=== PATIENT | male | born 1960 | race Caucasian/White ===

== ENCOUNTER 2022-09-06 23:10 | Inpatient (IN) | payer MEDICARE, MEDICAID, SELFPAY ==
[2022-09-06] MEDS: 0.9% Normal Saline 1,000 ML 1000 ML IV ×2 (23:10→23:44)
[2022-09-06 23:11] VITALS: BP 75/45; PULSE 95; RESP 16; TEMP 36.1; O2SAT 100; BMI 28.0
--- NOTE | 2022-09-06 23:20 | EKG12_ITS ---
Test Reason : DYSRHYTHMIA Blood Pressure : / mmHG Vent. Rate : 095 BPM Atrial Rate : 095 BPM P-R Int : 118 ms QRS Dur : 074 ms QT Int : 418 ms P-R-T Axes : 080 034 043 degrees QTc Int : 525 ms Normal sinus rhythm Nonspecific ST abnormality Prolonged QT Abnormal ECG Confirmed by DENZEL CASTRO, LUIS ([id number]), scientific publications editor YAMILE FLORES ([id number]) on 09/08/2022 2:45:00 PM Referred By: SHELLEY Confirmed By:LUIS MAHONEY MD
--- NOTE | 2022-09-06 23:22 | EDS_ITS ---
HPI History of Present Illness Chief Complaint: Fall Detail of Chief Complaint: Hematemesis Informant: patient Narrative Narrative: Patient presents via EMS secondary to vomiting up blood and fall. He has a history of alcoholism. He states he started vomiting a few hours ago and is vomiting dark bloody material. He does report some upper abdominal pain. He does report a history of cirrhosis. He does not follow with a GI or liver sp ecialist. [facility] Medical History Cirrhosis Hypertension Home Medications No Known/Unobtainable [No Known Home Medications] 07/09/17 [History Last Taken Unknown] Allergy/AdvReac Type Severity Reaction Status Date / Time morphine Allergy Unknown Verified 09/06/22 23:22 Social History Smoking Status: Current every day smoker tobacco type: cigarettes ROS ROS ED Constitutional Constitutional ED: Denies chills or fever(s) Eyes Eyes: Denies change in vision or discharge from eye(s) ENT ENT ED: Denies discharge from eye(s), rhinorrhea or sore throat Cardiovascular Cardiovascular: Denies chest pain or palpitations Respiratory/Chest Respiratory/Chest: Denies cough or dyspnea Gastrointestinal Gastrointestinal: Reports abdominal pain, nausea and vomiting Genitourinary Genitourinary ED: Denies dysuria Musculoskeletal Musculoskeletal: Denies back pain or extremity pain Integumentary Denies Abrasions or rash Neurologic Neurologic: Reports weakness; Denies headache(s) Psychiatric Psychiatric: Denies anxiety or depression Allergic/Immunologic Allergic/Immunologic ED: Denies lip swelling or urticaria EXAM Physical Exam Const Vital Signs: 09/06/22 23:11 Temperature 97 F L Temperature Source Temporal Pulse Rate 95 Respiratory Rate 16 Blood Pressure 75/45 L Blood Pressure Mean 55 Pulse Ox 100 Oxygen Delivery Method Room Air Positive unkempt General Appearance ED: unkempt HEENT Reports normocephalic and head/scalp atraumatic Eyes PERRL and EOMs intact bilaterally Neck supple Chest Wall inspection of chest normal and palpation of chest normal Resp normal respiratory effort and clear to auscultation bilaterally Cardio regular rate and regular rhythm GI GI Narrative: Upper abdominal tenderness palpation. No guarding or rebound. Hypoactive bowel sounds. Palpation: soft Extremity normal to inspection Neuro oriented x3 Neuro Narrative: Generalized weakness but no focal neurodeficits. Sensorium / Orientation: alert Psych mental status grossly normal Appearance: unkempt Skin no rashes or lesions noted MDM MDM MDM Narrative Medical decision making narrative: Patient placed on compliance monitor. EKG, lab work obtained. Patient ordered 3 L IV fluids. Type and screen obtained. Lab Data Attestation: I reviewed the patient's lab results. Labs: Laboratory Results - last 24 hr 09/06/22 09/06/22 09/06/22 23:21 23:21 23:21 WBC 5.3 RBC 1.82 L Hgb 4.2 L* Hct 14.9 L MCV 81.9 MCH 23.1 L MCHC 28.2 L RDW Std Deviation 54.5 H RDW Coeff of Bassam 18.5 H Plt Count 156 MPV 10.5 Immature Gran % (Auto) 1.500 H Neut % (Auto) 65.9 Lymph % (Auto) 19.2 [place] % (Auto) 12.8 H Eos % (Auto) 0.2 Baso % (Auto) 0.4 Absolute Neuts (auto) 3.5 Absolute Lymphs (auto) 1.02 Nucleated RBC % 1.3 Diff Path Review May foll Hypochromasia 3+ Anisocytosis 2+ PT 19.1 H INR 1.6 APTT 32.5 Sodium 144 Potassium 3.9 Chloride 109 H Carbon Dioxide 23.0 Anion Gap 12 BUN 49 H Creatinine 1.22 Estim Creat Clear Calc 65.65 Est GFR (MDRD) Af Amer 78 Est GFR (MDRD) Non-Af 64 BUN/Creatinine Ratio 40.2 H Glucose 163 H Lactic Acid Calcium 7.8 L Total Bilirubin 0.50 Direct Bilirubin 0.15 AST 27 ALT 30 Alkaline Phosphatase 76 Total Protein 4.7 L Albumin 2.1 L Globulin 2.6 Lipase 96 Ethyl Alcohol Blood Type Antibody Screen Crossmatch 09/06/22 09/06/22 09/06/22 23:21 23:21 23:30 WBC RBC Hgb Hct MCV MCH MCHC RDW Std Deviation RDW Coeff of Bassam Plt Count MPV Immature Gran % (Auto) Neut % (Auto) Lymph % (Auto) [place] % (Auto) Eos % (Auto) Baso % (Auto) Absolute Neuts (auto) Absolute Lymphs (auto) Nucleated RBC % Diff Path Review Hypochromasia Anisocytosis PT INR APTT Sodium Potassium Chloride Carbon Dioxide Anion Gap BUN Creatinine Estim Creat Clear Calc Est GFR (MDRD) Af Amer Est GFR (MDRD) Non-Af BUN/Creatinine Ratio Glucose Lactic Acid Calcium Total Bilirubin Direct Bilirubin AST ALT Alkaline Phosphatase Total Protein Albumin Globulin Lipase Ethyl Alcohol < 3.0 Blood Type O POSITIVE Antibody Screen NEGATIVE Crossmatch See Detail 09/06/22 23:30 WBC RBC Hgb Hct MCV MCH MCHC RDW Std Deviation RDW Coeff of Bassam Plt Count MPV Immature Gran % (Auto) Neut % (Auto) Lymph % (Auto) [place] % (Auto) Eos % (Auto) Baso % (Auto) Absolute Neuts (auto) Absolute Lymphs (auto) Nucleated RBC % Diff Path Review Hypochromasia Anisocytosis PT INR APTT Sodium Potassium Chloride Carbon Dioxide Anion Gap BUN Creatinine Estim Creat Clear Calc Est GFR (MDRD) Af Amer Est GFR (MDRD) Non-Af BUN/Creatinine Ratio Glucose Lactic Acid 6.6 H* Calcium Total Bilirubin Direct Bilirubin AST ALT Alkaline Phosphatase Total Protein Albumin Globulin Lipase Ethyl Alcohol Blood Type Antibody Screen Crossmatch EKG Initial EKG: Attestation: I personally reviewed and interpreted this EKG as follows: Interpretation: Sinus Rhythm (Sinus at [address] d epression. QTC is 525.) Treatment and Re-Evaluation Narrative: In light light of the patient's prolonged QTC he was given a dose of Reglan followed by dose of Phenergan for nausea. He was given Protonix drip, octreotide drip, Rocephin. Lab work returns with normal white count at 5.3. Hemoglobin is 4.2. Platelet count is 156. Chemistry studies reveal normal creatinine 1.22 with elevated BUN at 49. INR is 1.6. LFTs are unremarkable. Lactic acid is 6.6. Alcohol level is less than 3. When the patient's hemoglobin returned at 4.2, I ordered 4 units of packed RBCs. Transfusion is beginning at this time. His blood pressure is currently 97/46. I spoke with Dr. Ramon who will see the patient in consult. I will speak with the hospitalist regarding admission. Discharge Plan Triage Chief Complaint: Fall ED Provider: Iwona Early Dx/Rx/DC Orders Clinical Impression: Acute upper gastrointestinal bleeding, Anemia, Hypotension Prescriptions: No Action No Known Home Medications Primary Care Provider: Jose Alex Referrals: Jose Alex MD [Primary Care Provider] - Disposition Disposition: Acute Care [facility]
[2022-09-06] MEDS: Metoclopramide 10 MG/2 ML Vial 5 MG IV (23:29)
[2022-09-06] MEDS: 0.9% Normal Saline 1,000 ML 250 ML IV (23:49)
[2022-09-06] MEDS: proMETHazine 25 MG/ML Syringe IM (23:49)
[2022-09-06 23:50] LABS: Absolute Lymphocyte Count 1.02 X10^3/uL (0.83-4.51); Absolute Neutrophil Count 3.5 X10^3/uL (2.0-7.7); Basophil# 0.02 X10^3/uL; Basophil% 0.4 % (0-1); Eosinophil# 0.01 X10^3/uL; Eosinophils% 0.2 % (0-5); Hematocrit 14.9 % (40-54); Lymphocyte # 1.02 X10^3/ul (0.83-4.51); Lymphocyte % 19.2 % (19-41); Mean Corp Hgb Conc 28.2 g/dL (32-36); Mean Corpuscular Hgb 23.1 pg (27.0-32.0); Mean Corpuscular Volume 81.9 fL (80-94); Mean Platelet Vol. 10.5 fl (6.2-12.0); Monocyte# 0.68 X10^3/uL; Monocyte% 12.8 % (0-10); NRBC Flagged by Analyzer 1.3 % (0-5); Neutrophil # 3.51 X10^3/uL (2.7-7.7); Neutrophil % 65.9 % (47-70); POSITIVE COUNT YES; Platelet Count 156 K/mm3 (150-450); RBC Distribution Width CV 18.5 % (11.6-14.6); RBC Distribution Width SD 54.5 fl (35.1-43.9); Red Blood Count 1.82 M/mm3 (4.6-6.2); White Blood Count 5.3 K/mm3 (4.4-11.0)
[2022-09-06 23:52] LABS: International Normalized Ratio 1.6; Partial Thromboplast Time 32.5 Seconds (24.1-36.2); Prothrombin Time (Protime)PT. 19.1 SECONDS (11.7-14.9)
[2022-09-06 23:53] LABS: Differential Indicated SCAN CRITERIA MET; Hemoglobin 4.2 g/dL (13.0-16.5)
[2022-09-07] VITALS (41 sets, daily range): BP systolic 86–158; BP diastolic 46–115; PULSE 54–110; RESP 11–115; TEMP 36.4–38.6; O2SAT 15–100; BMI 28.9
[2022-09-07 00:06] LABS: AST(SGOT) 27 U/L (15-37); Alanine Aminotransfer ALT/SGPT 30 U/L (16-61); Albumin, Serum 2.1 g/dL (3.2-5.0); Alkaline Phosphatase 76 U/L (45-117); Anion Gap 12 (5-15); BUN 49 mg/dL (7-18); BUN/Creat Ratio 40.2 RATIO (10-20); Bilirubin, Direct 0.15 mg/dL (0.00-0.30); Calcium,Total 7.8 mg/dL (8.5-10.1); Chloride 109 mmol/L (98-107); Creatinine, Serum 1.22 mg/dL (0.70-1.30); EST Glomerular Filtration Rate 64 mL/min (>60); Est Glom Filt Rate - Afr Amer 78 mL/min (>60); Estimated Creatinine Clearance 65.65 ml/min; Globulin 2.6 g/dL (2.2-4.2); Glucose 163 mg/dL (74-106); Lipase 96 U/L (73-393); Potassium 3.9 mmol/L (3.5-5.1); Protein, Total 4.7 g/dL (6.4-8.2); Sodium Level 144 mmol/L (136-145)
[2022-09-07 00:08] LABS: Lactic Acid 6.6 mmol/L (0.4-1.9)
[2022-09-07 00:14] LABS: Alcohol, Blood (Medical)-Serum < 3.0 mg/dL
[2022-09-07 00:20] LABS: Anisocytosis 2+; Hypochromasia 3+
--- NOTE | 2022-09-07 00:38 | PCM.HP.STD ---
HPI - General General Date of Admission: 09/07/22 Date of Service: 09/07/22 Chief Complaint: Hematemesis HPI Narrative CHERRIE WOODARD, is a 62 M with a significant history of alcoholism who presented to the emergency department with hematemesis. History was obtained from review of system as patient is encephalopathic and does not provide history. Reportedly patient vomited multiple bloody emesis at the emergency department. [facility] Medical History Cirrhosis Hypertension Home Medications No Known/Unobtainable [No Known Home Medications] 07/09/17 [History Last Taken Unknown] Allergy/AdvReac Type Severity Reaction Status Date / Time morphine Allergy Unknown Verified 09/06/22 23:22 Family History unable to obtain unable to obtain (Encephalopathy) Surgical History unable to obtain unable to obtain (Encepalopathy) Social History Smoking Status: Current every day smoker tobacco type: cigarettes ROS Review of Systems ROS Unobtainable: due to mental condition Vital Signs Vital Signs Vital Signs: 09/06/22 23:11 09/07/22 00:36 Temperature 97 F L 98.1 F Temperature Source Temporal Temporal Pulse Rate 95 99 Respiratory Rate 16 18 Blood Pressure 75/45 L 97/46 L Blood Pressure Mean 55 63 Blood Pressure Source Monitor Pulse Ox 100 94 Oxygen Delivery Method Room Air Room Air Weight Weight: 88.7 kg Body Mass Index (BMI) 28.0 Physical Exam Narrative Physical exam: General: Well-nourished, well-developed. Head: Normocephalic, atraumatic, no tenderness Eyes: Vision is grossly intact. EOMI ENT: Edentulous, bloody stained tongue. Neck: Nontender, No thyromegaly. CVS: Regular rate and rhythm. S1-S2 present. No murmur, gallop or rub. Respiratory : clear to auscultation bilaterally, chest wall nontender, no wheezing Abdomen: Soft, nontender, nondistended, normal bowel sounds, no masses : Deferred Back: Nontender, no CVA tenderness. Extremities: Nontender full range of motion, no trauma Skin: Normal color, no trauma, abrasions Neuro: Agitated. Confused. Psychiatry: Normal mood. Normal affect. Not depressed. Not anxious. Results Lab / Micro Data Result Diagrams: 09/06/22 23:21 09/06/22 23:21 Labs: Laboratory Results - last 24 hr 09/06/22 23:21: WBC 5.3, RBC 1.82 L, Hgb 4.2 L*, Hct 14.9 L, MCV 81.9, MCH 23.1 L, MCHC 28.2 L, RDW Std Deviation 54.5 H, RDW Coeff of Bassam 18.5 H, Plt Count 156, MPV 10.5, Immature Gran % (Auto) 1.500 H, Neut % (Auto) 65.9, Lymph % (Auto) 19.2, [place] % (Auto) 12.8 H, Eos % (Auto) 0.2, Baso % (Auto) 0.4, Absolute Neuts (auto) 3.5, Absolute Lymphs (auto) 1.02, Nucleated RBC % 1.3, Diff Path Review May foll, Hypochromasia 3+, Anisocytosis 2+ 09/06/22 23:21: PT 19.1 H, INR 1.6, APTT 32.5 09/06/22 23:21: Sodium 144, Potassium 3.9, Chloride 109 H, Carbon Dioxide 23.0, Anion Gap 12, BUN 49 H, Creatinine 1.22, Estim Creat Clear Calc 65.65, Est GFR (MDRD) Af Amer 78, Est GFR (MDRD) Non-Af 64, BUN/Creatinine Ratio 40.2 H, Glucose 163 H, Calcium 7.8 L, Total Bilirubin 0.50, Direct Bilirubin 0.15, AST 27, ALT 30, Alkaline Phosphatase 76, Total Protein 4.7 L, Albumin 2.1 L, Globulin 2.6, Lipase 96 09/06/22 23:21: Blood Type O POSITIVE, Antibody Screen NEGATIVE 09/06/22 23:21: Crossmatch See Detail 09/06/22 23:30: Ethyl Alcohol < 3.0 09/06/22 23:30: Lactic Acid 6.6 H* Assessment & Plan Assessment/Plan (1) Hemorrhagic shock: (2) Acute upper gastrointestinal bleeding: (3) Anemia: PLAN: Plan Hemorrhagic shock due to acute blood loss anemia from upper GI Initial blood pressure 75/45. Bloody emesis. 4 units of packed red blood cells ordered at the emergency department. Trend H&H. Received multiple boluses of fluid in the ED. Maintenance infusion continued. Protonix drip started at the emergency department and continued. Octreotide drip started at the emergency department continued. Ceftriaxone ordered at the emergency department continued. Keep n.p.o. GI consult. Will admit intensive care unit. Land Surveying Manager consult. Prolonged QTC Avoid QTC prolongation drugs. Alcoholism CIWA protocol ordered. As needed Ativan ordered. IV thiamine and IV folic acid ordered. DVT prophylaxis: SCDs ordered. Charges/Coding Visit Charges Inpatient E&M: 61621 Init Hosp L3
[2022-09-07] MEDS: 0.9% Normal Saline 1,000 ML 999 ML IV (00:39)
[2022-09-07] MEDS: fentaNYL 100 MCG/2 ML Ampul 12.5 MCG IV (01:32)
--- NOTE | 2022-09-07 01:46 | NURSING ---
Protonix bolus given start Protonix drip in one hour per hospitalist verbal order.
[2022-09-07 03:51] LABS: Reflex Lactate? Y
[2022-09-07] MEDS: 0.9% Normal Saline 1,000 ML 150 ML IV ×3 (04:17→18:58)
[2022-09-07] MEDS: 0.9% Saline Lock 10 ML Syringe IV (04:17)
[2022-09-07 04:38] LABS: Anion Gap 9 (5-15); BUN 51 mg/dL (7-18); BUN/Creat Ratio 50.5 RATIO (10-20); Calcium,Total 7.6 mg/dL (8.5-10.1); Chloride 111 mmol/L (98-107); Creatinine, Serum 1.01 mg/dL (0.70-1.30); EST Glomerular Filtration Rate 80 mL/min (>60); Est Glom Filt Rate - Afr Amer 96 mL/min (>60); Estimated Creatinine Clearance 76.81 ml/min; Glucose 124 mg/dL (74-106); Potassium 4.2 mmol/L (3.5-5.1); Sodium Level 144 mmol/L (136-145)
[2022-09-07 04:47] LABS: Lactic Acid 3.4 mmol/L (0.4-1.9)
--- NOTE | 2022-09-07 06:00 | RAD_ITS ---
EXAM: XR CHEST, 1 VIEW CLINICAL INDICATION: aspiration -- portable TECHNIQUE: Frontal view of the chest. This report was created using Equivalent DATA report generation technology. COMPARISON: 07/09/2017. FINDINGS: LUNGS AND PLEURAL SPACES: Unremarkable. No consolidation or edema. No pneumothorax. No effusion. HEART: Unremarkable. Cardiac silhouette not enlarged. MEDIASTINUM: Central airways and mediastinal contour are unremarkable. BONES/JOINTS: Unremarkable. SOFT TISSUES: Unremarkable. RAD/Chest 1 View (Portable) IMPRESSION: No radiographic evidence of acute cardiopulmonary disease. Electronically Signed: Nilo Ferguson MD at 7:21 EST ,
--- NOTE | 2022-09-07 07:32 | EX.PCM.CONCC ---
Assessment & Plan Assessment/Plan (1) Hemorrhagic shock: (2) Acute upper gastrointestinal bleeding: (3) Cirrhosis: PLAN: Plan RECOMMENDATIONS: 1. Transition to Unasyn for aspiration coverage 2. Recheck H&H after blood transfusions 3. Potentially add phenobarb if CIWA increasing 4. Await GI plans 5. Continue drips for now 6. No further lactate levels are necessary IMPRESSIONS: 1. Hemorrhagic shock secondary to acute blood loss anemia secondary to probable upper GI bleed Patient presented significantly hypotensive with a hemoglobin of 4. Clinical suspicion is patient has had chronic ongoing blood loss with poor follow-up. GI has been consulted. Patient is receiving 4 units of packed red blood cells and appears to be tolerating this well. We will repeat H&H after this is done. Continue with octreotide and Protonix drips pending EGD. 2. Prolonged QTC Unclear etiology. Avoid Haldol and Seroquel. Likely used benzodiazepines for agitation given patient's drinking history despite increased risk for delirium. 3. Alcoholism/poor historian/poor primary care Complicates care, management, recovery and prognosis. Continue to monitor CIWA protocol. Initiate phenobarb if scores start to elevate. HPI Consult Data Date of Consult: 09/07/22 HPI Narrative Reason for Consultation: GI bleed HPI Narrative: CHERRIE WOODARD is a 62 M, with past medical history listed below, who presents to [facility] on 09/06/2022 after being found by EMS surrounded by vomit with some blood and a fall. Patient does have a history of alcoholism and reportedly started to cough up some dark bloody material. Patient had reported some upper abdominal pain and cirrhosis to EMS. In the ER, patient was saturating well on room air, but was hypotensive at 75/45 with a heart rate of 95. Laboratory work-up showed a white blood cell count of 5.3, hemoglobin of 4.2 and platelets of 156. INR was elevated at 1.6 and creatinine was 1.22. Glucose was elevated at 163 with a negative alcohol level and a lactate of 6.6. Patient was given Rocephin, octreotide and Protonix drips. Patient was also ordered 4 units of packed red blood cells and GI was consulted. Patient was admitted to the intensive care unit for further evaluation. In the intensive care unit, patient is somewhat confused. Patient states at times that he only drinks 1 beer per day, but it others that he buys 60 beers per week, but my neighbor is the one that drinks it all. Patient does state that he used to have an alcohol problem in the past. Patient is unable to quantify how long he has been having GI losses. Patient does state that occasionally he will have hemorrhoidal type bleeding, but is denying any melena. Unable to obtain a full review of systems and review of PFSH secondary to poor historian. [facility]SH Medical History Cirrhosis Hypertension Home Medications No Known/Unobtainable [No Known Home Medications] 07/09/17 [History Last Taken Unknown] Allergy/AdvReac Type Severity Reaction Status Date / Time morphine Allergy Unknown Verified 09/06/22 23:22 Family History unable to obtain Surgical History unable to obtain Social History Smoking Status: Current every day smoker tobacco type: cigarettes ROS Review of Systems ROS Unobtainable: due to mental status Physical Exam Const alert, oriented x3 and no apparent distress Constitutional Narrative: Appears older than stated age General Appearance: Negative for in distress HEENT normocephalic and head/scalp atraumatic; Negative for moist oral mucous membranes HEENT Narrative: Edentulous Eyes PERRL, EOMs intact bilaterally and conjunctivae normal Eyes Narrative: Scleral injection noted Neck full ROM Lymph Lymphatic: no lymphadenopathy noted Resp normal respiratory effort and no use of accessory muscles Resp Narrative: Slightly muffled speech Effort and Inspection: able to speak in complete sentences Auscultation: clear to auscultation bilaterally; Negative for rales, rhonchi or wheezes Cardio regular rhythm, S1 normal heart sound, S2 normal heart sound, no murmurs, no rub, no gallops and no JVD Rate: tachycardic GI normal to inspection, nondistended, normoactive bowel sounds Narrative: Mild CVA tenderness noted Extremity no clubbing, cyanosis or edema Skin Skin Narrative: Scattered telangiectasias noted Neuro CN's II-XII intact bilaterally, moves all extremities and no focal motor deficits Psych Activity / Motor Behavior: restless Mood & Affect: flat affect Lab / Micro Data Attestation: I reviewed the patient's lab results. Result Diagrams: 09/07/22 09:45 09/07/22 04:15 Labs: Laboratory Results - last 24 hr 09/06/22 23:21: WBC 5.3, RBC 1.82 L, Hgb 4.2 L*, Hct 14.9 L, MCV 81.9, MCH 23.1 L, MCHC 28.2 L, RDW Std Deviation 54.5 H, RDW Coeff of Bassam 18.5 H, Plt Count 156, MPV 10.5, Immature Gran % (Auto) 1.500 H, Neut % (Auto) 65.9, Lymph % (Auto) 19.2, [place] % (Auto) 12.8 H, Eos % (Auto) 0.2, Baso % (Auto) 0.4, Absolute Neuts (auto) 3.5, Absolute Lymphs (auto) 1.02, Nucleated RBC % 1.3, Diff Path Review May foll, Hypochromasia 3+, Anisocytosis 2+ 09/06/22 23:21: PT 19.1 H, INR 1.6, APTT 32.5 09/06/22 23:21: Sodium 144, Potassium 3.9, Chloride 109 H, Carbon Dioxide 23.0, Anion Gap 12, BUN 49 H, Creatinine 1.22, Estim Creat Clear Calc 65.65, Est GFR (MDRD) Af Amer 78, Est GFR (MDRD) Non-Af 64, BUN/Creatinine Ratio 40.2 H, Glucose 163 H, Calcium 7.8 L, Total Bilirubin 0.50, Direct Bilirubin 0.15, AST 27, ALT 30, Alkaline Phosphatase 76, Total Protein 4.7 L, Albumin 2.1 L, Globulin 2.6, Lipase 96 09/06/22 23:21: Blood Type O POSITIVE, Antibody Screen NEGATIVE 09/06/22 23:21: Crossmatch See Detail 09/06/22 23:30: Ethyl Alcohol < 3.0 09/06/22 23:30: Lactic Acid 6.6 H* 09/07/22 04:15: Sodium 144, Potassium 4.2, Chloride 111 H, Carbon Dioxide 24.0, Anion Gap 9, BUN 51 H, Creatinine 1.01, Estim Creat Clear Calc 76.81, Est GFR (MDRD) Af Amer 96, Est GFR (MDRD) Non-Af 80, BUN/Creatinine Ratio 50.5 H, Glucose 124 H, Calcium 7.6 L 09/07/22 04:15: Lactic Acid 3.4 H* Radiology Impression Chest X-Ray 09/07/22 06:00 IMPRESSION: No radiographic evidence of acute cardiopulmonary disease. Electronically Signed: Cherrie Ferguson MD at 7:21 EST , Charges/Coding Visit Charges Inpatient E&M: 48238 Init Hosp L3
--- NOTE | 2022-09-07 07:33 | CON.PCM.GI_ITS ---
HPI Consult Data Date of Consult: 09/07/22 HPI Narrative Reason for Consultation: Hematemesis HPI Narrative: NILO WOODARD, is a 62 M who presented via EMS secondary to vomiting up blood and fall.? He has a history of alcoholism.? He states he started vomiting a few hours ago and is vomiting dark bloody material.? He does report some upper abdominal pain.? He does report a history of cirrhosis secondary to alcohol. It is not known if he has a history of hepatitis C. In the ED he was discovered to have a hemoglobin of 4.2. His previous hemoglobin was 13 with elevated MCV at 108 and a platelet count of 89 on his last visit to the emergency room. Currently his platelet count is 125, hemoglobin is 4.2, white blood cell count is 5.8 with INR 1.6. He cannot give a very good history at this time so most of the history is obtained from the chart. Chest x-ray did not show any acute cardiopulmonary process. He does not have any imaging of his liver. Currently he is mildly tachycardic and febrile to 101.4..? [facility] Medical History Cirrhosis Hypertension Home Medications No Known/Unobtainable [No Known Home Medications] 07/09/17 [History Last Taken Unknown] Allergy/AdvReac Type Severity Reaction Status Date / Time morphine Allergy Unknown Verified 09/06/22 23:22 Family History unable to obtain Surgical History unable to obtain Social History Smoking Status: Current every day smoker tobacco type: cigarettes ROS Review of Systems ROS Unobtainable: due to mental condition Physical Exam Narrative Physical exam: General: Well-nourished, well-developed. Head: Normocephalic, atraumatic, no tenderness Eyes: Vision is grossly intact. EOMI ENT: Edentulous, bloody stained tongue. Neck: Nontender, No thyromegaly. CVS: Regular rate and rhythm. S1-S2 present. No murmur, gallop or rub. Respiratory : clear to auscultation bilaterally, chest wall nontender, no wheezing Abdomen: Soft, nontender, nondistended, normal bowel sounds, no masses : Deferred Back: Nontender, no CVA tenderness. Extremities: Nontender full range of motion, no trauma Skin: Normal color, no trauma, abrasions Neuro: Agitated. Confused. Psychiatry: Normal mood. Normal affect. Not depressed. Not anxious. Lab / Micro Data Result Diagrams: 09/06/22 23:21 09/07/22 04:15 Labs: Laboratory Results - last 24 hr 09/06/22 23:21: WBC 5.3, RBC 1.82 L, Hgb 4.2 L*, Hct 14.9 L, MCV 81.9, MCH 23.1 L, MCHC 28.2 L, RDW Std Deviation 54.5 H, RDW Coeff of Bassam 18.5 H, Plt Count 156, MPV 10.5, Immature Gran % (Auto) 1.500 H, Neut % (Auto) 65.9, Lymph % (Auto) 19.2, [place] % (Auto) 12.8 H, Eos % (Auto) 0.2, Baso % (Auto) 0.4, Absolute Neuts (auto) 3.5, Absolute Lymphs (auto) 1.02, Nucleated RBC % 1.3, Diff Path Review May foll, Hypochromasia 3+, Anisocytosis 2+ 09/06/22 23:21: PT 19.1 H, INR 1.6, APTT 32.5 09/06/22 23:21: Sodium 144, Potassium 3.9, Chloride 109 H, Carbon Dioxide 23.0, Anion Gap 12, BUN 49 H, Creatinine 1.22, Estim Creat Clear Calc 65.65, Est GFR (MDRD) Af Amer 78, Est GFR (MDRD) Non-Af 64, BUN/Creatinine Ratio 40.2 H, Glucose 163 H, Calcium 7.8 L, Total Bilirubin 0.50, Direct Bilirubin 0.15, AST 27, ALT 30, Alkaline Phosphatase 76, Total Protein 4.7 L, Albumin 2.1 L, Globulin 2.6, Lipase 96 09/06/22 23:21: Blood Type O POSITIVE, Antibody Screen NEGATIVE 09/06/22 23:21: Crossmatch See Detail 09/06/22 23:30: Ethyl Alcohol < 3.0 09/06/22 23:30: Lactic Acid 6.6 H* 09/07/22 04:15: Sodium 144, Potassium 4.2, Chloride 111 H, Carbon Dioxide 24.0, Anion Gap 9, BUN 51 H, Creatinine 1.01, Estim Creat Clear Calc 76.81, Est GFR (MDRD) Af Amer 96, Est GFR (MDRD) Non-Af 80, BUN/Creatinine Ratio 50.5 H, Glucose 124 H, Calcium 7.6 L 09/07/22 04:15: Lactic Acid 3.4 H* Radiology Impression Chest X-Ray 09/07/22 06:00 IMPRESSION: No radiographic evidence of acute cardiopulmonary disease. Electronically Signed: Nilo Ferguson MD at 7:21 EST , Assessment & Plan Assessment/Plan (1) Acute upper gastrointestinal bleeding: PLAN: Differential diagnosis for upper GI bleed would be acute esophageal, gastric, duodenum variceal bleeding, Tejal-Telles tear, alcoholic gastritis, peptic ulcer disease., Angiodysplasia. Patient undergoing upper endoscopy to evaluate his upper GI tract. At that time we may be able to place an NG tube to give him lactulose. (2) Cirrhosis: PLAN: He will need imaging of his liver with a CT scan abdomen pelvis. He will also need an ultrasound of the liver. If he truly does have cirrhosis by his blood work does not show it. His platelet count is normal, his LFTs are normal, his INR is mildly elevated but that could be secondary to poor nutrition. I will wait to see what the imaging shows regarding likely cirrhosis. (3) Encephalopathy: PLAN: Acute encephalopathy likely secondary to GI bleed. Awaiting his repeat CBC. He may need NG tube with lactulose administration which can be done when he has endoscopy. Recommend to check ammonia level, LDH, await blood cultures, urine cultures and imaging to look for source of infection. Charges/Coding Visit Charges Inpatient E&M: 10441 Init Hosp L3
--- NOTE | 2022-09-07 07:41 | US_ITS ---
HISTORY: cirrhosis and encephalopathy. TECHNIQUE: Ulloa scale and color doppler imaging was performed of the right upper quadrant. 77 images. COMPARISON: None. FINDINGS: LIVER: 18.4 cm in length. Markedly heterogeneous echotexture with a nodular contour and a 4.3 x 4.4 x 4.5 cm heterogeneous mass in the right lobe. No intrahepatic ductal dilatation. Trace perihepatic ascites. MAIN PORTAL VEIN: Patent. COMMON BILE DUCT: 6 mm in diameter. GALLBLADDER: Multiple gallstones. 10 mm wall thickness. Mild pericholecystic fluid. Sonographic Florian sign negative. PANCREAS: Visualized proximal portion unremarkable. RIGHT KIDNEY: 11.5 cm in length with a cortical thickness of 1.9 cm. No hydronephrosis or gross renal mass demonstrated. US/Abdomen Limited IMPRESSION: Cirrhotic liver with a 4.5 cm mass, suspicious for neoplasm. Trace ascites. Cholelithiasis with gallbladder wall thickening and mild pericholecystic fluid from generalized edema or acute cholecystitis. Consider correlation with scintigraphy. N.B. : Pippa Martinez RN, confirmed on 09/07/2022 12:02:31 (ET) that the healthcare facility has received the radiology report. Electronically Signed: Janene Holden MD at 11:49 EST ,
[2022-09-07 09:56] LABS: Absolute Lymphocyte Count 1.65 X10^3/uL (0.83-4.51); Absolute Neutrophil Count 6.2 X10^3/uL (2.0-7.7); Basophil# 0.03 X10^3/uL; Basophil% 0.3 % (0-1); Eosinophil# 0.07 X10^3/uL; Eosinophils% 0.8 % (0-5); Hematocrit 25.4 % (40-54); Hemoglobin 8.1 g/dL (13.0-16.5); Lymphocyte # 1.65 X10^3/ul (0.83-4.51); Lymphocyte % 18.4 % (19-41); Mean Corp Hgb Conc 31.9 g/dL (32-36); Mean Corpuscular Volume 81.7 fL (80-94); Mean Platelet Vol. 9.5 fl (6.2-12.0); Monocyte# 1.01 X10^3/uL; Monocyte% 11.2 % (0-10); NRBC Flagged by Analyzer 0 % (0-5); Neutrophil # 6.19 X10^3/uL (2.7-7.7); Neutrophil % 68.9 % (47-70); Platelet Count 128 K/mm3 (150-450); RBC Distribution Width CV 17.2 % (11.6-14.6); RBC Distribution Width SD 51.1 fl (35.1-43.9); Red Blood Count 3.11 M/mm3 (4.6-6.2)
[2022-09-07 10:06] LABS: International Normalized Ratio 1.5; Partial Thromboplast Time 31.1 Seconds (24.1-36.2); Prothrombin Time (Protime)PT. 17.3 SECONDS (11.7-14.9)
--- NOTE | 2022-09-07 11:42 | CASEMGMT ---
Social Work SW called pt's PCP, Dr. Alex, to see if there is any other family listed as contacts for him. They also have pt's mother Nirav Avendaño at [phone]. Pt has not been to Dr. Alex since 2018. ALICE Doss
--- NOTE | 2022-09-07 12:00 | CT_ITS ---
STUDY: CT ABDOMEN AND PELVIS WITH CONTRAST REASON FOR EXAM: Male, 62 years old. Jaundice, liver mass, cirrhosis RADIATION DOSAGE (If Supplied By Facility): CTDIvol = ( 19.12 ) mGy, DLP = ( 1798.63 ) mGycm TECHNIQUE: Transaxial images were obtained from the dome of the diaphragm to the symphysis pubis without oral contrast. IV 100mL Isovue-300 was administered. Sagittal and coronal images were reconstructed. Individualized dose optimization techniques were used for this CT. COMPARISON: Comparison is made with prior ultrasound of the right upper quadrant done earlier in the day. FINDINGS: Mild increased markings at lung bases suggestive of a atelectasis and/or scarring. Coronary artery calcification. There is a diffuse contour abnormality of the liver consistent with cirrhotic changes. There is enlargement of the caudate lobe of the liver. Heterogeneous appearance of the liver. Findings suggestive of multiple small cysts throughout both the right and left lobes. There is evidence of a 4 cm x 4.1 cm heterogeneous solid mass in the mid lateral portion of the right lobe of the liver. This corresponds to the sonographic findings. Mildly distended gallbladder. Thickened gallbladder wall. Pericholecystic fluid. Small gallstones are seen in the dependent portion of the gallbladder lumen. Normal spleen. Normal pancreas. Normal bilateral adrenal glands. Small cysts are seen in the right kidney. There is a 4.1 cm x 3.1 cm complex cystic mass in the peripheral inferior aspect of the left kidney with a calcific rim. Small left renal cysts. Circumferential thickening of the gastroesophageal junction. Esophageal carcinoma should be ruled out. Normal small intestine. Large amount of fecal material is seen throughout the colon more prominent in the right hemicolon. The appendix is visualized and appears normal. There is scattered atherosclerotic calcification of the abdominal aorta, without a demonstrated aneurysm. Normal inferior vena cava. Normal retroperitoneum. A ERICKSON catheter is seen within the urinary bladder. The urinary bladder is empty. Diffuse bladder wall thickening. Small amount of free fluid is seen in the pelvis. Small amount of fluid is seen in the root of the mesentery. Calcifications seen within the prostate. Normal abdominal wall. There are degenerative changes of the visualized lumbar spine. CT/Abdomen/Pelvis W IV Cont ONLY IMPRESSION: Findings suggestive of cirrhosis of the liver. 4 cm x 4.1 cm heterogeneous solid mass in the mid lateral aspect of the right lobe of the liver. This corresponds to the sonographic findings. Mildly distended gallbladder lumen with thickened gallbladder wall and pericholecystic fluid. Small gallstones are seen within the dependent portion of the gallbladder lumen. Electronically Signed: Primo Luz MD at 14:04 EST ,
--- NOTE | 2022-09-07 15:15 | CASEMGMT ---
RN CM NOTE: TC to pt's mom, Kimberli, for initial RN CM assessment. Pt's father, Chilango, answered the phone. He states Kimberli just left to come to [facility] to see pt, and it would take approx an hour for her to get to [facility]. RN asked Chilango if he was able to answer some questions re: Nilo. Chilango states he is sick and that Kimberli would be able to answer questions better. Chilango did state pt has 2 sons, stating one lives here and states does not know where the other son is. Fito PABLON RN CM
--- NOTE | 2022-09-07 15:30 | NURSING ---
pt transferred off floor to endoscopy via endoscopy staff. Two rings unable to be taken off, pt to endo with two rings on left hand. Endo staff to call motherKimberli to review risks.
[2022-09-07 16:20] LABS: Troponin-I HS 41 pg/mL (3.0-78.0)
[2022-09-07 16:20] LABS: Troponin-I HS 35 pg/mL (3.0-78.0)
--- NOTE | 2022-09-07 16:48 | OP.EGD_ITS ---
Patient Name: Nilo Hood Procedure Date: 09/07/2022 4:13 PM Date of : 1960 Age: 62 Procedure: Upper GI endoscopy Indications: Acute post hemorrhagic anemia, Hematemesis Providers: Sheldon Ramon DO Medicines: Monitored Anesthesia Care Patient Profile: This is a 62 year old male. Refer to note in patient chart for documentation of history and physical. Patient has symptoms of acute vomiting. Complications: No immediate complications. Procedure: Pre-Anesthesia Assessment: - Prior to the procedure, a History and Physical was performed, and patient medications and allergies were reviewed. The patient is competent. The risks and benefits of the procedure and the sedation options and risks were discussed with the patient. All questions were answered and informed consent was obtained. Patient identification and proposed procedure were verified by the physician in the pre-procedure area. Mental Status Examination: alert and oriented. Airway Examination: normal oropharyngeal airway and neck mobility. Respiratory Examination: clear to auscultation. CV Examination: normal. Prophylactic Antibiotics: The patient does not require prophylactic antibiotics. Prior Anticoagulants: The patient has taken no previous anticoagulant or antiplatelet agents. ASA Grade Assessment: II - A patient with mild systemic disease. After reviewing the risks and benefits, the patient was deemed in satisfactory condition to undergo the procedure. The anesthesia plan was to use monitored anesthesia care (MAC). Immediately prior to administration of medications, the patient was re-assessed for adequacy to receive sedatives. The heart rate, respiratory rate, oxygen saturations, blood pressure, adequacy of pulmonary ventilation, and response to care were monitored throughout the procedure. The physical status of the patient was re-assessed after the procedure. After obtaining informed consent, the endoscope was passed under direct vision. Throughout the procedure, the patient's blood pressure, pulse, and oxygen saturations were monitored continuously. The gastroscope was introduced through the mouth, and advanced to the second part of duodenum. The upper GI endoscopy was accomplished without difficulty. The patient tolerated the procedure well. Scope In: 4:28:13 PM Scope Out: 4:42:28 PM Total Procedure Duration Time 0 hours 14 minutes 15 seconds Findings: Grade III varices were found in the upper third of the esophagus, in the middle third of the esophagus and in the lower third of the esophagus. They were 5 mm in largest diameter. Three bands were successfully placed with incomplete eradication of varices. There was no bleeding during, and at the end, of the procedure. Hematin (altered blood/obrtin-ixydjr-sxfu material) was found in the stomach. Three oozing cratered gastric ulcers with a visible vessel were found in the prepyloric region of the stomach. The largest lesion was 6 mm in largest dimension. Area was successfully injected with 5 mL of a 1:10,000 solution of epinephrine for drug delivery. Coagulation for hemostasis using heater probe was successful. Estimated blood loss was minimal. No gross lesions were noted in the duodenal bulb. Impression: - Grade III esophageal varices. Incompletely eradicated. Banded. - Hematin (altered blood/ktfsyv-scceit-kbcz material) in the stomach. - Oozing gastric ulcers with a visible vessel. Injected. Treated with a heater probe. - No gross lesions in the duodenal bulb. - No specimens collected. Recommendation: - Return patient to [facility]. - NPO. - Continue present medications. Procedure Code(s): --- Professional --- 70331, Esophagogastroduodenoscopy, flexible, transoral; with band ligation of esophageal/gastric varices 16304, 59, Esophagogastroduodenoscopy, flexible, transoral; with control of bleeding, any method 30714, 59, Esophagogastroduodenoscopy, flexible, transoral; with directed submucosal injection(s), any substance CPT copyright 2017 [employer]. All rights reserved. The codes documented in this report are preliminary and upon supervisor carbon paper coating review may be revised to meet current compliance requirements. Sheldon Ramon DO 09/07/2022 4:48:29 PM This report has been signed electronically. Number of Addenda: 0 Note Initiated On: 09/07/2022 4:13 PM
--- NOTE | 2022-09-07 16:49 | OP.CCLET_ITS ---
09/07/2022 Jose Alex [address] [place] [address] Re : Upper GI endoscopy procedure for Nilo Hood Dear Dr. Alex This procedure was performed on Wednesday, September 07, 2022. My impressions and recommendations are as follows: Impressions : - Grade III esophageal varices. Incompletely eradicated. Banded. - Hematin (altered blood/lbpvrf-fhztid-tsil material) in the stomach. - Oozing gastric ulcers with a visible vessel. Injected. Treated with a heater probe. - No gross lesions in the duodenal bulb. - No specimens collected. Recommendations : - Return patient to [facility] for [facility]. - NPO. - Continue present medications. My findings are described in the full procedure note, which is enclosed. If I can be of further assistance, please feel free to contact me at . Sincerely, Sheldon Friend, 09/07/2022 4:48:29 PM This report has been signed electronically.
[2022-09-07] MEDS: LORazepam 2 MG/ML Syringe IV (23:35)
--- NOTE | 2022-09-07 23:40 | NURSING ---
pt restless getting out of bed. refusing to listen to nursing staff. Pt then said he had to poop. pt placed on bsc. Pt demanding something to drink. Informed npo . mouth swab given. Pt remains restless. ativn given see sarahi
--- NOTE | 2022-09-07 23:54 | NURSING ---
Pt did noting on bsc. Pt verbal abuse to staff. It took 3 people to get pt back to bed. then yelled at staff about his back. Pt telling staff my grandpa is a made man?.
[2022-09-08] VITALS (21 sets, daily range): BP systolic 109–170; BP diastolic 57–89; PULSE 71–84; RESP 16–20; TEMP 36.7–37.7; O2SAT 94–97
[2022-09-08] MEDS: 0.9% Normal Saline 1,000 ML 150 ML IV ×4 (00:09→17:45)
[2022-09-08] MEDS: LORazepam 2 MG/ML Syringe IV ×2 (02:20→07:51)
[2022-09-08 05:47] LABS: Absolute Lymphocyte Count 1.01 X10^3/uL (0.83-4.51); Absolute Neutrophil Count 6.8 X10^3/uL (2.0-7.7); Basophil# 0.03 X10^3/uL; Basophil% 0.3 % (0-1); Eosinophil# 0.21 X10^3/uL; Eosinophils% 2.4 % (0-5); Hematocrit 25.9 % (40-54); Hemoglobin 8.1 g/dL (13.0-16.5); Lymphocyte # 1.01 X10^3/ul (0.83-4.51); Lymphocyte % 11.6 % (19-41); Mean Corp Hgb Conc 31.3 g/dL (32-36); Mean Corpuscular Hgb 26.6 pg (27.0-32.0); Mean Corpuscular Volume 85.2 fL (80-94); Mean Platelet Vol. 9.9 fl (6.2-12.0); Monocyte# 0.63 X10^3/uL; Monocyte% 7.2 % (0-10); NRBC Flagged by Analyzer 0 % (0-5); Neutrophil # 6.79 X10^3/uL (2.7-7.7); Neutrophil % 78.2 % (47-70); Platelet Count 119 K/mm3 (150-450); RBC Distribution Width CV 17.6 % (11.6-14.6); RBC Distribution Width SD 54.6 fl (35.1-43.9); Red Blood Count 3.04 M/mm3 (4.6-6.2); White Blood Count 8.7 K/mm3 (4.4-11.0)
[2022-09-08] MEDS: Phenobarbital 32.4 MG Tablet 97.2 MG PO (06:30)
--- NOTE | 2022-09-08 06:55 | PN.CC_ITS ---
Assessment & Plan Assessment/Plan (1) Hemorrhagic shock: (2) Acute upper gastrointestinal bleeding: (3) Cirrhosis: PLAN: Plan RECOMMENDATIONS: 1. Continue Unasyn for aspiration coverage 2. Hold on further blood transfusions 3. Initiate phenobarb taper 4. Await GI plans 5. Continue drips for now 6. Defer to GI on initiation of p.o. diet IMPRESSIONS: 1. Hemorrhagic shock secondary to acute blood loss anemia secondary to probab le upper GI bleed Patient presented significantly hypotensive with a hemoglobin of 4. Clinical suspicion is patient has had chronic ongoing blood loss with poor follow-up. Patient with significant findings on EGD including varices and an ulcer with a visible vessel. Interventions were completed and H&H appears to be relatively stable. Will defer to GI on timing of p.o. intake. 2. Prolonged QTC Unclear etiology. Avoid Haldol and Seroquel. Likely used benzodiazepines for agitation given patient's drinking history despite increased risk for delir ium. Patient will be placed on phenobarbital taper 3. Alcoholism/poor historian/poor primary care Complicates care, management, recovery and prognosis. Continue to monitor CIWA protocol. Initiate phenobarb taper 4. Possible hepatocellular carcinoma Imaging studies are suggestive of possible hepatocellular carcinoma. Alpha-fetoprotein is currently pending. GI is following. Poor long-term prognosis given concomitant factors. Patient does remain a full code, but this may need to be evaluated given GI situation in the setting of active alcohol abuse. Subjective Subjective Patient did okay overnight. Patient continues to have intermittent periods of i mpulsivity. Patient with some fever overnight. Patient is still resistant to provide information. Objective Data Objective Data Results of EGD were personally reviewed. Patient also has findings consistent with possible hepatocellular carcinoma on imaging studies. Vital Signs: Vital Signs Temp Pulse Resp BP Pulse Ox O2 Del Method O2 Flow Rate 37.4 C H 77 17 170/82 H 96 Room Air 2 09/08/22 06:33 09/08/22 06:33 09/08/22 06:33 09/08/22 06:33 09/08/22 05:00 09/08/22 06:33 09/07/22 17:00 Oxygen Flow Rate (L/min) 2 Oxygen Delivery Method Room Air Weight: 88.9 kg Body Mass Index (BMI) 28.9 Intake & Output: Intake and Output for Last 24 Hours 09/06/22 09/07/2209/08/23 23:59 23:59 23:59 Intake Total 566.67 / 566.67 6446.19 / 6446.19 1842.0 / 1842.0 Output Total 2675 / 2675 700 / 700 Balance 566.67 / 566.67 3771.19 / 3771.19 1142.0 / 1142.0 Lab / Micro Data Attestation: I reviewed the patient's lab results. Result Diagrams: 09/08/22 02:55 09/07/22 04:15 Labs: Laboratory Results - last 24 hr 09/06/22 13:21: Troponin I High Sens 35 09/07/22 04:15: Troponin I High Sens 41 09/07/22 09:45: Hgb Cancelled, Hct Cancelled 09/07/22 09:45: PT 17.3 H, INR 1.5, APTT 31.1 09/07/22 09:45: WBC 9.0, RBC 3.11 L, Hgb 8.1 L, Hct 25.4 L, MCV 81.7, MCH 26.0 L , MCHC 31.9 L D, RDW Std Deviation 51.1 H, RDW Coeff of Bassam 17.2 H, Plt Count 128 L, MPV 9.5, Immature Gran % (Auto) 0.400, Neut % (Auto) 68.9, Lymph % (Auto) 18.4 L, [place] % (Auto) 11.2 H, Eos % (Auto) 0.8, Baso % (Auto) 0.3, Absolute Neuts (auto) 6.2, Absolute Lymphs (auto) 1.65, Nucleated RBC % 0 09/08/22 02:55: WBC 8.7, RBC 3.04 L, Hgb 8.1 L, Hct 25.9 L, MCV 85.2, MCH 26.6 L , MCHC 31.3 L, RDW Std Deviation 54.6 H, RDW Coeff of Bassam 17.6 H, Plt Count 119 L, MPV 9.9, Immature Gran % (Auto) 0.300, Neut % (Auto) 78.2 H, Lymph % (Auto) 11.6 L, [place] % (Auto) 7.2, Eos % (Auto) 2.4, Baso % (Auto) 0.3, Absolute Neuts (auto) 6.8, Absolute Lymphs (auto) 1.01, Nucleated RBC % 0 Radiography Diagnostic Testing: Radiology Impression Chest X-Ray 09/07/22 06:00 IMPRESSION: No radiographic evidence of acute cardiopulmonary disease. Electronically Signed: Nilo Ferguson MD at 7:21 EST , Abdomen Ultrasound 09/07/22 07:41 IMPRESSION: Cirrhotic liver with a 4.5 cm mass, suspicious for neoplasm. Trace ascites. Cholelithiasis with gallbladder wall thickening and mild pericholecystic fluid from generalized edema or acute cholecystitis. Consider correlation with scintigraphy. N.B. : Pippa Martinez RN, confirmed on 09/07/2022 12:02:31 (ET) that the healthcare facility has received the radiology report. Electronically Signed: Janene Holden MD at 11:49 EST , Abdomen/Pelvis CT 09/07/22 12:00 IMPRESSION: Findings suggestive of cirrhosis of the liver. 4 cm x 4.1 cm heterogeneous solid mass in the mid lateral aspect of the right lobe of the liver. This corresponds to the sonographic findings. Mildly distended gallbladder lumen with thickened gallbladder wall and pericholecystic fluid. Small gallstones are seen within the dependent portion of the gallbladder lumen. Electronically Signed: Primo Luz MD at 14:04 EST , Physical Exam Const alert, oriented x3 and no apparent distress Constitutional Narrative: Appears older than stated age HEENT normocephalic and head/scalp atraumatic; Negative for moist oral mucous membranes HEENT Narrative: Edentulous Eyes PERRL, EOMs intact bilaterally and conjunctivae normal Eyes Narrative: Scleral injection noted Neck full ROM Lymph Lymphatic: no lymphadenopathy noted Resp normal respiratory effort and no use of accessory muscles Resp Narrative: Slightly muffled speech Effort and Inspection: able to speak in complete sentences Auscultation: clear to auscultation bilaterally; Negative for rales, rhonchi or wheezes Cardio regular rate, regular rhythm, S1 normal heart sound, S2 normal heart sound, no rub, no gallops and no JVD Heart Sounds: murmur systolic III/ blowing early left sternal border GI normal to inspection, nondistended, normoactive bowel sounds Narrative: Mild CVA tenderness noted Extremity no clubbing, cyanosis or edema Skin Skin Narrative: Scattered telangiectasias noted Neuro CN's II-XII intact bilaterally, moves all extremities and no focal motor deficits Psych Activity / Motor Behavior: restless Mood & Affect: flat affect Charges/Coding Visit Charges Inpatient E&M: 50941 Subs Hosp L3
[2022-09-08 07:24] LABS: BUN 30 mg/dL (7-18); BUN/Creat Ratio 41.1 RATIO (10-20); Calcium,Total 7.3 mg/dL (8.5-10.1); Creatinine, Serum 0.73 mg/dL (0.70-1.30); EST Glomerular Filtration Rate 116 mL/min (>60); Est Glom Filt Rate - Afr Amer 141 mL/min (>60); Estimated Creatinine Clearance 106.27 ml/min; Glucose 103 mg/dL (74-106)
[2022-09-08 07:25] LABS: Anion Gap 7 (5-15); Chloride 120 mmol/L (98-107); Potassium 3.9 mmol/L (3.5-5.1); Sodium Level 150 mmol/L (136-145)
--- NOTE | 2022-09-08 08:57 | PN.HOSP_ITS ---
Subjective Subjective No issues overnight, EGD with significant findings Objective Data Objective Data Vital Signs: Vital Signs Temp Pulse Resp BP Pulse Ox O2 Del Method O2 Flow Rate 99.4 F H 77 17 170/82 H 96 Room Air 2 09/08/22 06:33 09/08/22 06:33 09/08/22 06:33 09/08/22 06:33 09/08/22 05:00 09/08/22 06:33 09/07/22 17:00 Oxygen Flow Rate (L/min) 2 Oxygen Delivery Method Room Air Weight: 195 lb 15.855 oz Body Mass Index (BMI) 28.9 Intake & Output: Intake and Output for Last 24 Hours 09/07/22 09/08/22 09/09/22 03:59 03:59 03:59 Intake Total 3937.50 / 3937.50 3852.86 / 3852.86 1159.33 / 1159.33 Output Total 2675 / 2675 1050 / 1050 Balance 3937.50 / 3937.50 1177.86 / 1177.86 109.33 / 109.33 Lab / Micro Data Result Diagrams: 09/08/22 02:55 09/08/22 02:55 Labs: Laboratory Results - last 24 hr 09/06/22 13:21: Troponin I High Sens 35 09/07/22 04:15: Troponin I High Sens 41 09/07/22 09:45: Hgb Cancelled, Hct Cancelled 09/07/22 09:45: PT 17.3 H, INR 1.5, APTT 31.1 09/07/22 09:45: WBC 9.0, RBC 3.11 L, Hgb 8.1 L, Hct 25.4 L, MCV 81.7, MCH 26.0 L , MCHC 31.9 L D, RDW Std Deviation 51.1 H, RDW Coeff of Bassam 17.2 H, Plt Count 128 L, MPV 9.5, Immature Gran % (Auto) 0.400, Neut % (Auto) 68.9, Lymph % (Auto) 18.4 L, [place] % (Auto) 11.2 H, Eos % (Auto) 0.8, Baso % (Auto) 0.3, Absolute Neuts (auto) 6.2, Absolute Lymphs (auto) 1.65, Nucleated RBC % 0 09/08/22 02:55: WBC 8.7, RBC 3.04 L, Hgb 8.1 L, Hct 25.9 L, MCV 85.2, MCH 26.6 L , MCHC 31.3 L, RDW Std Deviation 54.6 H, RDW Coeff of Bassam 17.6 H, Plt Count 119 L, MPV 9.9, Immature Gran % (Auto) 0.300, Neut % (Auto) 78.2 H, Lymph % (Auto) 11.6 L, [place] % (Auto) 7.2, Eos % (Auto) 2.4, Baso % (Auto) 0.3, Absolute Neuts (auto) 6.8, Absolute Lymphs (auto) 1.01, Nucleated RBC % 0 09/08/22 02:55: Sodium 150 H, Potassium 3.9, Chloride 120 H, Carbon Dioxide 23.0, Anion Gap 7, BUN 30 H, Creatinine 0.73, Estim Creat Clear Calc 106.27, Est GFR (MDRD) Af Amer 141, Est GFR (MDRD) Non-Af 116, BUN/Creatinine Ratio 41.1 H, Glucose 103, Calcium 7.3 L Radiography Diagnostic Testing: Radiology Impression Abdomen Ultrasound 09/07/22 07:41 IMPRESSION: Cirrhotic liver with a 4.5 cm mass, suspicious for neoplasm. Trace ascites. Cholelithiasis with gallbladder wall thickening and mild pericholecystic fluid from generalized edema or acute cholecystitis. Consider correlation with scintigraphy. N.B. : Pippa Martinez RN, confirmed on 09/07/2022 12:02:31 (ET) that the healthcare facility has received the radiology report. Electronically Signed: Janene Holden MD at 11:49 EST , Abdomen/Pelvis CT 09/07/22 12:00 IMPRESSION: Findings suggestive of cirrhosis of the liver. 4 cm x 4.1 cm heterogeneous solid mass in the mid lateral aspect of the right lobe of the liver. This corresponds to the sonographic findings. Mildly distended gallbladder lumen with thickened gallbladder wall and pericholecystic fluid. Small gallstones are seen within the dependent portion of the gallbladder lumen. Electronically Signed: Primo Luz MD at 14:04 EST , Physical Exam Narrative General: Alert, Oriented x3, no apparent distress, impulsivity issues overnight HEENT: Atraumatic, PERRLA, EOMI, Normocephalic Oral: Moist Mucosa Neck: Supple, No JVD Lungs: Diminished, Normal air movement, No rhonchi, No wheeze, No rales Cardiovascular: Regular rate, Regular Rhythm, Normal S1, Normal S2, murmur Abdomen: Soft, Non Tender, Non-Distended, No Hepato-splenomegaly Extremities: No edema, Capillary Refill Less than 3 Seconds Skin: No rashes, No breakdown Musculoskeletal: No Tenderness to Palpation of Joints or Extremities Neurological: Cranial nerves II-XII grossly intact, Motor Exam 5/5 strength thr oughout, Sensory exam intact to light touch and pain Psych/Mental Status: Flat affect, Appropriate Assessment & Plan Assessment/Plan (1) Hemorrhagic shock: (2) Acute upper gastrointestinal bleeding: (3) Anemia: PLAN: Plan 1. Hemorrhagic shock secondary to acute blood loss anemia from an upper GI bleed/alcohol abuse/prolonged QTC ? EGD with grade 3 esophageal varices that were banded, he also had an oozing gastric ulcers with visible vessel that was injected and treated ? She is status post transfusion, will continue to monitor hemoglobin and adjust as necessary ? Ultrasound of the liver as well as CT scan of the liver agree with the cirrhosis as well as a solid mass in the mid lateral aspect of the right lobe of the liver which may be consistent with cancer ? Appreciate GIs assistance, will have to discuss with family how to proceed with care given the severity of his illness as well as his continued alcoholism ? Continue with folic acid, Unasyn as well as octreotide and a PPI ? We will continue with a phenobarb taper secondary to his alcoholism as well as IV's ? Given his QTC prolongation avoid Haldol and Seroquel for agitation ? AFP is pending DVT: SCDs Charges/Coding Visit Charges Inpatient E&M: 61576 Subs Hosp L2
[2022-09-08 09:38] LABS: Pathologist Review Reviewed
--- NOTE | 2022-09-08 09:57 | CASEMGMT ---
Social Work Participated in ICU rounds. Dr. Lynn inquired about main inside sales person for patient as not clear who is decision maker for patient. Patient continues to be confused and not oriented. Telephone call to patient mother, Kimberli. Kimberli reports to be patient HCPOA and to have documents with her. This renal social worker inquired when Kimberli would be able to come to the hospital to bring documents. Kimberli reports to live in [place] and to have limited transportation and unable to bring documents before Tuesday. This renal social worker inquired about having Kimberli e-mail documents to this renal social worker, Kimberli states that e-mail is not an option. This renal social worker inquired about situation with patient and patient sons. Kimberli confirms that patient has two sons. Kimberli states that patient oldest son, Nilo Staples was not raised by Nilo and is not involved in patient's life. Kimberli reports that younger son, Dean Hood is not to be in to see patient as patient has had a restraining order against Dean in the past and their relationship is not good. Kimberli reports to be unaware of current location of Dean might be in [place], might be in [place]. Kimberli reports that patient brother, Rogers Avendaño is involved and able to be contacted too. This renal social worker clarifying with Kimberli that, as HCPOA is the main person to be contacted and medical team will turn too for medical decisions, Kimberli voiced understanding. This renal social worker thanked Kimberli for the information. This renal social worker confirmed that number on chart for Kimberli is the best number to call. Medical team updated. Loren BARRETO, ALICE
[2022-09-08] MEDS: Phenobarbital 32.4 MG Tablet PO ×3 (12:29→20:47)
--- NOTE | 2022-09-08 12:41 | PCM.PROGNOTE ---
Subjective Subjective Patient underwent an EGD yesterday for an acute GI bleed and was discovered to have multiple gastric varices that were banded endoscopically. He also had slowly bleeding gastric ulcers that was seen there were also treated endoscopically. His hemoglobin seems to be stable at 8.1 this morning. He is still encephalopathic and cannot give very good history or review of systems at this time. Objective Data Objective Data Vital Signs: Vital Signs Temp Pulse Resp BP Pulse Ox O2 Del Method O2 Flow Rate 98.5 F 75 18 131/77 H 94 Room Air 2 09/08/22 11:00 09/08/22 11:00 09/08/22 11:00 09/08/22 11:00 09/08/22 12:03 09/08/22 11:00 09/07/22 17:00 Oxygen Flow Rate (L/min) 2 Oxygen Delivery Method Room Air Weight: 195 lb 15.855 oz Body Mass Index (BMI) 28.9 Intake & Output: Intake and Output for Last 24 Hours 09/06/22 09/07/22 09/08/22 23:59 23:59 23:59 Intake Total 566.67 / 566.67 6446.19 / 6446.19 2938.03 / 2938.03 Output Total 2675 / 2675 1450 / 1450 Balance 566.67 / 566.67 3771.19 / 3771.19 1488.03 / 1488.03 Lab / Micro Data Result Diagrams: 09/08/22 02:55 09/08/22 02:55 Labs: Laboratory Results - last 24 hr 09/06/22 13:21: Troponin I High Sens 35 09/06/22 23:21: Diff Path Review Reviewed 09/07/22 04:15: Troponin I High Sens 41 09/08/22 02:55: WBC 8.7, RBC 3.04 L, Hgb 8.1 L, Hct 25.9 L, MCV 85.2, MCH 26.6 L, MCHC 31.3 L, RDW Std Deviation 54.6 H, RDW Coeff of Bassam 17.6 H, Plt Count 119 L, MPV 9.9, Immature Gran % (Auto) 0.300, Neut % (Auto) 78.2 H, Lymph % (Auto) 11.6 L, [place] % (Auto) 7.2, Eos % (Auto) 2.4, Baso % (Auto) 0.3, Absolute Neuts (auto) 6.8, Absolute Lymphs (auto) 1.01, Nucleated RBC % 0 09/08/22 02:55: Sodium 150 H, Potassium 3.9, Chloride 120 H, Carbon Dioxide 23.0, Anion Gap 7, BUN 30 H, Creatinine 0.73, Estim Creat Clear Calc 106.27, Est GFR (MDRD) Af Amer 141, Est GFR (MDRD) Non-Af 116, BUN/Creatinine Ratio 41.1 H, Glucose 103, Calcium 7.3 L Micro: Microbiology 09/07/22 06:18 Urine Catheter - Hsu Urine Culture - Preliminary Culture exhibits no growth. Radiography Diagnostic Testing: Radiology Impression Abdomen/Pelvis CT 09/07/22 12:00 IMPRESSION: Findings suggestive of cirrhosis of the liver. 4 cm x 4.1 cm heterogeneous solid mass in the mid lateral aspect of the right lobe of the liver. This corresponds to the sonographic findings. Mildly distended gallbladder lumen with thickened gallbladder wall and pericholecystic fluid. Small gallstones are seen within the dependent portion of the gallbladder lumen. Electronically Signed: Primo Luz MD at 14:04 EST , Physical Exam Narrative General: Alert, Oriented x3, no apparent distress, impulsivity issues overnight HEENT: Atraumatic, PERRLA, EOMI, Normocephalic Oral: Moist Mucosa Neck: Supple, No JVD Lungs: Diminished, Normal air movement, No rhonchi, No wheeze, No rales Cardiovascular: Regular rate, Regular Rhythm, Normal S1, Normal S2, murmur Abdomen: Soft, Non Tender, Non-Distended, No Hepato-splenomegaly Extremities: No edema, Capillary Refill Less than 3 Seconds Skin: No rashes, No breakdown Musculoskeletal: No Tenderness to Palpation of Joints or Extremities Neurological: Cranial nerves II-XII grossly intact, Motor Exam 5/5 strength throughout, Sensory exam intact to light touch and pain Psych/Mental Status: Flat affect, Appropriate Assessment & Plan Assessment/Plan (1) Acute upper gastrointestinal bleeding: PLAN: Status posttreatment of variceal bleeding and gastric ulcer bleeding with a stable hemoglobin. (2) Cirrhosis: PLAN: Imaging with ultrasound and CT scan abdomen pelvis does show a hepatic mass likely secondary to hepatocellular carcinoma. Had a long talk with his mother who is a power of attorney law clerk and his brother. He would need to be more coherent to undergo a liver biopsy. We will await the alpha-fetoprotein testing.\. (3) Encephalopathy: PLAN: Acute encephalopathy likely secondary to GI bleed. Xifaxan 550 mg p.o. twice daily and lactulose 20 cc p.o. every 6 hours. Charges/Coding Visit Charges Inpatient E&M: 33525 Subs Hosp L3
--- NOTE | 2022-09-08 15:59 | CASEMGMT ---
GAYLA TREVIZO NOTE: TC to pt's mother, Kimberli, for initial RN SANTHOSH assessment. Kimberli states since pt moved back to [place] about a year ago she has not seen him, but they have spoken on the phone. She states does not know much about pt's baseline, what physicians he sees, or other detailed information. She also does not think pt's brother, Roger, would know this information either. RN SANTHOSH or SW to complete assessment w/pt once he is oriented/able to provide information. Fito PABLON GAYLA CM
[2022-09-09] VITALS (20 sets, daily range): BP systolic 112–168; BP diastolic 68–95; PULSE 72–79; RESP 13–20; TEMP 36.7–37.2; O2SAT 92–97
[2022-09-09] MEDS: Phenobarbital 32.4 MG Tablet PO ×6 (00:20→20:37)
[2022-09-09] MEDS: 0.9% Normal Saline 1,000 ML 150 ML IV ×4 (00:20→20:13)
[2022-09-09 03:29] LABS: Absolute Lymphocyte Count 0.89 X10^3/uL (0.83-4.51); Absolute Neutrophil Count 4.3 X10^3/uL (2.0-7.7); Basophil# 0.02 X10^3/uL; Basophil% 0.3 % (0-1); Eosinophil# 0.28 X10^3/uL; Eosinophils% 4.6 % (0-5); Hematocrit 25.2 % (40-54); Hemoglobin 7.7 g/dL (13.0-16.5); Lymphocyte # 0.89 X10^3/ul (0.83-4.51); Lymphocyte % 14.7 % (19-41); Mean Corp Hgb Conc 30.6 g/dL (32-36); Mean Corpuscular Hgb 26.2 pg (27.0-32.0); Mean Corpuscular Volume 85.7 fL (80-94); Monocyte# 0.57 X10^3/uL; Monocyte% 9.4 % (0-10); NRBC Flagged by Analyzer 0 % (0-5); Neutrophil # 4.25 X10^3/uL (2.7-7.7); Neutrophil % 70.5 % (47-70); POSITIVE COUNT YES; Platelet Count 96 K/mm3 (150-450); RBC Distribution Width CV 17.2 % (11.6-14.6); RBC Distribution Width SD 53.3 fl (35.1-43.9); Red Blood Count 2.94 M/mm3 (4.6-6.2)
[2022-09-09 03:40] LABS: Differential Indicated SCAN CRITERIA MET
[2022-09-09 03:52] LABS: Anion Gap 7 (5-15); BUN 15 mg/dL (7-18); BUN/Creat Ratio 23.4 RATIO (10-20); Calcium,Total 7.2 mg/dL (8.5-10.1); Chloride 116 mmol/L (98-107); Creatinine, Serum 0.64 mg/dL (0.70-1.30); EST Glomerular Filtration Rate 135 mL/min (>60); Est Glom Filt Rate - Afr Amer 163 mL/min (>60); Estimated Creatinine Clearance 121.21 ml/min; Glucose 90 mg/dL (74-106); Potassium 3.6 mmol/L (3.5-5.1); Sodium Level 143 mmol/L (136-145)
[2022-09-09 03:59] LABS: Anisocytosis 1+; Differential Comment SCANNED; Platelet Estimate SLT DEC (ADEQ); Polychromasia RARE
[2022-09-09 04:00] LABS: Hypochromasia 2+; Macrocytosis RARE; Microcytosis RARE
[2022-09-09] MEDS: 0.9% Saline Lock 10 ML Syringe IV ×3 (04:07→23:03)
[2022-09-09] MEDS: LORazepam 2 MG/ML Syringe IV ×2 (04:43→20:39)
--- NOTE | 2022-09-09 07:04 | PN.CC_ITS ---
Assessment & Plan Assessment/Plan (1) Hemorrhagic shock: (2) Acute upper gastrointestinal bleeding: (3) Cirrhosis: PLAN: Plan RECOMMENDATIONS: 1. Continue Unasyn for aspiration coverage 2. Hold on further blood transfusions 3. Continue phenobarb taper 4. Await GI plans on octreotide and Protonix drips. 5. Defer to GI on initiation of p.o. diet 6. Okay to leave the intensive care unit from my perspective if okay with GI 7. We will need to clarify goals of therapy given GI/malignancy status 8. Will sign off from a critical care perspective. Please call with further concerns. IMPRESSIONS: 1. Hemorrhagic shock secondary to acute blood loss anemia secondary to probable upper GI bleed Patient presented significantly hypotensive with a hemoglobin of 4. Clinical suspicion is patient has had chronic ongoing blood loss with poor follow-up. Patient with significant findings on EGD including varices and an ulcer with a visible vessel. Interventions were completed and H&H appears to be relatively stable. Patient appears to be stable from a hemodynamic standpoint. If GI believes patient has been monitored long enough, likely okay to leave the intensive care unit. Would defer to GI on timing of discontinuation of octreotide and Protonix drips. 2. Prolonged QTC Unclear etiology. Avoid Haldol and Seroquel. Likely used benzodiazepines for agitation given patient's drinking history despite increased risk for delirium. Patient will be placed on phenobarbital taper 3. Alcoholism/poor historian/poor primary care Complicates care, management, recovery and prognosis. Continue to monitor CIWA protocol. Initiate phenobarb taper 4. Possible hepatocellular carcinoma Imaging studies are suggestive of possible hepatocellular carcinoma. Alpha-fetoprotein is significantly elevated. GI is following. Poor long-term prognosis given concomitant factors. Patient does remain a full code, but this may need to be evaluated given GI situation in the setting of active alcohol abuse. Subjective Subjective The patient did well overnight. Patient has had intermittent periods of agitation requiring redirection, but is responded well to phenobarbital. Patient did require some as needed Ativan overnight. No bleeding has been repor hieu. Patient does remain on octreotide and Protonix drips. Objective Data Objective Data Vital Signs: Vital Signs Temp Pulse Resp BP Pulse Ox O2 Del Method O2 Flow Rate 36.9 C 73 18 122/75 H 95 Room Air 2 09/09/22 07:00 09/09/22 07:00 09/09/22 07:00 09/09/22 07:00 09/09/22 07:00 09/09/22 07:00 09/07/22 17:00 Oxygen Flow Rate (L/min) 2 Oxygen Delivery Method Room Air Weight: 89.2 kg Body Mass Index (BMI) 28.9 Intake & Output: Intake and Output for Last 24 Hours 09/07/22 09/08/22 09/09/22 23:59 23:59 23:59 Intake Total 6446.19 / 6446.19 4295.36 / 4295.36 2187.0 / 2187.0 Output Total 2675 / 2675 3250 / 3250 1200 / 1200 Balance 3771.19 / 3771.19 1045.36 / 1045.36 987.0 / 987.0 Lab / Micro Data Attestation: I reviewed the patient's lab results. Result Diagrams: 09/09/22 03:20 09/09/22 03:20 Labs: Laboratory Results - last 24 hr 09/06/22 23:21: Diff Path Review Reviewed 09/07/22 12:25: Tumor Marker AFP 143.0 H 09/08/22 02:55: Sodium 150 H, Potassium 3.9, Chloride 120 H, Carbon Dioxide 23.0, Anion Gap 7, BUN 30 H, Creatinine 0.73, Estim Creat Clear Calc 106.27, Est GFR (MDRD) Af Amer 141, Est GFR (MDRD) Non-Af 116, BUN/Creatinine Ratio 41.1 H, Glucose 103, Calcium 7.3 L 09/09/22 03:20: WBC 6.0, RBC 2.94 L, Hgb 7.7 L, Hct 25.2 L, MCV 85.7, MCH 26.2 L , MCHC 30.6 L, RDW Std Deviation 53.3 H, RDW Coeff of Bassam 17.2 H, Plt Count 96 L , MPV 9.0, Immature Gran % (Auto) 0.500, Neut % (Auto) 70.5 H, Lymph % (Auto) 14.7 L, [place] % (Auto) 9.4, Eos % (Auto) 4.6, Baso % (Auto) 0.3, Absolute Neuts (auto) 4.3, Absolute Lymphs (auto) 0.89, Nucleated RBC % 0, Differential Comment SCANNED, Platelet Estimate SLT DEC, Polychromasia RARE, Hypochromasia 2+, Anisocytosis 1+, Microcytosis RARE, Macrocytosis RARE 09/09/22 03:20: Sodium 143, Potassium 3.6, Chloride 116 H, Carbon Dioxide 20.0 L , Anion Gap 7, BUN 15, Creatinine 0.64 L, Estim Creat Clear Calc 121.21, Est GFR (MDRD) Af Amer 163, Est GFR (MDRD) Non-Af 135, BUN/Creatinine Ratio 23.4 H, Glucose 90, Calcium 7.2 L Micro: Microbiology 09/07/22 06:18 Urine Catheter - Hsu Urine Culture - Preliminary Culture exhibits no growth. Physical Exam Const alert, oriented x3 and no apparent distress Constitutional Narrative: Appears older than stated age HEENT normocephalic and head/scalp atraumatic; Negative for moist oral mucous membranes HEENT Narrative: Edentulous Eyes PERRL, EOMs intact bilaterally and conjunctivae normal Eyes Narrative: Scleral injection noted Neck full ROM Lymph Lymphatic: no lymphadenopathy noted Resp normal respiratory effort and no use of accessory muscles Resp Narrative: Slightly muffled speech Auscultation: clear to auscultation bilaterally; Negative for rales, rhonchi or wheezes Cardio regular rate, regular rhythm, S1 normal heart sound, S2 normal heart sound, no rub, no gallops and no JVD Heart Sounds: murmur systolic III/ blowing early left sternal border GI normal to inspection, nondistended, normoactive bowel sounds Narrative: Mild CVA tenderness noted Extremity no clubbing, cyanosis or edema Skin Skin Narrative: Scattered telangiectasias noted Neuro CN's II-XII intact bilaterally, moves all extremities and no focal motor deficits Psych Activity / Motor Behavior: restless Mood & Affect: flat affect Charges/Coding Visit Charges Inpatient E&M: 82413 Subs Hosp L2
[2022-09-09] MEDS: CHLORHEXIDINE GLUC 2% CLOTH 1 EACH TOWELETTE TOPICAL (08:49)
--- NOTE | 2022-09-09 10:24 | PN.HOSP_ITS ---
Subjective Subjective Doing well overnight now that he is on phenobarb he is also impulsive Objective Data Objective Data Vital Signs: Vital Signs Temp Pulse Resp BP Pulse Ox O2 Del Method O2 Flow Rate 98.6 F 78 13 119/73 94 Room Air 2 09/09/22 08:00 09/09/22 09:00 09/09/22 09:00 09/09/22 09:00 09/09/22 09:00 09/09/22 09:00 09/07/22 17:00 Oxygen Flow Rate (L/min) 2 Oxygen Delivery Method Room Air Weight: 196 lb 10.437 oz Body Mass Index (BMI) 28.9 Intake & Output: Intake and Output for Last 24 Hours 09/08/22 09/09/22 09/10/22 03:59 03:59 03:59 Intake Total 3852.86 / 3852.86 4605.36 / 4605.36 1200.7 / 1200.7 Output Total 2675 / 2675 3250 / 3250 1475 / 1475 Balance 1177.86 / 1177.86 1355.36 / 1355.36 -274.3 / -274.3 Lab / Micro Data Result Diagrams: 09/09/22 03:20 09/09/22 03:20 Labs: Laboratory Results - last 24 hr 09/07/22 12:25: Tumor Marker AFP 143.0 H 09/09/22 03:20: WBC 6.0, RBC 2.94 L, Hgb 7.7 L, Hct 25.2 L, MCV 85.7, MCH 26.2 L , MCHC 30.6 L, RDW Std Deviation 53.3 H, RDW Coeff of Bassam 17.2 H, Plt Count 96 L , MPV 9.0, Immature Gran % (Auto) 0.500, Neut % (Auto) 70.5 H, Lymph % (Auto) 14.7 L, [place] % (Auto) 9.4, Eos % (Auto) 4.6, Baso % (Auto) 0.3, Absolute Neuts (auto) 4.3, Absolute Lymphs (auto) 0.89, Nucleated RBC % 0, Differential Comment SCANNED, Platelet Estimate SLT DEC, Polychromasia RARE, Hypochromasia 2+, Anisocytosis 1+, Microcytosis RARE, Macrocytosis RARE 09/09/22 03:20: Sodium 143, Potassium 3.6, Chloride 116 H, Carbon Dioxide 20.0 L , Anion Gap 7, BUN 15, Creatinine 0.64 L, Estim Creat Clear Calc 121.21, Est GFR (MDRD) Af Amer 163, Est GFR (MDRD) Non-Af 135, BUN/Creatinine Ratio 23.4 H, Glucose 90, Calcium 7.2 L Micro: Microbiology 09/07/22 06:35 Blood Culture (Wb) - Right Forearm Blood Culture - Preliminary No growth in 48 hours. 09/07/22 06:25 Blood Culture (Wb) - Right Hand Blood Culture - Preliminary No growth in 48 hours. 09/07/22 06:18 Urine Catheter - Hsu Urine Culture - Final Culture exhibits no growth. Physical Exam Narrative General: Alert, no apparent distress, impulsivity issues overnight HEENT: Atraumatic, PERRLA, EOMI, Normocephalic Oral: Moist Mucosa Neck: Supple, No JVD Lungs: Diminished, Normal air movement, No rhonchi, No wheeze, No rales Cardiovascular: Regular rate, Regular Rhythm, Normal S1, Normal S2, murmur Abdomen: Soft, Non Tender, Non-Distended, No Hepato-splenomegaly Extremities: No edema, Capillary Refill Less than 3 Seconds Skin: No rashes, No breakdown Musculoskeletal: No Tenderness to Palpation of Joints or Extremities Neurological: Cranial nerves II-XII grossly intact, Motor Exam 5/5 strength throughout, Sensory exam intact to light touch and pain Psych/Mental Status: Flat affect, Appropriate Assessment & Plan Assessment/Plan (1) Hemorrhagic shock: (2) Acute upper gastrointestinal bleeding: (3) Anemia: PLAN: Plan 1. Hemorrhagic shock secondary to acute blood loss anemia from an upper GI bleed/alcohol abuse/prolonged QTC ? EGD with grade 3 esophageal varices that were banded, he also had an oozing gastric ulcers with visible vessel that was injected and treated ? She is status post transfusion, will continue to monitor hemoglobin and adjust as necessary ? Ultrasound of the liver as well as CT scan of the liver agree with the cirrhosis as well as a solid mass in the mid lateral aspect of the right lobe of the liver which may be consistent with cancer ? Appreciate GIs assistance, will have to discuss with family how to proceed with care given the severity of his illness as well as his continued alcoholism ? Continue with folic acid, Unasyn as well as octreotide and a PPI ? We will continue with a phenobarb taper secondary to his alcoholism as well as IV's ? Given his QTC prolongation avoid Haldol and Seroquel for agitation ? AFP is elevated to 143, normal is 8.4 DVT: SCDs Charges/Coding Visit Charges Inpatient E&M: 30966 Subs Hosp L2
--- NOTE | 2022-09-09 11:06 | CASEMGMT ---
Social Work SW conferred with pt nurse, Marianna, this a.m. to determine if pt would be receptive to discussion. Pt nurse shared pt is still groggy and likely would not respond well to discussion this day. SW to follow up tomorrow. Vesna Espinal, [place]
--- NOTE | 2022-09-09 15:51 | PN_ITS ---
Subjective Subjective Patient is more alert today. He is still lethargic. Objective Data Objective Data Vital Signs: Vital Signs Temp Pulse Resp BP Pulse Ox O2 Del Method O2 Flow Rate 98.4 F 74 18 130/77 H 92 Room Air 2 09/09/22 12:00 09/09/22 12:00 09/09/22 12:00 09/09/22 12:00 09/09/22 12:00 09/09/22 12:00 09/07/22 17:00 Oxygen Flow Rate (L/min) 2 Oxygen Delivery Method Room Air Weight: 196 lb 10.437 oz Body Mass Index (BMI) 28.9 Intake & Output: Intake and Output for Last 24 Hours 09/07/22 09/08/22 09/09/22 23:59 23:59 23:59 Intake Total 6446.19 / 6446.19 4295.36 / 4295.36 3739.95 / 3739.95 Output Total 2675 / 2675 3250 / 3250 1950 / 1950 Balance 3771.19 / 3771.19 1045.36 / 1045.36 1789.95 / 1789.95 Lab / Micro Data Result Diagrams: 09/09/22 03:20 09/09/22 03:20 Labs: Laboratory Results - last 24 hr 09/07/22 12:25: Tumor Marker AFP 143.0 H 09/09/22 03:20: WBC 6.0, RBC 2.94 L, Hgb 7.7 L, Hct 25.2 L, MCV 85.7, MCH 26.2 L , MCHC 30.6 L, RDW Std Deviation 53.3 H, RDW Coeff of Bassam 17.2 H, Plt Count 96 L , MPV 9.0, Immature Gran % (Auto) 0.500, Neut % (Auto) 70.5 H, Lymph % (Auto) 14.7 L, [place] % (Auto) 9.4, Eos % (Auto) 4.6, Baso % (Auto) 0.3, Absolute Neuts (auto) 4.3, Absolute Lymphs (auto) 0.89, Nucleated RBC % 0, Differential Comment SCANNED, Platelet Estimate SLT DEC, Polychromasia RARE, Hypochromasia 2+, Anis ocytosis 1+, Microcytosis RARE, Macrocytosis RARE 09/09/22 03:20: Sodium 143, Potassium 3.6, Chloride 116 H, Carbon Dioxide 20.0 L , Anion Gap 7, BUN 15, Creatinine 0.64 L, Estim Creat Clear Calc 121.21, Est GFR (MDRD) Af Amer 163, Est GFR (MDRD) Non-Af 135, BUN/Creatinine Ratio 23.4 H, Glucose 90, Calcium 7.2 L Micro: Microbiology 09/07/22 06:35 Blood Culture (Wb) - Right Forearm Blood Culture - Preliminary No growth in 48 hours. 09/07/22 06:25 Blood Culture (Wb) - Right Hand Blood Culture - Preliminary No growth in 48 hours. 09/07/22 06:18 Urine Catheter - Hsu Urine Culture - Final Culture exhibits no growth. Physical Exam Narrative General: Alert, no apparent distress, impulsivity issues overnight HEENT: Atraumatic, PERRLA, EOMI, Normocephalic Oral: Moist Mucosa Neck: Supple, No JVD Lungs: Diminished, Normal air movement, No rhonchi, No wheeze, No rales Cardiovascular: Regular rate, Regular Rhythm, Normal S1, Normal S2, murmur Abdomen: Soft, Non Tender, Non-Distended, No Hepato-splenomegaly Extremities: No edema, Capillary Refill Less than 3 Seconds Skin: No rashes, No breakdown Musculoskeletal: No Tenderness to Palpation of Joints or Extremities Neurological: Cranial nerves II-XII grossly intact, Motor Exam 5/5 strength throughout, Sensory exam intact to light touch and pain Psych/Mental Status: Flat affect, Appropriate Assessment & Plan Assessment/Plan (1) Acute upper gastrointestinal bleeding: PLAN: Status posttreatment of variceal bleeding and gastric ulcer bleeding with hemoglobin slightly down today. If his hemoglobin continues to trend down then he will need repeat upper endoscopy.. (2) Cirrhosis: PLAN: Imaging with ultrasound and CT scan abdomen pelvis does show a hepatic mass likely secondary to hepatocellular carcinoma. Had a long talk with his mother who is a power of personal injury attorney and his brother. He would need to be more coherent to undergo a liver biopsy. Alpha-fetoprotein is 143 which is elevated. (3) Encephalopathy: PLAN: Acute encephalopathy likely secondary to GI bleed. Xifaxan 550 mg p.o. twice daily and lactulose 20 cc p.o. every 6 hours. Charges/Coding Visit Charges Inpatient E&M: 80757 Subs Hosp L3
[2022-09-09] MEDS: Haloperidol Lactate 5 MG/ML Vial 4 MG IV (22:26)
[2022-09-10] VITALS (32 sets, daily range): BP systolic 82–137; BP diastolic 46–88; PULSE 45–67; RESP 11–19; TEMP 35.7–37.3; O2SAT 87–100
[2022-09-10] MEDS: Phenobarbital 32.4 MG Tablet PO ×5 (00:50→23:16)
--- NOTE | 2022-09-10 00:54 | NURSING ---
Pt placed on 2 L NC d/t oxygen sats in the high 80s while resting in bed.
[2022-09-10] MEDS: 0.9% Normal Saline 1,000 ML 150 ML IV ×4 (02:56→23:00)
[2022-09-10 03:46] LABS: Absolute Lymphocyte Count 0.72 X10^3/uL (0.83-4.51); Absolute Neutrophil Count 2.9 X10^3/uL (2.0-7.7); Basophil# 0.01 X10^3/uL; Basophil% 0.2 % (0-1); Eosinophil# 0.28 X10^3/uL; Eosinophils% 6.5 % (0-5); Lymphocyte # 0.72 X10^3/ul (0.83-4.51); Lymphocyte % 16.8 % (19-41); Mean Corp Hgb Conc 30.4 g/dL (32-36); Mean Corpuscular Volume 85.5 fL (80-94); Mean Platelet Vol. 9.6 fl (6.2-12.0); Monocyte# 0.39 X10^3/uL; Monocyte% 9.1 % (0-10); NRBC Flagged by Analyzer 0 % (0-5); Neutrophil # 2.88 X10^3/uL (2.7-7.7); Neutrophil % 67.2 % (47-70); POSITIVE COUNT YES; Platelet Count 85 K/mm3 (150-450); RBC Distribution Width CV 16.9 % (11.6-14.6); RBC Distribution Width SD 51.9 fl (35.1-43.9); Red Blood Count 2.69 M/mm3 (4.6-6.2); White Blood Count 4.3 K/mm3 (4.4-11.0)
[2022-09-10 03:57] LABS: Anion Gap 4 (5-15); BUN 11 mg/dL (7-18); BUN/Creat Ratio 20.3 RATIO (10-20); Chloride 115 mmol/L (98-107); Creatinine, Serum 0.54 mg/dL (0.70-1.30); EST Glomerular Filtration Rate 163 mL/min (>60); Est Glom Filt Rate - Afr Amer 197 mL/min (>60); Estimated Creatinine Clearance 143.65 ml/min; Glucose 86 mg/dL (74-106); Potassium 3.6 mmol/L (3.5-5.1); Sodium Level 141 mmol/L (136-145)
[2022-09-10] MEDS: CHLORHEXIDINE GLUC 2% CLOTH 1 EACH TOWELETTE TOPICAL (05:42)
--- NOTE | 2022-09-10 09:12 | PCM.PN.HOSP ---
Subjective Subjective No issues overnight hemoglobin is dropped back down to 7 today Objective Data Objective Data Vital Signs: Vital Signs Temp Pulse Resp BP Pulse Ox O2 Del Method O2 Flow Rate 98.7 F 52 L 16 89/50 L 97 Nasal Cannula 2 09/10/22 07:00 09/10/22 07:00 09/10/22 07:00 09/10/22 07:00 09/10/22 07:00 09/10/22 07:00 09/10/22 07:00 Oxygen Flow Rate (L/min) 2 Oxygen Delivery Method Nasal Cannula Weight: 198 lb 13.711 oz Body Mass Index (BMI) 28.9 Intake & Output: Intake and Output for Last 24 Hours 09/09/22 09/10/22 09/11/22 03:59 03:59 03:59 Intake Total 4605.36 / 4605.36 4906.27 / 4919.67 504.90 / 504.90 Output Total 3250 / 3250 3900 / 3900 700 / 700 Balance 1355.36 / 1355.36 1006.27 / 1019.67 -195.10 / -195.10 Lab / Micro Data Result Diagrams: 09/10/22 03:40 09/10/22 03:40 Labs: Laboratory Results - last 24 hr 09/10/22 03:40: WBC 4.3 L, RBC 2.69 L, Hgb 7.0 L, Hct 23.0 L, MCV 85.5, MCH 26.0 L, MCHC 30.4 L, RDW Std Deviation 51.9 H, RDW Coeff of Bassam 16.9 H, Plt Count 85 L, MPV 9.6, Immature Gran % (Auto) 0.200, Neut % (Auto) 67.2, Lymph % (Auto) 16.8 L, [place] % (Auto) 9.1, Eos % (Auto) 6.5 H, Baso % (Auto) 0.2, Absolute Neuts (auto) 2.9, Absolute Lymphs (auto) 0.72 L, Nucleated RBC % 0 09/10/22 03:40: Sodium 141, Potassium 3.6, Chloride 115 H, Carbon Dioxide 22.0, Anion Gap 4 L, BUN 11, Creatinine 0.54 L, Estim Creat Clear Calc 143.65, Est GFR (MDRD) Af Amer 197, Est GFR (MDRD) Non-Af 163, BUN/Creatinine Ratio 20.3 H, Glucose 86, Calcium 7.0 L 09/10/22 07:32: Blood Type O POSITIVE, Antibody Screen NEGATIVE, Crossmatch See Detail Micro: Microbiology 09/07/22 06:35 Blood Culture (Wb) - Right Forearm Blood Culture - Preliminary No growth in 48 hours. 09/07/22 06:25 Blood Culture (Wb) - Right Hand Blood Culture - Preliminary No growth in 48 hours. 09/07/22 06:18 Urine Catheter - Hsu Urine Culture - Final Culture exhibits no growth. Physical Exam Narrative General: Alert, no apparent distress, impulsivity issues HEENT: Atraumatic, PERRLA, EOMI, Normocephalic Oral: Moist Mucosa Neck: Supple, No JVD Lungs: Diminished, Normal air movement, No rhonchi, No wheeze, No rales Cardiovascular: Regular rate, Regular Rhythm, Normal S1, Normal S2, murmur Abdomen: Soft, Non Tender, Non-Distended, No Hepato-splenomegaly Extremities: No edema, Capillary Refill Less than 3 Seconds Skin: No rashes, No breakdown Musculoskeletal: No Tenderness to Palpation of Joints or Extremities Neurological: Cranial nerves II-XII grossly intact, Motor Exam 5/5 strength throughout, Sensory exam intact to light touch and pain Psych/Mental Status: Flat affect, Appropriate Assessment & Plan Assessment/Plan (1) Hemorrhagic shock: (2) Acute upper gastrointestinal bleeding: (3) Anemia: PLAN: Plan 1. Hemorrhagic shock secondary to acute blood loss anemia from an upper GI bleed/alcohol abuse/prolonged QTC ? EGD with grade 3 esophageal varices that were banded, he also had an oozing gastric ulcers with visible vessel that was injected and treated ?Hemoglobin dropped down to 7, will transfuse 2 units packed plan for repeat EGD today or tomorrow ? Ultrasound of the liver as well as CT scan of the liver agree with the cirrhosis as well as a solid mass in the mid lateral aspect of the right lobe of the liver which may be consistent with cancer ? Appreciate GIs assistance, will have to discuss with family how to proceed with care given the severity of his illness as well as his continued alcoholism ? Continue with folic acid, Unasyn as well as octreotide and a PPI ? We will continue with a phenobarb taper secondary to his alcoholism as well as IV's, will attempt to wean his Precedex as able based on his mental status ? Given his QTC prolongation avoid Haldol and Seroquel for agitation ? AFP is elevated to 143, normal is 8.4 ? Continue with Xifaxan and lactulose DVT: SCDs Charges/Coding Visit Charges Inpatient E&M: 35110 Subs Hosp L2
--- NOTE | 2022-09-10 09:33 | CASEMGMT ---
Social Work As per RN, pt not able to have a conversation today. Pt's mother reported to SW earlier in the week that she is POA and had said she would bring in the papers tomorrow. SW called, message left reminding pt's mother to bring in the POA papers tomorrow. ALICE Doss
--- NOTE | 2022-09-10 12:42 | OP.EGD_ITS ---
Patient Name: Nilo Hood Procedure Date: 09/10/2022 12:14 PM Date of : 1960 Age: 62 Procedure: Upper GI endoscopy Indications: Follow-up of esophageal varices with bleeding Providers: Sheldon Ramon DO Medicines: Monitored Anesthesia Care Patient Profile: This is a 62 year old male. Refer to note in patient chart for documentation of history and physical. Patient has symptoms. He is status post EGD for treatment of bleeding recently. Complications: No immediate complications. Procedure: Pre-Anesthesia Assessment: - Prior to the procedure, a History and Physical was performed, and patient medications and allergies were reviewed. The risks and benefits of the procedure and the sedation options and risks were discussed with the patient. All questions were answered and informed consent was obtained. Patient identification and proposed procedure were verified by the physician. Mental Status Examination: alert and oriented. CV Examination: normal. Prophylactic Antibiotics: The patient does not require prophylactic antibiotics. Prior Anticoagulants: The patient has taken no previous anticoagulant or antiplatelet agents. After reviewing the risks and benefits, the patient was deemed in satisfactory condition to undergo the procedure. The anesthesia plan was to use monitored anesthesia care (MAC). Immediately prior to administration of medications, the patient was re-assessed for adequacy to receive sedatives. The heart rate, respiratory rate, oxygen saturations, blood pressure, adequacy of pulmonary ventilation, and response to care were monitored throughout the procedure. The physical status of the patient was re-assessed after the procedure. After obtaining informed consent, the endoscope was passed under direct vision. Throughout the procedure, the patient's blood pressure, pulse, and oxygen saturations were monitored continuously. The gastroscope was introduced through the mouth, and advanced to the second part of duodenum. The upper GI endoscopy was accomplished without difficulty. The patient tolerated the procedure well. Scope In: 12:30:22 PM Scope Out: 12:33:31 PM Total Procedure Duration Time 0 hours 3 minutes 9 seconds Findings: Three columns of oozing grade II varices were found in the middle third of the esophagus, 35 cm from the incisors. They were 5 mm in largest diameter. Stigmata of recent bleeding were evident and red destini signs were present. Stigmata of prior treatment were evident. Evidence of partial eradication was visible. Three bands were successfully placed with complete eradication, resulting in deflation of varices. Bleeding had stopped at the end of the procedure. No gross lesions were noted in the entire examined stomach. The second portion of the duodenum was normal. Impression: - Bleeding grade II esophageal varices. Completely eradicated. Banded. - No gross lesions in the stomach. - Normal second portion of the duodenum. - No specimens collected. Recommendation: - Return patient to [facility] for ongoing care. - Clear liquid diet. - Continue present medications. Procedure Code(s): --- Professional --- 20234, Esophagogastroduodenoscopy, flexible, transoral; with band ligation of esophageal/gastric varices CPT copyright 2017 [employer]. All rights reserved. The codes documented in this report are preliminary and upon manager water review may be revised to meet current compliance requirements. Sheldon Ramon DO 09/10/2022 12:42:25 PM This report has been signed electronically. Number of Addenda: 0 Note Initiated On: 09/10/2022 12:14 PM
--- NOTE | 2022-09-10 12:43 | OP.CCLET_ITS ---
09/10/2022 Jose Alex [address] [place] [address] Re : Upper GI endoscopy procedure for Nilo Hood Dear Dr. Alex This procedure was performed on Saturday, September 10, 2022. My impressions and recommendations are as follows: Impressions : - Bleeding grade II esophageal varices. Completely eradicated. Banded. - No gross lesions in the stomach. - Normal second portion of the duodenum. - No specimens collected. Recommendations : - Return patient to [facility] for ongoing care. - Clear liquid diet. - Continue present medications. My findings are described in the full procedure note, which is enclosed. If I can be of further assistance, please feel free to contact me at . Sincerely, Sheldon Ramon, 09/10/2022 12:42:25 PM This report has been signed electronically.
[2022-09-10] MEDS: LORazepam 2 MG/ML Syringe IV (21:06)
[2022-09-10] MEDS: rifAXIMin 550 MG Tablet PO (21:06)
[2022-09-10] MEDS: Lactulose 20 GM/30 ML UDC PO (23:16)
[2022-09-11] VITALS (27 sets, daily range): BP systolic 106–165; BP diastolic 49–109; PULSE 44–78; RESP 11–26; TEMP 35.8–36.6; O2SAT 91–100
[2022-09-11] MEDS: LORazepam 2 MG/ML Syringe IV ×4 (00:08→05:18)
--- NOTE | 2022-09-11 00:43 | NURSING ---
Pt pulled his ricketts catheter out.
--- NOTE | 2022-09-11 00:55 | NURSING ---
Attempted to wean precedex gtt d/t increasing QTC and bradycardia. PRN Ativan also given for agitation and CIWA scoring. Pt becoming very agitated, pulling everything off and attempting to climb out of bed. Bilateral soft wrist restraints applied for pt safety.
[2022-09-11 03:18] LABS: Absolute Lymphocyte Count 0.72 X10^3/uL (0.83-4.51); Absolute Neutrophil Count 2.9 X10^3/uL (2.0-7.7); Basophil# 0.02 X10^3/uL; Basophil% 0.5 % (0-1); Eosinophil# 0.32 X10^3/uL; Eosinophils% 7.2 % (0-5); Hematocrit 30.6 % (40-54); Hemoglobin 9.6 g/dL (13.0-16.5); Lymphocyte # 0.72 X10^3/ul (0.83-4.51); Lymphocyte % 16.3 % (19-41); Mean Corp Hgb Conc 31.4 g/dL (32-36); Mean Corpuscular Hgb 26.7 pg (27.0-32.0); Mean Platelet Vol. 10.5 fl (6.2-12.0); Monocyte# 0.43 X10^3/uL; Monocyte% 9.7 % (0-10); NRBC Flagged by Analyzer 0 % (0-5); Neutrophil # 2.91 X10^3/uL (2.7-7.7); Neutrophil % 65.8 % (47-70); POSITIVE COUNT YES; Platelet Count 99 K/mm3 (150-450); RBC Distribution Width CV 16.1 % (11.6-14.6); RBC Distribution Width SD 49.1 fl (35.1-43.9); White Blood Count 4.4 K/mm3 (4.4-11.0)
[2022-09-11 03:28] LABS: Anion Gap 6 (5-15); BUN 14 mg/dL (7-18); Calcium,Total 7.4 mg/dL (8.5-10.1); Chloride 115 mmol/L (98-107); Creatinine, Serum 0.67 mg/dL (0.70-1.30); EST Glomerular Filtration Rate 128 mL/min (>60); Est Glom Filt Rate - Afr Amer 155 mL/min (>60); Estimated Creatinine Clearance 115.78 ml/min; Glucose 89 mg/dL (74-106); Potassium 3.9 mmol/L (3.5-5.1); Sodium Level 141 mmol/L (136-145)
[2022-09-11] MEDS: Phenobarbital 32.4 MG Tablet PO ×4 (05:17→22:14)
[2022-09-11] MEDS: Lactulose 20 GM/30 ML UDC PO ×2 (05:18→18:18)
[2022-09-11] MEDS: CHLORHEXIDINE GLUC 2% CLOTH 1 EACH TOWELETTE TOPICAL ×2 (05:18→08:47)
[2022-09-11] MEDS: 0.9% Normal Saline 1,000 ML 150 ML IV ×3 (05:32→18:18)
--- NOTE | 2022-09-11 09:55 | PN.HOSP_ITS ---
Subjective Subjective Hemoglobin stable at 9.6, will recheck in the morning he had endoscopy yesterday. No issues overnight Objective Data Objective Data Vital Signs: Vital Signs Temp Pulse Resp BP Pulse Ox O2 Del Method O2 Flow Rate 97.3 F L 68 21 H 130/85 H 97 Nasal Cannula 2 09/11/22 04:00 09/11/22 07:00 09/11/22 07:00 09/11/22 07:00 09/11/22 07:00 09/11/22 07:00 09/11/22 07:00 Oxygen Flow Rate (L/min) 2 Oxygen Delivery Method Nasal Cannula Weight: 204 lb 9.423 oz Body Mass Index (BMI) 28.9 Intake & Output: Intake and Output for Last 24 Hours 09/10/22 09/11/22 09/12/22 03:59 03:59 03:59 Intake Total 4906.27 / 4919.67 4605.29 / 4605.29 1168.49 / 1168.49 Output Total 3900 / 3900 1600 / 1600 Balance 1006.27 / 1019.67 3005.29 / 3005.29 1168.49 / 1168.49 Lab / Micro Data Result Diagrams: 09/11/22 03:01 09/11/22 03:01 Labs: Laboratory Results - last 24 hr 09/06/22 23:21: Crossmatch See Detail 09/10/22 07:32: Blood Type O POSITIVE, Antibody Screen NEGATIVE, Crossmatch See Detail 09/11/22 03:01: WBC 4.4, RBC 3.60 L, Hgb 9.6 L, Hct 30.6 L, MCV 85.0, MCH 26.7 L , MCHC 31.4 L, RDW Std Deviation 49.1 H, RDW Coeff of Bassam 16.1 H, Plt Count 99 L , MPV 10.5, Immature Gran % (Auto) 0.500, Neut % (Auto) 65.8, Lymph % (Auto) 16.3 L, [place] % (Auto) 9.7, Eos % (Auto) 7.2 H, Baso % (Auto) 0.5, Absolute Neuts (auto) 2.9, Absolute Lymphs (auto) 0.72 L, Nucleated RBC % 0 09/11/22 03:01: Sodium 141, Potassium 3.9, Chloride 115 H, Carbon Dioxide 20.0 L , Anion Gap 6, BUN 14, Creatinine 0.67 L, Estim Creat Clear Calc 115.78, Est GFR (MDRD) Af Amer 155, Est GFR (MDRD) Non-Af 128, BUN/Creatinine Ratio 21.0 H, Glucose 89, Calcium 7.4 L Micro: Microbiology 09/07/22 06:35 Blood Culture (Wb) - Right Forearm Blood Culture - Preliminary No growth in 48 hours. 09/07/22 06:25 Blood Culture (Wb) - Right Hand Blood Culture - Preliminary No growth in 48 hours. 09/07/22 06:18 Urine Catheter - Hsu Urine Culture - Final Culture exhibits no growth. Physical Exam Narrative General: Alert, no apparent distress, impulsivity issues HEENT: Atraumatic, PERRLA, EOMI, Normocephalic Oral: Moist Mucosa Neck: Supple, No JVD Lungs: Diminished, Normal air movement, No rhonchi, No wheeze, No rales Cardiovascular: Regular rate, Regular Rhythm, Normal S1, Normal S2, murmur Abdomen: Soft, Non Tender, Non-Distended, No Hepato-splenomegaly Extremities: No edema, Capillary Refill Less than 3 Seconds Skin: No rashes, No breakdown Musculoskeletal: No Tenderness to Palpation of Joints or Extremities Neurological: Moves all extremities Psych/Mental Status: Flat affect, Appropriate Assessment & Plan Assessment/Plan (1) Hemorrhagic shock: (2) Acute upper gastrointestinal bleeding: (3) Anemia: PLAN: Plan 1. Hemorrhagic shock secondary to acute blood loss anemia from an upper GI bleed/alcohol abuse/prolonged QTC ? EGD with grade 3 esophageal varices that were banded, he also had an oozing gastric ulcers with visible vessel that was injected and treated ?Hemoglobin dropped down to 7, will transfuse 2 units, repeat EGD demonstrated continued variceal bleeds that were also banded ? Ultrasound of the liver as well as CT scan of the liver agree with the cirrhosis as well as a solid mass in the mid lateral aspect of the right lobe of the liver which may be consistent with cancer ? Appreciate GIs assistance, will have to discuss with family how to proceed with care given the severity of his illness as well as his continued alcoholism ? Continue with folic acid, Unasyn as well as octreotide and a PPI ? We will continue with a phenobarb taper secondary to his alcoholism as well as IV's, will attempt to wean his Precedex as able based on his mental status ? Given his QTC prolongation avoid Haldol and Seroquel for agitation ? AFP is elevated to 143, normal is 8.4 ? Continue with Xifaxan and lactulose DVT: SCDs Charges/Coding Visit Charges Inpatient E&M: 53898 Subs Hosp L2
--- NOTE | 2022-09-11 11:11 | PN_ITS ---
Subjective Subjective Patient has been sleeping a lot. He underwent repeat EGD yesterday with banding of esophageal varices. Objective Data Objective Data Vital Signs: Vital Signs Temp Pulse Resp BP Pulse Ox O2 Del Method O2 Flow Rate 97.3 F L 68 21 H 130/85 H 97 Nasal Cannula 2 09/11/22 04:00 09/11/22 07:00 09/11/22 07:00 09/11/22 07:00 09/11/22 07:00 09/11/22 07:00 09/11/22 07:00 Oxygen Flow Rate (L/min) 2 Oxygen Delivery Method Nasal Cannula Weight: 204 lb 9.423 oz Body Mass Index (BMI) 28.9 Intake & Output: Intake and Output for Last 24 Hours 09/09/22 09/10/22 09/11/22 23:59 23:59 23:59 Intake Total 4950.22 / 4953.57 5267.01 / 5328.14 1550.32 / 1550.32 Output Total 2900 / 3900 2150 / 2600 450 / 450 Balance 2050.22 / 1053.57 3117.01 / 2728.14 1100.32 / 1100.32 Lab / Micro Data Result Diagrams: 09/11/22 03:01 09/11/22 03:01 Labs: Laboratory Results - last 24 hr 09/06/22 23:21: Crossmatch See Detail 09/10/22 07:32: Blood Type O POSITIVE, Antibody Screen NEGATIVE, Crossmatch See Detail 09/11/22 03:01: WBC 4.4, RBC 3.60 L, Hgb 9.6 L, Hct 30.6 L, MCV 85.0, MCH 26.7 L , MCHC 31.4 L, RDW Std Deviation 49.1 H, RDW Coeff of Bassam 16.1 H, Plt Count 99 L , MPV 10.5, Immature Gran % (Auto) 0.500, Neut % (Auto) 65.8, Lymph % (Auto) 16.3 L, [place] % (Auto) 9.7, Eos % (Auto) 7.2 H, Baso % (Auto) 0.5, Absolute Neuts (auto) 2.9, Absolute Lymphs (auto) 0.72 L, Nucleated RBC % 0 09/11/22 03:01: Sodium 141, Potassium 3.9, Chloride 115 H, Carbon Dioxide 20.0 L , Anion Gap 6, BUN 14, Creatinine 0.67 L, Estim Creat Clear Calc 115.78, Est GFR (MDRD) Af Amer 155, Est GFR (MDRD) Non-Af 128, BUN/Creatinine Ratio 21.0 H, Glucose 89, Calcium 7.4 L Micro: Microbiology 09/07/22 06:35 Blood Culture (Wb) - Right Forearm Blood Culture - Preliminary No growth in 48 hours. 09/07/22 06:25 Blood Culture (Wb) - Right Hand Blood Culture - Preliminary No growth in 48 hours. 09/07/22 06:18 Urine Catheter - Hsu Urine Culture - Final Culture exhibits no growth. Physical Exam Narrative General: Alert, no apparent distress, impulsivity issues HEENT: Atraumatic, PERRLA, EOMI, Normocephalic Oral: Moist Mucosa Neck: Supple, No JVD Lungs: Diminished, Normal air movement, No rhonchi, No wheeze, No rales Cardiovascular: Regular rate, Regular Rhythm, Normal S1, Normal S2, murmur Abdomen: Soft, Non Tender, Non-Distended, No Hepato-splenomegaly Extremities: No edema, Capillary Refill Less than 3 Seconds Skin: No rashes, No breakdown Musculoskeletal: No Tenderness to Palpation of Joints or Extremities Neurological: Moves all extremities Psych/Mental Status: Flat affect, Appropriate Assessment & Plan Assessment/Plan (1) Hemorrhagic shock: PLAN: Patient seems more hemodynamically stable today. (2) Acute upper gastrointestinal bleeding: PLAN: Status posttreatment of variceal bleeding and gastric ulcer bleeding with hemoglobin is up to 9.6. (3) Anemia: PLAN: Continue to monitor hemoglobin and he can have a full liquid diet. (4) Cirrhosis: PLAN: Imaging with ultrasound and CT scan abdomen pelvis does show a hepatic mass likely secondary to hepatocellular carcinoma. He would need to be more coherent to undergo a liver biopsy. Alpha-fetoprotein is 143 which is elevated. (5) Encephalopathy: PLAN: Acute encephalopathy likely secondary to GI bleed. Xifaxan 550 mg p.o. twice daily and lactulose 20 cc p.o. every 6 hours. Charges/Coding Visit Charges Inpatient E&M: 86165 Subs Hosp L3
--- NOTE | 2022-09-11 11:30 | CASEMGMT ---
Addendum entered by Winter Hong 09/11/22 12:18: Pt's mother did bring a one page POA document stating she is POA. Document is on the chart. Winter JENKINS Original Note: Social Work As per pt's mother, she is POA. She is to bring the documents in today. ELI DossS
--- NOTE | 2022-09-11 12:18 | CASEMGMT ---
Social Work Physician met w/pt's mother, father, and brother Rogers to review goals of care. SW and RN present. Family to let physician know decision on code status today, and to start thinking about goals of care. SW available for support to family. ALICE Doss
--- NOTE | 2022-09-11 12:23 | NURSING ---
Dr Santiago here talking with family about plan of care, mother given 2 silver colored band rings
--- NOTE | 2022-09-11 14:31 | CASEMGMT ---
Patient is still confused at this time and unable to participate in assessment. CM will attempt assessment when patient is able to participate.
[2022-09-12] VITALS (24 sets, daily range): BP systolic 94–141; BP diastolic 57–92; PULSE 43–53; RESP 8–21; TEMP 35.7–37; O2SAT 94–97
[2022-09-12] MEDS: 0.9% Normal Saline 1,000 ML 150 ML IV ×2 (00:39→07:55)
[2022-09-12] MEDS: Lactulose 20 GM/30 ML UDC PO ×2 (00:39→05:24)
[2022-09-12] MEDS: Phenobarbital 32.4 MG Tablet PO ×2 (03:52→09:32)
[2022-09-12 04:20] LABS: Absolute Lymphocyte Count 0.54 X10^3/uL (0.83-4.51); Absolute Neutrophil Count 2.2 X10^3/uL (2.0-7.7); Basophil# 0.02 X10^3/uL; Basophil% 0.6 % (0-1); Eosinophil# 0.25 X10^3/uL; Eosinophils% 7.5 % (0-5); Hematocrit 28.5 % (40-54); Hemoglobin 8.8 g/dL (13.0-16.5); Lymphocyte # 0.54 X10^3/ul (0.83-4.51); Lymphocyte % 16.3 % (19-41); Mean Corp Hgb Conc 30.9 g/dL (32-36); Mean Corpuscular Hgb 26.7 pg (27.0-32.0); Mean Corpuscular Volume 86.4 fL (80-94); Mean Platelet Vol. 10.5 fl (6.2-12.0); NRBC Flagged by Analyzer 0 % (0-5); Neutrophil # 2.18 X10^3/uL (2.7-7.7); Neutrophil % 65.7 % (47-70); POSITIVE COUNT YES; POSITIVE DIFFERENTIAL YES; Platelet Count 75 K/mm3 (150-450); RBC Distribution Width SD 49.5 fl (35.1-43.9); White Blood Count 3.3 K/mm3 (4.4-11.0)
[2022-09-12 04:23] LABS: Differential Indicated SCAN CRITERIA MET
[2022-09-12 04:31] LABS: Anion Gap 6 (5-15); BUN 12 mg/dL (7-18); BUN/Creat Ratio 20.5 RATIO (10-20); Chloride 116 mmol/L (98-107); Creatinine, Serum 0.58 mg/dL (0.70-1.30); Differential Comment SCANNED; EST Glomerular Filtration Rate 150 mL/min (>60); Est Glom Filt Rate - Afr Amer 181 mL/min (>60); Estimated Creatinine Clearance 133.75 ml/min; Glucose 91 mg/dL (74-106); Potassium 3.7 mmol/L (3.5-5.1); Sodium Level 142 mmol/L (136-145)
[2022-09-12] MEDS: 0.9% Normal Saline 1,000 ML 75 ML IV ×2 (08:37→20:36)
--- NOTE | 2022-09-12 09:38 | PCM.PN.HOSP ---
Subjective Subjective No issues overnight, still fairly somnolent Objective Data Objective Data Vital Signs: Vital Signs Temp Pulse Resp BP Pulse Ox O2 Del Method O2 Flow Rate 98 F 47 L 14 123/72 H 95 Room Air 2 09/12/22 07:57 09/12/22 07:57 09/12/22 07:57 09/12/22 07:57 09/12/22 07:57 09/12/22 07:57 09/12/22 01:40 Oxygen Flow Rate (L/min) 2 Oxygen Delivery Method Room Air Weight: 207 lb 10.807 oz Body Mass Index (BMI) 28.9 Intake & Output: Intake and Output for Last 24 Hours 09/11/22 09/12/22 09/13/22 03:59 03:59 03:59 Intake Total 4605.29 / 4605.29 5070.92 / 5072.74 1533.86 / 1533.86 Output Total 1600 / 1600 1150 / 1150 400 / 400 Balance 3005.29 / 3005.29 3920.92 / 3922.74 1133.86 / 1133.86 Lab / Micro Data Result Diagrams: 09/12/22 03:50 09/12/22 03:50 Labs: Laboratory Results - last 24 hr 09/12/22 03:50: WBC 3.3 L, RBC 3.30 L, Hgb 8.8 L, Hct 28.5 L, MCV 86.4, MCH 26.7 L, MCHC 30.9 L, RDW Std Deviation 49.5 H, RDW Coeff of Bassam 16.0 H, Plt Count 75 L, MPV 10.5, Immature Gran % (Auto) 0.900, Neut % (Auto) 65.7, Lymph % (Auto) 16.3 L, [place] % (Auto) 9.0, Eos % (Auto) 7.5 H, Baso % (Auto) 0.6, Absolute Neuts (auto) 2.2, Absolute Lymphs (auto) 0.54 L, Nucleated RBC % 0, Differential Comment SCANNED, Diff Path Review December09/12/22 03:50: Sodium 142, Potassium 3.7, Chloride 116 H, Carbon Dioxide 20.0 L, Anion Gap 6, BUN 12, Creatinine 0.58 L, Estim Creat Clear Calc 133.75, Est GFR (MDRD) Af Amer 181, Est GFR (MDRD) Non-Af 150, BUN/Creatinine Ratio 20.5 H, Glucose 91, Calcium 7.0 L Micro: Microbiology 09/07/22 06:35 Blood Culture (Wb) - Right Forearm Blood Culture - Final No growth in 5 days. 09/07/22 06:25 Blood Culture (Wb) - Right Hand Blood Culture - Final No growth in 5 days. 09/07/22 06:18 Urine Catheter - Hsu Urine Culture - Final Culture exhibits no growth. Physical Exam Narrative General: Alert, no apparent distress, impulsivity issues HEENT: Atraumatic, PERRLA, EOMI, Normocephalic Oral: Moist Mucosa Neck: Supple, No JVD Lungs: Diminished, Normal air movement, No rhonchi, No wheeze, No rales Cardiovascular: Regular rate, Regular Rhythm, Normal S1, Normal S2, murmur Abdomen: Soft, Non Tender, Non-Distended, No Hepato-splenomegaly Extremities: No edema, Capillary Refill Less than 3 Seconds Skin: No rashes, No breakdown Musculoskeletal: No Tenderness to Palpation of Joints or Extremities Neurological: Moves all extremities Psych/Mental Status: Flat affect, Appropriate Assessment & Plan Assessment/Plan (1) Hemorrhagic shock: (2) Acute upper gastrointestinal bleeding: (3) Anemia: PLAN: Plan 1. Hemorrhagic shock secondary to acute blood loss anemia from an upper GI bleed/alcohol abuse/prolonged QTC ? EGD with grade 3 esophageal varices that were banded, he also had an oozing gastric ulcers with visible vessel that was injected and treated ?Hemoglobin dropped down to 7, will transfuse 2 units, repeat EGD demonstrated continued variceal bleeds that were also banded ? Ultrasound of the liver as well as CT scan of the liver agree with the cirrhosis as well as a solid mass in the mid lateral aspect of the right lobe of the liver which may be consistent with cancer ? Appreciate GIs assistance, will have to discuss with family how to proceed with care given the severity of his illness as well as his continued alcoholism ? Continue with folic acid, Unasyn as well as octreotide and a PPI ? We will continue with a phenobarb taper secondary to his alcoholism as well as IV's, will attempt to wean his Precedex as able based on his mental status ? Given his QTC prolongation avoid Haldol and Seroquel for agitation ? AFP is elevated to 143, normal is 8.4 ? Continue with Xifaxan and lactulose I had a 30-minute discussion on advance care planning with his family and they did elect to make him a DNR CCA at this time DVT: SCDs Charges/Coding Visit Charges Inpatient E&M: 55965 Subs Hosp L2 Procedures Hospitalists Procedures: 05282 Advncd Care Plan 30 Min
[2022-09-12] MEDS: LORazepam 2 MG/ML Syringe IV (09:39)
[2022-09-13] VITALS (24 sets, daily range): BP systolic 93–154; BP diastolic 47–102; PULSE 43–79; RESP 10–17; TEMP 35.2–36.7; O2SAT 95–100
[2022-09-13 04:13] LABS: Absolute Lymphocyte Count 0.72 X10^3/uL (0.83-4.51); Basophil# 0.03 X10^3/uL; Basophil% 0.7 % (0-1); Eosinophil# 0.25 X10^3/uL; Eosinophils% 5.7 % (0-5); Hematocrit 29.8 % (40-54); Hemoglobin 9.4 g/dL (13.0-16.5); Lymphocyte # 0.72 X10^3/ul (0.83-4.51); Lymphocyte % 16.5 % (19-41); Mean Corp Hgb Conc 31.5 g/dL (32-36); Mean Corpuscular Hgb 26.1 pg (27.0-32.0); Mean Corpuscular Volume 82.8 fL (80-94); Mean Platelet Vol. 11.4 fl (6.2-12.0); Monocyte# 0.35 X10^3/uL; NRBC Flagged by Analyzer 0 % (0-5); Neutrophil # 2.98 X10^3/uL (2.7-7.7); Neutrophil % 68.4 % (47-70); POSITIVE COUNT YES; Platelet Count 80 K/mm3 (150-450); RBC Distribution Width CV 16.3 % (11.6-14.6); White Blood Count 4.4 K/mm3 (4.4-11.0)
[2022-09-13 04:27] LABS: Anion Gap 8 (5-15); BUN 10 mg/dL (7-18); BUN/Creat Ratio 20.1 RATIO (10-20); Calcium,Total 7.1 mg/dL (8.5-10.1); Chloride 115 mmol/L (98-107); EST Glomerular Filtration Rate 180 mL/min (>60); Est Glom Filt Rate - Afr Amer 218 mL/min (>60); Estimated Creatinine Clearance 155.15 ml/min; Glucose 102 mg/dL (74-106); Potassium 3.6 mmol/L (3.5-5.1); Sodium Level 141 mmol/L (136-145)
--- NOTE | 2022-09-13 08:06 | PN.HOSP_ITS ---
Subjective Subjective Follow-up for hemorrhagic shock secondary to acute blood loss anemia from variceal bleed. Patient had EGD with grade 3 esophageal varices status post banding. Also has oozing gastric ulcer with visible vessel that was injected and treated. Objective Data Objective Data Vital Signs: Vital Signs Temp Pulse Resp BP Pulse Ox O2 Del Method O2 Flow Rate 95.4 F L 45 L 17 103/67 96 Room Air 2 09/13/22 06:00 09/13/22 06:00 09/13/22 06:00 09/13/22 06:00 09/13/22 06:00 09/13/22 06:00 09/12/22 01:40 Oxygen Flow Rate (L/min) 2 Oxygen Delivery Method Room Air Weight: 211 lb 6.773 oz Body Mass Index (BMI) 28.9 Intake & Output: Intake and Output for Last 24 Hours 09/11/22 09/12/22 09/13/22 23:59 23:59 23:59 Intake Total 4424.07 / 4439.67 4749.03 / 4773.53 776.42 / 776.42 Output Total 1200 / 1600 1530 / 1750 570 / 570 Balance 3224.07 / 2839.67 3219.03 / 3023.53 206.42 / 206.42 Lab / Micro Data Result Diagrams: 09/13/22 04:02 09/13/22 04:02 Labs: Laboratory Results - last 24 hr 09/13/22 04:02: WBC 4.4, RBC 3.60 L, Hgb 9.4 L, Hct 29.8 L, MCV 82.8, MCH 26.1 L , MCHC 31.5 L, RDW Std Deviation 49.0 H, RDW Coeff of Bassam 16.3 H, Plt Count 80 L , MPV 11.4, Immature Gran % (Auto) 0.700, Neut % (Auto) 68.4, Lymph % (Auto) 16.5 L, [place] % (Auto) 8.0, Eos % (Auto) 5.7 H, Baso % (Auto) 0.7, Absolute Neuts (auto) 3.0, Absolute Lymphs (auto) 0.72 L, Nucleated RBC % 0 09/13/22 04:02: Sodium 141, Potassium 3.6, Chloride 115 H, Carbon Dioxide 18.0 L , Anion Gap 8, BUN 10, Creatinine 0.50 L, Estim Creat Clear Calc 155.15, Est GFR (MDRD) Af Amer 218, Est GFR (MDRD) Non-Af 180, BUN/Creatinine Ratio 20.1 H, Glucose 102, Calcium 7.1 L Micro: Microbiology 09/07/22 06:35 Blood Culture (Wb) - Right Forearm Blood Culture - Final No growth in 5 days. 09/07/22 06:25 Blood Culture (Wb) - Right Hand Blood Culture - Final No growth in 5 days. 09/07/22 06:18 Urine Catheter - Hsu Urine Culture - Final Culture exhibits no growth. Physical Exam Narrative Physical exam General: Confused, disoriented, agitated and restless. HEENT: Atraumatic, PERRLA, EOMI, Normocephalic Oral: No Gingival or Mucosal Lesions/ Ulcerations Neck: Supple, No JVD, Negative Carotid Bruits Lungs: Air entry diminished in bilateral lung bases. No crepitation/rhonchi Cardiovascular: Regular rate, Regular Rhythm, Normal S1, Normal S2, No murmurs Abdomen: Bowel sounds sluggish. Nontender. Soft with mild distention. Shifting dullness could not be performed. : No renal angle tenderness. No suprapubic tenderness. Extremities: Left upper extremity is swollen, has peripheral IV lines. Capillary Refill Less than 3 Seconds Skin: No rashes, No breakdown Musculoskeletal: Wrists in soft restraints Neurological: Patient agitated, does not follow commands. Detailed neuro exam unobtainable. DTR's 2+/4. Psych/Mental Status: Flat affect, inappropriate words Assessment & Plan Assessment/Plan (1) Hemorrhagic shock: (2) Acute upper gastrointestinal bleeding: (3) Anemia: PLAN: Plan 1. Hemorrhagic shock secondary to acute blood loss anemia from an upper GI blee d/alcohol abuse/prolonged QTC ? EGD with grade 3 esophageal varices that were banded on 09/10/2022, he also had an oozing gastric ulcers with visible vessel that was injected and treated ?Hemoglobin dropped down to 7, and was transfused 2 units of PRBC. Patient had total of 5 units transfused so far ? GI consulted. ? Continue with folic acid, Unasyn as well as octreotide and a PPI ? continue with a phenobarb taper secondary to his alcoholism as well as IV's attempt to wean his Precedex as able based on his mental status ? Given his QTC prolongation avoid Haldol and Seroquel for agitation 2. Alcoholic cirrhosis decompensated with coagulopathy, esophageal varices, hepatic encephalopathy and hepatocellular carcinoma CT scan showed hepatic mass most likely hepatocellular carcinoma. Alpha-fetoprotein high 143. Further work-up when patient is more coherent. 3. Acute encephalopathy most probably hepatic encephalopathy exacerbated by GI bleed: Patient on lactulose and Xifaxan. DVT: SCDs. Pharmacological prophylaxis contraindicated. Advance care planning: My hospitalist colleague had discussion with family regarding advanced directive. Patient is DNR CC arrest with no intubation. Charges/Coding Visit Charges Inpatient E&M: 84171 Subs Hosp L3
[2022-09-13] MEDS: 0.9% Normal Saline 1,000 ML 75 ML IV ×2 (09:16→21:02)
[2022-09-13] MEDS: CHLORHEXIDINE GLUC 2% CLOTH 1 EACH TOWELETTE TOPICAL (10:48)
[2022-09-13] MEDS: Ensure Clear 120 ML Liquid PO ×3 (14:55→21:26)
[2022-09-13] MEDS: Lactulose 20 GM/30 ML UDC PO (17:51)
[2022-09-13] MEDS: rifAXIMin 550 MG Tablet PO (22:01)
[2022-09-14] VITALS (24 sets, daily range): BP systolic 77–165; BP diastolic 49–103; PULSE 47–101; RESP 11–27; TEMP 36.3–37.3; O2SAT 90–100
[2022-09-14] MEDS: Lactulose 20 GM/30 ML UDC PO ×4 (00:59→17:33)
--- NOTE | 2022-09-14 07:35 | PCM.PN.HOSP ---
Subjective Subjective Follow-up for severe anemia due to variceal bleed and decompensated alcoholic cirrhosis with ascites Patient is more awake. At times he is very tearful after loss of his . He said that last year he lost his then he did start drinking alcohol. He knows that he does not have to drink alcohol otherwise it is hard for him to survive Objective Data Objective Data Vital Signs: Vital Signs Temp Pulse Resp BP Pulse Ox O2 Del Method O2 Flow Rate 97.8 F 51 L 16 96/56 L 92 Room Air 2 09/14/22 04:00 09/14/22 06:00 09/14/22 06:00 09/14/22 06:00 09/14/22 06:00 09/14/22 06:00 09/12/22 01:40 Oxygen Flow Rate (L/min) 2 Oxygen Delivery Method Room Air Weight: 216 lb 4.375 oz Body Mass Index (BMI) 28.9 Intake & Output: Intake and Output for Last 24 Hours 09/12/22 09/13/22 09/14/22 23:59 23:59 23:59 Intake Total 4749.03 / 4773.53 3524.11 / 3524.11 692.85 / 692.85 Output Total 1530 / 1750 1745 / 2105 610 / 610 Balance 3219.03 / 3023.53 1779.11 / 1419.11 82.85 / 82.85 Lab / Micro Data Result Diagrams: 09/13/22 04:02 09/13/22 04:02 Labs: Laboratory Results - last 24 hr 09/10/22 07:32: Crossmatch See Detail Micro: Microbiology 09/07/22 06:35 Blood Culture (Wb) - Right Forearm Blood Culture - Final No growth in 5 days. 09/07/22 06:25 Blood Culture (Wb) - Right Hand Blood Culture - Final No growth in 5 days. 09/07/22 06:18 Urine Catheter - Hsu Urine Culture - Final Culture exhibits no growth. Physical Exam Narrative Physical exam General: Awake, alert, oriented x3 HEENT: Atraumatic, PERRLA, EOMI, Normocephalic Oral: No Gingival or Mucosal Lesions/ Ulcerations Neck: Supple, No JVD, Negative Carotid Bruits Lungs: Air entry diminished in bilateral lung bases. No crepitation/rhonchi Cardiovascular: Regular rate, Regular Rhythm, Normal S1, Normal S2, No murmurs Abdomen: Bowel sounds sluggish. Nontender. Soft with moderate distention. Shifting dullness, large ascites. : No renal angle tenderness. No suprapubic tenderness. Extremities: Left upper extremity is swollen, has peripheral IV lines. Moderate bilateral ankle edema capillary Refill Less than 3 Seconds Skin: No rashes, No breakdown Musculoskeletal: Wrists in soft restraints. ROM restricted Neurological: More sober, cranial nerves II to XII intact. DTR's 2+/4. Psych/Mental Status: Flat affect, inappropriate words Assessment & Plan Assessment/Plan (1) Hemorrhagic shock: (2) Acute upper gastrointestinal bleeding: (3) Anemia: PLAN: Plan 1. Hemorrhagic shock secondary to acute blood loss anemia from an upper GI bleed/alcohol abuse/prolonged QTC ? EGD with grade 3 esophageal varices that were banded on 09/10/2022, he also had an oozing gastric ulcers with visible vessel that was injected and treated ?Hemoglobin dropped down to 7, and was transfused 2 units of PRBC. Patient had total of 5 units transfused so far ? GI consulted. ? Continue with folic acid, Unasyn as well as octreotide and a PPI ? continue with a phenobarb taper secondary to his alcoholism ? Given his QTC prolongation avoid Haldol and Seroquel for agitation 09/14: Hemoglobin is 9.3. Repeat labs ordered. Poor IV access. PICC line ordered. Protonix IV drip changed to 40 mg oral as he had 72 hours of IV drip. Started on alcohol order set for withdrawal stabilization program. 2. Alcoholic cirrhosis decompensated with coagulopathy, esophageal varices, hepatic encephalopathy and hepatocellular carcinoma CT scan showed hepatic mass most likely hepatocellular carcinoma. Alpha-fetoprotein high 143. Further work-up when patient is more coherent. 3. Acute encephalopathy most probably hepatic encephalopathy exacerbated by GI bleed: Patient on lactulose and Xifaxan. DVT: SCDs. Pharmacological prophylaxis contraindicated. Advance care planning: My hospitalist colleague had discussion with family regarding advanced directive. Patient is DNR CC arrest with no intubation. Charges/Coding Visit Charges Inpatient E&M: 37861 Subs Hosp L3
[2022-09-14] MEDS: CHLORHEXIDINE GLUC 2% CLOTH 1 EACH TOWELETTE TOPICAL (09:00)
[2022-09-14 10:01] LABS: Pathologist Review Reviewed
--- NOTE | 2022-09-14 10:40 | CASEMGMT ---
Addendum entered by Winter Hong 09/14/22 10:50: Social Work Pt also mentioned he has trouble seeing at present as he has a cataract, states he is to have surgery on it. Pt may need assist in reviewing residential list, should pt be agreeable to SNF referral. ALICE Doss Original Note: Social Work SW met w/pt, spoke w/him about prior level of function and anticipated discharge plan. Pt more alert and oriented today, able to answer questions and have conversation w/SW. PCP: Pt states cannot remember, it's a doctor on [address], states his whole family goes there. Pharmacy: [facility] in [place], though pt does not have any meds he has been taking at present. Pt states he needs blood pressure medication and a water pill, says that the doctor is going to give him a prescription. He also stated the doctor was going to give him something for depression. Insurance: [employer] Medicare, Medicaid POA: Pt confirms his mother is his POA, states he wants to change it to his brother at some point as she is getting up there, but states she is still good. Prior living arrangements/level of function: Pt describes that he lives in a dormer where they each have their own room. Pt states that the other men who live there, naming Gerry and Khoi, help him out. Pt independent with ADLs. Transportation: Pt states takes the bus or uses cab passes. DME: Pt states uses a walker at baseline. Pt states to SW(before SW could ask) that he is never going to drink again. He states the doctor told him that even if he has one drink it could kill him. Pt states his 3 1/2 years ago, they were together 18 years. He had stopped drinking, started again when she . SW offered support to pt. SW spoke w/pt about plan when he is ready to leave the hospital. Pt states he wants to go home. SW explained that he may need to go somewhere for a few weeks to get stronger before going home. Pt states is feeling much better, he thinks he will be able to go home. SW will continue to follow, will speak w/pt again after he has had some PT/OT, to see if home is an appropriate plan or if going to a residential for rehab may be warranted. ALICE Doss
[2022-09-14] MEDS: Ensure Clear 120 ML Liquid PO ×3 (10:45→21:09)
[2022-09-14] MEDS: rifAXIMin 550 MG Tablet PO ×2 (10:45→21:09)
[2022-09-14] MEDS: Thiamine Hydrochloride 100 MG Tablet PO (12:46)
[2022-09-14] MEDS: Folic Acid 1 MG Tablet PO (12:46)
[2022-09-14] MEDS: Pantoprazole Sodium 40 MG Tablet PO ×2 (12:46→21:09)
--- NOTE | 2022-09-14 17:27 | PCM.PROGNOTE ---
Subjective Subjective Patient is a lot more alert and awake at this time. He is tolerating a diet. He knows that he is in the hospital for acute decompensated cirrhosis. Objective Data Objective Data Vital Signs: Vital Signs Temp Pulse Resp BP Pulse Ox O2 Del Method O2 Flow Rate 98.2 F 95 27 H 140/72 H 96 Room Air 2 09/14/22 16:00 09/14/22 16:00 09/14/22 16:00 09/14/22 16:00 09/14/22 16:00 09/14/22 16:00 09/12/22 01:40 Oxygen Flow Rate (L/min) 2 Oxygen Delivery Method Room Air Weight: 216 lb 4.375 oz Body Mass Index (BMI) 28.9 Intake & Output: Intake and Output for Last 24 Hours 09/12/22 09/13/22 09/14/22 23:59 23:59 23:59 Intake Total 4749.03 / 4773.53 3524.11 / 3524.11 1925.64 / 1925.64 Output Total 1530 / 1750 1745 / 2105 1610 / 1610 Balance 3219.03 / 3023.53 1779.11 / 1419.11 315.64 / 315.64 Lab / Micro Data Result Diagrams: 09/13/22 04:02 09/13/22 04:02 Labs: Laboratory Results - last 24 hr 09/10/22 07:32: Crossmatch See Detail 09/12/22 03:50: Diff Path Review Reviewed Micro: Microbiology 09/07/22 06:35 Blood Culture (Wb) - Right Forearm Blood Culture - Final No growth in 5 days. 09/07/22 06:25 Blood Culture (Wb) - Right Hand Blood Culture - Final No growth in 5 days. 09/07/22 06:18 Urine Catheter - Hsu Urine Culture - Final Culture exhibits no growth. Physical Exam Narrative Physical exam General: Awake, alert, oriented x3 HEENT: Atraumatic, PERRLA, EOMI, Normocephalic Oral: No Gingival or Mucosal Lesions/ Ulcerations Neck: Supple, No JVD, Negative Carotid Bruits Lungs: Air entry diminished in bilateral lung bases. No crepitation/rhonchi Cardiovascular: Regular rate, Regular Rhythm, Normal S1, Normal S2, No murmurs Abdomen: Bowel sounds sluggish. Nontender. Soft with moderate distention. Shifting dullness, large ascites. : No renal angle tenderness. No suprapubic tenderness. Extremities: Left upper extremity is swollen, has peripheral IV lines. Moderate bilateral ankle edema capillary Refill Less than 3 Seconds Skin: No rashes, No breakdown Musculoskeletal: Wrists in soft restraints. ROM restricted Neurological: More sober, cranial nerves II to XII intact. DTR's 2+/4. Psych/Mental Status: Flat affect, inappropriate words Assessment & Plan Assessment/Plan (1) Hemorrhagic shock: PLAN: Patient seems more hemodynamically stable today. (2) Acute upper gastrointestinal bleeding: PLAN: Status posttreatment of variceal bleeding and gastric ulcer bleeding with hemoglobin seems to be stable. (3) Anemia: PLAN: Continue to monitor hemoglobin and he can have a full liquid diet. (4) Cirrhosis: PLAN: Imaging with ultrasound and CT scan abdomen pelvis does show a hepatic mass likely secondary to hepatocellular carcinoma. He would need to be more coherent to undergo a liver biopsy. Alpha-fetoprotein is 143 which is elevated. He will need to follow-up with oncology. (5) Encephalopathy: PLAN: Acute encephalopathy likely secondary to GI bleed. Xifaxan 550 mg p.o. twice daily and lactulose 20 cc p.o. every 6 hours. Charges/Coding Visit Charges Inpatient E&M: 31453 [facility] Hosp L3
--- NOTE | 2022-09-14 18:14 | NURSING ---
Pt. has been refusing blood draws until PICC line is placed.
[2022-09-14 20:32] LABS: Absolute Lymphocyte Count 0.88 X10^3/uL (0.83-4.51); Absolute Neutrophil Count 6.1 X10^3/uL (2.0-7.7); Basophil# 0.02 X10^3/uL; Basophil% 0.2 % (0-1); Eosinophils% 3.7 % (0-5); Hematocrit 28.3 % (40-54); Hemoglobin 9.4 g/dL (13.0-16.5); Lymphocyte # 0.88 X10^3/ul (0.83-4.51); Mean Corp Hgb Conc 33.2 g/dL (32-36); Mean Corpuscular Hgb 26.8 pg (27.0-32.0); Mean Corpuscular Volume 80.6 fL (80-94); Monocyte# 0.71 X10^3/uL; Monocyte% 8.9 % (0-10); NRBC Flagged by Analyzer 0 % (0-5); Neutrophil # 6.06 X10^3/uL (2.7-7.7); Neutrophil % 75.7 % (47-70); Platelet Count 149 K/mm3 (150-450); RBC Distribution Width CV 17.2 % (11.6-14.6); RBC Distribution Width SD 49.7 fl (35.1-43.9); Red Blood Count 3.51 M/mm3 (4.6-6.2)
[2022-09-14 21:24] LABS: ALB/GLOB Ratio 0.7 RATIO (0.9-2.4); AST(SGOT) 49 U/L (15-37); Alanine Aminotransfer ALT/SGPT 39 U/L (16-61); Albumin, Serum 2.4 g/dL (3.2-5.0); Alkaline Phosphatase 157 U/L (45-117); Anion Gap 8 (5-15); BUN 9 mg/dL (7-18); BUN/Creat Ratio 11.8 RATIO (10-20); Calcium,Total 7.6 mg/dL (8.5-10.1); Chloride 110 mmol/L (98-107); Creatinine, Serum 0.76 mg/dL (0.70-1.30); EST Glomerular Filtration Rate 110 mL/min (>60); Est Glom Filt Rate - Afr Amer 133 mL/min (>60); Estimated Creatinine Clearance 102.07 ml/min; Globulin 3.4 g/dL (2.2-4.2); Glucose 134 mg/dL (74-106); Potassium 3.5 mmol/L (3.5-5.1); Protein, Total 5.8 g/dL (6.4-8.2); Sodium Level 139 mmol/L (136-145)
[2022-09-15] VITALS (16 sets, daily range): BP systolic 97–158; BP diastolic 62–88; PULSE 72–95; RESP 15–23; TEMP 37.1–37.5; O2SAT 94–97
[2022-09-15 03:22] LABS: Absolute Lymphocyte Count 1.07 X10^3/uL (0.83-4.51); Absolute Neutrophil Count 4.9 X10^3/uL (2.0-7.7); Basophil# 0.02 X10^3/uL; Basophil% 0.3 % (0-1); Eosinophil# 0.32 X10^3/uL; Eosinophils% 4.4 % (0-5); Hematocrit 27.4 % (40-54); Hemoglobin 8.9 g/dL (13.0-16.5); Lymphocyte # 1.07 X10^3/ul (0.83-4.51); Lymphocyte % 14.8 % (19-41); Mean Corp Hgb Conc 32.5 g/dL (32-36); Mean Corpuscular Hgb 26.3 pg (27.0-32.0); Mean Corpuscular Volume 81.1 fL (80-94); Mean Platelet Vol. 9.3 fl (6.2-12.0); Monocyte# 0.94 X10^3/uL; NRBC Flagged by Analyzer 0 % (0-5); Neutrophil # 4.85 X10^3/uL (2.7-7.7); Neutrophil % 67.2 % (47-70); Platelet Count 139 K/mm3 (150-450); RBC Distribution Width CV 17.2 % (11.6-14.6); RBC Distribution Width SD 50.1 fl (35.1-43.9); Red Blood Count 3.38 M/mm3 (4.6-6.2); White Blood Count 7.2 K/mm3 (4.4-11.0)
[2022-09-15 03:35] LABS: Anion Gap 8 (5-15); BUN 8 mg/dL (7-18); BUN/Creat Ratio 13.6 RATIO (10-20); Calcium,Total 7.6 mg/dL (8.5-10.1); Chloride 109 mmol/L (98-107); Creatinine, Serum 0.59 mg/dL (0.70-1.30); EST Glomerular Filtration Rate 148 mL/min (>60); Est Glom Filt Rate - Afr Amer 179 mL/min (>60); Estimated Creatinine Clearance 131.48 ml/min; Glucose 88 mg/dL (74-106); Potassium 3.4 mmol/L (3.5-5.1); Sodium Level 139 mmol/L (136-145)
[2022-09-15] MEDS: Thiamine Hydrochloride 100 MG Tablet PO (09:30)
[2022-09-15] MEDS: Ondansetron 8 MG Tablet PO (09:30)
[2022-09-15] MEDS: Pantoprazole Sodium 40 MG Tablet PO ×2 (09:30→21:08)
[2022-09-15] MEDS: rifAXIMin 550 MG Tablet PO ×2 (09:30→21:08)
[2022-09-15] MEDS: Folic Acid 1 MG Tablet PO (09:30)
[2022-09-15] MEDS: CHLORHEXIDINE GLUC 2% CLOTH 1 EACH TOWELETTE TOPICAL (09:35)
[2022-09-15] MEDS: Acetaminophen 325 MG Tablet 650 MG PO (10:30)
--- NOTE | 2022-09-15 11:53 | CASEMGMT ---
Addendum entered by Paula Gan 09/15/22 13:57: Social Work Return message form [facility] and they are able to accept pt with a bed available on Tuesday. Pt updated. SIL will continue to follow for discharge planning. Plan: [facility]. MADISON Willams Original Note: Social Work SW met with pt and introduced self and role of SW. SW reviewed pt's therapy notes and need for Mod A x1-2 for transports and gait not able to be tested at time of therapy. SW discussed discharge plan and possible need for short term SNF. Pt states he does believe he will need a SNF at discharge and he would like to go to a facility near [place] where his aunt had been previously. Pt unable to remember the name of the facility but did give description to SW. Pt gave permission to call pt mother to find name of facility. Phone call to pt mother Kimberli who was not able provide name of facility but was aware and agreeable with facility pt was talking about. SIL investigated SNF's with description provided [facility]. SIL spoke to both pt and mother with this information and both are in agreement that this is the facility of choice and would like referral sent. SIL provided information of facility off of [facility] including star rating. Referral sent to Carito at [facility]. Carito states they are able to accept pt pending bed availability. Pt is not currently ready for discharge and a bed would be available at [place] on Tuesday. SIL will continue to follow for discharge planning. Plan: [facility], pending bed availability at time of discharge. MADISON Willams
--- NOTE | 2022-09-15 12:08 | PN.HOSP_ITS ---
Subjective Subjective Follow-up for decompensated alcoholic cirrhosis with large ascites and severe anemia due to variceal bleed. Objective Data Objective Data Vital Signs: Vital Signs Temp Pulse Resp BP Pulse Ox O2 Del Method O2 Flow Rate 99.5 F H 90 17 157/81 H 95 Room Air 2 09/15/22 08:00 09/15/22 10:00 09/15/22 10:00 09/15/22 10:00 09/15/22 10:00 09/15/22 10:00 09/12/22 01:40 Oxygen Flow Rate (L/min) 2 Oxygen Delivery Method Room Air Weight: 216 lb 0.848 oz Body Mass Index (BMI) 28.9 Intake & Output: Intake and Output for Last 24 Hours 09/13/22 09/14/22 09/15/22 23:59 23:59 23:59 Intake Total 3524.11 / 3524.11 1925.64 / 1925.64 250 / 250 Output Total 1745 / 2105 2785 / 2785 900 / 900 Balance 1779.11 / 1419.11 -859.36 / -859.36 -650 / -650 Lab / Micro Data Result Diagrams: 09/15/22 03:15 09/15/22 03:15 Labs: Laboratory Results - last 24 hr 09/14/22 20:25: WBC 8.0, RBC 3.51 L, Hgb 9.4 L, Hct 28.3 L, MCV 80.6, MCH 26.8 L , MCHC 33.2 D, RDW Std Deviation 49.7 H, RDW Coeff of Bassam 17.2 H, Plt Count 149 L, MPV 10.0, Immature Gran % (Auto) 0.500, Neut % (Auto) 75.7 H, Lymph % (Auto) 11.0 L, [place] % (Auto) 8.9, Eos % (Auto) 3.7, Baso % (Auto) 0.2, Absolute Neuts (auto) 6.1, Absolute Lymphs (auto) 0.88, Nucleated RBC % 0 09/14/22 20:25: Sodium 139, Potassium 3.5, Chloride 110 H, Carbon Dioxide 21.0, Anion Gap 8, BUN 9, Creatinine 0.76, Estim Creat Clear Calc 102.07, Est GFR (MDRD) Af Amer 133, Est GFR (MDRD) Non-Af 110, BUN/Creatinine Ratio 11.8, Glucose 134 H, Calcium 7.6 L, Total Bilirubin 0.60, AST 49 H, ALT 39, Alkaline Phosphatase 157 H, Total Protein 5.8 L, Albumin 2.4 L, Globulin 3.4, Albumin/Globulin Ratio 0.7 L 09/15/22 03:15: WBC 7.2, RBC 3.38 L, Hgb 8.9 L, Hct 27.4 L, MCV 81.1, MCH 26.3 L , MCHC 32.5, RDW Std Deviation 50.1 H, RDW Coeff of [place] 17.2 H, Plt Count 139 L, MPV 9.3, Immature Gran % (Auto) 0.300, Neut % (Auto) 67.2, Lymph % (Auto) 14.8 L , [place] % (Auto) 13.0 H, Eos % (Auto) 4.4, Baso % (Auto) 0.3, Absolute Neuts (auto) 4.9, Absolute Lymphs (auto) 1.07, Nucleated RBC % 0 09/15/22 03:15: Sodium 139, Potassium 3.4 L, Chloride 109 H, Carbon Dioxide 22.0, Anion Gap 8, BUN 8, Creatinine 0.59 L, Estim Creat Clear Calc 131.48, Est GFR (MDRD) Af Amer 179, Est GFR (MDRD) Non-Af 148, BUN/Creatinine Ratio 13.6, Glucose 88, Calcium 7.6 L Micro: Microbiology 09/07/22 06:35 Blood Culture (Wb) - Right Forearm Blood Culture - Final No growth in 5 days. 09/07/22 06:25 Blood Culture (Wb) - Right Hand Blood Culture - Final No growth in 5 days. 09/07/22 06:18 Urine Catheter - Hsu Urine Culture - Final Culture exhibits no growth. Physical Exam Narrative Patient complain of headache in the morning and sore throat. Physical exam General: Awake, alert, oriented x3 HEENT: Atraumatic, PERRLA, EOMI, Normocephalic Oral: Oral mucosa dry. No Gingival or Mucosal Lesions/ Ulcerations Neck: Supple, No JVD, Negative Carotid Bruits Lungs: Air entry diminished in bilateral lung bases. No crepitation/rhonchi Cardiovascular: Regular rate, Regular Rhythm, Normal S1, Normal S2, No murmurs Abdomen: Bowel sounds sluggish. Nontender. Soft with moderate distention. Shifting dullness, large ascites. : No renal angle tenderness. No suprapubic tenderness. Extremities: Left upper extremity is swollen, has peripheral IV lines. Moderate bilateral ankle edema capillary Refill Less than 3 Seconds Skin: No rashes, No breakdown Musculoskeletal: Wrists in soft restraints. ROM restricted Neurological: More sober, cranial nerves II to XII intact. DTR's 2+/4. Psych/Mental Status: Flat affect, inappropriate words Assessment & Plan Assessment/Plan (1) Hemorrhagic shock: (2) Acute upper gastrointestinal bleeding: (3) Anemia: PLAN: Plan 1. Hemorrhagic shock secondary to acute blood loss anemia from an upper GI bleed/alcohol abuse/prolonged QTC ? EGD with grade 3 esophageal varices that were banded on 09/10/2022, he also had an oozing gastric ulcers with visible vessel that was injected and treated ?Hemoglobin dropped down to 7, and was transfused 2 units of PRBC. Patient had total of 5 units transfused so far ? GI consulted. ? Continue with folic acid, Unasyn as well as octreotide and a PPI ? continue with a phenobarb taper secondary to his alcoholism ? Given his QTC prolongation avoid Haldol and Seroquel for agitation 09/14: Hemoglobin is 9.3. Repeat labs ordered. Poor IV access. PICC line ordered. Protonix IV drip changed to 40 mg oral as he had 72 hours of IV drip. Started on alcohol order set for withdrawal stabilization program. 09/15: Hemoglobin 8.93, gradually decreasing. Patient had large ascites therefore started on furosemide and spironolactone, close needs to titrate up as per hemodynamically tolerated and kidney functions and electrolytes permit. Ultrasound-guided paracentesis ordered diagnostic and therapeutic to rule out SBP. Transferred to PCU ordered. 2. Alcoholic cirrhosis decompensated with coagulopathy, large ascites, esophageal varices, hepatic encephalopathy and hepatocellular carcinoma CT scan showed hepatic mass most likely hepatocellular carcinoma. Alpha-fetoprotein high 143. Further work-up when patient is more coherent. 09/15: GI follow-up appreciated. I think liver biopsy may be more appropriate as an outpatient with follow-up with oncologist. The better option will be for follow-up with tumor board with multimodality approach for liver cancer in tertiary hospital setting 3. Acute encephalopathy most probably hepatic encephalopathy exacerbated by GI bleed: Patient on lactulose and Xifaxan. DVT: SCDs. Pharmacological prophylaxis contraindicated. Advance care planning: My hospitalist colleague had discussion with family regarding advanced directive. Patient is DNR CC arrest with no intubation. Charges/Coding Visit Charges Inpatient E&M: 27986 Subs Hosp L3
[2022-09-15] MEDS: Lactulose 20 GM/30 ML UDC PO ×3 (12:35→23:34)
[2022-09-15] MEDS: Ensure Clear 120 ML Liquid PO ×3 (12:42→21:07)
[2022-09-15] MEDS: Loperamide 2 MG Capsule PO (12:43)
[2022-09-15] MEDS: Spironolactone 50 MG Tablet PO (12:43)
[2022-09-15] MEDS: Furosemide 40 MG Tablet PO (12:43)
[2022-09-15] MEDS: 0.9% Saline Lock 10 ML Syringe IV (12:44)
[2022-09-15] MEDS: BENZOCAINE/MENTHOL 1 LOZENGE MUCOUS MEM (12:44)
[2022-09-15 13:13] LABS: AST(SGOT) 46 U/L (15-37); Alanine Aminotransfer ALT/SGPT 37 U/L (16-61); Albumin, Serum 2.3 g/dL (3.2-5.0); Alkaline Phosphatase 149 U/L (45-117); Bilirubin, Direct 0.25 mg/dL (0.00-0.30); Globulin 3.2 g/dL (2.2-4.2); Protein, Total 5.5 g/dL (6.4-8.2)
--- NOTE | 2022-09-15 15:21 | PN_ITS ---
Subjective Subjective Patient is a little bit more somnolent today but he is tolerating a diet. He denies any nausea, melena or hematochezia. Objective Data Objective Data Vital Signs: Vital Signs Temp Pulse Resp BP Pulse Ox O2 Del Method O2 Flow Rate 99.1 F 92 17 143/77 H 95 Room Air 2 09/15/22 12:00 09/15/22 12:00 09/15/22 12:00 09/15/22 12:00 09/15/22 12:00 09/15/22 12:00 09/12/22 01:40 Oxygen Flow Rate (L/min) 2 Oxygen Delivery Method Room Air Weight: 216 lb 0.848 oz Body Mass Index (BMI) 28.9 Intake & Output: Intake and Output for Last 24 Hours 09/13/22 09/14/22 09/15/22 23:59 23:59 23:59 Intake Total 3524.11 / 3524.11 1925.64 / 1925.64 490 / 490 Output Total 1745 / 2105 2785 / 2785 1350 / 1350 Balance 1779.11 / 1419.11 -859.36 / -859.36 -860 / -860 Lab / Micro Data Result Diagrams: 09/15/22 03:15 09/15/22 03:15 Labs: Laboratory Results - last 24 hr 09/14/22 20:25: WBC 8.0, RBC 3.51 L, Hgb 9.4 L, Hct 28.3 L, MCV 80.6, MCH 26.8 L , MCHC 33.2 D, RDW Std Deviation 49.7 H, RDW Coeff of Bassam 17.2 H, Plt Count 149 L, MPV 10.0, Immature Gran % (Auto) 0.500, Neut % (Auto) 75.7 H, Lymph % (Auto) 11.0 L, [place] % (Auto) 8.9, Eos % (Auto) 3.7, Baso % (Auto) 0.2, Absolute Neuts (auto) 6.1, Absolute Lymphs (auto) 0.88, Nucleated RBC % 0 09/14/22 20:25: Sodium 139, Potassium 3.5, Chloride 110 H, Carbon Dioxide 21.0, Anion Gap 8, BUN 9, Creatinine 0.76, Estim Creat Clear Calc 102.07, Est GFR (MDRD) Af Amer 133, Est GFR (MDRD) Non-Af 110, BUN/Creatinine Ratio 11.8, Glucose 134 H, Calcium 7.6 L, Total Bilirubin 0.60, AST 49 H, ALT 39, Alkaline Phosphatase 157 H, Total Protein 5.8 L, Albumin 2.4 L, Globulin 3.4, Albumin/Globulin Ratio 0.7 L 09/15/22 03:15: WBC 7.2, RBC 3.38 L, Hgb 8.9 L, Hct 27.4 L, MCV 81.1, MCH 26.3 L , MCHC 32.5, RDW Std Deviation 50.1 H, RDW Coeff of Bassam 17.2 H, Plt Count 139 L, MPV 9.3, Immature Gran % (Auto) 0.300, Neut % (Auto) 67.2, Lymph % (Auto) 14.8 L , [place] % (Auto) 13.0 H, Eos % (Auto) 4.4, Baso % (Auto) 0.3, Absolute Neuts (auto) 4.9, Absolute Lymphs (auto) 1.07, Nucleated RBC % 0 09/15/22 03:15: Sodium 139, Potassium 3.4 L, Chloride 109 H, Carbon Dioxide 22.0, Anion Gap 8, BUN 8, Creatinine 0.59 L, Estim Creat Clear Calc 131.48, Est GFR (MDRD) Af Amer 179, Est GFR (MDRD) Non-Af 148, BUN/Creatinine Ratio 13.6, Glucose 88, Calcium 7.6 L 09/15/22 12:48: Total Bilirubin 0.60, Direct Bilirubin 0.25, AST 46 H, ALT 37, Alkaline Phosphatase 149 H, Total Protein 5.5 L, Albumin 2.3 L, Globulin 3.2 Micro: Microbiology 09/07/22 06:35 Blood Culture (Wb) - Right Forearm Blood Culture - Final No growth in 5 days. 09/07/22 06:25 Blood Culture (Wb) - Right Hand Blood Culture - Final No growth in 5 days. 09/07/22 06:18 Urine Catheter - Hsu Urine Culture - Final Culture exhibits no growth. Physical Exam Narrative Patient complain of headache in the morning and sore throat. Physical exam General: Awake, alert, oriented x3 HEENT: Atraumatic, PERRLA, EOMI, Normocephalic Oral: Oral mucosa dry. No Gingival or Mucosal Lesions/ Ulcerations Neck: Supple, No JVD, Negative Carotid Bruits Lungs: Air entry diminished in bilateral lung bases. No crepitation/rhonchi Cardiovascular: Regular rate, Regular Rhythm, Normal S1, Normal S2, No murmurs Abdomen: Bowel sounds sluggish. Nontender. Soft with moderate distention. Shif ting dullness, large ascites. : No renal angle tenderness. No suprapubic tenderness. Extremities: Left upper extremity is swollen, has peripheral IV lines. Moderate bilateral ankle edema capillary Refill Less than 3 Seconds Skin: No rashes, No breakdown Musculoskeletal: Wrists in soft restraints. ROM restricted Neurological: More sober, cranial nerves II to XII intact. DTR's 2+/4. Psych/Mental Status: Flat affect, inappropriate words Assessment & Plan Assessment/Plan (1) Hemorrhagic shock: PLAN: Hemorrhagic shock secondary to esophageal varices status post banding. His hemoglobin is slightly down today. I will start him on nadolol 20 for variceal prophylaxis. He will need repeat egd to treat the rest of his varices. (2) Acute upper gastrointestinal bleeding: PLAN: Status posttreatment of variceal bleeding and gastric ulcer bleeding. Repeat upper endoscopy to ensure that gastric ulcer is completely healed. (3) Anemia: PLAN: Continue to monitor hemoglobin and he can have his diet advanced as tolerated. (4) Cirrhosis: PLAN: Imaging with ultrasound and CT scan abdomen pelvis does show a hepatic mass likely secondary to hepatocellular carcinoma. He would need to be more coherent to undergo a liver biopsy. Alpha-fetoprotein is 143 which is elevated. He will need to follow-up with oncology. (5) Encephalopathy: PLAN: Acute encephalopathy likely secondary to GI bleed. Xifaxan 550 mg p.o. twice daily and lactulose 20 cc p.o. every 6 hours. Charges/Coding Visit Charges Inpatient E&M: 09977 Subs Hosp L3
[2022-09-15] MEDS: Nadolol 20 MG Tablet PO (16:06)
[2022-09-16] VITALS (10 sets, daily range): BP systolic 108–154; BP diastolic 59–83; PULSE 68–88; RESP 14–18; TEMP 36.6–37.7; O2SAT 94–98
[2022-09-16 03:07] LABS: Absolute Lymphocyte Count 1.08 X10^3/uL (0.83-4.51); Basophil# 0.05 X10^3/uL; Basophil% 0.7 % (0-1); Eosinophil# 0.42 X10^3/uL; Eosinophils% 5.6 % (0-5); Hematocrit 27.4 % (40-54); Hemoglobin 8.9 g/dL (13.0-16.5); Lymphocyte # 1.08 X10^3/ul (0.83-4.51); Lymphocyte % 14.4 % (19-41); Mean Corp Hgb Conc 32.5 g/dL (32-36); Mean Corpuscular Hgb 26.6 pg (27.0-32.0); Mean Corpuscular Volume 81.8 fL (80-94); Mean Platelet Vol. 9.1 fl (6.2-12.0); Monocyte# 0.98 X10^3/uL; Monocyte% 13.1 % (0-10); NRBC Flagged by Analyzer 0 % (0-5); Neutrophil # 4.95 X10^3/uL (2.7-7.7); Neutrophil % 65.9 % (47-70); Platelet Count 126 K/mm3 (150-450); RBC Distribution Width CV 17.4 % (11.6-14.6); Red Blood Count 3.35 M/mm3 (4.6-6.2); White Blood Count 7.5 K/mm3 (4.4-11.0)
[2022-09-16 03:37] LABS: Anion Gap 6 (5-15); BUN 7 mg/dL (7-18); BUN/Creat Ratio 10.7 RATIO (10-20); Calcium,Total 7.6 mg/dL (8.5-10.1); Chloride 108 mmol/L (98-107); Creatinine, Serum 0.65 mg/dL (0.70-1.30); EST Glomerular Filtration Rate 132 mL/min (>60); Est Glom Filt Rate - Afr Amer 160 mL/min (>60); Estimated Creatinine Clearance 119.34 ml/min; Glucose 130 mg/dL (74-106); Potassium 3.6 mmol/L (3.5-5.1); Sodium Level 139 mmol/L (136-145)
[2022-09-16] MEDS: Acetaminophen 325 MG Tablet 650 MG PO (09:08)
[2022-09-16] MEDS: Furosemide 40 MG Tablet PO (09:10)
[2022-09-16] MEDS: Pantoprazole Sodium 40 MG Tablet PO ×2 (09:10→23:17)
[2022-09-16] MEDS: rifAXIMin 550 MG Tablet PO ×2 (09:10→23:17)
[2022-09-16] MEDS: Ensure Clear 120 ML Liquid PO (09:10)
[2022-09-16] MEDS: Folic Acid 1 MG Tablet PO (09:10)
[2022-09-16] MEDS: Thiamine Hydrochloride 100 MG Tablet PO (09:11)
[2022-09-16] MEDS: Nadolol 20 MG Tablet PO (09:11)
[2022-09-16] MEDS: Spironolactone 50 MG Tablet PO (09:11)
--- NOTE | 2022-09-16 12:00 | US_ITS ---
STUDY: ABDOMINAL ULTRASOUND - ascites survey. REASON FOR VISIT: Male, 62 years old alcoholic cirrhosis -- N TECHNIQUE: Ultrasound evaluation of the 4 quadrant was performed with real-time and static hidalgo-scale imaging. TECHNICAL QUALITY: Adequate. COMPARISON: None. FINDINGS: Small amount of perihepatic fluid. Not enough fluid for safe paracentesis. US/Abdomen Limited IMPRESSION: Not enough fluid for safe paracentesis. Electronically Signed: Primo Luz MD at 15:47 EST ,
--- NOTE | 2022-09-16 12:47 | PN.HOSP_ITS ---
Subjective Subjective Follow-up for decompensated alcoholic cirrhosis and ascites, upper GI bleed. Objective Data Objective Data Vital Signs: Vital Signs Temp Pulse Resp BP Pulse Ox O2 Del Method O2 Flow Rate 98.5 F 68 18 115/63 95 Room Air 2 09/16/22 12:21 09/16/22 12:21 09/16/22 12:21 09/16/22 12:21 09/16/22 12:21 09/16/22 12:21 09/12/22 01:40 Oxygen Flow Rate (L/min) 2 Oxygen Delivery Method Room Air Weight: 213 lb 10.047 oz Body Mass Index (BMI) 28.9 Intake & Output: Intake and Output for Last 24 Hours 09/14/22 09/15/22 09/16/22 23:59 23:59 23:59 Intake Total 1925.64 / 1925.64 730 / 730 50 / 50 Output Total 2785 / 2785 3500 / 3500 1900 / 1900 Balance -859.36 / -859.36 -2770 / -2770 -1850 / -1850 Lab / Micro Data Result Diagrams: 09/16/22 03:00 09/16/22 03:00 Labs: Laboratory Results - last 24 hr 09/15/22 12:48: Total Bilirubin 0.60, Direct Bilirubin 0.25, AST 46 H, ALT 37, Alkaline Phosphatase 149 H, Total Protein 5.5 L, Albumin 2.3 L, Globulin 3.2 09/16/22 03:00: WBC 7.5, RBC 3.35 L, Hgb 8.9 L, Hct 27.4 L, MCV 81.8, MCH 26.6 L , MCHC 32.5, RDW Std Deviation 52.0 H, RDW Coeff of Bassam 17.4 H, Plt Count 126 L, MPV 9.1, Immature Gran % (Auto) 0.300, Neut % (Auto) 65.9, Lymph % (Auto) 14.4 L , Towns % (Auto) 13.1 H, Eos % (Auto) 5.6 H, Baso % (Auto) 0.7, Absolute Neuts (auto) 5.0, Absolute Lymphs (auto) 1.08, Nucleated RBC % 0 09/16/22 03:00: Sodium 139, Potassium 3.6, Chloride 108 H, Carbon Dioxide 25.0, Anion Gap 6, BUN 7, Creatinine 0.65 L, Estim Creat Clear Calc 119.34, Est GFR (MDRD) Af Amer 160, Est GFR (MDRD) Non-Af 132, BUN/Creatinine Ratio 10.7, Gluc ose 130 H, Calcium 7.6 L Micro: Microbiology 09/07/22 06:35 Blood Culture (Wb) - Right Forearm Blood Culture - Final No growth in 5 days. 09/07/22 06:25 Blood Culture (Wb) - Right Hand Blood Culture - Final No growth in 5 days. 09/07/22 06:18 Urine Catheter - Hsu Urine Culture - Final Culture exhibits no growth. Physical Exam Narrative Patient has a mild sore and abdominal distention. No fever Physical exam General: Awake, alert, oriented x3 HEENT: Atraumatic, PERRLA, EOMI, Normocephalic Oral: Oral mucosa dry. No Gingival or Mucosal Lesions/ Ulcerations Neck: Supple, No JVD, Negative Carotid Bruits Lungs: Air entry diminished in bilateral lung bases. No crepitation/rhonchi Cardiovascular: Regular rate, Regular Rhythm, Normal S1, Normal S2, No murmurs Abdomen: Bowel sounds sluggish. Nontender. Soft with moderate distention. On percussion, tympanic note in the center and dull on flank. : No renal angle tenderness. No suprapubic tenderness. Extremities: Left upper extremity is swollen, has peripheral IV lines. Moderate bilateral ankle edema capillary Refill Less than 3 Seconds Skin: No rashes, No breakdown Musculoskeletal: Wrists in soft restraints. ROM restricted Neurological: More sober, cranial nerves II to XII intact. DTR's 2+/4. Psych/Mental Status: Flat affect, inappropriate words Assessment & Plan Assessment/Plan (1) Hemorrhagic shock: (2) Acute upper gastrointestinal bleeding: (3) Anemia: PLAN: Plan 1. Hemorrhagic shock secondary to acute blood loss anemia from an upper GI b leed/alcohol abuse/prolonged QTC ? EGD with grade 3 esophageal varices that were banded on 09/10/2022, he also had an oozing gastric ulcers with visible vessel that was injected and treated ?Hemoglobin dropped down to 7, and was transfused 2 units of PRBC. Patient had total of 5 units transfused so far ? GI consulted. ? Continue with folic acid, Unasyn as well as octreotide and a PPI ? continue with a phenobarb taper secondary to his alcoholism ? Given his QTC prolongation avoid Haldol and Seroquel for agitation 09/14: Hemoglobin is 9.3. Repeat labs ordered. Poor IV access. PICC line ordered. Protonix IV drip changed to 40 mg oral as he had 72 hours of IV drip. Started on alcohol order set for withdrawal stabilization program. 09/15: Hemoglobin 8.93, gradually decreasing. Patient had large ascites therefore started on furosemide and spironolactone, close needs to titrate up as per hemodynamically tolerated and kidney functions and electrolytes permit. Ultrasound-guided paracentesis ordered diagnostic and therapeutic to rule out SBP. Transferred to PCU ordered. 09/16: Abdominal ultrasound did not show enough fluid for paracentesis. I think his abdomen is mildly distended due to fat and air. Discharge plan discussed with the renal case manager. 2. Alcoholic cirrhosis decompensated with coagulopathy, large ascites, esophageal varices, hepatic encephalopathy and hepatocellular carcinoma CT scan showed hepatic mass most likely hepatocellular carcinoma. Alpha-fetoprotein high 143. Further work-up when patient is more coherent. 09/15: GI follow-up appreciated. I think liver biopsy may be more appropriate as an outpatient with follow-up with oncologist. The better option will be for follow-up with tumor board with multimodality approach for liver cancer in tertiary hospital setting 3. Acute encephalopathy most probably hepatic encephalopathy exacerbated by GI bleed: Patient on lactulose and Xifaxan. 09/16: Encephalopathy is better on lactulose and Xifaxan. Continued DVT: SCDs. Pharmacological prophylaxis contraindicated. Advance care planning: My hospitalist colleague had discussion with family regarding advanced directive. Patient is DNR CC arrest with no intubation. Charges/Coding Visit Charges Inpatient E&M: 64208 Subs Hosp L2
[2022-09-16] MEDS: Lactulose 20 GM/30 ML UDC PO ×3 (15:27→23:17)
[2022-09-16] MEDS: CHLORHEXIDINE GLUC 2% CLOTH 1 EACH TOWELETTE TOPICAL (15:27)
[2022-09-16] MEDS: traZODone 100 MG Tablet PO (23:18)
--- NOTE | 2022-09-17 01:05 | EKG12_ITS ---
Test Reason : CHEST PAIN Blood Pressure : / mmHG Vent. Rate : 070 BPM Atrial Rate : 070 BPM P-R Int : 134 ms QRS Dur : 072 ms QT Int : 394 ms P-R-T Axes : 061 007 -05 degrees QTc Int : 425 ms Normal sinus rhythm Nonspecific ST and T wave abnormality Abnormal ECG When compared with ECG of 06-SEP-2022 23:29, Nonspecific T wave abnormality now evident in Lateral leads QT has shortened Confirmed by DENZEL CASTRO, LUIS ([id number]), subeditor YAMILE FLORES ([id number]) on 09/20/2022 9:30:55 AM Referred By: REUBEN NGUYEN Confirmed By:LUIS MAHONEY MD
[2022-09-17 02:30] VITALS: BP 112/78; PULSE 66; RESP 18; TEMP 36.6; O2SAT 95
[2022-09-17] MEDS: Lactulose 20 GM/30 ML UDC PO ×3 (05:06→22:41)
--- NOTE | 2022-09-17 10:11 | CASEMGMT ---
Addendum entered by Winter Hong 09/17/22 11:42: Social Work SW confirmed with [facility] via [facility] that pt can come tomorrow. SW attempted to tell pt but he is sleeping. SW left a message for pt's mother letting her know pt is going to [facility] tomorrow. Pt will go under a skilled level of care, insurance precert is waived at this time. Green sheet and transport forms on chart in anticipation of pt's discharge to SNF tomorrow. ALICE Doss Original Note: Social Work It is anticipated pt will discharge to the [facility] on the weekend. Updates sent via [employer]. SW will place green sheet on chart. ALICE Doss
[2022-09-17 10:33] VITALS: BP 122/78; PULSE 77; RESP 16; TEMP 37.2; O2SAT 97
[2022-09-17] MEDS: Furosemide 40 MG Tablet PO (10:36)
[2022-09-17] MEDS: Folic Acid 1 MG Tablet PO (10:36)
[2022-09-17] MEDS: Nadolol 20 MG Tablet PO (10:36)
[2022-09-17] MEDS: Thiamine Hydrochloride 100 MG Tablet PO (10:36)
[2022-09-17] MEDS: Spironolactone 50 MG Tablet PO ×2 (10:36→15:43)
[2022-09-17] MEDS: rifAXIMin 550 MG Tablet PO ×2 (10:37→21:08)
[2022-09-17] MEDS: Pantoprazole Sodium 40 MG Tablet PO ×2 (10:37→21:08)
--- NOTE | 2022-09-17 11:17 | PN.HOSP_ITS ---
Objective Data Objective Data Vital Signs: Vital Signs Temp Pulse Resp BP Pulse Ox O2 Del Method O2 Flow Rate 99.0 F 77 16 122/78 H 97 Room Air 2 09/17/22 10:33 09/17/22 10:33 09/17/22 10:33 09/17/22 10:33 09/17/22 10:33 09/17/22 10:33 09/12/22 01:40 Oxygen Flow Rate (L/min) 2 Oxygen Delivery Method Room Air Weight: 194 lb 10.691 oz Body Mass Index (BMI) 28.9 Intake & Output: Intake and Output for Last 24 Hours 09/15/22 09/16/22 09/17/22 23:59 23:59 23:59 Intake Total 730 / 730 170 / 170 Output Total 3500 / 3500 3950 / 3950 1200 / 1200 Balance -2770 / -2770 -3780 / -3780 -1200 / -1200 Lab / Micro Data Result Diagrams: 09/16/22 03:00 09/16/22 03:00 Micro: Microbiology 09/07/22 06:35 Blood Culture (Wb) - Right Forearm Blood Culture - Final No growth in 5 days. 09/07/22 06:25 Blood Culture (Wb) - Right Hand Blood Culture - Final No growth in 5 days. 09/07/22 06:18 Urine Catheter - Hsu Urine Culture - Final Culture exhibits no growth. Radiography Diagnostic Testing: Radiology Impression Abdomen Ultrasound 09/16/22 12:00 IMPRESSION: Not enough fluid for safe paracentesis. Electronically Signed: Primo Luz MD at 15:47 EST , Physical Exam Narrative Patient has a mild sore and abdominal distention. No fever Physical exam General: Awake, alert, oriented x3 HEENT: Atraumatic, PERRLA, EOMI, Normocephalic Oral: Oral mucosa dry. No Gingival or Mucosal Lesions/ Ulcerations Neck: Supple, No JVD, Negative Carotid Bruits Lungs: Air entry diminished in bilateral lung bases. No crepitation/rhonchi Cardiovascular: Regular rate, Regular Rhythm, Normal S1, Normal S2, No murmurs Abdomen: Bowel sounds sluggish. Nontender. Soft with moderate distention. No significant ascites as per ultrasound : No renal angle tenderness. No suprapubic tenderness. Extremities: Right arm PICC line. Moderate bilateral ankle edema capillary Refill Less than 3 Seconds Skin: No rashes, No breakdown Musculoskeletal: Wrists in soft restraints. ROM restricted Neurological: cranial nerves II to XII intact. DTR's 2+/4. No acute focal deficit. Psych/Mental Status: Flat affect, inappropriate words Assessment & Plan Assessment/Plan (1) Hemorrhagic shock: (2) Acute upper gastrointestinal bleeding: (3) Anemia: PLAN: Plan 1. Hemorrhagic shock secondary to acute blood loss anemia from an upper GI bleed/alcohol abuse/prolonged QTC ? EGD with grade 3 esophageal varices that were banded on 09/10/2022, he also had an oozing gastric ulcers with visible vessel that was injected and treated ?Hemoglobin dropped down to 7, and was transfused 2 units of PRBC. Patient had total of 5 units transfused so far ? GI consulted. ? Continue with folic acid, Unasyn as well as octreotide and a PPI ? continue with a phenobarb taper secondary to his alcoholism ? Given his QTC prolongation avoid Haldol and Seroquel for agitation 09/14: Hemoglobin is 9.3. Repeat labs ordered. Poor IV access. PICC line ordered. Protonix IV drip changed to 40 mg oral as he had 72 hours of IV drip. Started on alcohol order set for withdrawal stabilization program. 09/15: Hemoglobin 8.93, gradually decreasing. Patient had large ascites therefore started on furosemide and spironolactone, close needs to titrate up as per hemodynamically tolerated and kidney functions and electrolytes permit. Ultrasound-guided paracentesis ordered diagnostic and therapeutic to rule out SBP. Transferred to PCU ordered. 09/16: Abdominal ultrasound did not show enough fluid for paracentesis. I think his abdomen is mildly distended due to fat and air. Discharge plan discussed with the rehabilitation caseworker. 09/17: Spironolactone increased 200 mg daily. Continue rest of treatment. Plan for senior care discharge tomorrow, [facility] 2. Alcoholic cirrhosis decompensated with coagulopathy, large ascites, esophageal varices, hepatic encephalopathy and hepatocellular carcinoma CT scan showed hepatic mass most likely hepatocellular carcinoma. Alpha-fetoprotein high 143. Further work-up when patient is more coherent. 09/15: GI follow-up appreciated. I think liver biopsy may be more appropriate as an outpatient with follow-up with oncologist. The better option will be for follow-up with tumor board with multimodality approach for liver cancer in tertiary hospital setting 3. Acute encephalopathy most probably hepatic encephalopathy exacerbated by GI bleed: Patient on lactulose and Xifaxan. 09/16: Encephalopathy is better on lactulose and Xifaxan. Continued DVT: SCDs. Pharmacological prophylaxis contraindicated. Advance care planning: My hospitalist colleague had discussion with family r egarding advanced directive. Patient is DNR CC arrest with no intubation. Charges/Coding Visit Charges Inpatient E&M: 42466 Subs Hosp L2
[2022-09-17 15:47] VITALS: BP 120/73; PULSE 69; RESP 14; TEMP 37.1; O2SAT 97
[2022-09-17 21:08] VITALS: BP 123/50; PULSE 75; RESP 14; TEMP 36.8; O2SAT 100
[2022-09-17] MEDS: BENZOCAINE/MENTHOL 1 LOZENGE MUCOUS MEM (21:11)
[2022-09-18 03:30] VITALS: BP 135/77; PULSE 71; RESP 16; TEMP 36.7; O2SAT 97
[2022-09-18 04:30] LABS: Absolute Lymphocyte Count 0.86 X10^3/uL (0.83-4.51); Absolute Neutrophil Count 3.5 X10^3/uL (2.0-7.7); Basophil# 0.03 X10^3/uL; Basophil% 0.5 % (0-1); Eosinophil# 0.39 X10^3/uL; Eosinophils% 7.1 % (0-5); Hematocrit 28.5 % (40-54); Hemoglobin 8.9 g/dL (13.0-16.5); Lymphocyte # 0.86 X10^3/ul (0.83-4.51); Lymphocyte % 15.8 % (19-41); Mean Corp Hgb Conc 31.2 g/dL (32-36); Mean Corpuscular Hgb 26.1 pg (27.0-32.0); Mean Corpuscular Volume 83.6 fL (80-94); Mean Platelet Vol. 10.1 fl (6.2-12.0); Monocyte# 0.63 X10^3/uL; Monocyte% 11.5 % (0-10); NRBC Flagged by Analyzer 0 % (0-5); Neutrophil # 3.54 X10^3/uL (2.7-7.7); Neutrophil % 64.9 % (47-70); Platelet Count 113 K/mm3 (150-450); RBC Distribution Width CV 17.2 % (11.6-14.6); RBC Distribution Width SD 52.3 fl (35.1-43.9); Red Blood Count 3.41 M/mm3 (4.6-6.2); White Blood Count 5.5 K/mm3 (4.4-11.0)
[2022-09-18 04:50] LABS: Anion Gap 7 (5-15); BUN 8 mg/dL (7-18); BUN/Creat Ratio 12.8 RATIO (10-20); Calcium,Total 7.8 mg/dL (8.5-10.1); Chloride 106 mmol/L (98-107); Creatinine, Serum 0.62 mg/dL (0.70-1.30); EST Glomerular Filtration Rate 139 mL/min (>60); Est Glom Filt Rate - Afr Amer 168 mL/min (>60); Estimated Creatinine Clearance 125.12 ml/min; Glucose 127 mg/dL (74-106); Potassium 3.7 mmol/L (3.5-5.1); Sodium Level 139 mmol/L (136-145)
[2022-09-18] MEDS: Lactulose 20 GM/30 ML UDC PO ×2 (05:07→12:56)
[2022-09-18] MEDS: 0.9% Saline Lock 10 ML Syringe IV (05:09)
[2022-09-18 05:19] LABS: Amphetamine Urine VISTA NEGATIVE (<1000 ng/mL); Barbiturate Urine VISTA POSITIVE (< 200 ng/mL); Benzodiazepine Urine VISTA NEGATIVE (< 200 ng/mL); Cocaine Urine VISTA NEGATIVE (< 300 ng/mL); Ecstacy Urine VISTA NEGATIVE (< 500 ng/mL); Methadone Urine VISTA NEGATIVE (< 300 ng/mL); PCP Urine VISTA NEGATIVE (< 25 ng/mL); THC Urine VISTA NEGATIVE (< 50 ng/mL); Vista UDS pH Range 7
[2022-09-18 08:52] VITALS: BP 104/66; PULSE 67; RESP 18; TEMP 36.9; O2SAT 97
[2022-09-18] MEDS: rifAXIMin 550 MG Tablet PO (09:05)
[2022-09-18] MEDS: Folic Acid 1 MG Tablet PO (09:05)
[2022-09-18] MEDS: Thiamine Hydrochloride 100 MG Tablet PO (09:05)
[2022-09-18] MEDS: Pantoprazole Sodium 40 MG Tablet PO (09:05)
[2022-09-18] MEDS: Nadolol 20 MG Tablet PO (09:06)
[2022-09-18] MEDS: Furosemide 40 MG Tablet PO (09:06)
[2022-09-18] MEDS: Spironolactone 50 MG Tablet 100 MG PO (09:07)
[2022-09-18] MEDS: BENZOCAINE/MENTHOL 1 LOZENGE MUCOUS MEM (09:10)
--- NOTE | 2022-09-18 10:03 | PCM.TXEXTCAR ---
Diet Diet Order/Speech Therapy: 09/14/22 09:14 Diet: Cardiac - Heart Healthy Is pt able to select menu?: No Diet Comments: advance as tolerated Routine Orders/Code Status Suppository Type: Dulcolax 10mg Suppository Frequency: Daily PRN Wound(s) Left Lateral Thigh: Wound Type: Blisters Right Anterior Thigh: Wound Type: Open area Therapies Weight Bearing: Weight bearing as tolerated Extremity Affected:: Bilateral Lower Physical Therapy: Eval and Treat Occupational Therapy: Eval and Treat Speech Therapy: Eval and Treat Problem/Diagnosis (1) Hemorrhagic shock: Status: Acute Code(s): R57.8 - Other shock (2) Acute upper gastrointestinal bleeding: Status: Acute Code(s): K92.2 - Gastrointestinal hemorrhage, unspecified (3) Anemia: Status: Acute Code(s): D64.9 - Anemia, unspecified Plan 1. Hemorrhagic shock secondary to acute blood loss anemia from an upper GI bleed/alcohol abuse/prolonged QTC ? EGD with grade 3 esophageal varices that were banded on 09/10/2022, he also had an oozing gastric ulcers with visible vessel that was injected and treated ?Hemoglobin dropped down to 7, and was transfused 2 units of PRBC. Patient had total of 5 units transfused so far ? GI consulted. ? Continue with folic acid, Unasyn as well as octreotide and a PPI ? continue with a phenobarb taper secondary to his alcoholism ? Given his QTC prolongation avoid Haldol and Seroquel for agitation 09/14: Hemoglobin is 9.3. Repeat labs ordered. Poor IV access. PICC line ordered. Protonix IV drip changed to 40 mg oral as he had 72 hours of IV drip. Started on alcohol order set for withdrawal stabilization program. 09/15: Hemoglobin 8.93, gradually decreasing. Patient had large ascites therefore started on furosemide and spironolactone, close needs to titrate up as per hemodynamically tolerated and kidney functions and electrolytes permit. Ultrasound-guided paracentesis ordered diagnostic and therapeutic to rule out SBP. Transferred to PCU ordered. 09/16: Abdominal ultrasound did not show enough fluid for paracentesis. I think his abdomen is mildly distended due to fat and air. Discharge plan discussed with the caseworker protective services. 09/17: Spironolactone increased 200 mg daily. Continue rest of treatment. Plan for shelter discharge tomorrow, [facility] 2. Alcoholic cirrhosis decompensated with coagulopathy, large ascites, esophageal varices, hepatic encephalopathy and hepatocellular carcinoma CT scan showed hepatic mass most likely hepatocellular carcinoma. Alpha-fetoprotein high 143. Further work-up when patient is more coherent. 09/15: GI follow-up appreciated. I think liver biopsy may be more appropriate as an outpatient with follow-up with oncologist. The better option will be for follow-up with tumor board with multimodality approach for liver cancer in tertiary hospital setting 3. Acute encephalopathy most probably hepatic encephalopathy exacerbated by GI bleed: Patient on lactulose and Xifaxan. 09/16: Encephalopathy is better on lactulose and Xifaxan. Continued DVT: SCDs. Pharmacological prophylaxis contraindicated. Advance care planning: My hospitalist colleague had discussion with family regarding advanced directive. Patient is DNR CC arrest with no intubation. Allergies/Procedures Done in Hospital Allergies morphine Allergy (Verified 09/06/22 23:22) Unknown Type of Care/Length of Stay Estimated LOS: Convalescent Care Less Than 30 days Type of Care Needed: Skilled Rehab Potential: Good Prognosis: Good Additional Orders/Day of Discharge Day of Discharge: 09/18/22 Dietary and Speech Recommendations Dietitian Recommendations/Changes: Continue Cardiac diet to manage medical conditions. RD will discontinue 120ml ensure clear 4 times per day w/ medpass due to adequate PO intakes. Discharge Plan Admission Admit Date/Time: 09/07/22 00:27 Primary Reason for Your Visit: Hemorrhagic shock from variceal bleed, decompensated alcoholic cirrhosis. Attending Provider: Emanuel Augustin Primary Care Provider: Jose Alex Consulting Providers: Dmitriy Ramires ; Soy Chapin ; Yenny,Sheldon ; Larry Lynn Instructions Patient Instructions: DOROTHEA RN Paracentesis Dc Discharge Orders/Prescriptions Prescriptions: New furosemide 40 mg Tablet 40 mg PO DAILY Qty: 0 0RF pantoprazole 40 mg Tablet,Delayed Release (Dr/Ec) 40 mg PO BID Qty: 0 0RF Rx Instructions: 40 mg twice daily for 8-week and then once daily Xifaxan 550 mg Tablet 550 mg PO BID Qty: 0 0RF thiamine HCl (vitamin B1) [Vitamin B-1] 100 mg Tablet 100 mg PO BREAKFAST Qty: 0 0RF nadolol 20 mg Tablet 20 mg PO DAILY Qty: 0 0RF folic acid 1 mg Tablet 1 mg PO BREAKFAST Qty: 0 0RF spironolactone 50 mg Tablet 100 mg PO DAILY Qty: 0 0RF Rx Instructions: Hold if potassium more than 5.0 lactulose 20 gram/30 mL Solution 20 g PO TID Qty: 0 0RF Rx Instructions: Goal to have 2-3 soft bowel movements per day Referrals / Follow Up: Jose Alex MD [Primary Care Provider] - In 1 Week Friend,DO Sheldon [Med Staff - Active Staff] - Within 1 Month Disposition Disposition (needs filled in before D/C Order can be placed): [facility]
--- NOTE | 2022-09-18 11:12 | PCM.DC.SUM ---
Providers Date of Admission: 09/07/22 Date of Discharge: 09/18/22 Primary Care Physician: Dr. Jose Alex MD Consultations 09/07/22 02:06 Consult: Gastroenterology Routine Consulting Provider: YennySheldon Reason for Consult: ABLA EMERGENT Consult: No Notified: Yes Date Notified: 09/07/22 Time Notified: 00:35 Method of Notification: ED Physician Initiated Consult: Cnc Cutting Operator / Pulmonary Medicine Routine Consulting Provider: Larry Lynn Reason for Consult: Hemorrhagic shock EMERGENT Consult: No Notified: Yes Date Notified: 09/07/22 Time Notified: 05:48 Method of Notification: Verbal Reason For Visit: ACUTE BLOOD LOSS ANEMIA Diagnosis Discharge Diagnosis (1) Hemorrhagic shock: Status: Acute Code(s): R57.8 - Other shock (2) Acute upper gastrointestinal bleeding: Status: Acute Code(s): K92.2 - Gastrointestinal hemorrhage, unspecified (3) Anemia: Status: Acute Code(s): D64.9 - Anemia, unspecified Plan This is a 62-year-old gentleman who was admitted with hematemesis Nemia in hemorrhagic shock state in ICU. Patient history of chronic alcohol use. Patient was also very encephalopathy confused and disoriented. 1. Hemorrhagic shock secondary to acute blood loss anemia from an upper GI bleed/alcohol abuse/prolonged QTC ? EGD with grade 3 esophageal varices that were banded on 09/10/2022, he also had an oozing gastric ulcers with visible vessel that was injected and treated ?Hemoglobin dropped down to 7, and was transfused 2 units of PRBC. Patient had total of 5 units transfused so far ? GI consulted. ? Continue with folic acid, Unasyn as well as octreotide and a PPI ? continue with a phenobarb taper secondary to his alcoholism ? Given his QTC prolongation avoid Haldol and Seroquel for agitation 09/14: Hemoglobin is 9.3. Repeat labs ordered. Poor IV access. PICC line ordered. Protonix IV drip changed to 40 mg oral as he had 72 hours of IV drip. Started on alcohol order set for withdrawal stabilization program. 09/15: Hemoglobin 8.93, gradually decreasing. Patient had large ascites therefore started on furosemide and spironolactone, close needs to titrate up as per hemodynamically tolerated and kidney functions and electrolytes permit. Ultrasound-guided paracentesis ordered diagnostic and therapeutic to rule out SBP. Transferred to PCU ordered. 09/16: Abdominal ultrasound did not show enough fluid for paracentesis. I think his abdomen is mildly distended due to fat and air. Discharge plan discussed with the case resource manager. 09/17: Spironolactone increased 100 mg daily. Continue rest of treatment. [facility] tomorrow, [facility]: Patient is discharged on furosemide 40 mg daily and spironolactone 100 mg daily. On nadolol 20 mg daily. Follow-up with Dr. Miller in 1 month. 2. Alcoholic cirrhosis decompensated with coagulopathy, large ascites, esophageal varices, hepatic encephalopathy and hepatocellular carcinoma CT scan showed hepatic mass most likely hepatocellular carcinoma. Alpha-fetoprotein high 143. Further work-up when patient is more coherent. 09/15: GI follow-up appreciated. I think liver biopsy may be more appropriate as an outpatient with follow-up with oncologist. The better option will be for follow-up with tumor board with multimodality approach for liver cancer in tertiary hospital setting 09/18: Advised follow-up in GI to arrange for liver biopsy as an outpatient. 3. Acute encephalopathy most probably hepatic encephalopathy exacerbated by GI bleed: Patient on lactulose and Xifaxan. 09/16: Encephalopathy is better on lactulose and Xifaxan. Continued 09/18: Patient discharged on lactulose and Xifaxan. DVT: SCDs. Pharmacological prophylaxis contraindicated. Advance care planning: My hospitalist colleague had discussion with family regarding advanced directive. Patient is DNR CC arrest with no intubation. Discharge medication reconciliation done. Discharge follow-up instructions completed. Discharge process discussed with the patient and all questions were answered to patient's satisfaction. Total time spent, exact 35 minutes on discharge meds reconciliation, examination, coordination of care with nurses and ancillary staff, review of imaging and blood test and discussion with the patient on follow-up instructions. Medications at Discharge Home Medications folic acid 1 mg tablet 1 mg PO BREAKFAST #0 tabs 09/18/22 furosemide 40 mg tablet 40 mg PO DAILY #0 tabs 09/18/22 lactulose 20 gram/30 mL oral solution 20 g (30 mL) PO TID #0 mL 09/18/22 nadolol 20 mg tablet 20 mg PO DAILY #0 tabs 09/18/22 pantoprazole 40 mg tablet,delayed release 40 mg PO BID #0 tabs 09/18/22 rifaximin 550 mg tablet (Xifaxan) 550 mg PO BID #0 tabs 09/18/22 spironolactone 50 mg tablet 100 mg PO DAILY #0 tabs 09/18/22 thiamine HCl (vitamin B1) 100 mg tablet (Vitamin B-1) 100 mg PO BREAKFAST #0 tabs 09/18/22 Physical Exam Narrative Patient has abdominal distention. No fever. Patient had adequate diuresis. Physical exam General: Awake, alert, oriented x3 HEENT: Atraumatic, PERRLA, EOMI, Normocephalic Oral: Oral mucosa dry. No Gingival or Mucosal Lesions/ Ulcerations Neck: Supple, No JVD, Negative Carotid Bruits Lungs: Air entry diminished in bilateral lung bases. No crepitation/rhonchi Cardiovascular: Regular rate, Regular Rhythm, Normal S1, Normal S2, No murmurs Abdomen: Bowel sounds sluggish. Nontender. Soft with moderate distention. No significant ascites as per ultrasound : No renal angle tenderness. No suprapubic tenderness. Extremities: Right arm PICC line. Moderate bilateral ankle edema capillary Refill Less than 3 Seconds Skin: No rashes, No breakdown Musculoskeletal: Wrists in soft restraints. ROM restricted Neurological: cranial nerves II to XII intact. DTR's 2+/4. No acute focal deficit. Psych/Mental Status: Flat affect, inappropriate words Weight / BMI Weight Weight: 188 lb 7.924 oz Body Mass Index (BMI) 28.9 ABG / Lab / Microbiology Data Result Diagrams: 09/18/22 04:22 09/18/22 04:22 Laboratory: Laboratory Results - last 24 hr 09/18/22 04:22: Sodium 139, Potassium 3.7, Chloride 106, Carbon Dioxide 26.0, Anion Gap 7, BUN 8, Creatinine 0.62 L, Estim Creat Clear Calc 125.12, Est GFR (MDRD) Af Amer 168, Est GFR (MDRD) Non-Af 139, BUN/Creatinine Ratio 12.8, Glucose 127 H, Calcium 7.8 L 09/18/22 04:22: WBC 5.5, RBC 3.41 L, Hgb 8.9 L, Hct 28.5 L, MCV 83.6, MCH 26.1 L, MCHC 31.2 L, RDW Std Deviation 52.3 H, RDW Coeff of Bassam 17.2 H, Plt Count 113 L, MPV 10.1, Immature Gran % (Auto) 0.200, Neut % (Auto) 64.9, Lymph % (Auto) 15.8 L, [place] % (Auto) 11.5 H, Eos % (Auto) 7.1 H, Baso % (Auto) 0.5, Absolute Neuts (auto) 3.5, Absolute Lymphs (auto) 0.86, Nucleated RBC % 0 09/18/22 04:22: Ammonia 65.0 H 09/18/22 04:49: Urine Opiates Screen NEGATIVE, Urine Methadone Screen NEGATIVE, Ur Barbiturates Screen POSITIVE H, Ur Phencyclidine Scrn NEGATIVE, Ur Amphetamines Screen NEGATIVE, MDMA (Ecstasy) Screen NEGATIVE, U Benzodiazepines Scrn NEGATIVE, Urine Cocaine Screen NEGATIVE, U Cannabinoids Screen NEGATIVE, Ur Drug Screen Comment Microbiology: Microbiology 09/07/22 06:35 Blood Culture (Wb) - Right Forearm Blood Culture - Final No growth in 5 days. 09/07/22 06:25 Blood Culture (Wb) - Right Hand Blood Culture - Final No growth in 5 days. 09/07/22 06:18 Urine Catheter - Hsu Urine Culture - Final Culture exhibits no growth. Meaningful Use Info Meaningful Use Diagnoses (Choose all that apply): None applicable Discharge Plan Admission Admit Date/Time: 09/07/22 00:27 Primary Reason for Your Visit: Hemorrhagic shock from variceal bleed, decompensated alcoholic cirrhosis. Attending Provider: Emanuel Augustin Primary Care Provider: Jose Alex Consulting Providers: Dmitriy Ramires ; Soy Chapin ; Sheldon Ramon ; Larry Lynn Instructions Patient Instructions: DOROTHEA RN Paracentesis Dc Additional Instructions / Restrictions: Advised BMP in 7 days Discharge Orders/Prescriptions Prescriptions: New furosemide 40 mg Tablet 40 mg PO DAILY Qty: 0 0RF pantoprazole 40 mg Tablet,Delayed Release (Dr/Ec) 40 mg PO BID Qty: 0 0RF Rx Instructions: 40 mg twice daily for 8-week and then once daily Xifaxan 550 mg Tablet 550 mg PO BID Qty: 0 0RF thiamine HCl (vitamin B1) [Vitamin B-1] 100 mg Tablet 100 mg PO BREAKFAST Qty: 0 0RF nadolol 20 mg Tablet 20 mg PO DAILY Qty: 0 0RF folic acid 1 mg Tablet 1 mg PO BREAKFAST Qty: 0 0RF spironolactone 50 mg Tablet 100 mg PO DAILY Qty: 0 0RF Rx Instructions: Hold if potassium more than 5.0 lactulose 20 gram/30 mL Solution 20 g PO TID Qty: 0 0RF Rx Instructions: Goal to have 2-3 soft bowel movements per day Referrals / Follow Up: Jose Alex MD [Primary Care Provider] - In 1 Week FriendSheldon DO [Med Staff - Active Staff] - Within 1 Month Disposition Disposition (needs filled in before D/C Order can be placed): Intermediate Facility Charges/Coding Visit Charges Inpatient E&M: 44923 Disch Hosp >30min
--- NOTE | 2022-09-18 11:17 | CASEMGMT ---
SIL completed 7000. Copy placed in chart. Delmy PETERSON
--- NOTE | 2022-09-18 12:52 | NURSING ---
Report given to staff at [facility]
[2022-09-18 14:04] VITALS: BP 100/59; PULSE 65; RESP 15; TEMP 36.8; O2SAT 97
== END 2022-09-18 14:30 | disposition skilled nursing facility (03) | DRG 368 ==
LOC: ED 09-07 00:38 → ICU 09-07 01:32
PROVIDERS: Anesthesiology; Family Medicine; Internal Medicine Critical Care Medicine; Internal Medicine Gastroenterology; Admitting Provider Hospitalist; Emergency Provider Emergency Medicine; PCP Family Medicine; Visit Provider Internal Medicine
PROC: 0DJ08ZZ Inspection of Upper Intestinal Tract, Via Natural or Artificial Opening Endoscopic (ICD-10-PCS; CPT 43235; principal; 2022-09-07 16:25)
DX: I85.01 Esophageal varices with bleeding (principal); R57.8 Other shock; G93.49 Other encephalopathy; C22.0 Liver cell carcinoma; D68.9 Coagulation defect, unspecified; D62 Acute posthemorrhagic anemia; K76.82 Hepatic encephalopathy; K70.31 Alcoholic cirrhosis of liver with ascites; I10 Essential (primary) hypertension; F17.210 Nicotine dependence, cigarettes, uncomplicated; F10.10 Alcohol abuse, uncomplicated; K25.4 Chronic or unspecified gastric ulcer with hemorrhage; R94.31 Abnormal electrocardiogram [ECG] [EKG]; Z66 Do not resuscitate
CPT/HCPCS: 36569; 71045; 74177; 76705; 80048; 80053; 80076; 80307; 82077; 82105; 82140; 83605; 83690; 84484; 85025; 85610; 85730; 86850; 86900; 86901; 86920; 86922; 87040; 87086; 87426; 93005; 94762; 97110; 97162; 97166; 97530; 97535; 97803; 99285; 99406; J7030; J7050; P9016; Q9967; A4216; J0295; J0696; J2405; J3490

== ENCOUNTER 2022-11-12 06:38 | Inpatient (IN) | payer MEDICARE, MEDICAID, SELFPAY ==
[2022-11-12] VITALS (32 sets, daily range): BP systolic 81–131; BP diastolic 40–115; PULSE 79–123; RESP 14–29; TEMP 36.6–38.2; O2SAT 94–100; BMI 25.9; BMI 25.2
--- NOTE | 2022-11-12 06:43 | EKG12_ITS ---
Test Reason : GI BLEED Blood Pressure : / mmHG Vent. Rate : 088 BPM Atrial Rate : 088 BPM P-R Int : 120 ms QRS Dur : 080 ms QT Int : 394 ms P-R-T Axes : 073 040 053 degrees QTc Int : 476 ms Normal sinus rhythm Nonspecific ST abnormality Abnormal ECG Confirmed by DENZEL CASTRO, LUIS ([id number]), food expeditor YAMILE FLORES ([id number]) on 11/16/2022 8:23:10 AM Referred By: Confirmed By:LUIS MAHONEY MD
--- NOTE | 2022-11-12 06:53 | EDS_ITS ---
HPI <Dr. Iwona Early MD - Last Filed: 11/12/22 07:10> History of Present Illness Chief Complaint: GI Bleed Informant: patient and EMS Narrative Narrative: Patient presents via EMS for vomiting blood and with dark stool on his body. Herve ebonie states he does not remember when he started vomiting. Patient was seen in August with an upper GI bleed and had variceal banding. He has also had multiple oozing gastric ulcers. It appears the patient was discharged the end of August to a local skilled nursing. When asked the patient how long he was in the skilled nursing he states I do not know. PFSH <Dr. Iwona Early MD - Last Filed: 11/12/22 07:10> [facility] Medical History Anemia Cirrhosis GI bleed Hypertension Home Medications folic acid 1 mg tablet 1 mg PO BREAKFAST #0 tabs 09/18/22 [Rx Last Taken Unknown] furosemide 40 mg tablet 40 mg PO DAILY #0 tabs 09/18/22 [Rx Last Taken Unknown] lactulose 20 gram/30 mL oral solution 20 g (30 mL) PO TID #0 mL 09/18/22 [Rx Last Taken Unknown] nadolol 20 mg tablet 20 mg PO DAILY #0 tabs 09/18/22 [Rx Last Taken Unknown] pantoprazole 40 mg tablet,delayed release 40 mg PO BID #0 tabs 09/18/22 [Rx Last Taken Unknown] rifaximin 550 mg tablet (Xifaxan) 550 mg PO BID #0 tabs 09/18/22 [Rx Last Taken Unknown] spironolactone 50 mg tablet 100 mg PO DAILY #0 tabs 09/18/22 [Rx Last Taken Unknown] thiamine HCl (vitamin B1) 100 mg tablet (Vitamin B-1) 100 mg PO BREAKFAST #0 tabs 09/18/22 [Rx Last Taken Unknown] Allergy/AdvReac Type Severity Reaction Status Date / Time morphine Allergy Unknown Verified 11/12/22 06:44 Family History unable to obtain Social History Smoking Status: Current every day smoker tobacco type: cigarettes ROS <Dr. Iwona Early MD - Last Filed: 11/12/22 07:10> ROS ED Review of Systems ROS Unobtainable: due to mental condition Constitutional Constitutional ED: Denies fever(s) ENT ENT ED: Denies rhinorrhea Cardiovascular Cardiovascular: Denies chest pain or palpitations Respiratory/Chest Respiratory/Chest: Denies cough Gastrointestinal Gastrointestinal: Reports melena and vomiting Neurologic Neurologic: Reports weakness EXAM <Dr. Iwona Early MD - Last Filed: 11/12/22 07:10> Physical Exam Const Vital Signs: 11/12/22 06:39 11/12/22 07:07 11/12/22 07:57 Temperature 97.9 F Temperature Source Temporal Pulse Rate 93 95 Respiratory Rate 18 18 Blood Pressure 97/75 114/71 87/40 L Blood Pressure Mean 82 85 55 Pulse Ox 99 96 Oxygen Delivery Method Room Air Room Air 11/12/22 08:15 Temperature Temperature Source Pulse Rate 90 Respiratory Rate 18 Blood Pressure 86/43 L Blood Pressure Mean 57 Pulse Ox 96 Oxygen Delivery Method Room Air Positive well nourished and well developed General Appearance ED: well developed Eyes EOMs intact bilaterally Chest Wall inspection of chest normal and palpation of chest normal Resp normal respiratory effort and clear to auscultation bilaterally Cardio regular rate and regular rhythm GI non-tender Auscultation: hypoactive bowel sounds Palpation: soft Neuro Sensorium / Orientation: alert Skin no rashes or lesions noted <Dr. Temo Ceballos DO - Last Filed: 11/12/22 16:15> Physical Exam Const Vital Signs: 11/12/22 06:39 11/12/22 07:07 11/12/22 07:57 Temperature 97.9 F Temperature Source Temporal Pulse Rate 93 95 Respiratory Rate 18 18 Blood Pressure 97/75 114/71 87/40 L Blood Pressure Mean 82 85 55 Pulse Ox 99 96 Oxygen Delivery Method Room Air Room Air 11/12/22 08:15 Temperature Temperature Source Pulse Rate 90 Respiratory Rate 18 Blood Pressure 86/43 L Blood Pressure Mean 57 Pulse Ox 96 Oxygen Delivery Method Room Air MDM <Dr. Iwona Early MD - Last Filed: 11/12/22 07:10> MDM MDM Narrative Medical decision making narrative: Patient placed on media monitor. Labwork obtained to evaluate for leukocytosis, anemia, and electrolyte derangement. Patient given IV fluids. Patient is ordered Phenergan, octreotide drip. He is ordered Protonix drip. Dose of IV Rocephin has been ordered. Patient is discussed with Dr. Ramon. Patient be signed out to oncoming physician to check labs and update on GI. Lab Data Labs: Laboratory Results - last 24 hr 11/12/22 11/12/22 11/12/22 06:54 06:54 06:54 WBC 15.6 H RBC 2.86 L Hgb 7.3 L Hct 22.9 L MCV 80.1 MCH 25.5 L MCHC 31.9 L RDW Std Deviation 54.4 H RDW Coeff of Bassam 18.6 H Plt Count 134 L MPV 10.3 Immature Gran % (Auto) 0.900 Neut % (Auto) 80.5 H Lymph % (Auto) 8.0 L Luce % (Auto) 10.4 H Eos % (Auto) 0.1 Baso % (Auto) 0.1 Absolute Neuts (auto) 12.5 H Absolute Lymphs (auto) 1.24 Nucleated RBC % 0 Differential Comment COMMENT Diff Path Review Reviewed PT 19.8 H INR 1.7 APTT 35.8 Sodium 138 Potassium 3.9 Chloride 102 Carbon Dioxide 22.0 Anion Gap 14 BUN 38 H Creatinine 1.11 Estim Creat Clear Calc 72.16 Est GFR (MDRD) Af Amer 86 Est GFR (MDRD) Non-Af 71 BUN/Creatinine Ratio 34.2 H Glucose 140 H Lactic Acid Calcium 7.4 L Magnesium Total Bilirubin 0.90 Direct Bilirubin 0.38 H AST 28 ALT 25 Alkaline Phosphatase 89 Total Protein 5.4 L Albumin 2.0 L Globulin 3.4 Lipase 438 H Blood Type Antibody Screen Crossmatch 11/12/22 11/12/22 11/12/22 06:54 06:54 06:54 WBC RBC Hgb Hct MCV MCH MCHC RDW Std Deviation RDW Coeff of Bassam Plt Count MPV Immature Gran % (Auto) Neut % (Auto) Lymph % (Auto) Luce % (Auto) Eos % (Auto) Baso % (Auto) Absolute Neuts (auto) Absolute Lymphs (auto) Nucleated RBC % Differential Comment Diff Path Review PT INR APTT Sodium Potassium Chloride Carbon Dioxide Anion Gap BUN Creatinine Estim Creat Clear Calc Est GFR (MDRD) Af Amer Est GFR (MDRD) Non-Af BUN/Creatinine Ratio Glucose Lactic Acid Calcium Magnesium 1.8 Total Bilirubin Direct Bilirubin AST ALT Alkaline Phosphatase Total Protein Albumin Globulin Lipase Blood Type O POSITIVE Antibody Screen NEGATIVE Crossmatch See Detail See Detail 11/12/22 07:11 WBC RBC Hgb Hct MCV MCH MCHC RDW Std Deviation RDW Coeff of Bassam Plt Count MPV Immature Gran % (Auto) Neut % (Auto) Lymph % (Auto) Luce % (Auto) Eos % (Auto) Baso % (Auto) Absolute Neuts (auto) Absolute Lymphs (auto) Nucleated RBC % Differential Comment Diff Path Review PT INR APTT Sodium Potassium Chloride Carbon Dioxide Anion Gap BUN Creatinine Estim Creat Clear Calc Est GFR (MDRD) Af Amer Est GFR (MDRD) Non-Af BUN/Creatinine Ratio Glucose Lactic Acid 7.3 H* Calcium Magnesium Total Bilirubin Direct Bilirubin AST ALT Alkaline Phosphatase Total Protein Albumin Globulin Lipase Blood Type Antibody Screen Crossmatch <Dr. Temo Ceballos, DO - Last Filed: 11/12/22 16:15> [facility] Lab Data Labs: Laboratory Results - last 24 hr 11/12/22 11/12/22 11/12/22 06:54 06:54 06:54 WBC 15.6 H RBC 2.86 L Hgb 7.3 L Hct 22.9 L MCV 80.1 MCH 25.5 L MCHC 31.9 L RDW Std Deviation 54.4 H RDW Coeff of Bassam 18.6 H Plt Count 134 L MPV 10.3 Immature Gran % (Auto) 0.900 Neut % (Auto) 80.5 H Lymph % (Auto) 8.0 L Luce % (Auto) 10.4 H Eos % (Auto) 0.1 Baso % (Auto) 0.1 Absolute Neuts (auto) 12.5 H Absolute Lymphs (auto) 1.24 Nucleated RBC % 0 Differential Comment COMMENT Diff Path Review Reviewed PT 19.8 H INR 1.7 APTT 35.8 Sodium 138 Potassium 3.9 Chloride 102 Carbon Dioxide 22.0 Anion Gap 14 BUN 38 H Creatinine 1.11 Estim Creat Clear Calc 72.16 Est GFR (MDRD) Af Amer 86 Est GFR (MDRD) Non-Af 71 BUN/Creatinine Ratio 34.2 H Glucose 140 H Lactic Acid Calcium 7.4 L Magnesium Total Bilirubin 0.90 Direct Bilirubin 0.38 H AST 28 ALT 25 Alkaline Phosphatase 89 Total Protein 5.4 L Albumin 2.0 L Globulin 3.4 Lipase 438 H Blood Type Antibody Screen Crossmatch 11/12/22 11/12/22 11/12/22 06:54 06:54 06:54 WBC RBC Hgb Hct MCV MCH MCHC RDW Std Deviation RDW Coeff of Bassam Plt Count MPV Immature Gran % (Auto) Neut % (Auto) Lymph % (Auto) Luce % (Auto) Eos % (Auto) Baso % (Auto) Absolute Neuts (auto) Absolute Lymphs (auto) Nucleated RBC % Differential Comment Diff Path Review PT INR APTT Sodium Potassium Chloride Carbon Dioxide Anion Gap BUN Creatinine Estim Creat Clear Calc Est GFR (MDRD) Af Amer Est GFR (MDRD) Non-Af BUN/Creatinine Ratio Glucose Lactic Acid Calcium Magnesium 1.8 Total Bilirubin Direct Bilirubin AST ALT Alkaline Phosphatase Total Protein Albumin Globulin Lipase Blood Type O POSITIVE Antibody Screen NEGATIVE Crossmatch See Detail See Detail 11/12/22 07:11 WBC RBC Hgb Hct MCV MCH MCHC RDW Std Deviation RDW Coeff of Bassam Plt Count MPV Immature Gran % (Auto) Neut % (Auto) Lymph % (Auto) Luce % (Auto) Eos % (Auto) Baso % (Auto) Absolute Neuts (auto) Absolute Lymphs (auto) Nucleated RBC % Differential Comment Diff Path Review PT INR APTT Sodium Potassium Chloride Carbon Dioxide Anion Gap BUN Creatinine Estim Creat Clear Calc Est GFR (MDRD) Af Amer Est GFR (MDRD) Non-Af BUN/Creatinine Ratio Glucose Lactic Acid 7.3 H* Calcium Magnesium Total Bilirubin Direct Bilirubin AST ALT Alkaline Phosphatase Total Protein Albumin Globulin Lipase Blood Type Antibody Screen Crossmatch Treatment and Re-Evaluation :: 62-year-old male signed out to me by Dr. Moser at 7:30 AM Exam: Patient has soft blood pressures with otherwise afebrile hemodynamically stable and nontoxic-appearing. MDM/plan: No acute events under my care. I reviewed the patient's labs and imaging personally. He was started by prior physician on normal saline bolus, Phenergan, Protonix bolus and drip, ceftriaxone and octreotide. GI was consulted. Patient's labs showed evidence of worsening severe anemia, severe endorgan hypoperfusion, pancreatic inflammation and mild coagulopathy as well as systemic inflammation. The signs are all consistent with likely hemorrhagic shock from upper GI bleed specifically from varices. I have a low suspicion for bacteremia or distributive shock from sepsis and as such I did not order blood cultures despite elevated white blood cell count, hypotension and elevated lactate. I did reach out to Dr. Ramon updated on the patient's condition and plan of care. Dr. Ramon is aware we will continue to follow. No specific recommendations at this time. Patient is to be admitted to intensive care unit for further management, GI consultation and likely urgent endoscopy. Consults: GI, critical care Disposition: ICU Patient status: Critical Discharge Plan Dx/Rx/DC Orders Clinical Impression: Acute GI bleeding Disposition Disposition: Acute Care [facility] Discharge Date/Time: 11/12/22 09:55
[2022-11-12 07:09] LABS: Absolute Lymphocyte Count 1.24 X10^3/uL (0.83-4.51); Absolute Neutrophil Count 12.5 X10^3/uL (2.0-7.7); Basophil# 0.02 X10^3/uL; Basophil% 0.1 % (0-1); Eosinophil# 0.01 X10^3/uL; Eosinophils% 0.1 % (0-5); Hematocrit 22.9 % (40-54); Hemoglobin 7.3 g/dL (13.0-16.5); Lymphocyte # 1.24 X10^3/ul (0.83-4.51); Mean Corp Hgb Conc 31.9 g/dL (32-36); Mean Corpuscular Hgb 25.5 pg (27.0-32.0); Mean Corpuscular Volume 80.1 fL (80-94); Mean Platelet Vol. 10.3 fl (6.2-12.0); Monocyte# 1.62 X10^3/uL; Monocyte% 10.4 % (0-10); NRBC Flagged by Analyzer 0 % (0-5); Neutrophil # 12.53 X10^3/uL (2.7-7.7); Neutrophil % 80.5 % (47-70); POSITIVE DIFFERENTIAL YES; Platelet Count 134 K/mm3 (150-450); RBC Distribution Width CV 18.6 % (11.6-14.6); RBC Distribution Width SD 54.4 fl (35.1-43.9); Red Blood Count 2.86 M/mm3 (4.6-6.2); White Blood Count 15.6 K/mm3 (4.4-11.0)
--- NOTE | 2022-11-12 07:11 | ED.RN ---
PT SWEARING AT STAFF STATING I DON'T KNOW MY MEDS, I DON'T WANT YOU BOTHERING ME ANYMORE. PT VOMITING ON THE FLOOR, SWEARING AT STAFF
[2022-11-12 07:16] LABS: International Normalized Ratio 1.7; Prothrombin Time (Protime)PT. 19.8 SECONDS (11.7-14.9)
[2022-11-12 07:17] LABS: Partial Thromboplast Time 35.8 Seconds (24.1-36.2)
[2022-11-12] MEDS: Ceftriaxone 1 GM/50 ML BAG IV (07:17)
[2022-11-12] MEDS: proMETHazine 25 MG/ML Syringe 12.5 MG IM (07:19)
[2022-11-12 07:22] LABS: Differential Indicated SCAN CRITERIA MET
[2022-11-12 07:25] LABS: AST(SGOT) 28 U/L (15-37); Alanine Aminotransfer ALT/SGPT 25 U/L (16-61); Alkaline Phosphatase 89 U/L (45-117); Anion Gap 14 (5-15); BUN 38 mg/dL (7-18); BUN/Creat Ratio 34.2 RATIO (10-20); Bilirubin, Direct 0.38 mg/dL (0.00-0.30); Calcium,Total 7.4 mg/dL (8.5-10.1); Chloride 102 mmol/L (98-107); Creatinine, Serum 1.11 mg/dL (0.70-1.30); EST Glomerular Filtration Rate 71 mL/min (>60); Est Glom Filt Rate - Afr Amer 86 mL/min (>60); Estimated Creatinine Clearance 72.16 ml/min; Globulin 3.4 g/dL (2.2-4.2); Glucose 140 mg/dL (74-106); Lipase 438 U/L (73-393); Potassium 3.9 mmol/L (3.5-5.1); Protein, Total 5.4 g/dL (6.4-8.2); Sodium Level 138 mmol/L (136-145)
[2022-11-12] MEDS: 0.9% Normal Saline 1,000 ML 1000 ML IV (07:32)
[2022-11-12] MEDS: 0.9% Normal Saline 1,000 ML 150 ML IV ×3 (07:37→18:00)
[2022-11-12 08:13] LABS: Lactic Acid 7.3 mmol/L (0.4-1.9)
--- NOTE | 2022-11-12 08:15 | ED.RN ---
DR ODOM NOTIFIED LACTIC=7.3
--- NOTE | 2022-11-12 08:19 | ED.RN ---
ED PHYSICIAN AWARE SEPSIS PROTOCOL. PT HYPOVOLEMIC SHOCK AT THIS TIME PER PHYSICIAN, NOT SEPSIS. WILL DISCUSS WITH ADMITTING PHYSICIAN
--- NOTE | 2022-11-12 08:24 | HP.PCM.HOS_ITS ---
HPI - General General Date of Admission: 11/12/22 Date of Service: 11/12/22 Chief Complaint: GI bleed HPI Narrative CHERRIE WOODARD, is a 62 M with a PMH as outlined who presents via the ED on 11/12/2022 with a complaint of vomiting blood and dark stools. HE couldnt remember when he started vomiting. He has a history of esophageal varices from cirrhosis s/p banding and had variceal banding in August 2022. He was discharged to a SNF and transitioned home from where he presented today. He was found at home with bloody emesis. HE was brought to the ED. Patient was seen in the ED; he was lethargic and not communicative. Unable to do review of systems. Vitals were BP of 85/43, IA of 90, RR of 18 and oxygen sats of 96% on room air. CBC showed hb of 7.3 and wbc of 15.6 as well as platelets of 134. INR is 1.7. BMP was significant for 7.3 and direct bilirubin of 0.38 with total bilirubin of 0.9. Hb had dropped from 8.9 to 7.4. He was transfused with 2 units of PRBCs, and is being admitted to be managed for hemorrhagic shock due to UGI bleed. [facility] Medical History Anemia Cirrhosis GI bleed Hypertension Home Medications folic acid 1 mg tablet 1 mg PO BREAKFAST #0 tabs 09/18/22 [Rx Last Taken Unknown] furosemide 40 mg tablet 40 mg PO DAILY #0 tabs 09/18/22 [Rx Last Taken Unknown] lactulose 20 gram/30 mL oral solution 20 g (30 mL) PO TID #0 mL 09/18/22 [Rx Last Taken Unknown] nadolol 20 mg tablet 20 mg PO DAILY #0 tabs 09/18/22 [Rx Last Taken Unknown] pantoprazole 40 mg tablet,delayed release 40 mg PO BID #0 tabs 09/18/22 [Rx Last Taken Unknown] rifaximin 550 mg tablet (Xifaxan) 550 mg PO BID #0 tabs 09/18/22 [Rx Last Taken Unknown] spironolactone 50 mg tablet 100 mg PO DAILY #0 tabs 09/18/22 [Rx Last Taken Unknown] thiamine HCl (vitamin B1) 100 mg tablet (Vitamin B-1) 100 mg PO BREAKFAST #0 tabs 09/18/22 [Rx Last Taken Unknown] Allergy/AdvReac Type Severity Reaction Status Date / Time morphine Allergy Unknown Verified 11/12/22 06:44 Family History unable to obtain Social History Smoking Status: Current every day smoker tobacco type: cigarettes ROS Review of Systems ROS Unobtainable: due to encephalopathy Vital Signs Vital Signs Vital Signs: 11/12/22 06:39 11/12/22 07:07 11/12/22 07:57 Temperature 97.9 F Temperature Source Temporal Pulse Rate 93 95 Respiratory Rate 18 18 Blood Pressure 97/75 114/71 87/40 L Blood Pressure Mean 82 85 55 Pulse Ox 99 96 Oxygen Delivery Method Room Air Room Air 11/12/22 08:15 Temperature Temperature Source Pulse Rate 90 Respiratory Rate 18 Blood Pressure 86/43 L Blood Pressure Mean 57 Pulse Ox 96 Oxygen Delivery Method Room Air Weight Weight: 180 lb 15.992 oz Body Mass Index (BMI) 25.9 Physical Exam Const Constitutional Narrative: lethargic Orientation / Consciousness: lethargic HEENT normocephalic and head/scalp atraumatic Mouth: moist mucous membranes abnormal Eyes PERRL and EOMs intact bilaterally Neck no lymphadenopathy and supple Resp Resp Narrative: mildly diminished breath sounds bibasally, no wheezes or crackles. Cardio regular rate, regular rhythm, S1 normal heart sound, S2 normal heart sound and no murmurs GI normal to inspection, nondistended, normoactive bowel sounds, soft to palpation and non-tender Extremity normal to inspection, full ROM and no clubbing, cyanosis or edema Neuro Neuro Narrative: lethargic, moves all extremities spontaneously Results Lab / Micro Data Result Diagrams: 11/12/22 12:45 11/12/22 06:54 Labs: Laboratory Results - last 24 hr 11/12/22 06:54: WBC 15.6 H, RBC 2.86 L, Hgb 7.3 L, Hct 22.9 L, MCV 80.1, MCH 25.5 L, MCHC 31.9 L, RDW Std Deviation 54.4 H, RDW Coeff of Bassam 18.6 H, Plt Count 134 L, MPV 10.3, Immature Gran % (Auto) 0.900, Neut % (Auto) 80.5 H, Lymph % (Auto) 8.0 L, Parmer % (Auto) 10.4 H, Eos % (Auto) 0.1, Baso % (Auto) 0.1, Absolute Neuts (auto) 12.5 H, Absolute Lymphs (auto) 1.24, Nucleated RBC % 0 11/12/22 06:54: PT 19.8 H, INR 1.7, APTT 35.8 11/12/22 06:54: Sodium 138, Potassium 3.9, Chloride 102, Carbon Dioxide 22.0, Anion Gap 14, BUN 38 H, Creatinine 1.11, Estim Creat Clear Calc 72.16, Est GFR (MDRD) Af Amer 86, Est GFR (MDRD) Non-Af 71, BUN/Creatinine Ratio 34.2 H, Glucose 140 H, Calcium 7.4 L, Total Bilirubin 0.90, Direct Bilirubin 0.38 H, AST 28, ALT 25, Alkaline Phosphatase 89, Total Protein 5.4 L, Albumin 2.0 L, Globulin 3.4, Lipase 438 H 11/12/22 06:54: Blood Type O POSITIVE, Antibody Screen NEGATIVE, Crossmatch See Detail 11/12/22 07:11: Lactic Acid 7.3 H* Assessment & Plan Assessment/Plan (1) Acute GI bleeding: (2) Hemorrhagic shock: PLAN: Plan #Hemorrhagic shock due to UGI bleed * admit to ICU * Hb was 7.3. Baseline Hb is 8.9 from August 2022 * BP was down in the 90s systolic in the ED * INR is 1.7 * admit to ICU. Lactic acid was 7.3. * 2 units of PRBCs ordered. * has a history of UGI bleed due to esophageal varices * on IV PPI drip. ON octreotide drip * gastroenterology consulted- EGD showed grade III esophageal varices which were incompletely eradicated and banded, with no gross lesions in the first portion of the duodenum * Critical care consulted. * #Acute on chronic anemia: as above #Lactic acidosis: likely due to hemorrhagic shock. management as above. #Acute encephalopathy: likely due to hemorrhagic shock. Management as above. #Cirrhosis * has a history of chronic alcohol abuse * on nadolol, rifaximin, spironolactone * has a history of esophageal varices. * #Probable hepatocellular carcinoma * CT abdomen and pelvis from August 2022 showed a 4cm x 4.1cm heterogenous solid mass in tong mid lateral portion of the right lobe of hte liver with mildly distended gallbladder. Also showed circumferential thickening of the gastroesophageal junction, esophageal carcinoma shd be ruled. * DVT prophylaxis: SCDs Code status: full code unverified Total time spent on evaluation and management of patient, reviewing chart and specialist notes, discussion with nursing and ancillary staff as well as documentation: 80 mins Charges/Coding Visit Charges Inpatient E&M: 72128 Init Hosp L3
--- NOTE | 2022-11-12 08:36 | ED.RN ---
PER DR REQUEST PROTONIX WILL BE HELD WHILE BLOOD IS INFUSING
--- NOTE | 2022-11-12 08:43 | ED.RN ---
PER DR PARRA. PROTOXIX TO BE DISCOUNTINUED AND ONLY 1 UNIT OF BLOOD TO BE GIVEN
--- NOTE | 2022-11-12 09:51 | CON.PCM.CC_ITS ---
Assessment & Plan Assessment/Plan (1) Acute GI bleeding: PLAN: Plan RECOMMENDATIONS: 1. Continue IV fluids as ordered. 2. Transfuse blood products to achieve and maintain a hemoglobin at or above 7 g/dL. 3. Continue PPI therapy and octreotide as ordered. 4. Gastroenterology to evaluate the patient. Tentative plans for endoscopic evaluation this morning. 5. Continue antiemetics as needed. IMPRESSIONS: 1. Acute blood loss anemia The patient has a history of esophageal varices and gastric ulcers status post recent intervention in August 2022. He does have a longstanding history of alcoholism and underlying cirrhosis. The patient presented to the hospital with hematemesis and hematochezia, concerning for an occult gastrointestinal bleed. Plan to transfuse blood products to maintain a hemoglobin at or above 7 g/dL. The patient will be continued on IV fluids along with PPI therapy and octreotide, as ordered. Gastroenterology consultation is pending. 2. Questionable hepatocellular carcinoma/history of alcoholism/history of cirrhosis Complicates care, management, recovery and prognosis. Continue supportive measures as noted above. We will plan to check a serum ammonia level and alcohol. This note was generated with [employer] dictation software. It may contain incorrect words, spelling, and punctuation that were not noted in checking the note before signing. HPI Consult Data Date of Consult: 11/13/22 HPI Narrative Reason for Consultation: Hemorrhagic shock HPI Narrative: The patient is a 62-year-old male, with a history as outlined below, who presented to the emergency department via EMS on the morning of November 12 with hematemesis and hematochezia. The patient was last admitted to the hospital September 07 through 2022 in the setting of hemorrhagic shock secondary to acute blood loss anemia due to bleeding esophageal varices and gastric ulcers. The patient has a longstanding history of alcoholism and underlying cirrhosis, with recent imaging demonstrating the finding of a hepatic mass concerning for hepatocellular carcinoma. On presentation to the emergency department, the patient was noted to be afebrile and hypotensive. Laboratory evaluation revealed a white blood cell count to 15,000 with a hemoglobin of 7.3 g/dL and platelet count of 134,000. Coagulation profile revealed an elevated PT at 19.8 with an INR of 1.7. Chemistry profile was notable for a creatinine of 1.1 and lactate of 7.3. Lipase was elevated at 438. The patient was ordered to receive transfusion of blood products. He received supplemental IV fluid hydration was initiated on PPI therapy and octreotide. Consultation was placed to gastroenterology. The patient was subsequently admitted to the medical intensive care unit for further management. The patient currently reports the presence of generalized abdominal pain, but denies any ongoing nausea. He reported that he has not drank alcohol for quite some time. [facility] Medical History Anemia Cirrhosis GI bleed Hypertension Home Medications folic acid 1 mg tablet 1 mg PO BREAKFAST #0 tabs 09/18/22 [Rx Last Taken Unknown] furosemide 40 mg tablet 40 mg PO DAILY #0 tabs 09/18/22 [Rx Last Taken Unknown] lactulose 20 gram/30 mL oral solution 20 g (30 mL) PO TID #0 mL 09/18/22 [Rx Last Taken Unknown] nadolol 20 mg tablet 20 mg PO DAILY #0 tabs 09/18/22 [Rx Last Taken Unknown] pantoprazole 40 mg tablet,delayed release 40 mg PO BID #0 tabs 09/18/22 [Rx Last Taken Unknown] rifaximin 550 mg tablet (Xifaxan) 550 mg PO BID #0 tabs 09/18/22 [Rx Last Taken Unknown] spironolactone 50 mg tablet 100 mg PO DAILY #0 tabs 09/18/22 [Rx Last Taken Unknown] thiamine HCl (vitamin B1) 100 mg tablet (Vitamin B-1) 100 mg PO BREAKFAST #0 tabs 09/18/22 [Rx Last Taken Unknown] Allergy/AdvReac Type Severity Reaction Status Date / Time morphine Allergy Unknown Verified 11/12/22 06:44 Family History unable to obtain Social History Smoking Status: Current every day smoker tobacco type: cigarettes ROS ROS Narrative 10 systems were reviewed with pertinent positives as noted in the HPI above. Physical Exam Const no apparent distress General Appearance: cooperative and lethargic HEENT normocephalic and head/scalp atraumatic Eyes PERRL and EOMs intact bilaterally Neck supple General: trachea midline Chest inspection of chest normal Resp normal respiratory effort Auscultation: Negative for rales, rhonchi or wheezes Cardio regular rate and regular rhythm GI soft to palpation Palpation: Negative for guarding or rigid Extremity no clubbing, cyanosis or edema Skin no rashes or lesions noted Neuro CN's II-XII intact bilaterally and no focal motor deficits Psych Mood & Affect: flat affect Lab / Micro Data Result Diagrams: 11/13/22 04:25 11/13/22 04:25 Labs: Laboratory Results - last 24 hr 11/12/22 06:54: WBC 15.6 H, RBC 2.86 L, Hgb 7.3 L, Hct 22.9 L, MCV 80.1, MCH 25.5 L, MCHC 31.9 L, RDW Std Deviation 54.4 H, RDW Coeff of Bassam 18.6 H, Plt Count 134 L, MPV 10.3, Immature Gran % (Auto) 0.900, Neut % (Auto) 80.5 H, Lymph % (Auto) 8.0 L, Edmunds % (Auto) 10.4 H, Eos % (Auto) 0.1, Baso % (Auto) 0.1, Absolute Neuts (auto) 12.5 H, Absolute Lymphs (auto) 1.24, Nucleated RBC % 0, Differential Comment COMMENT, Diff Path Review December foll 11/12/22 06:54: PT 19.8 H, INR 1.7, APTT 35.8 11/12/22 06:54: Sodium 138, Potassium 3.9, Chloride 102, Carbon Dioxide 22.0, Anion Gap 14, BUN 38 H, Creatinine 1.11, Estim Creat Clear Calc 72.16, Est GFR (MDRD) Af Amer 86, Est GFR (MDRD) Non-Af 71, BUN/Creatinine Ratio 34.2 H, Glucose 140 H, Calcium 7.4 L, Total Bilirubin 0.90, Direct Bilirubin 0.38 H, AST 28, ALT 25, Alkaline Phosphatase 89, Total Protein 5.4 L, Albumin 2.0 L, Globulin 3.4, Lipase 438 H 11/12/22 06:54: Blood Type O POSITIVE, Antibody Screen NEGATIVE, Crossmatch See Detail 11/12/22 07:11: Lactic Acid 7.3 H* Charges/Coding Visit Charges Inpatient E&M: 54353 Init Hosp L3
--- NOTE | 2022-11-12 11:00 | EX.PCM.CON.G ---
HPI Consult Data Date of Consult: 11/12/22 HPI Narrative Reason for Consultation: GI bleeding HPI Narrative: CHERRIE WOODARD, is a 62 M who presented via EMS secondary to vomiting up blood and fall.? He has a history of alcoholism.? He states he started vomiting a few hours ago and is vomiting dark bloody material.? ?He does report some upper abdominal pain.? He does report a history of cirrhosis secondary to alcohol.? It is not known if he has a history of hepatitis C.? In the ED he was discovered to have a hemoglobin of 7.3.? His previous hemoglobin was 13 with elevated MCV at 108 and a platelet count of 89 on his last visit to the emergency room.? Currently his platelet count is 125, hemoglobin is 4.2, white blood cell count is 5.8 with INR 1.6.? He cannot give a very good history at this time so most of the history is obtained from the chart.? Chest x-ray did not show any acute cardiopulmonary process.? Currently he is mildly tachycardic and febrile to 101.4..? [facility] Medical History Anemia Cirrhosis GI bleed Hypertension Home Medications folic acid 1 mg tablet 1 mg PO BREAKFAST #0 tabs 09/18/22 [Rx Last Taken Unknown] furosemide 40 mg tablet 40 mg PO DAILY #0 tabs 09/18/22 [Rx Last Taken Unknown] lactulose 20 gram/30 mL oral solution 20 g (30 mL) PO TID #0 mL 09/18/22 [Rx Last Taken Unknown] nadolol 20 mg tablet 20 mg PO DAILY #0 tabs 09/18/22 [Rx Last Taken Unknown] pantoprazole 40 mg tablet,delayed release 40 mg PO BID #0 tabs 09/18/22 [Rx Last Taken Unknown] rifaximin 550 mg tablet (Xifaxan) 550 mg PO BID #0 tabs 09/18/22 [Rx Last Taken Unknown] spironolactone 50 mg tablet 100 mg PO DAILY #0 tabs 09/18/22 [Rx Last Taken Unknown] thiamine HCl (vitamin B1) 100 mg tablet (Vitamin B-1) 100 mg PO BREAKFAST #0 tabs 09/18/22 [Rx Last Taken Unknown] Allergy/AdvReac Type Severity Reaction Status Date / Time morphine Allergy Unknown Verified 11/12/22 06:44 Family History unable to obtain Social History Smoking Status: Current every day smoker tobacco type: cigarettes ROS ROS Narrative 10 systems were reviewed with pertinent positives as noted in the HPI above. Physical Exam Const no apparent distress General Appearance: cooperative and lethargic HEENT normocephalic and head/scalp atraumatic Eyes PERRL and EOMs intact bilaterally Neck supple General: trachea midline Chest inspection of chest normal Resp normal respiratory effort Auscultation: Negative for rales, rhonchi or wheezes Cardio regular rate and regular rhythm GI soft to palpation Palpation: Negative for guarding or rigid Extremity no clubbing, cyanosis or edema Skin no rashes or lesions noted Neuro CN's II-XII intact bilaterally and no focal motor deficits Psych Mood & Affect: flat affect Lab / Micro Data Result Diagrams: 11/12/22 12:45 11/12/22 06:54 Labs: Laboratory Results - last 24 hr 11/12/22 06:54: WBC 15.6 H, RBC 2.86 L, Hgb 7.3 L, Hct 22.9 L, MCV 80.1, MCH 25.5 L, MCHC 31.9 L, RDW Std Deviation 54.4 H, RDW Coeff of Bassam 18.6 H, Plt Count 134 L, MPV 10.3, Immature Gran % (Auto) 0.900, Neut % (Auto) 80.5 H, Lymph % (Auto) 8.0 L, Grainger % (Auto) 10.4 H, Eos % (Auto) 0.1, Baso % (Auto) 0.1, Absolute Neuts (auto) 12.5 H, Absolute Lymphs (auto) 1.24, Nucleated RBC % 0, Differential Comment COMMENT, Diff Path Review Reviewed 11/12/22 06:54: PT 19.8 H, INR 1.7, APTT 35.8 11/12/22 06:54: Sodium 138, Potassium 3.9, Chloride 102, Carbon Dioxide 22.0, Anion Gap 14, BUN 38 H, Creatinine 1.11, Estim Creat Clear Calc 72.16, Est GFR (MDRD) Af Amer 86, Est GFR (MDRD) Non-Af 71, BUN/Creatinine Ratio 34.2 H, Glucose 140 H, Calcium 7.4 L, Total Bilirubin 0.90, Direct Bilirubin 0.38 H, AST 28, ALT 25, Alkaline Phosphatase 89, Total Protein 5.4 L, Albumin 2.0 L, Globulin 3.4, Lipase 438 H 11/12/22 06:54: Blood Type O POSITIVE, Antibody Screen NEGATIVE, Crossmatch See Detail 11/12/22 06:54: Crossmatch See Detail 11/12/22 06:54: Magnesium 1.8 11/12/22 07:11: Lactic Acid 7.3 H* 11/12/22 11:10: Ammonia 32.0 11/12/22 11:10: Ethyl Alcohol < 3.0 11/12/22 12:45: Lactic Acid 5.8 H* 11/12/22 12:45: Hgb 6.8 L, Hct 21.1 L Assessment & Plan Assessment/Plan (1) Acute upper gastrointestinal bleeding: PLAN: Differential diagnosis for upper GI bleed would be acute esophageal, gastric, duodenum variceal bleeding, Tejal-Telles tear, alcoholic gastritis, peptic ulcer disease., Angiodysplasia. Patient undergoing upper endoscopy to evaluate his upper GI tract. At that time we may be able to place an NG tube to give him lactulose. (2) Cirrhosis: PLAN: He will need imaging of his liver with a CT scan abdomen pelvis. He will also need an ultrasound of the liver. If he truly does have cirrhosis by his blood work does not show it. His platelet count is normal, his LFTs are normal, his INR is mildly elevated but that could be secondary to poor nutrition. I will wait to see what the imaging shows regarding likely cirrhosis. (3) Encephalopathy: PLAN: Acute encephalopathy likely secondary to GI bleed. Awaiting his repeat CBC. He may need NG tube with lactulose administration which can be done when he has endoscopy. Recommend to check ammonia level, LDH, await blood cultures, urine cultures and imaging to look for source of infection. Charges/Coding Visit Charges Inpatient E&M: 91104 Init Hosp L3
[2022-11-12 11:09] LABS: Magnesium 1.8 mg/dL (1.6-2.6)
[2022-11-12 11:14] LABS: Reflex Lactate? Y
[2022-11-12 11:38] LABS: Alcohol, Blood (Medical)-Serum < 3.0 mg/dL
--- NOTE | 2022-11-12 12:32 | OP.EGD_ITS ---
Patient Name: Nilo Hood Procedure Date: 11/12/2022 11:58 AM Date of : 1960 Age: 62 Procedure: Upper GI endoscopy Indications: Hematemesis, Active gastrointestinal bleeding, Esophageal varices Providers: Sheldon Ramon DO Medicines: Monitored Anesthesia Care Patient Profile: This is a 62 year old male. Refer to note in patient chart for documentation of history and physical. Patient has symptoms of acute vomiting. Complications: No immediate complications. Procedure: Pre-Anesthesia Assessment: - Prior to the procedure, a History and Physical was performed, and patient medications and allergies were reviewed. The risks and benefits of the procedure and the sedation options and risks were discussed with the patient. All questions were answered and informed consent was obtained. Patient identification and proposed procedure were verified by the physician. Mental Status Examination: normal. Prophylactic Antibiotics: The patient does not require prophylactic antibiotics. Prior Anticoagulants: The patient has taken no previous anticoagulant or antiplatelet agents. ASA Grade Assessment: III - A patient with severe systemic disease. After reviewing the risks and benefits, the patient was deemed in satisfactory condition to undergo the procedure. The anesthesia plan was to use monitored anesthesia care (MAC). Immediately prior to administration of medications, the patient was re-assessed for adequacy to receive sedatives. The heart rate, respiratory rate, oxygen saturations, blood pressure, adequacy of pulmonary ventilation, and response to care were monitored throughout the procedure. The physical status of the patient was re-assessed after the procedure. After obtaining informed consent, the endoscope was passed under direct vision. Throughout the procedure, the patient's blood pressure, pulse, and oxygen saturations were monitored continuously. The gastroscope was introduced through the mouth, and advanced to the second part of duodenum. The upper GI endoscopy was accomplished without difficulty. The patient tolerated the procedure well. Scope In: 12:09:10 PM Scope Out: 12:21:56 PM Total Procedure Duration Time 0 hours 12 minutes 46 seconds Findings: Grade III varices were found in the middle third of the esophagus and in the lower third of the esophagus. They were 5 mm in largest diameter. Three bands were successfully placed with incomplete eradication of varices. There was no bleeding during, and at the end, of the procedure. Hematin (altered blood/tsjero-xierjq-vpzm material) was found in the stomach. No gross lesions were noted in the first portion of the duodenum. Impression: - Grade III esophageal varices. Incompletely eradicated. Banded. - Hematin (altered blood/wbdkpw-kzooaf-kyys material) in the stomach. - No gross lesions in the first portion of the duodenum. - No specimens collected. Recommendation: - [facility] patient [facility] care. - Clear liquid diet. - Continue present medications. Procedure Code(s): --- Professional --- 61676, Esophagogastroduodenoscopy, flexible, transoral; with band ligation of esophageal/gastric varices CPT copyright 2017 [employer]. All rights reserved. The codes documented in this report are preliminary and upon data coder operator review may be revised to meet current compliance requirements. Sheldon Ramon DO 11/12/2022 12:32:27 PM This report has been signed electronically. Number of Addenda: 0 Note Initiated On: 11/12/2022 11:58 AM
--- NOTE | 2022-11-12 12:33 | OP.CCLET_ITS ---
11/12/2022 Jose Alex [address] [place] [address] Re : Upper GI endoscopy procedure for Nilo Hood Dear Dr. Alex This procedure was performed on Saturday, November 12, 2022. My impressions and recommendations are as follows: Impressions : - Grade III esophageal varices. Incompletely eradicated. Banded. - Hematin (altered blood/nddrde-xcxmib-zxzl material) in the stomach. - No gross lesions in the first portion of the duodenum. - No specimens collected. Recommendations : - Return patient to [facility] for [facility] care. - Clear liquid diet. - Continue present medications. My findings are described in the full procedure note, which is enclosed. If I can be of further assistance, please feel free to contact me at . Sincerely, Sheldon Ramon, 11/12/2022 12:32:27 PM This report has been signed electronically.
[2022-11-12 12:47] LABS: Pathologist Review Reviewed
[2022-11-12 12:59] LABS: Hematocrit 21.1 % (40-54); Hemoglobin 6.8 g/dL (13.0-16.5)
[2022-11-12 13:35] LABS: Lactic Acid 5.8 mmol/L (0.4-1.9)
[2022-11-12 17:53] LABS: Hematocrit 25.2 % (40-54); Hemoglobin 8.2 g/dL (13.0-16.5)
[2022-11-13] VITALS (14 sets, daily range): BP systolic 107–146; BP diastolic 53–75; PULSE 81–88; RESP 15–25; TEMP 37.3–37.9; O2SAT 96–100
[2022-11-13] MEDS: 0.9% Normal Saline 1,000 ML 150 ML IV ×4 (00:29→21:35)
[2022-11-13 04:34] LABS: Absolute Lymphocyte Count 0.82 X10^3/uL (0.83-4.51); Absolute Neutrophil Count 9.1 X10^3/uL (2.0-7.7); Basophil# 0.03 X10^3/uL; Basophil% 0.3 % (0-1); Eosinophil# 0.03 X10^3/uL; Eosinophils% 0.3 % (0-5); Hematocrit 26.1 % (40-54); Hemoglobin 8.5 g/dL (13.0-16.5); Lymphocyte # 0.82 X10^3/ul (0.83-4.51); Lymphocyte % 7.4 % (19-41); Mean Corp Hgb Conc 32.6 g/dL (32-36); Mean Corpuscular Hgb 26.4 pg (27.0-32.0); Mean Corpuscular Volume 81.1 fL (80-94); Mean Platelet Vol. 9.7 fl (6.2-12.0); Monocyte# 0.97 X10^3/uL; Monocyte% 8.7 % (0-10); NRBC Flagged by Analyzer 0 % (0-5); Neutrophil # 9.08 X10^3/uL (2.7-7.7); Neutrophil % 81.6 % (47-70); Platelet Count 121 K/mm3 (150-450); RBC Distribution Width CV 17.2 % (11.6-14.6); RBC Distribution Width SD 50.2 fl (35.1-43.9); Red Blood Count 3.22 M/mm3 (4.6-6.2); White Blood Count 11.1 K/mm3 (4.4-11.0)
[2022-11-13 04:52] LABS: ALB/GLOB Ratio 0.6 RATIO (0.9-2.4); AST(SGOT) 45 U/L (15-37); Alanine Aminotransfer ALT/SGPT 27 U/L (16-61); Alkaline Phosphatase 84 U/L (45-117); Anion Gap 6 (5-15); BUN 30 mg/dL (7-18); BUN/Creat Ratio 34.2 RATIO (10-20); Calcium,Total 6.9 mg/dL (8.5-10.1); Chloride 109 mmol/L (98-107); Creatinine, Serum 0.88 mg/dL (0.70-1.30); EST Glomerular Filtration Rate 94 mL/min (>60); Est Glom Filt Rate - Afr Amer 113 mL/min (>60); Estimated Creatinine Clearance 91.02 ml/min; Globulin 3.2 g/dL (2.2-4.2); Glucose 115 mg/dL (74-106); Magnesium 1.8 mg/dL (1.6-2.6); Potassium 3.9 mmol/L (3.5-5.1); Protein, Total 5.2 g/dL (6.4-8.2); Sodium Level 137 mmol/L (136-145)
--- NOTE | 2022-11-13 06:06 | PCM.PN.INT ---
Assessment & Plan Assessment/Plan (1) Acute GI bleeding: PLAN: Plan RECOMMENDATIONS: 1. Continue to monitor H&H and transfuse if hemoglobin drops below 7 g/dL. 2. Continue PPI and octreotide. 3. Encourage incentive spirometer use and mobilize patient as tolerated. 4. The patient is medically stable for transfer out of the intensive care unit. 5. We will sign off from a critical care perspective. Please call with any additional questions. IMPRESSIONS: 1. Acute blood loss anemia The patient has a history of esophageal varices and gastric ulcers status post recent intervention in August 2022. He does have a longstanding history of alcoholism and underlying cirrhosis. The patient presented to the hospital with hematemesis and hematochezia, concerning for an occult gastrointestinal bleed. Upper endoscopy again revealed bleeding esophageal varices, which required banding. The patient's hemoglobin is stable this morning. Recommend continuing to monitor H&H daily and transfuse if hemoglobin drops below 7 g/dL. Continue PPI therapy and octreotide. 2. Questionable hepatocellular carcinoma/history of alcoholism/history of cirrhosis Complicates care, management, recovery and prognosis. Continue supportive measures as noted above. This note was generated with [employer] dictation software. It may contain incorrect words, spelling, and punctuation that were not noted in checking the note before signing. Subjective Subjective The patient was seen and examined at the bedside this morning. Events from the last 24 hours have been reviewed. The patient is currently afebrile, hemodynamically stable and maintaining appropriate oxygen saturations on room air. The patient remains on continuous IV fluids, pantoprazole and octreotide. He is currently documented to be overall net +4 L for the hospitalization. The patient has received a total of 2 units of packed red blood cells to date. Hemoglobin this morning is stable at 8.5 g/dL. Platelet count is low at 121,000. The patient underwent upper endoscopy yesterday which revealed grade 3 esophageal varices which required banding. Objective Data Objective Data The patient's most recent lab work, culture data and imaging studies have all been personally reviewed. Vital Signs: Vital Signs Temp Pulse Resp BP Pulse Ox O2 Del Method 99.8 F H 85 23 H 112/69 100 Room Air 11/13/22 00:00 11/13/22 00:00 11/13/22 00:00 11/13/22 00:00 11/13/22 00:00 11/13/22 00:00 Oxygen Delivery Method Room Air Weight: 176 lb 5.917 oz Body Mass Index (BMI) 25.2 Intake & Output: Intake and Output for Last 24 Hours 11/11/22 11/12/22 11/13/22 23:59 23:59 23:59 Intake Total 4386.50 / 4386.50 1118.37 / 1118.37 Output Total 1450 / 1450 Balance 2936.50 / 2936.50 1118.37 / 1118.37 Lab / Micro Data Attestation: I reviewed the patient's lab results. Result Diagrams: 11/13/22 04:25 11/13/22 04:25 Labs: Laboratory Results - last 24 hr 11/12/22 06:54: WBC 15.6 H, RBC 2.86 L, Hgb 7.3 L, Hct 22.9 L, MCV 80.1, MCH 25.5 L, MCHC 31.9 L, RDW Std Deviation 54.4 H, RDW Coeff of Bassam 18.6 H, Plt Count 134 L, MPV 10.3, Immature Gran % (Auto) 0.900, Neut % (Auto) 80.5 H, Lymph % (Auto) 8.0 L, [place] % (Auto) 10.4 H, Eos % (Auto) 0.1, Baso % (Auto) 0.1, Absolute Neuts (auto) 12.5 H, Absolute Lymphs (auto) 1.24, Nucleated RBC % 0, Differential Comment COMMENT, Diff Path Review Reviewed 11/12/22 06:54: PT 19.8 H, INR 1.7, APTT 35.8 11/12/22 06:54: Sodium 138, Potassium 3.9, Chloride 102, Carbon Dioxide 22.0, Anion Gap 14, BUN 38 H, Creatinine 1.11, Estim Creat Clear Calc 72.16, Est GFR (MDRD) Af Amer 86, Est GFR (MDRD) Non-Af 71, BUN/Creatinine Ratio 34.2 H, Glucose 140 H, Calcium 7.4 L, Total Bilirubin 0.90, Direct Bilirubin 0.38 H, AST 28, ALT 25, Alkaline Phosphatase 89, Total Protein 5.4 L, Albumin 2.0 L, Globulin 3.4, Lipase 438 H 11/12/22 06:54: Blood Type O POSITIVE, Antibody Screen NEGATIVE, Crossmatch See Detail 11/12/22 06:54: Crossmatch See Detail 11/12/22 06:54: Magnesium 1.8 11/12/22 07:11: Lactic Acid 7.3 H* 11/12/22 11:10: Ammonia 32.0 11/12/22 11:10: Ethyl Alcohol < 3.0 11/12/22 12:45: Lactic Acid 5.8 H* 11/12/22 12:45: Hgb 6.8 L, Hct 21.1 L 11/12/22 17:35: Hgb 8.2 L, Hct 25.2 L 11/13/22 04:25: WBC 11.1 H, RBC 3.22 L, Hgb 8.5 L, Hct 26.1 L, MCV 81.1, MCH 26.4 L, MCHC 32.6, RDW Std Deviation 50.2 H, RDW Coeff of Bassam 17.2 H, Plt Count 121 L, MPV 9.7, Immature Gran % (Auto) 1.700 H, Neut % (Auto) 81.6 H, Lymph % (Auto) 7.4 L, [place] % (Auto) 8.7, Eos % (Auto) 0.3, Baso % (Auto) 0.3, Absolute Neuts (auto) 9.1 H, Absolute Lymphs (auto) 0.82 L, Nucleated RBC % 0 11/13/22 04:25: Sodium 137, Potassium 3.9, Chloride 109 H, Carbon Dioxide 22.0, Anion Gap 6, BUN 30 H, Creatinine 0.88, Estim Creat Clear Calc 91.02, Est GFR (MDRD) Af Amer 113, Est GFR (MDRD) Non-Af 94, BUN/Creatinine Ratio 34.2 H, Glucose 115 H, Calcium 6.9 L, Magnesium 1.8, Total Bilirubin 1.00, AST 45 H, ALT 27, Alkaline Phosphatase 84, Total Protein 5.2 L, Albumin 2.0 L, Globulin 3.2, Albumin/Globulin Ratio 0.6 L Physical Exam Const alert and no apparent distress General Appearance: cooperative HEENT normocephalic and head/scalp atraumatic Eyes PERRL and EOMs intact bilaterally Neck supple General: trachea midline Chest inspection of chest normal Resp normal respiratory effort Auscultation: Negative for rales, rhonchi or wheezes Cardio regular rate and regular rhythm GI soft to palpation Palpation: Negative for guarding or rigid Extremity no clubbing, cyanosis or edema Skin no rashes or lesions noted Neuro CN's II-XII intact bilaterally and no focal motor deficits Psych Mood & Affect: flat affect Charges/Coding Visit Charges Inpatient E&M: 27853 Subs Hosp L2
--- NOTE | 2022-11-13 10:28 | PN_ITS ---
Subjective Subjective Patient seen and examined. He has no active complaints today. He was quite somnolent and wouldnt really answer questions. Review of systems is otherwise negative. He has been noted to be febrile since admission. Unable to elucidate the source of infection as he is not really answering questions. He is on room air. Wbc is 301. Objective Data Objective Data Vital Signs: Vital Signs Temp Pulse Resp BP Pulse Ox O2 Del Method 99.7 F H 81 15 114/67 100 Room Air 11/13/22 08:07 11/13/22 08:07 11/13/22 08:07 11/13/22 08:07 11/13/22 08:07 11/13/22 08:07 Oxygen Delivery Method Room Air Weight: 176 lb 5.917 oz Body Mass Index (BMI) 25.2 Intake & Output: Intake and Output for Last 24 Hours 11/11/22 11/12/22 11/13/22 23:59 23:59 23:59 Intake Total 4386.50 / 4386.50 3413.04 / 3413.04 Output Total 1450 / 1450 650 / 650 Balance 2936.50 / 2936.50 2763.04 / 2763.04 Lab / Micro Data Result Diagrams: 11/13/22 04:25 11/13/22 04:25 Labs: Laboratory Results - last 24 hr 11/12/22 06:54: Diff Path Review Reviewed 11/12/22 06:54: Blood Type O POSITIVE, Antibody Screen NEGATIVE, Crossmatch See Detail 11/12/22 06:54: Magnesium 1.8 11/12/22 11:10: Ammonia 32.0 11/12/22 11:10: Ethyl Alcohol < 3.0 11/12/22 12:45: Lactic Acid 5.8 H* 11/12/22 12:45: Hgb 6.8 L, Hct 21.1 L 11/12/22 17:35: Hgb 8.2 L, Hct 25.2 L 11/13/22 04:25: WBC 11.1 H, RBC 3.22 L, Hgb 8.5 L, Hct 26.1 L, MCV 81.1, MCH 26.4 L, MCHC 32.6, RDW Std Deviation 50.2 H, RDW Coeff of Bassam 17.2 H, Plt Count 121 L, MPV 9.7, Immature Gran % (Auto) 1.700 H, Neut % (Auto) 81.6 H, Lymph % (Auto) 7.4 L, [place] % (Auto) 8.7, Eos % (Auto) 0.3, Baso % (Auto) 0.3, Absolute Neuts (auto) 9.1 H, Absolute Lymphs (auto) 0.82 L, Nucleated RBC % 0 11/13/ 04:25: Sodium 137, Potassium 3.9, Chloride 109 H, Carbon Dioxide 22.0, Anion Gap 6, BUN 30 H, Creatinine 0.88, Estim Creat Clear Calc 91.02, Est GFR (MDRD) Af Amer 113, Est GFR (MDRD) Non-Af 94, BUN/Creatinine Ratio 34.2 H, G lucose 115 H, Calcium 6.9 L, Magnesium 1.8, Total Bilirubin 1.00, AST 45 H, ALT 27, Alkaline Phosphatase 84, Total Protein 5.2 L, Albumin 2.0 L, Globulin 3.2, Albumin/Globulin Ratio 0.6 L Physical Exam Const Constitutional Narrative: lethargic Orientation / Consciousness: lethargic HEENT normocephalic, head/scalp atraumatic and moist oral mucous membranes Eyes PERRL and EOMs intact bilaterally Neck no lymphadenopathy and supple Lymph Lymphatic: no lymphadenopathy noted Resp Resp Narrative: mildly diminished breath sounds bibasally, no wheezes or crackles. Cardio regular rate, regular rhythm, S1 normal heart sound, S2 normal heart sound and no murmurs GI normal to inspection, nondistended, normoactive bowel sounds, soft to palpation and non-tender Extremity normal to inspection, full ROM, normal capillary refill and no clubbing, cyanosis or edema Skin General Skin Exam: no breakdown Neuro Neuro Narrative: lethargic, moves all extremities spontaneously Assessment & Plan Assessment/Plan (1) Acute GI bleeding: (2) Hemorrhagic shock: PLAN: Plan #Hemorrhagic shock due to UGI bleed * shock has resolved * Hb today is 8.5 * is s/p 2 units of PRBCs * on octreotide and PPI drip still * has a history of UGI bleed due to esophageal varices * on IV PPI drip. ON octreotide drip * gastroenterology consulted- EGD showed grade III esophageal varices which were incompletely eradicated and banded, with no gross lesions in the first portion of the duodenum * Critical care on board. * #Fever * source of infection unclear. He is on room air and not coughing. * lactic acid elevated but this could have been due to hypoperfusion in setting of hemorrhagic shock * will check urine analysis and check blood cultures * hold off on antibiotics for now * get CXR also in light of his lethargy as he may hav aspirated. * #Acute on chronic anemia: as above #Lactic acidosis: likely due to hemorrhagic shock. management as above. #Acute encephalopathy: likely due to hemorrhagic shock. Management as above. #Cirrhosis * has a history of chronic alcohol abuse * on nadolol, rifaximin, spironolactone * has a history of esophageal varices. * #Probable hepatocellular carcinoma * CT abdomen and pelvis from August 2022 showed a 4cm x 4.1cm heterogenous solid mass in tong mid lateral portion of the right lobe of hte liver with mildly distended gallbladder. Also showed circumferential thickening of the gastroesophageal junction, esophageal carcinoma shd be ruled. * DVT prophylaxis: SCDs Code status: full code unverified Disposition: transfer out of ICU to PCU Charges/Coding Visit Charges Inpatient E&M: 33384 Subs Hosp L2
--- NOTE | 2022-11-13 10:41 | RAD_ITS ---
INDICATION: fever EXAMINATION/TECHNIQUE: X-RAY - XR Chest 2 Views COMPARISON: 09/07/2022 FINDINGS: LINES/DEVICES: Status post ACDF extending caudally to the T1 level. LUNGS: No consolidation, edema or effusion. No pneumothorax. MEDIASTINUM AND CARDIOVASCULAR STRUCTURES: Cardiac silhouette not enlarged. Central airways and mediastinal contour are unremarkable. BONES AND SOFT TISSUES: Unremarkable. Stable exam. RAD/Chest PA and Lateral IMPRESSION: No radiographic evidence of acute cardiopulmonary disease. Electronically Signed: Jose Priest MD, ASHLEY at 11:15 EDT ,
[2022-11-13 14:44] LABS: Bacteria 0 SEEN /hpf (None Seen); Mucous, Urine 0 SEEN /hpf (<or=2+); Red Blood Cells-Urine 0 SEEN /hpf (0-5); Squamous Epithelial Cells - UA 0 SEEN /hpf (0-5)
[2022-11-13 14:48] LABS: Color, Urine Yellow (Yellow); Glucose, Dipstick Normal (Normal); Ketone-Dipstick Negative (Negative); Leukocyte Esterase-Dipstick 500 /ul (Negative); Nitrite-Dipstick Negative (Negative); Occult Blood-Urine 150 /ul (Negative); Protein-Dipstick 30 mg/dl (Negative); Urine Bilirubin Dipstick Negative (Negative); Urine Clarity Sl. Cloudy (Clear); Urine Urobilinogen Normal (Normal); Urine pH 6.5 (5.0 - 8.0)
[2022-11-13 14:54] LABS: White Blood Cells 50-100 SEEN /hpf (0-5)
--- NOTE | 2022-11-13 18:16 | CASEMGMT ---
GAYLA TREVIZO DC Planning Assessment: Face to Face with patient for initial transition planning/care coordination assessment. GAYLA TREVIZO introduced self and role at [facility], pt voices understanding and is agreeable to participating in assessment. Pt is slightly lethargic with mumbled speech but answers questions appropriately. Care providers, pharmacy, and demographics verified. Admitting dx: GI Bleed, hemorrhagic shock PCP: Andreasierra tucsonjohanna Specialists: none--pt states he has not followed up with anyone since his previous admission. [facility]erred Pharmacy: [facility] Prescription Benefit: yes Living Will/HPOA: no LW, HPOA Kimberli (mother) LNOK: mother Kimberli, brother Rogers Living Arrangements: Pt lives alone in an apartment on the second floor with multiple steps with handrail to access. Pt states he was independent with ADLs prior to admission. Pt states did the best he could. Pt states he prepares his own meals on a hot plate and walks to [facility] to obtain groceries and medications. Transportation: Pt does not drive and walks to places DME: [facility]: pt denies any previous providers: Pt's goal: return home Plan: TBD Pt states he feels if he gets stronger he will be able to return home. Discussed participation in PT/OT to help get stronger and pt agrees this will be helpful. Pt states his mom and brother live in [place] and they have been trying to get him to move up closer to them. Will continue to follow and assist with DC Planning needs as these are determined. Maria E Carias RN CM
--- NOTE | 2022-11-13 18:46 | PCM.PROGNOTE ---
Subjective Subjective Patient does not have any complaints. He has been very somnolent. He is not eating much. Objective Data Objective Data Vital Signs: Vital Signs Temp Pulse Resp BP Pulse Ox O2 Del Method 100.3 F H 88 20 H 123/74 H 96 Room Air 11/13/22 18:00 11/13/22 18:00 11/13/22 18:00 11/13/22 18:00 11/13/22 18:00 11/13/22 18:00 Oxygen Delivery Method Room Air Weight: 176 lb 5.917 oz Body Mass Index (BMI) 25.2 Intake & Output: Intake and Output for Last 24 Hours 11/11/22 11/12/22 11/13/22 23:59 23:59 23:59 Intake Total 4386.50 / 4386.50 4728.63 / 4728.63 Output Total 1450 / 1450 1700 / 1700 Balance 2936.50 / 2936.50 3028.63 / 3028.63 Lab / Micro Data Result Diagrams: 11/13/22 04:25 11/13/22 04:25 Labs: Laboratory Results - last 24 hr 11/13/22 04:25: WBC 11.1 H, RBC 3.22 L, Hgb 8.5 L, Hct 26.1 L, MCV 81.1, MCH 26.4 L, MCHC 32.6, RDW Std Deviation 50.2 H, RDW Coeff of Bassam 17.2 H, Plt Count 121 L, MPV 9.7, Immature Gran % (Auto) 1.700 H, Neut % (Auto) 81.6 H, Lymph % (Auto) 7.4 L, [place] % (Auto) 8.7, Eos % (Auto) 0.3, Baso % (Auto) 0.3, Absolute Neuts (auto) 9.1 H, Absolute Lymphs (auto) 0.82 L, Nucleated RBC % 0 11/13/22 04:25: Sodium 137, Potassium 3.9, Chloride 109 H, Carbon Dioxide 22.0, Anion Gap 6, BUN 30 H, Creatinine 0.88, Estim Creat Clear Calc 91.02, Est GFR (MDRD) Af Amer 113, Est GFR (MDRD) Non-Af 94, BUN/Creatinine Ratio 34.2 H, Glucose 115 H, Calcium 6.9 L, Magnesium 1.8, Total Bilirubin 1.00, AST 45 H, ALT 27, Alkaline Phosphatase 84, Total Protein 5.2 L, Albumin 2.0 L, Globulin 3.2, Albumin/Globulin Ratio 0.6 L 11/13/22 14:27: Urine Color Yellow, Urine Clarity Sl. Cloudy, Urine pH 6.5, Ur Specific [place] 1.010, Urine Protein 30 H, Urine Glucose (UA) Normal, Urine Ketones Negative, Urine Occult Blood 150 H, Urine Nitrite Negative, Urine Bilirubin Negative, Urine Urobilinogen Normal, Ur Leukocyte Esterase 500 H, Urine RBC 0 SEEN, Urine WBC 50-100 SEEN, Ur Squamous Epith Cells 0 SEEN, Urine Bacteria 0 SEEN, Urine Mucus 0 SEEN Radiography Diagnostic Testing: Radiology Impression Chest X-Ray 11/13/22 10:41 IMPRESSION: No radiographic evidence of acute cardiopulmonary disease. Electronically Signed: Jose Priest MD, ASHLEY at 11:15 EDT Reading Location ID and State: [facility] / [place] Tel , Service support , Physical Exam Const Constitutional Narrative: lethargic Orientation / Consciousness: lethargic HEENT normocephalic, head/scalp atraumatic and moist oral mucous membranes Eyes PERRL and EOMs intact bilaterally Neck no lymphadenopathy and supple Lymph Lymphatic: no lymphadenopathy noted Resp Resp Narrative: mildly diminished breath sounds bibasally, no wheezes or crackles. Cardio regular rate, regular rhythm, S1 normal heart sound, S2 normal heart sound and no murmurs GI normal to inspection, nondistended, normoactive bowel sounds, soft to palpation and non-tender Extremity normal to inspection, full ROM, normal capillary refill and no clubbing, cyanosis or edema Skin General Skin Exam: no breakdown Neuro Neuro Narrative: lethargic, moves all extremities spontaneously Assessment & Plan Assessment/Plan (1) Hemorrhagic shock: PLAN: Hemorrhagic shock secondary to esophageal varices status post banding. His hemoglobin is slightly down today. I will start him on nadolol 20 for variceal prophylaxis. He will need repeat egd to treat the rest of his varices. (2) Acute upper gastrointestinal bleeding: PLAN: Status posttreatment of variceal bleeding (3) Anemia: PLAN: Continue to monitor hemoglobin and he can have his diet advanced as tolerated. (4) Cirrhosis: PLAN: Imaging with ultrasound and CT scan abdomen pelvis does show a hepatic mass likely secondary to hepatocellular carcinoma. He would need to be more coherent to undergo a liver biopsy. Alpha-fetoprotein is 143 which is elevated. He will need to follow-up with oncology. I think that is the reason why he is febrile. He did not follow-up in the office for further work-up of his hepatic mass. It may need to undergo biopsy. Repeat alpha-fetoprotein. (5) Encephalopathy: PLAN: Acute encephalopathy likely secondary to GI bleed. Xifaxan 550 mg p.o. twice daily and lactulose 20 cc p.o. every 6 hours. Charges/Coding Visit Charges Inpatient E&M: 66257 Init Hosp L3
[2022-11-14] VITALS (16 sets, daily range): BP systolic 124–160; BP diastolic 70–99; PULSE 76–88; RESP 16–22; TEMP 36.6–37.8; O2SAT 81–100; BMI 27.8
[2022-11-14] MEDS: 0.9% Normal Saline 1,000 ML 150 ML IV (04:41)
[2022-11-14 05:13] LABS: Absolute Lymphocyte Count 0.69 X10^3/uL (0.83-4.51); Absolute Neutrophil Count 4.9 X10^3/uL (2.0-7.7); Basophil# 0.02 X10^3/uL; Basophil% 0.3 % (0-1); Eosinophils% 1.6 % (0-5); Hematocrit 21.8 % (40-54); Lymphocyte # 0.69 X10^3/ul (0.83-4.51); Lymphocyte % 10.8 % (19-41); Mean Corp Hgb Conc 32.1 g/dL (32-36); Mean Corpuscular Hgb 26.1 pg (27.0-32.0); Mean Corpuscular Volume 81.3 fL (80-94); Mean Platelet Vol. 9.6 fl (6.2-12.0); Monocyte# 0.63 X10^3/uL; Monocyte% 9.9 % (0-10); NRBC Flagged by Analyzer 0 % (0-5); Neutrophil # 4.88 X10^3/uL (2.7-7.7); Neutrophil % 76.5 % (47-70); Platelet Count 107 K/mm3 (150-450); RBC Distribution Width CV 17.5 % (11.6-14.6); RBC Distribution Width SD 51.5 fl (35.1-43.9); Red Blood Count 2.68 M/mm3 (4.6-6.2); White Blood Count 6.4 K/mm3 (4.4-11.0)
[2022-11-14 05:38] LABS: ALB/GLOB Ratio 0.6 RATIO (0.9-2.4); AST(SGOT) 36 U/L (15-37); Alanine Aminotransfer ALT/SGPT 26 U/L (16-61); Albumin, Serum 1.9 g/dL (3.2-5.0); Alkaline Phosphatase 69 U/L (45-117); Anion Gap 4 (5-15); BUN 16 mg/dL (7-18); BUN/Creat Ratio 21.8 RATIO (10-20); Calcium,Total 6.8 mg/dL (8.5-10.1); Chloride 110 mmol/L (98-107); Creatinine, Serum 0.73 mg/dL (0.70-1.30); EST Glomerular Filtration Rate 115 mL/min (>60); Est Glom Filt Rate - Afr Amer 140 mL/min (>60); Estimated Creatinine Clearance 109.72 ml/min; Globulin 3.2 g/dL (2.2-4.2); Glucose 105 mg/dL (74-106); Potassium 3.5 mmol/L (3.5-5.1); Protein, Total 5.1 g/dL (6.4-8.2); Sodium Level 137 mmol/L (136-145)
--- NOTE | 2022-11-14 07:08 | PN.HOSP_ITS ---
Reason for Visit Reason for Visit: Diagnoses Anemia, unspecified (11/12/22) Encephalopathy, unspecified (11/12/22) Unspecified cirrhosis of liver (11/12/22) Gastrointestinal hemorrhage, unspecified (11/12/22) Other shock (11/12/22) Subjective Subjective Reports this and stomach feels somewhat tight, tolerating clear liquids, has not had a bowel movement, denies any bleeding from anywhere that he is noted, no nausea or vomiting. Feels like he may have a little bit of swelling in his hands. Said he feels like he needs some Gallego's and that the area and here has been giving him difficulty but denies shortness of breath. Denied any other com plaints at this time. Objective Data Objective Data Vital Signs: Vital Signs Temp Pulse Resp BP Pulse Ox O2 Del Method 98.7 F 79 16 128/75 H 99 Room Air 11/14/22 06:00 11/14/22 06:00 11/14/22 06:00 11/14/22 06:00 11/14/22 06:00 11/14/22 06:00 Oxygen Delivery Method Room Air Weight: 87.8 kg Body Mass Index (BMI) 27.8 Intake & Output: Intake and Output for Last 24 Hours 11/12/22 11/13/22 11/14/22 23:59 23:59 23:59 Intake Total 4386.50 / 4386.50 5728.63 / 5728.63 1099.67 / 1099.67 Output Total 1450 / 1450 1700 / 1700 700 / 700 Balance 2936.50 / 2936.50 4028.63 / 4028.63 399.67 / 399.67 Lab / Micro Data Result Diagrams: 11/14/22 04:50 11/14/22 04:50 Labs: Laboratory Results - last 24 hr 11/13/22 14:27: Urine Color Yellow, Urine Clarity Sl. Cloudy, Urine pH 6.5, Ur Specific [place] 1.010, Urine Protein 30 H, Urine Glucose (UA) Normal, Urine Ketones Negative, Urine Occult Blood 150 H, Urine Nitrite Negative, Urine Bilirubin Negative, Urine Urobilinogen Normal, Ur Leukocyte Esterase 500 H, Urine RBC 0 SEEN, Urine WBC 50-100 SEEN, Ur Squamous Epith Cells 0 SEEN, Urine Bacteria 0 SEEN, Urine Mucus 0 SEEN 11/14/22 04:50: WBC 6.4, RBC 2.68 L, Hgb 7.0 L, Hct 21.8 L, MCV 81.3, MCH 26.1 L , MCHC 32.1, RDW Std Deviation 51.5 H, RDW Coeff of Bassam 17.5 H, Plt Count 107 L, MPV 9.6, Immature Gran % (Auto) 0.900, Neut % (Auto) 76.5 H, Lymph % (Auto) 10.8 L, [place] % (Auto) 9.9, Eos % (Auto) 1.6, Baso % (Auto) 0.3, Absolute Neuts (auto) 4.9, Absolute Lymphs (auto) 0.69 L, Nucleated RBC % 0 11/14/22 04:50: Sodium 137, Potassium 3.5, Chloride 110 H, Carbon Dioxide 23.0, Anion Gap 4 L, BUN 16, Creatinine 0.73, Estim Creat Clear Calc 109.72, Est GFR (MDRD) Af Amer 140, Est GFR (MDRD) Non-Af 115, BUN/Creatinine Ratio 21.8 H, Glucose 105, Calcium 6.8 L, Total Bilirubin 0.70, AST 36, ALT 26, Alkaline Phosphatase 69, Total Protein 5.1 L, Albumin 1.9 L, Globulin 3.2, Albumin/Globulin Ratio 0.6 L Radiography Diagnostic Testing: Radiology Impression Chest X-Ray 11/13/22 10:41 IMPRESSION: No radiographic evidence of acute cardiopulmonary disease. Electronically Signed: Jose Priest MD, ASHLEY at 11:15 EDT Reading Location ID and State: [facility] / [place] Tel , Service support , Physical Exam Narrative General: Alert, oriented, no apparent distress HEENT: Atraumatic, normocephalic Eyes: Anicteric, normal conjunctiva, extraocular movements grossly intact Neck: Supple Respiratory: Clear to auscultation bilaterally, normal respiratory effort Cardiovascular: Regular rate and rhythm GI: No overt tenderness, no rebound, no guarding, no rigidity, somewhat hard but not overtly distended, positive bowel sounds Extremities: No pitting edema appreciated Musculoskeletal: Moving all extremities Neuro: No overt focal neurological deficits Skin: No rashes appreciated Psych: Cooperative Assessment & Plan Assessment/Plan (1) Hemorrhagic shock: (2) Acute GI bleeding: PLAN: Plan #Hemorrhage shock 2/2 UGI bleed -Secondary to grade 3 esophageal varices status post banding on 11/12 -Shock resolved -Started on nadolol 20 for variceal prophylaxis and will need repeat EGD to treat the rest of varices -s/p 2u PRBC, hgb slightly down today at 7 from 8.5 -Transfusion threshold 7, will give another unit of PRBC -remains on octrotide and PPI ggt as well as fluids -Vitally stable -GI on board -Home diuretics have been held #Hepatic mass/cirrhosis/hepatic encephalopathy -Imaging with ultrasound and CT scan abdomen pelvis does show a hepatic mass likely secondary to hepatocellular carcinoma -AFP is 143 -Will need liver biopsy when possible and to f/u w/ heme onc -Resume lactulose -Resume spironolactone and Lasix when able, will hold IVF at this time #DVT ppx: SCDs secondary to GI bleeding Jessica Franks MD Time spent in the patient's overall evaluation,decision-making process, review of diagnostic data, adjustment of management, discussion with other providers, nursing nursing and ancillary staff involved in patient's care documentation, 60 minutes Charges/Coding Visit Charges Inpatient E&M: 69024 Subs Hosp L2
[2022-11-14] MEDS: Ondansetron 4 MG/2 ML Vial IV (14:30)
[2022-11-14] MEDS: 0.9% Saline Lock 10 ML Syringe IV ×2 (14:30→19:46)
[2022-11-14] MEDS: Lactulose 20 GM/30 ML UDC PO ×2 (14:54→19:46)
[2022-11-14] MEDS: rifAXIMin 550 MG Tablet PO (19:46)
[2022-11-15 01:30] VITALS: BP 134/68; PULSE 78; RESP 16; TEMP 37.2; O2SAT 98
[2022-11-15 02:00] VITALS: BP 134/68; PULSE 77; RESP 16; TEMP 37.7; O2SAT 98
[2022-11-15 05:02] VITALS: BMI 27.9
[2022-11-15 05:13] LABS: Absolute Lymphocyte Count 0.79 X10^3/uL (0.83-4.51); Absolute Neutrophil Count 4.5 X10^3/uL (2.0-7.7); Basophil# 0.03 X10^3/uL; Basophil% 0.5 % (0-1); Eosinophil# 0.27 X10^3/uL; Eosinophils% 4.2 % (0-5); Hematocrit 27.1 % (40-54); Hemoglobin 9.1 g/dL (13.0-16.5); Lymphocyte # 0.79 X10^3/ul (0.83-4.51); Lymphocyte % 12.2 % (19-41); Mean Corp Hgb Conc 33.6 g/dL (32-36); Mean Corpuscular Hgb 27.7 pg (27.0-32.0); Mean Corpuscular Volume 82.4 fL (80-94); Mean Platelet Vol. 9.6 fl (6.2-12.0); Monocyte# 0.84 X10^3/uL; NRBC Flagged by Analyzer 0 % (0-5); Neutrophil # 4.47 X10^3/uL (2.7-7.7); Platelet Count 121 K/mm3 (150-450); RBC Distribution Width CV 16.5 % (11.6-14.6); RBC Distribution Width SD 48.5 fl (35.1-43.9); Red Blood Count 3.29 M/mm3 (4.6-6.2); White Blood Count 6.5 K/mm3 (4.4-11.0)
[2022-11-15] MEDS: Lactulose 20 GM/30 ML UDC PO ×5 (05:20→23:23)
[2022-11-15 05:39] LABS: Anion Gap 4 (5-15); BUN 10 mg/dL (7-18); Calcium,Total 7.2 mg/dL (8.5-10.1); Chloride 107 mmol/L (98-107); Creatinine, Serum 0.77 mg/dL (0.70-1.30); EST Glomerular Filtration Rate 109 mL/min (>60); Est Glom Filt Rate - Afr Amer 131 mL/min (>60); Estimated Creatinine Clearance 104.02 ml/min; Glucose 105 mg/dL (74-106); Potassium 3.3 mmol/L (3.5-5.1); Sodium Level 134 mmol/L (136-145)
[2022-11-15 09:00] VITALS: BP 147/88; PULSE 78; RESP 16; TEMP 36.9; O2SAT 95
[2022-11-15] MEDS: Folic Acid 1 MG Tablet 2 MG PO (09:11)
[2022-11-15] MEDS: Potassium Chloride Oral Tablet 20 MEQ PO (09:11)
[2022-11-15] MEDS: Thiamine Hydrochloride 100 MG Tablet PO (09:11)
[2022-11-15] MEDS: Nadolol 20 MG Tablet PO (09:12)
[2022-11-15] MEDS: rifAXIMin 550 MG Tablet PO ×2 (09:12→21:39)
[2022-11-15] MEDS: Furosemide 20 MG Tablet 10 MG PO (09:12)
[2022-11-15] MEDS: Pantoprazole Sodium 40 MG Tablet PO ×2 (09:18→21:40)
[2022-11-15] MEDS: Spironolactone 25 MG Tablet PO (09:18)
--- NOTE | 2022-11-15 10:41 | PCM.PN.HOSP ---
Reason for Visit Reason for Visit: Diagnoses Anemia, unspecified (11/12/22) Encephalopathy, unspecified (11/12/22) Unspecified cirrhosis of liver (11/12/22) Gastrointestinal hemorrhage, unspecified (11/12/22) Other shock (11/12/22) Subjective Subjective This morning patient was feeling somewhat better, had not had a bowel movement and had some abdominal discomfort but not any severe distress, reported urinating fine. Called in the evening due to patient reporting he was having increased shortness of breath. Upon evaluation he was somewhat tired which correlated with his elevated ammonia abdomen firm as it had been and nontender to palpation with no rebound, guarding, rigidity. Broad lab work-up obtained. Objective Data Objective Data Vital Signs: Vital Signs Temp Pulse Resp BP Pulse Ox O2 Del Method 98.5 F 78 16 147/88 H 95 Room Air 11/15/22 09:00 11/15/22 09:00 11/15/22 09:00 11/15/22 09:00 11/15/22 09:00 11/15/22 09:00 Oxygen Delivery Method Room Air Weight: 88.4 kg Body Mass Index (BMI) 27.9 Intake & Output: Intake and Output for Last 24 Hours 11/13/22 11/14/22 11/15/22 23:59 23:59 23:59 Intake Total 5728.63 / 5728.63 4098.17 / 4098.17 408.55 / 408.55 Output Total 1700 / 1700 2550 / 2550 Balance 4028.63 / 4028.63 1548.17 / 1548.17 408.55 / 408.55 Lab / Micro Data Result Diagrams: 11/15/22 15:05 11/15/22 15:05 Labs: Laboratory Results - last 24 hr 11/12/22 06:54: Crossmatch See Detail 11/15/22 04:50: WBC 6.5, RBC 3.29 L, Hgb 9.1 L, Hct 27.1 L, MCV 82.4, MCH 27.7, MCHC 33.6, RDW Std Deviation 48.5 H, RDW Coeff of Bassam 16.5 H, Plt Count 121 L, MPV 9.6, Immature Gran % (Auto) 1.100 H, Neut % (Auto) 69.0, Lymph % (Auto) 12.2 L, [facility] % (Auto) 13.0 H, Eos % (Auto) 4.2, Baso % (Auto) 0.5, Absolute Neuts (auto) 4.5, Absolute Lymphs (auto) 0.79 L, Nucleated RBC % 0 11/15/22 04:50: Sodium 134 L, Potassium 3.3 L, Chloride 107, Carbon Dioxide 23.0, Anion Gap 4 L, BUN 10, Creatinine 0.77, Estim Creat Clear Calc 104.02, Est GFR (MDRD) Af Amer 131, Est GFR (MDRD) Non-Af 109, BUN/Creatinine Ratio 13.0, Glucose 105, Calcium 7.2 L 11/15/22 04:50: Ammonia 89.0 H Physical Exam Narrative General: Alert, oriented, no apparent distress HEENT: Atraumatic, normocephalic Eyes: Anicteric, normal conjunctiva, extraocular movements grossly intact Neck: Supple Respiratory: Clear to auscultation bilaterally, normal respiratory effort Cardiovascular: Regular rate and rhythm GI: No overt tenderness, no rebound, no guarding, no rigidity, somewhat hard but not overtly distended, positive bowel sounds Extremities: No pitting edema appreciated Musculoskeletal: Moving all extremities Neuro: No overt focal neurological deficits Skin: No rashes appreciated Psych: Cooperative Assessment & Plan Assessment/Plan (1) Hemorrhagic shock: (2) Acute GI bleeding: PLAN: Plan #Gram-positive bacteremia -Had obtain blood cultures due to one-time fever but did not start antibiotics as patient had been improving and no signs symptoms of infection -Blood cultures growing gram-positive cocci -Starting broad-spectrum antibiotics and will narrow as culture results are available -Give fluids and hold spironolactone and Lasix, give 1 L bolus, will give another liter #Reported shortness of breath -Lactic acid 2.9 with no anion gap and ABG obtained and patient is actually somewhat alkalotic and not acidotic -Is possible that due to his lack of bowel movements and increasing abdominal distention this is contributing to tachypnea in addition to his elevated lactic acid -Chest x-ray unremarkable -With his tachypnea and being alkalotic with no pharmacologic DVT prophylaxis given his recent GI hemorrhage will obtain CTA chest we will obtain CT of abdomen to assess extent of distention as well -We will plan on lactulose enema #hyperammonemia -Has had escalating doses of lactulose plus MiraLAX with no bowel movements and increasing ammonia, will give lactulose enema, obtaining CT of abdomen #Hemorrhage shock 2/2 UGI bleed -Secondary to grade 3 esophageal varices status post banding on 11/12 -Shock resolved -Started on nadolol 20 for variceal prophylaxis and will need repeat EGD to treat the rest of varices -s/p 2u PRBC, hgb slightly down today at 7 from 8.5 -Transfusion threshold 7, will give another unit of PRBC -remains on octrotide and PPI ggt as well as fluids -Vitally stable -GI on board -Home diuretics have been held -11/15: Hgb stable #Hepatic mass/cirrhosis/hepatic encephalopathy -Imaging with ultrasound and CT scan abdomen pelvis does show a hepatic mass likely secondary to hepatocellular carcinoma -AFP is 143 -Will need liver biopsy when possible and to f/u w/ heme onc -Resume lactulose -Resume spironolactone and Lasix when able, will hold IVF at this time -11/15: Ammonia increased and no BMs despite increasing lacutlose doses, giving lactulose enema. Holding diuretics as pt requires fluids #DVT ppx: Lovenox sub q to be started Jessica Franks MD Time spent in the patient's overall evaluation,decision-making process, review of diagnostic data, adjustment of management, discussion with other providers, nursing nursing and ancillary staff involved in patient's care documentation, 45 minutes Charges/Coding Visit Charges Inpatient E&M: 20025 Subs Hosp L3
[2022-11-15] MEDS: Polyethylene Glycol 3350 17 GM PACKET 34 GM PO (12:34)
--- NOTE | 2022-11-15 14:51 | CASEMGMT ---
GAYLA TREVIZO received message from brother Rogers. GAYLA TREVIZO returned call, Rogers inquired about getting patient setup for assisted living. GAYLA TREVIZO updated brother that most assisted living is privately paid. Patient has been refusing therapy, GAYLA TREVIZO asked brother if her could talk with patient and encourage him to work with therapy. Discussed different levels or care with brother. Brother states he will talk with patient. Brother had no further questions or concerns at this time.
[2022-11-15 16:22] VITALS: BP 135/87; PULSE 73; PULSE 75; RESP 16; TEMP 36.8; O2SAT 96; O2SAT 97
--- NOTE | 2022-11-15 16:38 | RAD_ITS ---
EXAM: XR ABDOMEN, 1 VIEW CLINICAL INDICATION: abd pain and tachypnia TECHNIQUE: Frontal supine view of the abdomen/pelvis. This report was created using [employer] report generation technology. COMPARISON: None. FINDINGS: LOWER THORAX: No acute pathology. GASTROINTESTINAL TRACT: Unremarkable. Non-obstructive. No bowel or stomach distention. ORGANS: Unremarkable as visualized. No organomegaly. No abnormal calcifications. BONES/JOINTS: No acute pathology. SOFT TISSUES: No acute pathology. RAD/Abdomen Single View IMPRESSION: Non-obstructive bowel gas pattern. Electronically Signed: Navneet Ordaz MD at 18:17 EDT ,
--- NOTE | 2022-11-15 16:41 | ECHOD_ITS ---
Reason For Study: DYSPNEA Procedure This was a 2D Doppler, Color Flow transthoracic echocardiogram. Techbiclly difficult study due to uncooperative patient. Exam performed portable in patient room. Left Ventricle Normal LV size. Left ventricular systolic function is normal. The estimated ejection fraction is 65 %. Stage 2 diastolic dysfunction. No regional wall motion abnormalities noted. Right Ventricle Normal RV size. Normal systolic function. Atria Normal left atrium. Normal right atrium. Mitral Valve Normal mitral valve. Tricuspid Valve Normal tricuspid valve. Aortic Valve Trisinus/trileaflet aortic valve. Mild focal aortic valve calcification. Peak aortic valve gradient 46 mmHg. Mean aortic valve gradient 26 mmHg. Mild to moderate aortic stenosis. Pulmonic Valve Normal pulmonic valve. Great Vessels Normal aortic root. The pulmonary artery is normal size. Normal inferior vena cava. Pericardium/Pleural No pericardial effusion. MMode/2D Measurements & Calculations LVIDd: 5.5 cm IVSd: 0.91 cm LVOT diam: 1.8 cm LVIDs: 2.8 cm LVPWd: 1.1 cm LVOT area: 2.7 cm2 RVDd: 2.5 cm FS: 50.0 % Ao root diam: 2.9 cm LAV(MOD-bp): 60.7 ml LVAd ap4: 33.5 cm2 LAV(MOD-bp) Indexed: 29.3 ml/m2 LVLd ap4: 8.8 cm LAV(MOD-sp2): 62.6 ml EDV(MOD-sp4): 99.1 ml LAV(MOD-sp4): 59.0 ml EDV(sp4-el): 107.8 ml LVAs ap4: 17.3 cm2 LVLs ap4: 7.0 cm ESV(MOD-sp4): 34.8 ml ESV(sp4-el): 36.0 ml EF(MOD-sp4): 64.9 % EF(sp4-el): 66.6 % SV(MOD-sp4): 64.3 ml SV(sp4-el): 71.8 ml LA A4 area: 19.9 cm2 LA dimension(2D): 3.8 cm RA A4 area: 17.5 cm2 Time Measurements MV dec time: 0.39 sec Doppler Measurements & Calculations MV E max reno: 107.6 cm/sec Lat Peak E' Reno: 10.8 cm/sec Med Peak E' Ren[place]: 8.2 cm/sec MV A max reno: 77.7 cm/sec E/E' lat: 10.0 E/E' med: 13.2 MV E/A: 1.4 MV V2 max: 131.2 cm/sec Ao V2 max: 339.6 cm/sec MV max P.9 mmHg MV dec slope: 281.4 cm/sec2 Ao max P.2 mmHg MV V2 mean: 84.4 cm/sec Ao V2 mean: 237.1 cm/sec MV mean P.1 mmHg Ao mean P.8 mmHg MV V2 VTI: 50.9 cm Ao V2 VTI: 65.9 cm AV (velocity ratio): 0.37 MVA(VTI): 1.3 cm2 BRIONNA(I,D): 0.98 cm2 BRIONNA(V,D): 1.1 cm2 LV V1 max: 144.1 cm/sec SV(LVOT): 64.6 ml PA V2 max: 150.7 cm/sec LV V1 max P.3 mmHg PA V2 mean: 106.9 cm/sec LV V1 mean P.2 mmHg LV V1 mean: 93.9 cm/sec LV V1 VTI: 24.1 cm ECHO/Echo Complete Interpretation Summary Normal LV size. Left ventricular systolic function is normal. The estimated ejection fraction is 65 %. Stage 2 diastolic dysfunction. Mean aortic valve gradient 26 mmHg. Mild focal aortic valve calcification. Mild to moderate aortic stenosis. Ordering Physician: Jessica Franks Referring Physician: MD Isai Jose Performed By: Nai Bishop RCS
--- NOTE | 2022-11-15 17:05 | RAD_ITS ---
STUDY: XR Chest 1 View 11/15/2022 5:14 PM REASON FOR EXAM: Male, 62 years old. CHEST PAIN SOB, tachypnea COMPARISON: Two days ago. TECHNIQUE: XR Chest 1 View FINDINGS: There is no demonstrated pleural abnormality. Cervical spine fusion hardware noted. Normal heart size. Normal mediastinum. Normal evelyn. Prominent appearing increased interstitial lung markings. Normal visualized pulmonary arteries. There is atherosclerotic calcification of the aortic arch with tortuosity. There are diffuse degenerative changes of the visualized thoracic spine. There is degenerative osteoarthritis of the bilateral shoulders. There is no demonstrated abnormality of the visualized soft tissue structures of the upper abdomen. RAD/Chest 1 View (Portable) IMPRESSION: There are no acute findings. Electronically Signed: Navneet Ordaz MD at 18:18 EDT ,
[2022-11-15 17:16] LABS: Absolute Lymphocyte Count 0.66 X10^3/uL (0.83-4.51); Absolute Neutrophil Count 4.9 X10^3/uL (2.0-7.7); Basophil# 0.02 X10^3/uL; Basophil% 0.3 % (0-1); Eosinophils% 5.8 % (0-5); Hematocrit 27.7 % (40-54); Hemoglobin 9.3 g/dL (13.0-16.5); Lymphocyte # 0.66 X10^3/ul (0.83-4.51); Lymphocyte % 9.6 % (19-41); Mean Corp Hgb Conc 33.6 g/dL (32-36); Mean Corpuscular Hgb 27.6 pg (27.0-32.0); Mean Corpuscular Volume 82.2 fL (80-94); Mean Platelet Vol. 9.5 fl (6.2-12.0); Monocyte# 0.87 X10^3/uL; Monocyte% 12.6 % (0-10); NRBC Flagged by Analyzer 0 % (0-5); Neutrophil # 4.87 X10^3/uL (2.7-7.7); Neutrophil % 70.7 % (47-70); Platelet Count 128 K/mm3 (150-450); RBC Distribution Width CV 16.7 % (11.6-14.6); RBC Distribution Width SD 49.2 fl (35.1-43.9); Red Blood Count 3.37 M/mm3 (4.6-6.2); White Blood Count 6.9 K/mm3 (4.4-11.0)
[2022-11-15 17:35] LABS: Allen Test Positive; Base Excess -2 mmol/L (-2 to +2); Bicarbonate 21.5 mmol/L (22-26); Blood Gas Specimen Type ART; O2 Delivery Device Room Air; PO2 73 mmHG (75-100); SITE R Radial; SO2 96 % (95-99); Total Carbon Dioxide 22 mmol/L; pCO2 30.1 mmHg (35-45); pH 7.46 (7.35-7.45)
[2022-11-15 17:35] LABS: ALB/GLOB Ratio 0.5 RATIO (0.9-2.4); AST(SGOT) 34 U/L (15-37); Alanine Aminotransfer ALT/SGPT 27 U/L (16-61); Albumin, Serum 1.9 g/dL (3.2-5.0); Alkaline Phosphatase 80 U/L (45-117); Anion Gap 7 (5-15); BUN 8 mg/dL (7-18); BUN/Creat Ratio 10.2 RATIO (10-20); Calcium,Total 7.3 mg/dL (8.5-10.1); Chloride 108 mmol/L (98-107); Creatinine, Serum 0.79 mg/dL (0.70-1.30); EST Glomerular Filtration Rate 106 mL/min (>60); Est Glom Filt Rate - Afr Amer 128 mL/min (>60); Estimated Creatinine Clearance 101.39 ml/min; Globulin 3.9 g/dL (2.2-4.2); Glucose 128 mg/dL (74-106); Potassium 3.6 mmol/L (3.5-5.1); Protein, Total 5.8 g/dL (6.4-8.2); Sodium Level 136 mmol/L (136-145)
[2022-11-15 17:56] LABS: Lactic Acid 2.9 mmol/L (0.4-1.9)
--- NOTE | 2022-11-15 18:17 | PCM.RX.CS ---
Consult Pharmacy has been consulted to manage selected antiobiotic: Vancomycin Type of Consult: New start Prior Doses of Antibiotics Received/Current Regimen: Medications Vancomycin HCl 2,000 mg/ (Sodium Chloride) 540 mls @ 250 mls/hr IV X1 ONE Stop: 11/15/22 19:39 Last Admin: 11/15/22 18:01 Dose: 250 mls/hr Labs: Sodium 136 mmol/L (136-145) 11/15/22 15:05 Potassium 3.6 mmol/L (3.5-5.1) 11/15/22 15:05 Chloride 108 mmol/L (98-107) H 11/15/22 15:05 Carbon Dioxide 21.0 mmol/L (21.0-32.0) 11/15/22 15:05 Anion Gap 7 (5-15) 11/15/22 15:05 BUN 8 mg/dL (7-18) 11/15/22 15:05 Creatinine 0.79 mg/dL (0.70-1.30) 11/15/22 15:05 Est GFR (MDRD) Af Amer 128 mL/min (>60) 11/15/22 15:05 Est GFR (MDRD) Non-Af 106 mL/min (>60) 11/15/22 15:05 BUN/Creatinine Ratio 10.2 RATIO (10-20) 11/15/22 15:05 Glucose 128 mg/dL (74-106) H 11/15/22 15:05 Microbiology: Microbiology 11/14/22 19:43 Blood Culture (Wb) - Right Hand Blood Culture - Preliminary 11/14/22 19:22 Blood Culture (Wb) - Right Hand Blood Culture - Preliminary Weight used for dosin kg Estimated Creatinine Clearance: 91 Goal Trough: 15-20 mcg/mL Pharmacy Plan for Drug Dosinmg IV x1, 1750mg IV [id number] trough prior to 4th dose per policy. Pharmacy Service will continue to monitor and adjust dosing as required. Follow-Up Labs: Trough Vancomycin - 11/17 @ 9530
--- NOTE | 2022-11-15 18:58 | CT_ITS ---
STUDY: CTA Chest and CTA Abdomen and Pelvis W/ Contrast Injection (and W/O Contrast Images if performed) 11/15/2022 8:08 PM REASON FOR EXAM: Male, 62 years old. suspect PE TECHNIQUE: The examination was performed with the intravenous administration of IV 100mL Isovue-370 contrast material. Post-processing of the angiographic images was performed, with axial imaging and 3D reconstruction. MIPS images were obtained. Individualized dose optimization techniques were used for this CT. COMPARISON: None. FINDINGS: There are degenerative changes of the shoulders. There is no pneumothorax. There is no demonstrated pleural abnormality. There are bilateral pleural effusions. There is bilateral pneumonia. There are calcifications of the coronary arteries. Normal mediastinum. Normal hilar regions. Normal pulmonary arteries. There is atherosclerotic calcification of the aortic arch with tortuosity and elongation of the aortic arch and descending thoracic aorta. There are multi-level degenerative changes of the thoracic spine. There are no acute findings of the upper abdomen. CT/CTA Chst, Abd, Pel W and/or WO IMPRESSION: No demonstrated pulmonary embolism or arterial dissection. There are bilateral pleural effusions. There is bilateral pneumonia. STUDY: CTA Chest and CTA Abdomen and Pelvis W/ Contrast Injection (and W/O Contrast Images if performed) REASON FOR EXAM: Male, 62 years old. suspect PE TECHNIQUE: Axial CT angiography multi-detector data acquisition was obtained following intravenous administration of IV 100mL Isovue-370 contrast. Axial images and MIP images were reconstructed from the axial data set. Post-processing of the angiographic images was performed, with multiplanar reformation and 3D reconstruction. MIPS images were obtained. Individualized dose optimization techniques were used for this CT. COMPARISON: 09.07.22. Descriptors of Narrowing: None (0%) Mild (< 50%) Moderate (50-70%) Severe (70-90%) Subtotal/Total Occlusion (90-100%) Non-Evaluable (technically non-diagnostic FINDINGS: The visualized lung bases are unremarkable. The visualized portions of the heart are within normal limits. There is a diffuse contour abnormality of the liver consistent with cirrhotic changes. Abdominal ascites. Multiple stable cysts in the liver. Multiple enhancing lesions in the liver concerning for metastatic disease. These are previously described. There are multiple gallstones. Normal spleen. Normal pancreas. Normal bilateral adrenal glands. There are hypodensities in the right kidney. These are consistent for cysts. No follow up required. There are hypodensities in the left kidney. These are consistent for cysts. No follow up required. Stable complex left renal cyst. Normal visualized stomach. Normal small intestine. Normal colon. There is non-visualization of the appendix. Normal inferior vena cava. Normal retroperitoneum. Normal urinary bladder. There are prostatic calcifications. Presacral inflammatory changes. Normal abdominal wall. There are diffuse degenerative changes of the visualized lumbar spine. There is an unremarkable-appearing IVC. Abdominal aorta: There are calcifications of the abdominal aorta. This is consistent for atherosclerotic disease. There is no abdominal aortic aneurysm. Celiac and superior mesenteric arteries: There is mild diffuse narrowing. Inferior mesenteric artery: There is mild diffuse narrowing. Right renal artery(arteries): There is mild diffuse narrowing. Left renal artery(arteries): There is mild diffuse narrowing. Right common iliac artery: There is mild diffuse narrowing. Right external iliac artery: There is mild diffuse narrowing. Right internal iliac artery: There is mild diffuse narrowing. Left common iliac artery: There is mild diffuse narrowing. Left external iliac artery: There is mild diffuse narrowing. Left internal iliac artery: There is mild diffuse narrowing. IMPRESSION: (NOT LISTED IN ORDER OF SIGNIFICANCE) There is a diffuse contour abnormality of the liver consistent with cirrhotic changes. Abdominal ascites. Multiple stable cysts in the liver. Multiple enhancing lesions in the liver concerning for metastatic disease. These are previously described. Gallstones. There are bilateral pleural effusions. There is bilateral pneumonia. Other findings as above. Electronically Signed: Navneet Ordaz MD at 20:20 EDT ,
[2022-11-15 21:05] LABS: Reflex Lactate? Y
--- NOTE | 2022-11-15 21:05 | PN_ITS ---
Subjective Subjective Patient is more awake and alert today Objective Data Objective Data Vital Signs: Vital Signs Temp Pulse Resp BP Pulse Ox O2 Del Method 98.3 F 75 16 135/87 H 96 Room Air 11/15/22 16:22 11/15/22 16:22 11/15/22 16:22 11/15/22 16:22 11/15/22 16:22 11/15/22 16:22 Oxygen Delivery Method Room Air Weight: 194 lb 14.218 oz Body Mass Index (BMI) 27.9 Intake & Output: Intake and Output for Last 24 Hours 11/13/22 11/14/22 11/15/22 23:59 23:59 23:59 Intake Total 5728.63 / 5728.63 4098.17 / 4098.17 1508.55 / 1508.55 Output Total 1700 / 1700 2550 / 2550 1750 / 1750 Balance 4028.63 / 4028.63 1548.17 / 1548.17 -241.45 / -241.45 Lab / Micro Data Result Diagrams: 11/15/22 15:05 11/15/22 15:05 Labs: Laboratory Results - last 24 hr 11/15/22 04:50: WBC 6.5, RBC 3.29 L, Hgb 9.1 L, Hct 27.1 L, MCV 82.4, MCH 27.7, MCHC 33.6, RDW Std Deviation 48.5 H, RDW Coeff of [place] 16.5 H, Plt Count 121 L, MPV 9.6, Immature Gran % (Auto) 1.100 H, Neut % (Auto) 69.0, Lymph % (Auto) 12.2 L, [place] % (Auto) 13.0 H, Eos % (Auto) 4.2, Baso % (Auto) 0.5, Absolute Neuts (auto) 4.5, Absolute Lymphs (auto) 0.79 L, Nucleated RBC % 0 11/15/22 04:50: Sodium 134 L, Potassium 3.3 L, Chloride 107, Carbon Dioxide 23.0, Anion Gap 4 L, BUN 10, Creatinine 0.77, Estim Creat Clear Calc 104.02, Est GFR (MDRD) Af Amer 131, Est GFR (MDRD) Non-Af 109, BUN/Creatinine Ratio 13.0, Glucose 105, Calcium 7.2 L 11/15/22 04:50: Ammonia 89.0 H 11/15/22 15:05: WBC 6.9, RBC 3.37 L, Hgb 9.3 L, Hct 27.7 L, MCV 82.2, MCH 27.6, MCHC 33.6, RDW Std Deviation 49.2 H, RDW Coeff of [place] 16.7 H, Plt Count 128 L, MPV 9.5, Immature Gran % (Auto) 1.000 H, Neut % (Auto) 70.7 H, Lymph % (Auto) 9.6 L, [place] % (Auto) 12.6 H, Eos % (Auto) 5.8 H, Baso % (Auto) 0.3, Absolute Neuts (auto) 4.9, Absolute Lymphs (auto) 0.66 L, Nucleated RBC % 0 11/15/22 15:05: Sodium 136, Potassium 3.6, Chloride 108 H, Carbon Dioxide 21.0, Anion Gap 7, BUN 8, Creatinine 0.79, Estim Creat Clear Calc 101.39, Est GFR (MDRD) Af Amer 128, Est GFR (MDRD) Non-Af 106, BUN/Creatinine Ratio 10.2, Glucose 128 H, Calcium 7.3 L, Total Bilirubin 1.20 H, AST 34, ALT 27, Alkaline Phosphatase 80, Total Protein 5.8 L, Albumin 1.9 L, Globulin 3.9, Albumin/G lobulin Ratio 0.5 L 11/15/22 15:55: Lactic Acid 2.9 H* 11/15/22 18:33: Ammonia 55.0 H Micro: Microbiology 11/14/22 19:22 Blood Culture (Wb) - Right Hand Bacteria Detection (PCR) - Preliminary Staphylococcus epidermidis mecA Resistance Marker 11/14/22 19:22 Blood Culture (Wb) - Right Hand Blood Culture - Preliminary 11/14/22 19:43 Blood Culture (Wb) - Right Hand Blood Culture - Preliminary ABG Data ABG results: ABG 11/15/22 17:31 Specimen Type ART Sample Site R Radial pH 7.46 H Bicarbonate Actual 21.5 L Total CO2 22 Base Excess -2 O2 Saturation 96 ABG pCO2 30.1 L ABG pO2 73 L Vince Test Positive O2 Delivery Device Room Air Radiography Diagnostic Testing: Radiology Impression KUB X-Ray 11/15/22 16:38 IMPRESSION: Non-obstructive bowel gas pattern. Electronically Signed: Navneet Ordaz MD at 18:17 EDT , Chest X-Ray 11/15/22 17:05 IMPRESSION: There are no acute findings. Electronically Signed: Navneet Ordaz MD at 18:18 EDT , Chest/Abdomen/Pelvis CTA 11/15/22 18:58 IMPRESSION: No demonstrated pulmonary embolism or arterial dissection. There are bilateral pleural effusions. There is bilateral pneumonia. STUDY: CTA Chest and CTA Abdomen and Pelvis W/ Contrast Injection (and W/O Contrast Images if performed) REASON FOR EXAM: Male, 62 years old. suspect PE TECHNIQUE: Axial CT angiography multi-detector data acquisition was obtained following intravenous administration of IV 100mL Isovue-370 contrast. Axial images and MIP images were reconstructed from the axial data set. Post-processing of the angiographic images was performed, with multiplanar reformation and 3D reconstruction. MIPS images were obtained. Individualized dose optimization techniques were used for this CT. COMPARISON: 09.07.22. Descriptors of Narrowing: None (0%) Mild (< 50%) Moderate (50-70%) Severe (70-90%) Subtotal/Total Occlusion (90-100%) Non-Evaluable (technically non-diagnostic FINDINGS: The visualized lung bases are unremarkable. The visualized portions of the heart are within normal limits. There is a diffuse contour abnormality of the liver consistent with cirrhotic changes. Abdominal ascites. Multiple stable cysts in the liver. Multiple enhancing lesions in the liver concerning for metastatic disease. These are previously described. There are multiple gallstones. Normal spleen. Normal pancreas. Normal bilateral adrenal glands. There are hypodensities in the right kidney. These are consistent for cysts. No follow up required. There are hypodensities in the left kidney. These are consistent for cysts. No follow up required. Stable complex left renal cyst. Normal visualized stomach. Normal small intestine. Normal colon. There is non-visualization of the appendix. Normal inferior vena cava. Normal retroperitoneum. Normal urinary bladder. There are prostatic calcifications. Presacral inflammatory changes. Normal abdominal wall. There are diffuse degenerative changes of the visualized lumbar spine. There is an unremarkable-appearing IVC. Abdominal aorta: There are calcifications of the abdominal aorta. This is consistent for atherosclerotic disease. There is no abdominal aortic aneurysm. Celiac and superior mesenteric arteries: There is mild diffuse narrowing. Inferior mesenteric artery: There is mild diffuse narrowing. Right renal artery(arteries): There is mild diffuse narrowing. Left renal artery(arteries): There is mild diffuse narrowing. Right common iliac artery: There is mild diffuse narrowing. Right external iliac artery: There is mild diffuse narrowing. Right internal iliac artery: There is mild diffuse narrowing. Left common iliac artery: There is mild diffuse narrowing. Left external iliac artery: There is mild diffuse narrowing. Left internal iliac artery: There is mild diffuse narrowing. IMPRESSION: (NOT LISTED IN ORDER OF SIGNIFICANCE) There is a diffuse contour abnormality of the liver consistent with cirrhotic changes. Abdominal ascites. Multiple stable cysts in the liver. Multiple enhancing lesions in the liver concerning for metastatic disease. These are previously described. Gallstones. There are bilateral pleural effusions. There is bilateral pneumonia. Other findings as above. Electronically Signed: Navneet Ordaz MD at 20:20 EDT Reading Location ID and State: [facility] / [place] , Service support , Physical Exam Narrative General: Alert, oriented, no apparent distress HEENT: Atraumatic, normocephalic Eyes: Anicteric, normal conjunctiva, extraocular movements grossly intact Neck: Supple Respiratory: Clear to auscultation bilaterally, normal respiratory effort Cardiovascular: Regular rate and rhythm GI: No overt tenderness, no rebound, no guarding, no rigidity, somewhat hard but not overtly distended, positive bowel sounds Extremities: No pitting edema appreciated Musculoskeletal: Moving all extremities Neuro: No overt focal neurological deficits Skin: No rashes appreciated Psych: Cooperative Assessment & Plan Assessment/Plan (1) Acute GI bleeding: (2) Hemorrhagic shock: PLAN: Plan #Hemorrhagic shock due to UGI bleed * shock has resolved * Hb today is 9.1 * is s/p 2 units of PRBCs * on octreotide and PPI drip still * has a history of UGI bleed due to esophageal varices * on PPI BID * gastroenterology consulted- EGD showed grade III esophageal varices which were incompletely eradicated and banded, with no gross lesions in the first portion of the duodenum * * #Fever * source of infection is gram+ cocci * lactic acid elevated but this could have been due to hypoperfusion in setting of hemorrhagic shock * will check urine analysis and check blood cultures * on antibiotics for now * * #Acute on chronic anemia: as above #Lactic acidosis: likely due to hemorrhagic shock. management as above. #Acute encephalopathy: likely due to hemorrhagic shock. Management as above. #Cirrhosis * has a history of chronic alcohol abuse * on nadolol, rifaximin, spironolactone * has a history of esophageal varices. * #Probable hepatocellular carcinoma * CT abdomen and pelvis from August 2022 showed a 4cm x 4.1cm heterogenous solid mass in tong mid lateral portion of the right lobe of hte liver with mildly distended gallbladder. Also showed circumferential thickening of the gastroesophageal junction, esophageal carcinoma shd be ruled. * Charges/Coding Visit Charges Inpatient E&M: 11972 Subs Hosp L3
[2022-11-15 21:24] VITALS: BP 149/89; PULSE 74; RESP 18; TEMP 36.9; O2SAT 95
[2022-11-15 21:25] VITALS: BP 149/84; PULSE 74; RESP 18; TEMP 36.9; O2SAT 95
[2022-11-15] MEDS: 0.9% Saline Lock 10 ML Syringe IV (21:40)
[2022-11-15 23:09] LABS: Lactic Acid 2.3 mmol/L (0.4-1.9)
[2022-11-15] MEDS: 0.9% Normal Saline 1,000 ML 999 ML IV (23:19)
[2022-11-15] MEDS: Lactulose 20 GM/30 ML UDC 200 GM RC (23:21)
[2022-11-16 01:55] LABS: Mucous, Urine 0 SEEN /hpf (<or=2+); Squamous Epithelial Cells - UA 0 SEEN /hpf (0-5); White Blood Cells 0 SEEN /hpf (0-5)
[2022-11-16 02:25] LABS: Color, Urine Yellow (Yellow); Glucose, Dipstick Normal (Normal); Ketone-Dipstick Negative (Negative); Leukocyte Esterase-Dipstick Negative /ul (Negative); Nitrite-Dipstick Negative (Negative); Occult Blood-Urine 25 /ul (Negative); Protein-Dipstick Negative (Negative); Urine Bilirubin Dipstick Negative (Negative); Urine Clarity Clear (Clear); Urine Urobilinogen Normal (Normal)
[2022-11-16 02:35] LABS: Bacteria RARE /hpf (None Seen); Red Blood Cells-Urine 0-5 SEEN /hpf (0-5)
[2022-11-16 03:44] VITALS: BP 146/90; PULSE 78; RESP 18; TEMP 37.1; O2SAT 96
[2022-11-16 03:45] VITALS: BP 146/90; PULSE 78; RESP 18; TEMP 37.1; O2SAT 96
[2022-11-16 06:00] VITALS: BMI 28.3
[2022-11-16 06:07] LABS: Absolute Lymphocyte Count 0.73 X10^3/uL (0.83-4.51); Basophil# 0.02 X10^3/uL; Basophil% 0.3 % (0-1); Eosinophil# 0.41 X10^3/uL; Eosinophils% 5.8 % (0-5); Hematocrit 27.6 % (40-54); Lymphocyte # 0.73 X10^3/ul (0.83-4.51); Lymphocyte % 10.4 % (19-41); Mean Corp Hgb Conc 32.6 g/dL (32-36); Mean Corpuscular Hgb 27.1 pg (27.0-32.0); Mean Corpuscular Volume 83.1 fL (80-94); Mean Platelet Vol. 9.7 fl (6.2-12.0); Monocyte# 0.85 X10^3/uL; Monocyte% 12.1 % (0-10); NRBC Flagged by Analyzer 0 % (0-5); Neutrophil # 4.96 X10^3/uL (2.7-7.7); Neutrophil % 70.7 % (47-70); Platelet Count 133 K/mm3 (150-450); Red Blood Count 3.32 M/mm3 (4.6-6.2)
[2022-11-16] MEDS: Lactulose 20 GM/30 ML UDC PO ×5 (06:11→21:24)
[2022-11-16 06:51] LABS: Anion Gap 4 (5-15); BUN 8 mg/dL (7-18); BUN/Creat Ratio 11.2 RATIO (10-20); Calcium,Total 7.1 mg/dL (8.5-10.1); Chloride 111 mmol/L (98-107); Creatinine, Serum 0.71 mg/dL (0.70-1.30); EST Glomerular Filtration Rate 119 mL/min (>60); Est Glom Filt Rate - Afr Amer 144 mL/min (>60); Estimated Creatinine Clearance 112.81 ml/min; Glucose 101 mg/dL (74-106); Potassium 3.5 mmol/L (3.5-5.1); Sodium Level 137 mmol/L (136-145)
--- NOTE | 2022-11-16 08:12 | PN.HOSP_ITS ---
Reason for Visit Reason for Visit: Diagnoses Anemia, unspecified (11/12/22) Encephalopathy, unspecified (11/12/22) Unspecified cirrhosis of liver (11/12/22) Gastrointestinal hemorrhage, unspecified (11/12/22) Other shock (11/12/22) Subjective Subjective Resting in bed, feels abdomen is somewhat better. Very sleepy minimally willing to wake up for exam, reports breathing slightly better Objective Data Objective Data Vital Signs: Vital Signs Temp Pulse Resp BP Pulse Ox O2 Del Method 98.8 F 78 18 146/90 H 96 Room Air 11/16/22 03:45 11/16/22 03:45 11/16/22 03:45 11/16/22 03:45 11/16/22 03:45 11/16/22 07:50 Oxygen Delivery Method Room Air Weight: 89.5 kg Body Mass Index (BMI) 28.3 Intake & Output: Intake and Output for Last 24 Hours 11/14/22 11/15/22 11/16/22 23:59 23:59 23:59 Intake Total 4098.17 / 4098.17 2218.55 / 2218.55 1050 / 1050 Output Total 2550 / 2550 2475 / 2475 1100 / 1100 Balance 1548.17 / 1548.17 -256.45 / -256.45 -50 / -50 Lab / Micro Data Result Diagrams: 11/16/22 04:34 11/16/22 04:34 Labs: Laboratory Results - last 24 hr 11/15/22 15:05: WBC 6.9, RBC 3.37 L, Hgb 9.3 L, Hct 27.7 L, MCV 82.2, MCH 27.6, MCHC 33.6, RDW Std Deviation 49.2 H, RDW Coeff of Bassam 16.7 H, Plt Count 128 L, MPV 9.5, Immature Gran % (Auto) 1.000 H, Neut % (Auto) 70.7 H, Lymph % (Auto) 9.6 L, [place] % (Auto) 12.6 H, Eos % (Auto) 5.8 H, Baso % (Auto) 0.3, Absolute Neuts (auto) 4.9, Absolute Lymphs (auto) 0.66 L, Nucleated RBC % 0 11/15/22 15:05: Sodium 136, Potassium 3.6, Chloride 108 H, Carbon Dioxide 21.0, Anion Gap 7, BUN 8, Creatinine 0.79, Estim Creat Clear Calc 101.39, Est GFR (MDRD) Af Amer 128, Est GFR (MDRD) Non-Af 106, BUN/Creatinine Ratio 10.2, Glucose 128 H, Calcium 7.3 L, Total Bilirubin 1.20 H, AST 34, ALT 27, Alkaline Phosphatase 80, Total Protein 5.8 L, Albumin 1.9 L, Globulin 3.9, Albumin/Globulin Ratio 0.5 L 11/15/22 15:55: Lactic Acid 2.9 H* 11/15/22 18:33: Ammonia 55.0 H 11/15/22 22:30: Lactic Acid 2.3 H* 11/15/22 23:25: Urine Color Yellow, Urine Clarity Clear, Urine pH 7.0, Ur Specific [place] 1.010, Urine Protein Negative, Urine Glucose (UA) Normal, Urine Ketones Negative, Urine Occult Blood 25 H, Urine Nitrite Negative, Urine Bilirubin Negative, Urine Urobilinogen Normal, Ur Leukocyte Esterase Negative, Urine RBC 0-5 SEEN, Urine WBC 0 SEEN, Ur Squamous Epith Cells 0 SEEN, Urine Bacteria RARE, Urine Mucus 0 SEEN 11/16/22 04:34: WBC 7.0, RBC 3.32 L, Hgb 9.0 L, Hct 27.6 L, MCV 83.1, MCH 27.1, MCHC 32.6, RDW Std Deviation 50.0 H, RDW Coeff of [place] 17.0 H, Plt Count 133 L, MPV 9.7, Immature Gran % (Auto) 0.700, Neut % (Auto) 70.7 H, Lymph % (Auto) 10.4 L, [place] % (Auto) 12.1 H, Eos % (Auto) 5.8 H, Baso % (Auto) 0.3, Absolute Neuts (auto) 5.0, Absolute Lymphs (auto) 0.73 L, Nucleated RBC % 0 11/16/22 04:34: Sodium 137, Potassium 3.5, Chloride 111 H, Carbon Dioxide 22.0, Anion Gap 4 L, BUN 8, Creatinine 0.71, Estim Creat Clear Calc 112.81, Est GFR (MDRD) Af Amer 144, Est GFR (MDRD) Non-Af 119, BUN/Creatinine Ratio 11.2, Glucose 101, Calcium 7.1 L Micro: Microbiology 11/14/22 19:22 Blood Culture (Wb) - Right Hand Bacteria Detection (PCR) - Final Staphylococcus epidermidis mecA Resistance Marker 11/14/22 19:22 Blood Culture (Wb) - Right Hand Blood Culture - Preliminary 11/14/22 19:43 Blood Culture (Wb) - Right Hand Blood Culture - Preliminary ABG Data ABG results: ABG 11/15/22 17:31 Specimen Type ART Sample Site R Radial pH 7.46 H Bicarbonate Actual 21.5 L Total CO2 22 Base Excess -2 O2 Saturation 96 ABG pCO2 30.1 L ABG pO2 73 L Vince Test Positive O2 Delivery Device Room Air Radiography Diagnostic Testing: Radiology Impression KUB X-Ray 11/15/22 16:38 IMPRESSION: Non-obstructive bowel gas pattern. Electronically Signed: Navneet Ordaz MD at 18:17 EDT , Chest X-Ray 11/15/22 17:05 IMPRESSION: There are no acute findings. Electronically Signed: Navneet Ordaz MD at 18:18 EDT , Chest/Abdomen/Pelvis CTA 11/15/22 18:58 IMPRESSION: No demonstrated pulmonary embolism or arterial dissection. There are bilateral pleural effusions. There is bilateral pneumonia. STUDY: CTA Chest and CTA Abdomen and Pelvis W/ Contrast Injection (and W/O Contrast Images if performed) REASON FOR EXAM: Male, 62 years old. suspect PE TECHNIQUE: Axial CT angiography multi-detector data acquisition was obtained following intravenous administration of IV 100mL Isovue-370 contrast. Axial images and MIP images were reconstructed from the axial data set. Post-processing of the angiographic images was performed, with multiplanar reformation and 3D reconstruction. MIPS images were obtained. Individualized dose optimization techniques were used for this CT. COMPARISON: 09.07.22. Descriptors of Narrowing: None (0%) Mild (< 50%) Moderate (50-70%) Severe (70-90%) Subtotal/Total Occlusion (90-100%) Non-Evaluable (technically non-diagnostic FINDINGS: The visualized lung bases are unremarkable. The visualized portions of the heart are within normal limits. There is a diffuse contour abnormality of the liver consistent with cirrhotic changes. Abdominal ascites. Multiple stable cysts in the liver. Multiple enhancing lesions in the liver concerning for metastatic disease. These are previously described. There are multiple gallstones. Normal spleen. Normal pancreas. Normal bilateral adrenal glands. There are hypodensities in the right kidney. These are consistent for cysts. No follow up required. There are hypodensities in the left kidney. These are consistent for cysts. No follow up required. Stable complex left renal cyst. Normal visualized stomach. Normal small intestine. Normal colon. There is non-visualization of the appendix. Normal inferior vena cava. Normal retroperitoneum. Normal urinary bladder. There are prostatic calcifications. Presacral inflammatory changes. Normal abdominal wall. There are diffuse degenerative changes of the visualized lumbar spine. There is an unremarkable-appearing IVC. Abdominal aorta: There are calcifications of the abdominal aorta. This is consistent for atherosclerotic disease. There is no abdominal aortic aneurysm. Celiac and superior mesenteric arteries: There is mild diffuse narrowing. Inferior mesenteric artery: There is mild diffuse narrowing. Right renal artery(arteries): There is mild diffuse narrowing. Left renal artery(arteries): There is mild diffuse narrowing. Right common iliac artery: There is mild diffuse narrowing. Right external iliac artery: There is mild diffuse narrowing. Right internal iliac artery: There is mild diffuse narrowing. Left common iliac artery: There is mild diffuse narrowing. Left external iliac artery: There is mild diffuse narrowing. Left internal iliac artery: There is mild diffuse narrowing. IMPRESSION: (NOT LISTED IN ORDER OF SIGNIFICANCE) There is a diffuse contour abnormality of the liver consistent with cirrhotic changes. Abdominal ascites. Multiple stable cysts in the liver. Multiple enhancing lesions in the liver concerning for metastatic disease. These are previously described. Gallstones. There are bilateral pleural effusions. There is bilateral pneumonia. Other findings as above. Electronically Signed: Navneet Ordaz MD at 20:20 EDT , Physical Exam Narrative General: Tired, minimally willing to wake up for exam HEENT: Atraumatic, normocephalic Eyes: Anicteric, normal conjunctiva, extraocular movements grossly intact Neck: Supple Respiratory: Clear to auscultation bilaterally, normal respiratory effort Cardiovascular: Regular rate and rhythm GI: No overt tenderness, no rebound, no guarding, no rigidity, softer today Extremities: No pitting edema appreciated Musculoskeletal: Moving all extremities Neuro: No overt focal neurological deficits Skin: No rashes appreciated Psych: Fairly cooperative Assessment & Plan Assessment/Plan (1) Hemorrhagic shock: (2) Acute GI bleeding: PLAN: Plan #Gram-positive bacteremia -Had obtain blood cultures due to one-time fever but did not start antibiotics as patient had been improving and no signs symptoms of infection -Blood cultures growing gram-positive cocci -Starting broad-spectrum antibiotics and will narrow as culture results are available -Give fluids and hold spironolactone and Lasix, give 1 L bolus, will give another liter -11/16: WBC count within normal limits, on broad-spectrum antibiotics and received fluids with improvement in lactic acid. First blood culture with Staph epidermidis, second blood culture also with gram-positive cocci presumably also staph epi. Continue antibiotics, echocardiogram ordered. Given tender to blood cultures will consult infectious disease #Shortness of breath -Lactic acid 2.9 with no anion gap and ABG obtained and patient is actually somewhat alkalotic and not acidotic -Is possible that due to his lack of bowel movements and increasing abdominal distention this is contributing to tachypnea in addition to his elevated lactic acid -Chest x-ray unremarkable -With his tachypnea and being alkalotic with no pharmacologic DVT prophylaxis given his recent GI hemorrhage will obtain CTA chest we will obtain CT of abdomen to assess extent of distention as well -We will plan on lactulose enema -11/16: Seems better today, CTA without evidence of PE but queried bilateral pneumonia with effusions #hyperammonemia -Has had escalating doses of lactulose plus MiraLAX with no bowel movements and increasing ammonia, will give lactulose enema, obtaining CT of abdomen -11/16: Continue lactulose, did improve slightly #Hemorrhage shock 2/2 UGI bleed -Secondary to grade 3 esophageal varices status post banding on 11/12 -Shock resolved -Started on nadolol 20 for variceal prophylaxis and will need repeat EGD to treat the rest of varices -s/p 2u PRBC, hgb slightly down today at 7 from 8.5 -Transfusion threshold 7, will give another unit of PRBC -remains on octrotide and PPI ggt as well as fluids -Vitally stable -GI on board -Home diuretics have been held -11/15: Hgb stable -11/16: Hemoglobin remained stable, GI following #Hepatic mass/cirrhosis/hepatic encephalopathy -Imaging with ultrasound and CT scan abdomen pelvis does show a hepatic mass l ikely secondary to hepatocellular carcinoma -AFP is 143 -Will need liver biopsy when possible and to f/u w/ heme onc -Resume lactulose -Resume spironolactone and Lasix when able, will hold IVF at this time -11/15: Ammonia increased and no BMs despite increasing lacutlose doses, giving lactulose enema. Holding diuretics as pt requires fluids -11/16: CT abdomen with multiple stable cysts in the liver and multiple enhancing lesions concerning for metastatic disease which was previously described on s cans. Has abdominal and ascites and diffuse contour abnormality consistent with cirrhotic changes. #DVT ppx: Lovenox sub q Jessica Franks MD Time spent in the patient's overall evaluation,decision-making process, review of diagnostic data, adjustment of management, discussion with other providers, nursing nursing and ancillary staff involved in patient's care documentation, 30 minutes Charges/Coding Visit Charges Inpatient E&M: 46358 Subs Hosp L2
[2022-11-16 09:35] VITALS: BP 128/81; BP 128/89; PULSE 69; RESP 16; TEMP 36.9; O2SAT 96
[2022-11-16] MEDS: Polyethylene Glycol 3350 17 GM PACKET 34 GM PO (09:36)
[2022-11-16] MEDS: Thiamine Hydrochloride 100 MG Tablet PO (09:36)
[2022-11-16] MEDS: rifAXIMin 550 MG Tablet PO ×2 (09:36→21:24)
[2022-11-16] MEDS: Nadolol 20 MG Tablet PO (09:36)
[2022-11-16] MEDS: Pantoprazole Sodium 40 MG Tablet PO ×2 (09:36→21:24)
[2022-11-16] MEDS: Enoxaparin 40 MG/0.4 ML Syringe SC (09:36)
[2022-11-16] MEDS: Folic Acid 1 MG Tablet 2 MG PO (09:36)
--- NOTE | 2022-11-16 09:57 | PCM.CONS.GEN ---
Assessment & Plan Assessment/Plan (1) Acute GI bleeding: (2) Cirrhosis: (3) Bacteremia: PLAN: 2 of 2 Bcx with gram pos seen, pcr showing MRSE. It is possible these are two separate contaminants. On vanc. CT with bilateral effusions and pneumonia, but denies cough or SOB. Will narrow zosyn to ceftriaxone for pneumonia coverage and variceal bleed prophylaxis. Will follow, thank you HPI Consult Data Date of Consult: 11/16/22 HPI Narrative Reason for Consultation: bacteremia HPI Narrative: CHERRIE WOODARD, is a 62 M with etoh cirrhosis, presented 11/12/22 with acute onset profuse hematemesis with dark stools. No fever, no abd pain. Taken to ED by EMS, had banding done by Dr. Ramon 11/12 of esophageal varices. Now out of icu, feeling ok, no fever, no rash. Full ROS performed and neg except as noted above. [facility] Medical History (Updated 11/16/22 @ 10:[address] Dean Lee MD) Anemia Cirrhosis GI bleed Hypertension Home Medications folic acid 1 mg tablet 1 mg PO BREAKFAST #0 tabs 09/18/22 [Rx Last Taken Unknown] furosemide 40 mg tablet 40 mg PO DAILY #0 tabs 09/18/22 [Rx Last Taken Unknown] lactulose 20 gram/30 mL oral solution 20 g (30 mL) PO TID #0 mL 09/18/22 [Rx Last Taken Unknown] nadolol 20 mg tablet 20 mg PO DAILY #0 tabs 09/18/22 [Rx Last Taken Unknown] pantoprazole 40 mg tablet,delayed release 40 mg PO BID #0 tabs 09/18/22 [Rx Last Taken Unknown] rifaximin 550 mg tablet (Xifaxan) 550 mg PO BID #0 tabs 09/18/22 [Rx Last Taken Unknown] spironolactone 50 mg tablet 100 mg PO DAILY #0 tabs 09/18/22 [Rx Last Taken Unknown] thiamine HCl (vitamin B1) 100 mg tablet (Vitamin B-1) 100 mg PO BREAKFAST #0 tabs 09/18/22 [Rx Last Taken Unknown] Allergy/AdvReac Type Severity Reaction Status Date / Time morphine Allergy Unknown Verified 11/12/22 06:44 Family History unable to obtain Social History Smoking Status: Current every day smoker tobacco type: cigarettes Physical Exam Const alert and no apparent distress General Appearance: cooperative HEENT normocephalic and head/scalp atraumatic Eyes PERRL and EOMs intact bilaterally Neck supple and No nodes Resp normal air movement and clear to auscultation bilaterally Cardio regular rate and regular rhythm GI soft to palpation, non-tender and non-distended Extremity General Extremity: Negative for edema Skin no rashes or lesions noted Neuro CN's II-XII intact bilaterally Lab / Micro Data Attestation: I reviewed the patient's lab results. Result Diagrams: 11/16/22 04:34 11/16/22 04:34 Labs: Laboratory Results - last 24 hr 11/15/22 15:05: WBC 6.9, RBC 3.37 L, Hgb 9.3 L, Hct 27.7 L, MCV 82.2, MCH 27.6, MCHC 33.6, RDW Std Deviation 49.2 H, RDW Coeff of Bassam 16.7 H, Plt Count 128 L, MPV 9.5, Immature Gran % (Auto) 1.000 H, Neut % (Auto) 70.7 H, Lymph % (Auto) 9.6 L, [place] % (Auto) 12.6 H, Eos % (Auto) 5.8 H, Baso % (Auto) 0.3, Absolute Neuts (auto) 4.9, Absolute Lymphs (auto) 0.66 L, Nucleated RBC % 0 11/15/22 15:05: Sodium 136, Potassium 3.6, Chloride 108 H, Carbon Dioxide 21.0, Anion Gap 7, BUN 8, Creatinine 0.79, Estim Creat Clear Calc 101.39, Est GFR (MDRD) Af Amer 128, Est GFR (MDRD) Non-Af 106, BUN/Creatinine Ratio 10.2, Glucose 128 H, Calcium 7.3 L, Total Bilirubin 1.20 H, AST 34, ALT 27, Alkaline Phosphatase 80, Total Protein 5.8 L, Albumin 1.9 L, Globulin 3.9, Albumin/Globulin Ratio 0.5 L 11/15/22 15:55: Lactic Acid 2.9 H* 11/15/22 18:33: Ammonia 55.0 H 11/15/22 22:30: Lactic Acid 2.3 H* 11/15/22 23:25: Urine Color Yellow, Urine Clarity Clear, Urine pH 7.0, Ur Specific [place] 1.010, Urine Protein Negative, Urine Glucose (UA) Normal, Urine Ketones Negative, Urine Occult Blood 25 H, Urine Nitrite Negative, Urine Bilirubin Negative, Urine Urobilinogen Normal, Ur Leukocyte Esterase Negative, Urine RBC 0-5 SEEN, Urine WBC 0 SEEN, Ur Squamous Epith Cells 0 SEEN, Urine Bacteria RARE, Urine Mucus 0 SEEN 11/16/22 04:34: WBC 7.0, RBC 3.32 L, Hgb 9.0 L, Hct 27.6 L, MCV 83.1, MCH 27.1, MCHC 32.6, RDW Std Deviation 50.0 H, RDW Coeff of [place] 17.0 H, Plt Count 133 L, MPV 9.7, Immature Gran % (Auto) 0.700, Neut % (Auto) 70.7 H, Lymph % (Auto) 10.4 L, [place] % (Auto) 12.1 H, Eos % (Auto) 5.8 H, Baso % (Auto) 0.3, Absolute Neuts (auto) 5.0, Absolute Lymphs (auto) 0.73 L, Nucleated RBC % 0 11/16/22 04:34: Sodium 137, Potassium 3.5, Chloride 111 H, Carbon Dioxide 22.0, Anion Gap 4 L, BUN 8, Creatinine 0.71, Estim Creat Clear Calc 112.81, Est GFR (MDRD) Af Amer 144, Est GFR (MDRD) Non-Af 119, BUN/Creatinine Ratio 11.2, Glucose 101, Calcium 7.1 L Micro: Microbiology 11/14/22 19:22 Blood Culture (Wb) - Right Hand Bacteria Detection (PCR) - Final Staphylococcus epidermidis mecA Resistance Marker 11/14/22 19:22 Blood Culture (Wb) - Right Hand Blood Culture - Preliminary 11/14/22 19:43 Blood Culture (Wb) - Right Hand Blood Culture - Preliminary ABG Data ABG results: ABG 11/15/22 17:31 Specimen Type ART Sample Site R Radial pH 7.46 H Bicarbonate Actual 21.5 L Total CO2 22 Base Excess -2 O2 Saturation 96 ABG pCO2 30.1 L ABG pO2 73 L Vince Test Positive O2 Delivery Device Room Air Radiology Impression KUB X-Ray 11/15/22 16:38 IMPRESSION: Non-obstructive bowel gas pattern. Electronically Signed: Navneet Ordaz MD at 18:17 EDT , Chest X-Ray 11/15/22 17:05 IMPRESSION: There are no acute findings. Electronically Signed: Navneet Ordaz MD at 18:18 EDT , Chest/Abdomen/Pelvis CTA 11/15/22 18:58 IMPRESSION: No demonstrated pulmonary embolism or arterial dissection. There are bilateral pleural effusions. There is bilateral pneumonia. STUDY: CTA Chest and CTA Abdomen and Pelvis W/ Contrast Injection (and W/O Contrast Images if performed) REASON FOR EXAM: Male, 62 years old. suspect PE TECHNIQUE: Axial CT angiography multi-detector data acquisition was obtained following intravenous administration of IV 100mL Isovue-370 contrast. Axial images and MIP images were reconstructed from the axial data set. Post-processing of the angiographic images was performed, with multiplanar reformation and 3D reconstruction. MIPS images were obtained. Individualized dose optimization techniques were used for this CT. COMPARISON: 09.07.22. Descriptors of Narrowing: None (0%) Mild (< 50%) Moderate (50-70%) Severe (70-90%) Subtotal/Total Occlusion (90-100%) Non-Evaluable (technically non-diagnostic FINDINGS: The visualized lung bases are unremarkable. The visualized portions of the heart are within normal limits. There is a diffuse contour abnormality of the liver consistent with cirrhotic changes. Abdominal ascites. Multiple stable cysts in the liver. Multiple enhancing lesions in the liver concerning for metastatic disease. These are previously described. There are multiple gallstones. Normal spleen. Normal pancreas. Normal bilateral adrenal glands. There are hypodensities in the right kidney. These are consistent for cysts. No follow up required. There are hypodensities in the left kidney. These are consistent for cysts. No follow up required. Stable complex left renal cyst. Normal visualized stomach. Normal small intestine. Normal colon. There is non-visualization of the appendix. Normal inferior vena cava. Normal retroperitoneum. Normal urinary bladder. There are prostatic calcifications. Presacral inflammatory changes. Normal abdominal wall. There are diffuse degenerative changes of the visualized lumbar spine. There is an unremarkable-appearing IVC. Abdominal aorta: There are calcifications of the abdominal aorta. This is consistent for atherosclerotic disease. There is no abdominal aortic aneurysm. Celiac and superior mesenteric arteries: There is mild diffuse narrowing. Inferior mesenteric artery: There is mild diffuse narrowing. Right renal artery(arteries): There is mild diffuse narrowing. Left renal artery(arteries): There is mild diffuse narrowing. Right common iliac artery: There is mild diffuse narrowing. Right external iliac artery: There is mild diffuse narrowing. Right internal iliac artery: There is mild diffuse narrowing. Left common iliac artery: There is mild diffuse narrowing. Left external iliac artery: There is mild diffuse narrowing. Left internal iliac artery: There is mild diffuse narrowing. IMPRESSION: (NOT LISTED IN ORDER OF SIGNIFICANCE) There is a diffuse contour abnormality of the liver consistent with cirrhotic changes. Abdominal ascites. Multiple stable cysts in the liver. Multiple enhancing lesions in the liver concerning for metastatic disease. These are previously described. Gallstones. There are bilateral pleural effusions. There is bilateral pneumonia. Other findings as above. Electronically Signed: Navneet Ordaz MD at 20:20 EDT ,
[2022-11-16 15:05] VITALS: BP 128/75; PULSE 72; RESP 16; TEMP 36.8; O2SAT 97
--- NOTE | 2022-11-16 17:02 | PN_ITS ---
Subjective Subjective Patient is breathing little bit better today. He is satting well on room air. He is still very sleepy. He is not eating much. Objective Data Objective Data Vital Signs: Vital Signs Temp Pulse Resp BP Pulse Ox O2 Del Method 98.2 F 72 16 128/75 H 97 Room Air 11/16/22 15:05 11/16/22 15:05 11/16/22 15:05 11/16/22 15:05 11/16/22 15:05 11/16/22 15:05 Oxygen Delivery Method Room Air Weight: 197 lb 5.019 oz Body Mass Index (BMI) 28.3 Intake & Output: Intake and Output for Last 24 Hours 11/14/22 11/15/22 11/16/22 23:59 23:59 23:59 Intake Total 4098.17 / 4098.17 2218.55 / 2218.55 2165 / 2165 Output Total 2550 / 2550 2475 / 2475 1999 / 1999 Balance 1548.17 / 1548.17 -256.45 / -256.45 165 / 165 Lab / Micro Data Result Diagrams: 11/16/22 04:34 11/16/22 04:34 Labs: Laboratory Results - last 24 hr 11/15/22 15:05: WBC 6.9, RBC 3.37 L, Hgb 9.3 L, Hct 27.7 L, MCV 82.2, MCH 27.6, MCHC 33.6, RDW Std Deviation 49.2 H, RDW Coeff of Bassam 16.7 H, Plt Count 128 L, MPV 9.5, Immature Gran % (Auto) 1.000 H, Neut % (Auto) 70.7 H, Lymph % (Auto) 9.6 L, [place] % (Auto) 12.6 H, Eos % (Auto) 5.8 H, Baso % (Auto) 0.3, Absolute Neuts (auto) 4.9, Absolute Lymphs (auto) 0.66 L, Nucleated RBC % 0 11/15/22 15:05: Sodium 136, Potassium 3.6, Chloride 108 H, Carbon Dioxide 21.0, Anion Gap 7, BUN 8, Creatinine 0.79, Estim Creat Clear Calc 101.39, Est GFR (MDRD) Af Amer 128, Est GFR (MDRD) Non-Af 106, BUN/Creatinine Ratio 10.2, Glucose 128 H, Calcium 7.3 L, Total Bilirubin 1.20 H, AST 34, ALT 27, Alkaline Phosphatase 80, Total Protein 5.8 L, Albumin 1.9 L, Globulin 3.9, Albumin/Globulin Ratio 0.5 L 11/15/22 15:55: Lactic Acid 2.9 H* 11/15/22 18:33: Ammonia 55.0 H 11/15/22 22:30: Lactic Acid 2.3 H* 11/15/22 23:25: Urine Color Yellow, Urine Clarity Clear, Urine pH 7.0, Ur Specific [place] 1.010, Urine Protein Negative, Urine Glucose (UA) Normal, Urine Ketones Negative, Urine Occult Blood 25 H, Urine Nitrite Negative, Urine Bilirubin Negative, Urine Urobilinogen Normal, Ur Leukocyte Esterase Negative, Urine RBC 0-5 SEEN, Urine WBC 0 SEEN, Ur Squamous Epith Cells 0 SEEN, Urine Bacteria RARE, Urine Mucus 0 SEEN 11/16/22 04:34: WBC 7.0, RBC 3.32 L, Hgb 9.0 L, Hct 27.6 L, MCV 83.1, MCH 27.1, MCHC 32.6, RDW Std Deviation 50.0 H, RDW Coeff of Bassam 17.0 H, Plt Count 133 L, MPV 9.7, Immature Gran % (Auto) 0.700, Neut % (Auto) 70.7 H, Lymph % (Auto) 10.4 L, [place] % (Auto) 12.1 H, Eos % (Auto) 5.8 H, Baso % (Auto) 0.3, Absolute Neuts (auto) 5.0, Absolute Lymphs (auto) 0.73 L, Nucleated RBC % 0 11/16/22 04:34: Sodium 137, Potassium 3.5, Chloride 111 H, Carbon Dioxide 22.0, Anion Gap 4 L, BUN 8, Creatinine 0.71, Estim Creat Clear Calc 112.81, Est GFR (MDRD) Af Amer 144, Est GFR (MDRD) Non-Af 119, BUN/Creatinine Ratio 11.2, Glucose 101, Calcium 7.1 L Micro: Microbiology 11/14/22 19:43 Blood Culture (Wb) - Right Hand Blood Culture - Preliminary Coag Negative Staph 11/14/22 19:22 Blood Culture (Wb) - Right Hand Bacteria Detection (PCR) - Final Staphylococcus epidermidis mecA Resistance Marker 11/14/22 19:22 Blood Culture (Wb) - Right Hand Blood Culture - Preliminary Staphylococcus epidermidis ABG Data ABG results: ABG 11/15/22 17:31 Specimen Type ART Sample Site R Radial pH 7.46 H Bicarbonate Actual 21.5 L Total CO2 22 Base Excess -2 O2 Saturation 96 ABG pCO2 30.1 L ABG pO2 73 L Vince Test Positive O2 Delivery Device Room Air Radiography Diagnostic Testing: Radiology Impression KUB X-Ray 11/15/22 16:38 IMPRESSION: Non-obstructive bowel gas pattern. Electronically Signed: Navneet Ordaz MD at 18:17 EDT , Chest X-Ray 11/15/22 17:05 IMPRESSION: There are no acute findings. Electronically Signed: Navneet Ordaz MD at 18:18 EDT , Chest/Abdomen/Pelvis CTA 11/15/22 18:58 IMPRESSION: No demonstrated pulmonary embolism or arterial dissection. There are bilateral pleural effusions. There is bilateral pneumonia. STUDY: CTA Chest and CTA Abdomen and Pelvis W/ Contrast Injection (and W/O Contrast Images if performed) REASON FOR EXAM: Male, 62 years old. suspect PE TECHNIQUE: Axial CT angiography multi-detector data acquisition was obtained following intravenous administration of IV 100mL Isovue-370 contrast. Axial images and MIP images were reconstructed from the axial data set. Post-processing of the angiographic images was performed, with multiplanar reformation and 3D reconstruction. MIPS images were obtained. Individualized dose optimization techniques were used for this CT. COMPARISON: 09.07.22. Descriptors of Narrowing: None (0%) Mild (< 50%) Moderate (50-70%) Severe (70-90%) Subtotal/Total Occlusion (90-100%) Non-Evaluable (technically non-diagnostic FINDINGS: The visualized lung bases are unremarkable. The visualized portions of the heart are within normal limits. There is a diffuse contour abnormality of the liver consistent with cirrhotic changes. Abdominal ascites. Multiple stable cysts in the liver. Multiple enhancing lesions in the liver concerning for metastatic disease. These are previously described. There are multiple gallstones. Normal spleen. Normal pancreas. Normal bilateral adrenal glands. There are hypodensities in the right kidney. These are consistent for cysts. No follow up required. There are hypodensities in the left kidney. These are consistent for cysts. No follow up required. Stable complex left renal cyst. Normal visualized stomach. Normal small intestine. Normal colon. There is non-visualization of the appendix. Normal inferior vena cava. Normal retroperitoneum. Normal urinary bladder. There are prostatic calcifications. Presacral inflammatory changes. Normal abdominal wall. There are diffuse degenerative changes of the visualized lumbar spine. There is an unremarkable-appearing IVC. Abdominal aorta: There are calcifications of the abdominal aorta. This is consistent for atherosclerotic disease. There is no abdominal aortic aneurysm. Celiac and superior mesenteric arteries: There is mild diffuse narrowing. Inferior mesenteric artery: There is mild diffuse narrowing. Right renal artery(arteries): There is mild diffuse narrowing. Left renal artery(arteries): There is mild diffuse narrowing. Right common iliac artery: There is mild diffuse narrowing. Right external iliac artery: There is mild diffuse narrowing. Right internal iliac artery: There is mild diffuse narrowing. Left common iliac artery: There is mild diffuse narrowing. Left external iliac artery: There is mild diffuse narrowing. Left internal iliac artery: There is mild diffuse narrowing. IMPRESSION: (NOT LISTED IN ORDER OF SIGNIFICANCE) There is a diffuse contour abnormality of the liver consistent with cirrhotic changes. Abdominal ascites. Multiple stable cysts in the liver. Multiple enhancing lesions in the liver concerning for metastatic disease. These are previously described. Gallstones. There are bilateral pleural effusions. There is bilateral pneumonia. Other findings as above. Electronically Signed: Navneet Ordaz MD at 20:20 EDT , Physical Exam Const alert and no apparent distress General Appearance: cooperative HEENT normocephalic and head/scalp atraumatic Eyes PERRL and EOMs intact bilaterally Neck supple and No nodes Resp normal air movement and clear to auscultation bilaterally Cardio regular rate and regular rhythm GI soft to palpation, non-tender and non-distended Extremity General Extremity: Negative for edema Skin no rashes or lesions noted Neuro CN's II-XII intact bilaterally Assessment & Plan Assessment/Plan (1) Acute GI bleeding: (2) Hemorrhagic shock: PLAN: Plan #Hemorrhagic shock due to UGI bleed * shock has resolved * Hb today is 9.1 * is s/p 2 units of PRBCs * on octreotide and PPI drip still * has a history of UGI bleed due to esophageal varices * on PPI BID * gastroenterology consulted- EGD showed grade III esophageal varices which were incompletely eradicated and banded, with no gross lesions in the first portion of the duodenum * * #Fever * source of infection is gram+ cocci * lactic acid elevated but this could have been due to hypoperfusion in setting of hemorrhagic shock * will check urine analysis and check blood cultures * on antibiotics for now * Infectious disease following * #Acute on chronic anemia: as above #Lactic acidosis: likely due to hemorrhagic shock. management as above. #Acute encephalopathy: likely due to hemorrhagic shock. Management as above. #Cirrhosis * has a history of chronic alcohol abuse * on nadolol, rifaximin, spironolactone * has a history of esophageal varices. * He will need to be on lactulose and I will also start Flagyl as he could be suffering from grade 1 to grade 2 hepatic encephalopathy as that is causing him to be more lethargic. * #Probable hepatocellular carcinoma * CT abdomen and pelvis from August 2022 showed a 4cm x 4.1cm heterogenous solid mass in the mid lateral portion of the right lobe of hte liver with mildly distended gallbladder. * Patient should get liver biopsy. I do not think he would be a candidate for transarterial chemoembolization if it turns out to be HCC. I will let oncology decide if he be a candidate for chemotherapy. Charges/Coding Visit Charges Inpatient E&M: 70176 Subs Hosp L3
[2022-11-16 21:17] VITALS: BP 130/74; PULSE 72; RESP 16; TEMP 36.6; O2SAT 98
[2022-11-17] MEDS: Ondansetron 4 MG/2 ML Vial IV (01:33)
[2022-11-17] MEDS: 0.9% Saline Lock 10 ML Syringe IV (01:34)
[2022-11-17 03:10] VITALS: BP 123/68; PULSE 77; RESP 18; TEMP 36.8; O2SAT 95
[2022-11-17 05:30] VITALS: BMI 28.4
[2022-11-17 05:52] LABS: Absolute Lymphocyte Count 0.66 X10^3/uL (0.83-4.51); Absolute Neutrophil Count 4.8 X10^3/uL (2.0-7.7); Basophil# 0.02 X10^3/uL; Basophil% 0.3 % (0-1); Eosinophil# 0.36 X10^3/uL; Eosinophils% 5.5 % (0-5); Hematocrit 27.6 % (40-54); Hemoglobin 8.9 g/dL (13.0-16.5); Lymphocyte # 0.66 X10^3/ul (0.83-4.51); Mean Corp Hgb Conc 32.2 g/dL (32-36); Mean Corpuscular Hgb 27.4 pg (27.0-32.0); Mean Corpuscular Volume 84.9 fL (80-94); Monocyte# 0.73 X10^3/uL; Monocyte% 11.1 % (0-10); NRBC Flagged by Analyzer 0 % (0-5); Neutrophil # 4.77 X10^3/uL (2.7-7.7); Neutrophil % 72.3 % (47-70); Platelet Count 163 K/mm3 (150-450); RBC Distribution Width CV 17.3 % (11.6-14.6); RBC Distribution Width SD 53.1 fl (35.1-43.9); Red Blood Count 3.25 M/mm3 (4.6-6.2); White Blood Count 6.6 K/mm3 (4.4-11.0)
[2022-11-17 06:34] LABS: Anion Gap 8 (5-15); BUN 7 mg/dL (7-18); BUN/Creat Ratio 9.8 RATIO (10-20); Calcium,Total 7.5 mg/dL (8.5-10.1); Chloride 109 mmol/L (98-107); Creatinine, Serum 0.72 mg/dL (0.70-1.30); EST Glomerular Filtration Rate 118 mL/min (>60); Est Glom Filt Rate - Afr Amer 143 mL/min (>60); Estimated Creatinine Clearance 111.25 ml/min; Glucose 118 mg/dL (74-106); Potassium 3.3 mmol/L (3.5-5.1); Sodium Level 138 mmol/L (136-145)
[2022-11-17 06:40] LABS: Vancomycin, Trough Level 12.7 ug/mL (5.0-15.0)
--- NOTE | 2022-11-17 07:29 | PCM.RX.CS ---
Consult Pharmacy has been consulted to manage selected antiobiotic: Vancomycin Type of Consult: Follow-up Prior Doses of Antibiotics Received/Current Regimen: current dose is vanc 1750mg IV q12h Labs: Sodium 138 mmol/L (136-145) 11/17/22 05:40 Potassium 3.3 mmol/L (3.5-5.1) L 11/17/22 05:40 Chloride 109 mmol/L (98-107) H 11/17/22 05:40 Carbon Dioxide 21.0 mmol/L (21.0-32.0) 11/17/22 05:40 Anion Gap 8 (5-15) 11/17/22 05:40 BUN 7 mg/dL (7-18) 11/17/22 05:40 Creatinine 0.72 mg/dL (0.70-1.30) 11/17/22 05:40 Est GFR (MDRD) Af Amer 143 mL/min (>60) 11/17/22 05:40 Est GFR (MDRD) Non-Af 118 mL/min (>60) 11/17/22 05:40 BUN/Creatinine Ratio 9.8 RATIO (10-20) L 11/17/22 05:40 Glucose 118 mg/dL (74-106) H 11/17/22 05:40 Vancomycin Trough 12.7 ug/mL (5.0-15.0) 11/17/22 05:40 Microbiology: Microbiology 11/14/22 19:43 Blood Culture (Wb) - Right Hand Blood Culture - Preliminary Coag Negative Staph 11/14/22 19:22 Blood Culture (Wb) - Right Hand Bacteria Detection (PCR) - Final Staphylococcus epidermidis mecA Resistance Marker 11/14/22 19:22 Blood Culture (Wb) - Right Hand Blood Culture - Preliminary Staphylococcus epidermidis Weight used for dosin.9 kg Estimated Creatinine Clearance: >100ml/min Goal Trough: 15-20 mcg/mL Pharmacy Plan for Drug Dosing: Trough drawn at 05:40 today (approx 12 hours after the previous dose) was 12.7. Not quite at goal yet but expect it to keep rising as the patient nears steady state so will keep same dose for now. Repeat trough in 2 days. Pharmacy Service will continue to monitor and adjust dosing as required. Follow-Up Labs: Trough Vancomycin Labs to be done on [date and time ordered]: 11/19/22 05:30
[2022-11-17] MEDS: Thiamine Hydrochloride 100 MG Tablet PO (08:06)
[2022-11-17] MEDS: rifAXIMin 550 MG Tablet PO ×2 (08:06→21:14)
[2022-11-17] MEDS: Pantoprazole Sodium 40 MG Tablet PO ×2 (08:06→21:14)
[2022-11-17] MEDS: Nadolol 20 MG Tablet PO (08:06)
[2022-11-17] MEDS: Folic Acid 1 MG Tablet 2 MG PO (08:06)
[2022-11-17] MEDS: Enoxaparin 40 MG/0.4 ML Syringe SC (08:06)
[2022-11-17 08:42] VITALS: O2SAT 95
[2022-11-17 09:05] VITALS: BP 117/63; PULSE 73; RESP 18; TEMP 36.7; O2SAT 95
--- NOTE | 2022-11-17 09:30 | PCM.PN.HOSP ---
Reason for Visit Reason for Visit: Diagnoses Anemia, unspecified (11/12/22) Encephalopathy, unspecified (11/12/22) Unspecified cirrhosis of liver (11/12/22) Gastrointestinal hemorrhage, unspecified (11/12/22) Other shock (11/12/22) Bacteremia (11/12/22) Subjective Subjective Laying in bed, no acute distress, reports feeling roughly the same Objective Data Objective Data Vital Signs: Vital Signs Temp Pulse Resp BP Pulse Ox O2 Del Method 98.2 F 77 18 123/68 H 95 Room Air 11/17/22 03:10 11/17/22 03:10 11/17/22 03:10 11/17/22 03:10 11/17/22 03:10 11/17/22 07:58 Oxygen Delivery Method Room Air Weight: 89.9 kg Body Mass Index (BMI) 28.4 Intake & Output: Intake and Output for Last 24 Hours 11/15/22 11/16/22 11/17/22 23:59 23:59 23:59 Intake Total 2218.55 / 2218.55 3060 / 3060 535 / 535 Output Total 2475 / 2475 3300 / 4550 1750 / 1750 Balance -256.45 / -256.45 -240 / -1490 -1215 / -1215 Lab / Micro Data Result Diagrams: 11/17/22 05:40 11/17/22 05:40 Labs: Laboratory Results - last 24 hr 11/17/22 05:40: WBC 6.6, RBC 3.25 L, Hgb 8.9 L, Hct 27.6 L, MCV 84.9, MCH 27.4, MCHC 32.2, RDW Std Deviation 53.1 H, RDW Coeff of Bassam 17.3 H, Plt Count 163, MPV 10.0, Immature Gran % (Auto) 0.800, Neut % (Auto) 72.3 H, Lymph % (Auto) 10.0 L, [place] % (Auto) 11.1 H, Eos % (Auto) 5.5 H, Baso % (Auto) 0.3, Absolute Neuts (auto) 4.8, Absolute Lymphs (auto) 0.66 L, Nucleated RBC % 0 11/17/22 05:40: Sodium 138, Potassium 3.3 L, Chloride 109 H, Carbon Dioxide 21.0, Anion Gap 8, BUN 7, Creatinine 0.72, Estim Creat Clear Calc 111.25, Est GFR (MDRD) Af Amer 143, Est GFR (MDRD) Non-Af 118, BUN/Creatinine Ratio 9.8 L, Glucose 118 H, Calcium 7.5 L 11/17/22 05:40: Vancomycin Trough 12.7 Micro: Microbiology 11/14/22 19:43 Blood Culture (Wb) - Right Hand Blood Culture - Preliminary Coag Negative Staph 11/14/22 19:22 Blood Culture (Wb) - Right Hand Bacteria Detection (PCR) - Final Staphylococcus epidermidis mecA Resistance Marker 11/14/22 19:22 Blood Culture (Wb) - Right Hand Blood Culture - Final Staphylococcus epidermidis 11/15/22 23:25 Urine, Clean Catch Urine Culture - Preliminary Culture exhibits no growth. Radiography Diagnostic Testing: Radiology Impression Echocardiogram 11/15/22 16:41 Interpretation Summary Normal LV size. Left ventricular systolic function is normal. The estimated ejection fraction is 65 %. Stage 2 diastolic dysfunction. Mean aortic valve gradient 26 mmHg. Mild focal aortic valve calcification. Mild to moderate aortic stenosis. Ordering Physician: Jessica Franks Referring Physician: MD Isai Jose Performed By: Nai Bishop RCS Physical Exam Narrative General: Tired, wakes up for exam HEENT: Atraumatic, normocephalic Eyes: Anicteric, normal conjunctiva, extraocular movements grossly intact Neck: Supple Respiratory: Clear to auscultation bilaterally, normal respiratory effort Cardiovascular: Regular rate and rhythm GI: No overt tenderness, no rebound, no guarding, no rigidity Extremities: No pitting edema appreciated Musculoskeletal: Moving all extremities Neuro: No overt focal neurological deficits Skin: No rashes appreciated Psych: Intermittently cooperative Assessment & Plan Assessment/Plan (1) Hemorrhagic shock: (2) Acute GI bleeding: PLAN: Plan #Gram-positive bacteremia -Had obtain blood cultures due to one-time fever but did not start antibiotics as patient had been improving and no signs symptoms of infection -Blood cultures growing gram-positive cocci -Starting broad-spectrum antibiotics and will narrow as culture results are available -Give fluids and hold spironolactone and Lasix, give 1 L bolus, will give another liter -11/16: WBC count within normal limits, on broad-spectrum antibiotics and received fluids with improvement in lactic acid. First blood culture with Staph epidermidis, second blood culture also with gram-positive cocci presumably also staph epi. Continue antibiotics, echocardiogram ordered. Given tender to blood cultures will consult infectious disease -11/17: Echo with EF of 65% and stage II diastolic dysfunction, mild to moderate aortic stenosis with mean valve gradient of 26, no other significant abnormalities appreciated. Remains on vancomycin and Rocephin. First set of cultures may be due to contaminants, repeat cultures pending. Infectious disease following #Shortness of breath -Lactic acid 2.9 with no anion gap and ABG obtained and patient is actually somewhat alkalotic and not acidotic -Is possible that due to his lack of bowel movements and increasing abdominal distention this is contributing to tachypnea in addition to his elevated lactic acid -Chest x-ray unremarkable -With his tachypnea and being alkalotic with no pharmacologic DVT prophylaxis given his recent GI hemorrhage will obtain CTA chest we will obtain CT of abdomen to assess extent of distention as well -We will plan on lactulose enema -11/16: Seems better today, CTA without evidence of PE but queried bilateral pneumonia with effusions #hyperammonemia -Has had escalating doses of lactulose plus MiraLAX with no bowel movements and increasing ammonia, will give lactulose enema, obtaining CT of abdomen -11/16: Continue lactulose, did improve slightly #Hemorrhage shock 2/2 UGI bleed -Secondary to grade 3 esophageal varices status post banding on 11/12 -Shock resolved -Started on nadolol 20 for variceal prophylaxis and will need repeat EGD to treat the rest of varices -s/p 2u PRBC, hgb slightly down today at 7 from 8.5 -Transfusion threshold 7, will give another unit of PRBC -remains on octrotide and PPI ggt as well as fluids -Vitally stable -GI on board -Home diuretics have been held -11/15: Hgb stable -11/16: Hemoglobin remained stable, GI following #Hepatic mass/cirrhosis/hepatic encephalopathy -Imaging with ultrasound and CT scan abdomen pelvis does show a hepatic mass likely secondary to hepatocellular carcinoma -AFP is 143 -Will need liver biopsy when possible and to f/u w/ heme onc -Resume lactulose -Resume spironolactone and Lasix when able, will hold IVF at this time -11/15: Ammonia increased and no BMs despite increasing lacutlose doses, giving lactulose enema. Holding diuretics as pt requires fluids -11/16: CT abdomen with multiple stable cysts in the liver and multiple enhancing lesions concerning for metastatic disease which was previously described on scans. Has abdominal and ascites and diffuse contour abnormality consistent with cirrhotic changes. #DVT ppx: Lovenox sub q Jessica Franks MD Time spent in the patient's overall evaluation,decision-making process, review of diagnostic data, adjustment of management, discussion with other providers, nursing nursing and ancillary staff involved in patient's care documentation, 30 minutes Charges/Coding Visit Charges Inpatient E&M: 21795 Subs Hosp L2
[2022-11-17] MEDS: Potassium Chloride Oral Tablet 20 MEQ 40 MEQ PO (09:45)
[2022-11-17 10:25] VITALS: O2SAT 96
[2022-11-17] MEDS: Lactulose 20 GM/30 ML UDC PO ×3 (12:23→21:14)
--- NOTE | 2022-11-17 13:15 | RAD_ITS ---
INDICATION: abd pain EXAMINATION/TECHNIQUE: X-RAY - XR Abdomen 1 View COMPARISON: CT examination of 11/15/2022 and plain film examination of 11/15/2022 FINDINGS: BOWEL GAS PATTERN: Non-obstructive. No bowel or stomach distention. Moderate interval improvement of the gas filled bowel segments throughout the abdomen and pelvis. FREE AIR: Not assessed on a single supine view. ORGANOMEGALY: Not seen. CALCIFICATIONS: Scattered vascular calcifications are present. Coarse calcifications present in the pelvis which appear to be within the prostate. LOWER CHEST: No acute pathology. BONES AND SOFT TISSUES: No acute pathology. RAD/Abdomen Single View (Portable) IMPRESSION: 1. Non-obstructive bowel gas pattern. Mild improvement previous gas-filled bowel segments. Electronically Signed: Harvinder Tamayo MD at 18:50 EDT ,
--- NOTE | 2022-11-17 13:15 | US_ITS ---
STUDY: ABDOMINAL ULTRASOUND -4 quadrants for ascites survey. REASON FOR VISIT: Male, 62 years old eval for ascites TECHNIQUE: Ultrasound evaluation of the 4 quadrants was performed with real-time and static hidalgo-scale imaging. TECHNICAL QUALITY: Adequate. COMPARISON: None. FINDINGS: No significant amount of ascites is seen. Incidental note is made of a distended gallbladder with multiple stones and sludge and thickened gallbladder wall. There is evidence of a 4.6 x 4.6 x 4.6 cm solid nodule in the right lobe of the liver with increased vascularity. US/Abdomen Limited IMPRESSION: No significant ascites is seen. Distended gallbladder with gallstones and sludge as well as thickened gallbladder wall. Solid mass in the right lobe of the liver. Electronically Signed: Primo Luz MD at 15:22 EDT ,
--- NOTE | 2022-11-17 13:39 | PCM.PN.ID ---
Physical Exam Narrative Feeling ok but c/o belly pain. No fever, no emesis, no bleeding. Const alert and no apparent distress Resp normal air movement and clear to auscultation bilaterally Cardio regular rate and regular rhythm GI soft to palpation and non-distended GI Narrative: mild diffuse soreness Skin no rashes or lesions noted ID ID: Route of nutrition/ use of supplements: [] Nutritional Intake: [] IV Site: [] Hsu Catheter: [] Assessment & Plan Assessment/Plan (1) Acute GI bleeding: (2) Cirrhosis: (3) Bacteremia: PLAN: 2 of 2 Bcx with CoNS seen, pcr showing MRSE. On vanc. CT with bilateral effusions and pneumonia, but denies cough or SOB. Cont ceftriaxone for pneumonia coverage and variceal bleed prophylaxis. TTE showed no veg. Plan on po abx at discharge. Will follow
[2022-11-17 15:04] VITALS: BP 146/84; PULSE 65; PULSE 66; RESP 18; TEMP 36.6; O2SAT 98; O2SAT 99
--- NOTE | 2022-11-17 15:59 | CASEMGMT ---
Therapy is recommending patient go somewhere for rehab. This SW and SIL Chanel met with patient. Introduced selves and role at [facility]. SW explained therapy is recommending patient go somewhere for rehab. SW provided provided patient with a list of shelter facility providers including quality and resource use data and consistent with patient?s preferred geographic region, medical needs, and insurance network were provided from the [employer] Guide. SW will check back with patient. Jocelyn Brar [employer]
[2022-11-17 21:05] VITALS: BP 115/75; PULSE 74; RESP 16; TEMP 36.6; O2SAT 95
--- NOTE | 2022-11-17 21:07 | PN_ITS ---
Subjective Subjective Patient does have some mild abdominal pain. He is not eating much. Objective Data Objective Data Vital Signs: Vital Signs Temp Pulse Resp BP Pulse Ox O2 Del Method 97.9 F 65 18 146/84 H 98 Room Air 11/17/22 15:04 11/17/22 15:04 11/17/22 15:04 11/17/22 15:04 11/17/22 15:04 11/17/22 15:04 Oxygen Delivery Method Room Air Weight: 198 lb 3.129 oz Body Mass Index (BMI) 28.4 Intake & Output: Intake and Output for Last 24 Hours 11/15/22 11/16/22 11/17/22 23:59 23:59 23:59 Intake Total 2218.55 / 2218.55 3060 / 3060 2150 / 2150 Output Total 2475 / 2475 3300 / 4550 3700 / 3700 Balance -256.45 / -256.45 -240 / -1490 -1550 / -1550 Lab / Micro Data Result Diagrams: 11/17/22 05:40 11/17/22 05:40 Labs: Laboratory Results - last 24 hr 11/17/22 05:40: WBC 6.6, RBC 3.25 L, Hgb 8.9 L, Hct 27.6 L, MCV 84.9, MCH 27.4, MCHC 32.2, RDW Std Deviation 53.1 H, RDW Coeff of Bassam 17.3 H, Plt Count 163, MPV 10.0, Immature Gran % (Auto) 0.800, Neut % (Auto) 72.3 H, Lymph % (Auto) 10.0 L, [place] % (Auto) 11.1 H, Eos % (Auto) 5.5 H, Baso % (Auto) 0.3, Absolute Neuts (auto) 4.8, Absolute Lymphs (auto) 0.66 L, Nucleated RBC % 0 11/17/22 05:40: Sodium 138, Potassium 3.3 L, Chloride 109 H, Carbon Dioxide 21.0, Anion Gap 8, BUN 7, Creatinine 0.72, Estim Creat Clear Calc 111.25, Est GFR (MDRD) Af Amer 143, Est GFR (MDRD) Non-Af 118, BUN/Creatinine Ratio 9.8 L, Glucose 118 H, Calcium 7.5 L 11/17/22 05:40: Vancomycin Trough 12.7 Micro: Microbiology 11/14/22 19:43 Blood Culture (Wb) - Right Hand Blood Culture - Preliminary Coag Negative Staph 11/14/22 19:22 Blood Culture (Wb) - Right Hand Bacteria Detection (PCR) - Final Staphylococcus epidermidis mecA Resistance Marker 11/14/22 19:22 Blood Culture (Wb) - Right Hand Blood Culture - Final Staphylococcus epidermidis 11/15/22 23:25 Urine, Clean Catch Urine Culture - Preliminary Culture exhibits no growth. Radiography Diagnostic Testing: Radiology Impression KUB X-Ray 11/17/22 13:15 IMPRESSION: 1. Non-obstructive bowel gas pattern. Mild improvement previous gas-filled bowel segments. Electronically Signed: Harvinder Tamayo MD at 18:50 EDT , Physical Exam Narrative . No fever, no emesis, no bleeding. Const alert and no apparent distress Resp normal air movement and clear to auscultation bilaterally Cardio regular rate and regular rhythm GI soft to palpation and non-distended GI Narrative: mild diffuse soreness Skin no rashes or lesions noted Assessment & Plan Assessment/Plan (1) Acute GI bleeding: (2) Hemorrhagic shock: PLAN: Plan #Hemorrhagic shock due to UGI bleed * shock has resolved * Hb is 8.9 * is s/p 2 units of PRBCs * off octreotide and PPI drip still * has a history of UGI bleed due to esophageal varices * on PPI BID * EGD showed grade III esophageal varices which were incompletely eradicated and banded, with no gross lesions in the first portion of the duodenum * * #Fever * source of infection is gram+ cocci * lactic acid elevated but this could have been due to hypoperfusion in setting of hemorrhagic shock * will check urine analysis and check blood cultures * on antibiotics for now * Infectious disease following * #Acute on chronic anemia: as above #Lactic acidosis: likely due to hemorrhagic shock. management as above. #Acute encephalopathy: likely due to hemorrhagic shock. Management as above. #Cirrhosis * has a history of chronic alcohol abuse * on nadolol, rifaximin, spironolactone * has a history of esophageal varices. * He will need to be on lactulose and I will also start Flagyl as he could be suffering from grade 1 to grade 2 hepatic encephalopathy as that is causing him to be more lethargic. * #Probable hepatocellular carcinoma * CT abdomen and pelvis from August 2022 showed a 4cm x 4.1cm heterogenous solid mass in the mid lateral portion of the right lobe of hte liver with mildly distended gallbladder. * Patient should get liver biopsy. I do not think he would be a candidate for transarterial chemoembolization if it turns out to be HCC. I will let oncology decide if he be a candidate for chemotherapy. * Outpatient liver biopsy Charges/Coding Visit Charges Inpatient E&M: 09980 Subs Hosp L3
[2022-11-18 03:00] VITALS: BP 126/75; PULSE 77; RESP 16; TEMP 37.1; O2SAT 95
[2022-11-18 05:30] LABS: Anion Gap 6 (5-15); BUN 6 mg/dL (7-18); BUN/Creat Ratio 8.8 RATIO (10-20); Calcium,Total 7.9 mg/dL (8.5-10.1); Chloride 111 mmol/L (98-107); Creatinine, Serum 0.68 mg/dL (0.70-1.30); EST Glomerular Filtration Rate 126 mL/min (>60); Est Glom Filt Rate - Afr Amer 152 mL/min (>60); Estimated Creatinine Clearance 117.79 ml/min; Glucose 116 mg/dL (74-106); Potassium 3.7 mmol/L (3.5-5.1); Sodium Level 138 mmol/L (136-145)
[2022-11-18 06:00] VITALS: BMI 27.5
[2022-11-18 06:40] LABS: Absolute Lymphocyte Count 0.85 X10^3/uL (0.83-4.51); Absolute Neutrophil Count 5.3 X10^3/uL (2.0-7.7); Basophil# 0.06 X10^3/uL; Basophil% 0.8 % (0-1); Eosinophil# 0.31 X10^3/uL; Eosinophils% 4.3 % (0-5); Hematocrit 28.3 % (40-54); Lymphocyte # 0.85 X10^3/ul (0.83-4.51); Lymphocyte % 11.8 % (19-41); Mean Corp Hgb Conc 31.8 g/dL (32-36); Mean Corpuscular Hgb 27.2 pg (27.0-32.0); Mean Corpuscular Volume 85.5 fL (80-94); Mean Platelet Vol. 10.9 fl (6.2-12.0); Monocyte# 0.65 X10^3/uL; NRBC Flagged by Analyzer 0 % (0-5); Neutrophil # 5.29 X10^3/uL (2.7-7.7); Neutrophil % 73.4 % (47-70); Platelet Count 203 K/mm3 (150-450); RBC Distribution Width CV 17.9 % (11.6-14.6); RBC Distribution Width SD 54.8 fl (35.1-43.9); Red Blood Count 3.31 M/mm3 (4.6-6.2); White Blood Count 7.2 K/mm3 (4.4-11.0)
--- NOTE | 2022-11-18 08:48 | PN.HOSP_ITS ---
Reason for Visit Reason for Visit: Diagnoses Anemia, unspecified (11/12/22) Encephalopathy, unspecified (11/12/22) Unspecified cirrhosis of liver (11/12/22) Gastrointestinal hemorrhage, unspecified (11/12/22) Other shock (11/12/22) Bacteremia (11/12/22) Subjective Subjective Much more awake and alert today, discussed importance of lactulose and the reasoning behind it and patient agreeable to taking this. Reports had significant abdominal pain yesterday that was relieved when he did finally have bowel movements. Today abdomen feels better than it had this still discomfort. No changes in his breathing Objective Data Objective Data Vital Signs: Vital Signs Temp Pulse Resp BP Pulse Ox O2 Del Method 98.8 F 77 16 126/75 H 95 Room Air 11/18/22 03:00 11/18/22 03:00 11/18/22 03:00 11/18/22 03:00 11/18/22 03:00 11/18/22 03:00 Oxygen Delivery Method Room Air Weight: 87.09 kg Body Mass Index (BMI) 27.5 Intake & Output: Intake and Output for Last 24 Hours 11/16/22 11/17/22 11/18/22 23:59 23:59 23:59 Intake Total 3060 / 3060 2150 / 2150 Output Total 3300 / 4550 3700 / 4500 2099 / 2099 Balance -240 / -1490 -1550 / -2350 -2099 / -2099 Lab / Micro Data Result Diagrams: 11/18/22 04:08 11/18/22 04:08 Labs: Laboratory Results - last 24 hr 11/18/22 04:08: Sodium 138, Potassium 3.7, Chloride 111 H, Carbon Dioxide 21.0, Anion Gap 6, BUN 6 L, Creatinine 0.68 L, Estim Creat Clear Calc 117.79, Est GFR (MDRD) Af Amer 152, Est GFR (MDRD) Non-Af 126, BUN/Creatinine Ratio 8.8 L, Glucose 116 H, Calcium 7.9 L 11/18/22 04:08: WBC 7.2, RBC 3.31 L, Hgb 9.0 L, Hct 28.3 L, MCV 85.5, MCH 27.2, MCHC 31.8 L, RDW Std Deviation 54.8 H, RDW Coeff of Bassam 17.9 H, Plt Count 203, MPV 10.9, Immature Gran % (Auto) 0.700, Neut % (Auto) 73.4 H, Lymph % (Auto) 11.8 L, [place] % (Auto) 9.0, Eos % (Auto) 4.3, Baso % (Auto) 0.8, Absolute Neuts (auto) 5.3, Absolute Lymphs (auto) 0.85, Nucleated RBC % 0 Micro: Microbiology 11/15/22 16:35 Blood Culture (Wb) - Anticubital Left Blood Culture - Preliminary No growth in 48 hours. 11/15/22 16:49 Blood Culture (Wb) - Left Hand Blood Culture - Preliminary No growth in 48 hours. 11/15/22 23:25 Urine, Clean Catch Urine Culture - Final Culture exhibits no growth. 11/14/22 19:43 Blood Culture (Wb) - Right Hand Blood Culture - Preliminary Coag Negative Staph 11/14/22 19:22 Blood Culture (Wb) - Right Hand Bacteria Detection (PCR) - Final Staphylococcus epidermidis mecA Resistance Marker 11/14/22 19:22 Blood Culture (Wb) - Right Hand Blood Culture - Final Staphylococcus epidermidis Radiography Diagnostic Testing: Radiology Impression KUB X-Ray 11/17/22 13:15 IMPRESSION: 1. Non-obstructive bowel gas pattern. Mild improvement previous gas-filled bowel segments. Electronically Signed: Harvinder Tamayo MD at 18:50 EDT , Physical Exam Narrative General: Alert, oriented, no apparent distress HEENT: Atraumatic, normocephalic Eyes: Anicteric, normal conjunctiva, extraocular movements grossly intact Neck: Supple Respiratory: No wheezes or rhonchi, normal respiratory effort Cardiovascular: Regular rate and rhythm GI: Soft, slightly distended but nontender no rebound, guarding, rigidity Extremities: 1+ lower extremity edema Musculoskeletal: Moving all extremities Neuro: No overt focal neurological deficits Skin: No rashes appreciated Psych: Cooperative Assessment & Plan Assessment/Plan (1) Acute GI bleeding: (2) Hemorrhagic shock: PLAN: Plan #Gram-positive bacteremia -Had obtain blood cultures due to one-time fever but did not start antibiotics as patient had been improving and no signs symptoms of infection -Blood cultures growing gram-positive cocci -Starting broad-spectrum antibiotics and will narrow as culture results are available -Give fluids and hold spironolactone and Lasix, give 1 L bolus, will give another liter -11/16: WBC count within normal limits, on broad-spectrum antibiotics and received fluids with improvement in lactic acid. First blood culture with Staph epidermidis, second blood culture also with gram-positive cocci presumably also staph epi. Continue antibiotics, echocardiogram ordered. Given tender to blood cultures will consult infectious disease -11/17: Echo with EF of 65% and stage II diastolic dysfunction, mild to moderate aortic stenosis with mean valve gradient of 26, no other significant abn ormalities appreciated. Remains on vancomycin and Rocephin. First set of cultures may be due to contaminants, repeat cultures pending. Infectious disease following -11/18: Repeat cultures no growth to date. Remains on Vanco and Rocephin. Is significantly improved today, can start working on discharge planning #Shortness of breath -Lactic acid 2.9 with no anion gap and ABG obtained and patient is actually somewhat alkalotic and not acidotic -Is possible that due to his lack of bowel movements and increasing abdominal distention this is contributing to tachypnea in addition to his elevated lactic acid -Chest x-ray unremarkable -With his tachypnea and being alkalotic with no pharmacologic DVT prophylaxis given his recent GI hemorrhage will obtain CTA chest we will obtain CT of abdomen to assess extent of distention as well -We will plan on lactulose enema -11/16: Seems better today, CTA without evidence of PE but queried bilateral pneumonia with effusions #Hemorrhage shock 2/2 UGI bleed -Secondary to grade 3 esophageal varices status post banding on 11/12 -Shock resolved -Started on nadolol 20 for variceal prophylaxis and will need repeat EGD to treat the rest of varices -s/p 2u PRBC, hgb slightly down today at 7 from 8.5 -Transfusion threshold 7, will give another unit of PRBC -remains on octrotide and PPI ggt as well as fluids -Vitally stable -GI on board -Home diuretics have been held -11/15: Hgb stable -11/16: Hemoglobin remained stable, GI following #Hepatic mass/cirrhosis/hepatic encephalopathy -Imaging with ultrasound and CT scan abdomen pelvis does show a hepatic mass likely secondary to hepatocellular carcinoma -AFP is 143 -Will need liver biopsy when possible and to f/u w/ heme onc -Resume lactulose -Resume spironolactone and Lasix when able, will hold IVF at this time -11/15: Ammonia increased and no BMs despite increasing lacutlose doses, giving lactulose enema. Holding diuretics as pt requires fluids -11/16: CT abdomen with multiple stable cysts in the liver and multiple enhancing lesions concerning for metastatic disease which was previously described on scans. Has abdominal and ascites and diffuse contour abnormality consistent with cirrhotic changes. -11/18: Mental status significantly improved. BP good, will resume diuretics #DVT ppx: Lovenox sub q Jessica Franks MD Time spent in the patient's overall evaluation,decision-making process, review of diagnostic data, adjustment of management, discussion with other providers, nursing nursing and ancillary staff involved in patient's care documentation, 30 minutes Charges/Coding Visit Charges Inpatient E&M: 20999 Subs Hosp L2
[2022-11-18 09:17] VITALS: BP 105/65; PULSE 72; RESP 16; TEMP 36.8; O2SAT 96
[2022-11-18] MEDS: Folic Acid 1 MG Tablet 2 MG PO (09:21)
[2022-11-18] MEDS: Pantoprazole Sodium 40 MG Tablet PO ×2 (09:21→21:23)
[2022-11-18] MEDS: Thiamine Hydrochloride 100 MG Tablet PO (09:21)
[2022-11-18] MEDS: Nadolol 20 MG Tablet PO (09:21)
[2022-11-18] MEDS: rifAXIMin 550 MG Tablet PO ×2 (09:22→21:23)
[2022-11-18] MEDS: Lactulose 20 GM/30 ML UDC PO ×4 (09:22→21:25)
[2022-11-18] MEDS: Spironolactone 25 MG Tablet PO (09:28)
[2022-11-18] MEDS: Furosemide 20 MG Tablet PO (09:28)
[2022-11-18 10:00] VITALS: BP 105/65; PULSE 72; RESP 16; TEMP 36.8; O2SAT 98
--- NOTE | 2022-11-18 10:20 | PCM.PN.ID ---
Physical Exam Narrative Sleeping this AM, no fever Const no apparent distress Resp normal air movement and clear to auscultation bilaterally Cardio regular rate and regular rhythm GI soft to palpation, non-tender and non-distended Extremity General Extremity: edema Skin no rashes or lesions noted ID ID: Route of nutrition/ use of supplements: [] Nutritional Intake: [] IV Site: [] Hsu Catheter: [] Assessment & Plan Assessment/Plan (1) Acute GI bleeding: (2) Cirrhosis: (3) Bacteremia: PLAN: 2 of 2 Bcx with CoNS seen, pcr showing MRSE. On vanc. CT with bilateral effusions and pneumonia, but denied cough or SOB. Cont ceftriaxone for pneumonia coverage and variceal bleed prophylaxis (course started 11/15). TTE showed no veg. Plan on po abx at discharge. Will follow
--- NOTE | 2022-11-18 11:36 | CASEMGMT ---
SW went to patient's room to check on his senior care choices. Patient told SW he is going to go home and have a nurse come to him. SW asked patient how he was going to get up his 16 steps. Patient told SW he is staying downstairs. SW told patient he doesn't live downstairs. Patient said they told him he can stay with them and they have him set up in the living room. SW then left the room. SIL called patient's brother Rogers to discuss this and also to return his call. SIL explained to Rogers what patient told SW. Rogers told SW he talked with patient Tuesday and he was on board with going somewhere. Rogers said yesterday when he came in to see patient, patient is now refusing to go anywhere. Rogers is frustrated and said he cannot make patient do anything. He tried to convince patient, but patient is not listening. Rogers gave patient clothes, ochoa to his apartment and his wallet. Rogers told patient, Let me know how it works out. Rogers explained to SIL that his dad is dying so he is dealing with that and does not have time to deal with patient over this. SIL did let Rogers know that if patient does go home SIL will notify Adult Protective Services as it is not a safe discharge. Rogers thanked SIL and [facility] for caring for patient. Jocelyn BURNETT
[2022-11-18 15:15] VITALS: BP 124/67; PULSE 67; RESP 18; TEMP 36.6; O2SAT 98
--- NOTE | 2022-11-18 17:52 | PN_ITS ---
Subjective Subjective Patient has taken 1 dose of lactulose today. He says that he is having a lot of bowel movements. His weight is about the same since he was brought to the hospital. Has had no episodes of GI bleeding. He denies any abdominal distention, headache, dizziness. He does complain of lethargy. Objective Data Objective Data Vital Signs: Vital Signs Temp Pulse Resp BP Pulse Ox O2 Del Method 97.9 F 67 18 124/67 H 98 Room Air 11/18/22 15:15 11/18/22 15:15 11/18/22 15:15 11/18/22 15:15 11/18/22 15:15 11/18/22 15:15 Oxygen Delivery Method Room Air Weight: 192 lb Body Mass Index (BMI) 27.5 Intake & Output: Intake and Output for Last 24 Hours 11/16/22 11/17/22 11/18/22 23:59 23:59 23:59 Intake Total 3060 / 3060 2150 / 2150 1065 / 1065 Output Total 3300 / 4550 3700 / 4500 2700 / 2700 Balance -240 / -1490 -1550 / -2350 -1635 / -1635 Lab / Micro Data Result Diagrams: 11/18/22 04:08 11/18/22 04:08 Labs: Laboratory Results - last 24 hr 11/18/22 04:08: Sodium 138, Potassium 3.7, Chloride 111 H, Carbon Dioxide 21.0, Anion Gap 6, BUN 6 L, Creatinine 0.68 L, Estim Creat Clear Calc 117.79, Est GFR (MDRD) Af Amer 152, Est GFR (MDRD) Non-Af 126, BUN/Creatinine Ratio 8.8 L, Glucose 116 H, Calcium 7.9 L 11/18/22 04:08: WBC 7.2, RBC 3.31 L, Hgb 9.0 L, Hct 28.3 L, MCV 85.5, MCH 27.2, MCHC 31.8 L, RDW Std Deviation 54.8 H, RDW Coeff of Bassam 17.9 H, Plt Count 203, MPV 10.9, Immature Gran % (Auto) 0.700, Neut % (Auto) 73.4 H, Lymph % (Auto) 11.8 L, [place] % (Auto) 9.0, Eos % (Auto) 4.3, Baso % (Auto) 0.8, Absolute Neuts (auto) 5.3, Absolute Lymphs (auto) 0.85, Nucleated RBC % 0 Micro: Microbiology 11/15/22 16:35 Blood Culture (Wb) - Anticubital Left Blood Culture - Preliminary No growth in 48 hours. 11/15/22 16:49 Blood Culture (Wb) - Left Hand Blood Culture - Preliminary No growth in 48 hours. 11/15/22 23:25 Urine, Clean Catch Urine Culture - Final Culture exhibits no growth. 11/14/22 19:43 Blood Culture (Wb) - Right Hand Blood Culture - Preliminary Coag Negative Staph 11/14/22 19:22 Blood Culture (Wb) - Right Hand Bacteria Detection (PCR) - Final Staphylococcus epidermidis mecA Resistance Marker 11/14/22 19:22 Blood Culture (Wb) - Right Hand Blood Culture - Final Staphylococcus epidermidis Radiography Diagnostic Testing: Radiology Impression Abdomen Ultrasound 11/17/22 13:15 IMPRESSION: No significant ascites is seen. Distended gallbladder with gallstones and sludge as well as thickened gallbladder wall. Solid mass in the right lobe of the liver. Electronically Signed: Primo Luz MD at 15:22 EDT , KUB X-Ray 11/17/22 13:15 IMPRESSION: 1. Non-obstructive bowel gas pattern. Mild improvement previous gas-filled bowel segments. Electronically Signed: Harvinder Tamayo MD at 18:50 EDT , Physical Exam Const no apparent distress Resp normal air movement and clear to auscultation bilaterally Cardio regular rate and regular rhythm GI soft to palpation, non-tender and non-distended Extremity General Extremity: edema Skin no rashes or lesions noted Assessment & Plan Assessment/Plan (1) Acute GI bleeding: (2) Hemorrhagic shock: PLAN: Plan #Hemorrhagic shock due to UGI bleed * shock has resolved * Hb is 8.9 * is s/p 2 units of PRBCs * off octreotide and PPI drip still * has a history of UGI bleed due to esophageal varices * on PPI BID * EGD showed grade III esophageal varices which were incompletely eradicated and banded, with no gross lesions in the first portion of the duodenum * * #Fever * source of infection is gram+ cocci * lactic acid elevated but this could have been due to hypoperfusion in setting of hemorrhagic shock * will check urine analysis and check blood cultures * on antibiotics for now * Infectious disease following * #Acute on chronic anemia: as above #Lactic acidosis: likely due to hemorrhagic shock. management as above. #Acute encephalopathy: likely due to hemorrhagic shock. Management as above. #Cirrhosis * has a history of chronic alcohol abuse * on nadolol, rifaximin, spironolactone * has a history of esophageal varices. * He will need to be on lactulose and I will also start Flagyl as he could be suffering from grade 1 to grade 2 hepatic encephalopathy as that is causing him to be more lethargic. * #Probable hepatocellular carcinoma * CT abdomen and pelvis from August 2022 showed a 4cm x 4.1cm heterogenous solid mass in the mid lateral portion of the right lobe of hte liver with mildly distended gallbladder. * Patient should get liver biopsy. I do not think he would be a candidate for transarterial chemoembolization if it turns out to be HCC. I will let onc ology decide if he be a candidate for chemotherapy. * Outpatient liver biopsy Charges/Coding Visit Charges Inpatient E&M: 33408 Subs Hosp L3
[2022-11-18 21:20] VITALS: BP 134/91; PULSE 72; RESP 18; TEMP 36.9; O2SAT 98
[2022-11-19] VITALS (7 sets, daily range): BP systolic 108–124; BP diastolic 65–74; PULSE 71–76; RESP 16–18; TEMP 36.7–37.5; O2SAT 94–98; BMI 27.7; BMI 27.8
[2022-11-19] MEDS: Lactulose 20 GM/30 ML UDC PO ×2 (01:57→06:45)
--- NOTE | 2022-11-19 05:45 | NURSING ---
pt refusing lab draws and lactulose this AM. This RN explained to pt that the lab draw is needed for the IV antibiotics. States he wants to sleep and to try again later. Spoke to lab that pt willing to try again, in 20-30mins.
[2022-11-19 06:58] LABS: Absolute Lymphocyte Count 0.76 X10^3/uL (0.83-4.51); Basophil# 0.04 X10^3/uL; Basophil% 0.6 % (0-1); Eosinophil# 0.27 X10^3/uL; Hematocrit 27.9 % (40-54); Hemoglobin 9.2 g/dL (13.0-16.5); Lymphocyte # 0.76 X10^3/ul (0.83-4.51); Lymphocyte % 11.3 % (19-41); Mean Corpuscular Hgb 27.4 pg (27.0-32.0); Mean Platelet Vol. 9.8 fl (6.2-12.0); NRBC Flagged by Analyzer 0 % (0-5); Neutrophil # 4.98 X10^3/uL (2.7-7.7); Neutrophil % 74.4 % (47-70); Platelet Count 202 K/mm3 (150-450); RBC Distribution Width SD 53.8 fl (35.1-43.9); Red Blood Count 3.36 M/mm3 (4.6-6.2); White Blood Count 6.7 K/mm3 (4.4-11.0)
[2022-11-19 07:24] LABS: Anion Gap 4 (5-15); BUN 8 mg/dL (7-18); BUN/Creat Ratio 12.2 RATIO (10-20); Calcium,Total 8.3 mg/dL (8.5-10.1); Chloride 110 mmol/L (98-107); Creatinine, Serum 0.66 mg/dL (0.70-1.30); EST Glomerular Filtration Rate 131 mL/min (>60); Est Glom Filt Rate - Afr Amer 158 mL/min (>60); Estimated Creatinine Clearance 121.36 ml/min; Glucose 109 mg/dL (74-106); Potassium 3.8 mmol/L (3.5-5.1); Sodium Level 138 mmol/L (136-145)
[2022-11-19 07:27] LABS: Vancomycin, Trough Level 13.3 ug/mL (5.0-15.0)
--- NOTE | 2022-11-19 08:00 | PN_ITS ---
Subjective Subjective Patient has been having a lot of bowel movements lactulose therapy. He is tolerating a diet. Objective Data Objective Data Vital Signs: Vital Signs Temp Pulse Resp BP Pulse Ox O2 Del Method 98.0 F 76 16 124/74 H 98 Room Air 11/19/22 13:50 11/19/22 13:50 11/19/22 13:50 11/19/22 13:50 11/19/22 13:50 11/19/22 13:50 Oxygen Delivery Method Room Air Weight: 193 lb 12.581 oz Body Mass Index (BMI) 27.8 Intake & Output: Intake and Output for Last 24 Hours 11/17/22 11/18/22 11/19/22 23:59 23:59 23:59 Intake Total 2150 / 2150 1720 / 1720 710 / 710 Output Total 3700 / 4500 3400 / 3400 1050 / 1050 Balance -1550 / -2350 -1680 / -1680 -340 / -340 Lab / Micro Data Result Diagrams: 11/19/22 06:44 11/19/22 06:44 Labs: Laboratory Results - last 24 hr 11/19/22 06:44: Sodium 138, Potassium 3.8, Chloride 110 H, Carbon Dioxide 24.0, Anion Gap 4 L, BUN 8, Creatinine 0.66 L, Estim Creat Clear Calc 121.36, Est GFR (MDRD) Af Amer 158, Est GFR (MDRD) Non-Af 131, BUN/Creatinine Ratio 12.2, Glucose 109 H, Calcium 8.3 L 11/19/22 06:44: Vancomycin Trough 13.3 11/19/22 06:44: WBC 6.7, RBC 3.36 L, Hgb 9.2 L, Hct 27.9 L, MCV 83.0, MCH 27.4, MCHC 33.0, RDW Std Deviation 53.8 H, RDW Coeff of Bassam 18.0 H, Plt Count 202, MPV 9.8, Immature Gran % (Auto) 0.700, Neut % (Auto) 74.4 H, Lymph % (Auto) 11.3 L, [place] % (Auto) 9.0, Eos % (Auto) 4.0, Baso % (Auto) 0.6, Absolute Neuts (auto) 5.0, Absolute Lymphs (auto) 0.76 L, Nucleated RBC % 0 03/31/23 06:44: Ammonia 56.0 H Micro: Microbiology 11/15/22 16:35 Blood Culture (Wb) - Anticubital Left Blood Culture - Preliminary No growth in 48 hours. 11/15/22 16:49 Blood Culture (Wb) - Left Hand Blood Culture - Preliminary No growth in 48 hours. 11/15/22 23:25 Urine, Clean Catch Urine Culture - Final Culture exhibits no growth. 11/14/22 19:43 Blood Culture (Wb) - Right Hand Blood Culture - Preliminary Coag Negative Staph 11/14/22 19:22 Blood Culture (Wb) - Right Hand Bacteria Detection (PCR) - Final Staphylococcus epidermidis mecA Resistance Marker 11/14/22 19:22 Blood Culture (Wb) - Right Hand Blood Culture - Final Staphylococcus epidermidis Physical Exam Narrative Feeling better, no fever, no abd pain Const alert and no apparent distress Resp normal air movement and clear to auscultation bilaterally Cardio regular rate and regular rhythm GI soft to palpation, non-tender and non-distended Skin no rashes or lesions noted Assessment & Plan Assessment/Plan (1) Acute GI bleeding: (2) Hemorrhagic shock: PLAN: Plan #Hemorrhagic shock due to UGI bleed * shock has resolved * Hb is 8.9 * is s/p 2 units of PRBCs * off octreotide and PPI drip still * has a history of UGI bleed due to esophageal varices * on PPI BID * EGD showed grade III esophageal varices which were incompletely eradicated and banded, with no gross lesions in the first portion of the duodenum * * #Fever * source of infection is gram+ cocci * lactic acid elevated but this could have been due to hypoperfusion in setting of hemorrhagic shock * will check urine analysis and check blood cultures * on antibiotics for now * Infectious disease following * #Acute on chronic anemia: as above #Lactic acidosis: likely due to hemorrhagic shock. management as above. #Acute encephalopathy: likely due to hemorrhagic shock. Management as above. #Cirrhosis * has a history of chronic alcohol abuse * on nadolol, rifaximin, spironolactone * has a history of esophageal varices. * He will need to be on lactulose and I will also start Flagyl as he could be suffering from grade 1 to grade 2 hepatic encephalopathy as that is causing him to be more lethargic. * #Probable hepatocellular carcinoma * CT abdomen and pelvis from August 2022 showed a 4cm x 4.1cm heterogenous solid mass in the mid lateral portion of the right lobe of hte liver with mildly distended gallbladder. * Patient should get liver biopsy. I do not think he would be a candidate for transarterial chemoembolization if it turns out to be HCC. I will let oncology decide if he be a candidate for chemotherapy. * Outpatient liver biopsy Charges/Coding Visit Charges Inpatient E&M: 62710 [facility] Hosp L3
--- NOTE | 2022-11-19 09:30 | CASEMGMT ---
SW spoke with patient. SW asked patient if he has reconsidered and decided on a custodial facility. Patient said he is going home. Patient will be staying with a neighbor on the first floor. SW asked patient if he has talked to this neighbor and patient said he did. Jocelyn BURNETT
--- NOTE | 2022-11-19 11:04 | PCM.RX.CS ---
Consult Pharmacy has been consulted to manage selected antiobiotic: Vancomycin Type of Consult: Follow-up Prior Doses of Antibiotics Received/Current Regimen: current dose is vanc 1750mg IV q12h Labs: Sodium 138 mmol/L (136-145) 11/19/22 06:44 Potassium 3.8 mmol/L (3.5-5.1) 11/19/22 06:44 Chloride 110 mmol/L (98-107) H 11/19/22 06:44 Carbon Dioxide 24.0 mmol/L (21.0-32.0) 11/19/22 06:44 Anion Gap 4 (5-15) L 11/19/22 06:44 BUN 8 mg/dL (7-18) 11/19/22 06:44 Creatinine 0.66 mg/dL (0.70-1.30) L 11/19/22 06:44 Est GFR (MDRD) Af Amer 158 mL/min (>60) 11/19/22 06:44 Est GFR (MDRD) Non-Af 131 mL/min (>60) 11/19/22 06:44 BUN/Creatinine Ratio 12.2 RATIO (10-20) 11/19/22 06:44 Glucose 109 mg/dL (74-106) H 11/19/22 06:44 Vancomycin Trough 13.3 ug/mL (5.0-15.0) 11/19/22 06:44 Microbiology: Microbiology 11/15/22 16:35 Blood Culture (Wb) - Anticubital Left Blood Culture - Preliminary No growth in 48 hours. 11/15/22 16:49 Blood Culture (Wb) - Left Hand Blood Culture - Preliminary No growth in 48 hours. 11/15/22 23:25 Urine, Clean Catch Urine Culture - Final Culture exhibits no growth. 11/14/22 19:43 Blood Culture (Wb) - Right Hand Blood Culture - Preliminary Coag Negative Staph 11/14/22 19:22 Blood Culture (Wb) - Right Hand Bacteria Detection (PCR) - Final Staphylococcus epidermidis mecA Resistance Marker 11/14/22 19:22 Blood Culture (Wb) - Right Hand Blood Culture - Final Staphylococcus epidermidis Weight used for dosin.9 kg Estimated Creatinine Clearance: >100ml/min Goal Trough: 15-20 mcg/mL Pharmacy Plan for Drug Dosing: The vanc trough drawn at 06:44 today (approx 13.5 hrs after the previous dose) was 13.3. It would have been a little higher if drawn closer to the 12 hour shantel (the previous dose was given early) but it did not increase as much as anticipated after the last trough. Therefore, since it is not in goal range yet, will increase dosing to 2000mg IV q12h, starting this morning since the morning dose had not been given yet. Will recheck a trough before the 4th new dose. Pharmacy Service will continue to monitor and adjust dosing as required. Follow-Up Labs: Trough Vancomycin Labs to be done on [date and time ordered]: 11/20/22 22:30
--- NOTE | 2022-11-19 13:25 | DCINST_ITS ---
Discharge Instructions Diet Discharge Diet: - (Please restrict your sodium intake to 2 milligrams a day. Please do not drink more than 1.5 L of fluid a day. Please avoid alcohol.) Activity Discharge Activity: - (Advise fall precautions) Follow Up Care Test Results: Test results from this visit will be discussed in further detail at your follow- up appointment, if applicable. Discharge Plan Admission Admit Date/Time: 11/12/22 08:29 Primary Reason for Your Visit: Vomiting blood and dark stools Attending Provider: Jessica Franks Primary Care Provider: Jose Alex Consulting Providers: Larry Lynn ; Praveen Abdul ; Casey Peterson ; Jama Suero ; Donna Lynn NP ; Gloria Li ; Dean Lee Instructions Patient Instructions: Treating Cirrhosis, Understanding Cirrhosis, ED Fall Prevention Additional Instructions / Restrictions: DISCHARGE INSTRUCTIONS PLEASE READ *Please take this with you to your next doctors appointment* -You will need to follow-up with Dr. Ramon with GI in his office upon discharge. Please call his office to schedule your hospital follow-up appointment (ph. [phone]) -You have a mass in your liver and will need to follow-up with oncology and you will need an outpatient biopsy. If you do not have an oncologist you can contact the local oncologist, contact information below -Your Lasix has been decreased to 20 mg daily and your spironolactone to 25 mg daily. New scripts have been sent in for these dosages, it is important that you only take 20 mg of the Lasix and only 25 mg of the spironolactone and do not combine this with old prescriptions continue nadolol -You will need to take 20 g of lactulose 4 times a day and titrate dose to 2-3 bowel movements daily -You will need additional antibiotics on discharge, you will take levofloxacin 500 mg daily for another 3 days -Continue other home medications -Please call your primary care provider's office upon discharge to schedule a hospital follow up within 1 week. -For any concerning signs or symptoms please call 911 or proceed to the nearest emergency department Discharge Orders/Prescriptions Prescriptions: New levofloxacin 500 mg Tablet 500 mg PO DAILY@0600 3 Days Qty: 3 0RF spironolactone 25 mg Tablet 25 mg PO DAILY 30 Days Qty: 30 0RF Continued pantoprazole 40 mg Tablet,Delayed Release (Dr/Ec) 40 mg PO BID Qty: 0 0RF Rx Instructions: 40 mg twice daily for 8-week and then once daily Xifaxan 550 mg Tablet 550 mg PO BID Qty: 0 0RF thiamine HCl (vitamin B1) [Vitamin B-1] 100 mg Tablet 100 mg PO BREAKFAST Qty: 0 0RF folic acid 1 mg Tablet 1 mg PO BREAKFAST Qty: 0 0RF nadolol 20 mg Tablet 20 mg PO DAILY 30 Days Qty: 0 0RF Changed furosemide 40 mg Tablet 20 mg PO DAILY 30 Days Qty: 15 0RF lactulose 20 gram/30 mL Solution 20 g PO Q6H 30 Days Qty: 2880 0RF Rx Instructions: Goal to have 2-3 soft bowel movements per day Discontinued spironolactone 50 mg Tablet 100 mg PO DAILY Qty: 0 0RF Rx Instructions: Hold if potassium more than 5.0 Referrals / Follow Up: Jose Alex MD [Primary Care Provider] - Within 1 Week Pee Abel MD [Med Staff - Active Staff] - See Referral Note (If you do not have a cancer doctor please call [facility] to establish care.) Sheldon Ramon DO [Med Staff - Active Staff] - See Referral Note (You will need to follow-up with Dr. Ramon with GI in his office upon discharge. Please call his office to schedule your hospital follow-up appointment (ph. [phone])) Disposition Disposition (needs filled in before D/C Order can be placed): Home, Self Care
--- NOTE | 2022-11-19 13:27 | PCM.DC.SUM ---
Providers Date of Admission: 11/12/22 Date of Discharge: 11/19/22 Primary Care Physician: Dr. Jose Alex MD Consultations 11/12/22 09:31 Consult: Gastroenterology Routine Consulting Provider: [facility] Reason for Consult: UGI bleed EMERGENT Consult: No Notified: Yes Date Notified: 11/12/22 Time Notified: 08:31 Method of Notification: Text Consult: Specimen Technician / Pulmonary Medicine Routine Consulting Provider: Pulmonary Medicine [facility] Reason for Consult: hemorrhagic shock EMERGENT Consult: No Notified: Yes Date Notified: 11/12/22 Time Notified: 08:31 Method of Notification: Text 11/16/22 08:16 Consult: Infectious Disease Routine Consulting Provider: Dean Lee Reason for Consult: 2/2 blood cx + gram positive cocci EMERGENT Consult: No Notified: Yes Date Notified: 11/16/22 Time Notified: 08:24 Method of Notification: Text Reason For Visit: HEMORRHAGIC SHOCK DUE TO GI BLEED Diagnosis Discharge Diagnosis (1) Acute GI bleeding: Status: Acute Code(s): K92.2 - Gastrointestinal hemorrhage, unspecified (2) Hemorrhagic shock: Status: Acute Code(s): R57.8 - Other shock Plan #staph epi bacteremia- no shock #Hemorrhage shock 2/2 UGI bleed 2/2 bleeding esophageal varicies grade III s/p banding -Secondary to grade 3 esophageal varices status post banding on 11/12 #Hepatic mass/cirrhosis/hepatic encephalopathy Medications at Discharge Home Medications folic acid 1 mg tablet 1 mg PO BREAKFAST #0 tabs 09/18/22 pantoprazole 40 mg tablet,delayed release 40 mg PO BID #0 tabs 09/18/22 rifaximin 550 mg tablet (Xifaxan) 550 mg PO BID #0 tabs 09/18/22 thiamine HCl (vitamin B1) 100 mg tablet (Vitamin B-1) 100 mg PO BREAKFAST #0 tabs 09/18/22 furosemide 40 mg tablet 20 mg PO DAILY 30 days #15 tabs 11/19/22 lactulose 20 gram/30 mL oral solution 20 g (30 mL) PO Q6H 30 days #2,880 mL 11/19/22 levofloxacin 500 mg tablet 500 mg PO DAILY@0600 3 days #3 tabs 11/19/22 nadolol 20 mg tablet 20 mg PO DAILY 30 days #0 tabs 11/19/22 spironolactone 25 mg tablet 25 mg PO DAILY 30 days #30 tabs 11/19/22 Hospital Course Procedures - (CTA, echo) Summary of Care Provided Hospital Course: Patient is a 62-year-old male with a history of cirrhosis and liver lesion concerning for malignancy as well as hypertension who presented to [facility] 11/12/2022 with dark bowel movements and vomiting blood. In the ED blood pressure 85/43 and CBC showed hemoglobin of 7.3 and he was transfused 2 units packed red blood cells and hospitalist consulted for admission. Patient started on IV PPI drip and octreotide drip and GI consulted. He had a history of esophageal varices and gastric ulcers with recent intervention in August 2022. He went for repeat endoscopy and was found to have grade 3 esophageal varices which were banded. His hemoglobin stabilized. He did also have confusion and was found to have hepatic encephalopathy and was given lactulose which did improve that. His hospitalization course was complicated by a fever. He had no source of infection so cultures were obtained but given stable clinically with no elevation white blood cell count no antibiotics were started and he was monitored clinically. He did on 11/15 reports some increased shortness of breath and abdominal discomfort. His blood cultures were found to be growing gram-positive cocci and he had a lactic acid of 2.9 and was slightly tachypneic and he was started on broad-spectrum antibiotics and given fluids with his spironolactone and Lasix held. He did have CTA chest abdomen pelvis due to his shortness of breath and tachypnea and the fact that he had not been on pharmacologic DVT prophylaxis due to recent GI bleed and this showed no PE but bilateral effusions with possible bilateral pneumonia. The cultures grew staph epi and given the 2 out of 2 infectious disease was consulted and echo obtained. Echo showed an EF of 65% with stage II diastolic dysfunction and mild to moderate aortic stenosis with a mean valve gradient of 26. He remained on vancomycin and Rocephin and repeat cultures obtained which were no growth to date. Discussed with infectious disease and he will be discharged on additional 3 days of Levaquin. Once he stabilized he also had low doses of his diuretics resumed. Of note his scans redemonstrated multiple enhancing lesions in his liver concerning for metastatic disease. Patient also had several bouts of abdominal pain and had KUBs and abdominal ultrasound but his pain improved with bowel movements. PT recommended that he go to rehab prior to going home due to him being weak. Family expressed they would like him to go to SNF however patient adamant that he would be going home. He reports that the person lives below him would be setting a place for him to stay so he would not have to use the steps and he cited several people that would be able to assist him at home. He was able to state where he was in the date as well as why he was here. He is able to relay a basic understanding of medical problems and a basic understanding of things that he needed to do like follow-up for liver biopsy and take the lactulose. Additionally he was able to verbalize that he understood if he went home he could fall and that if that happened he would be willing to call 911 and come back to the hospital. Based on evaluation he does not lack capacity to make this decision at this time. He also is aware that it is our in his family's preference that he go to SNF prior to going home but still he refuses. On day of discharge no significant abdominal pain or other complaints. Charge instructions as followed: -You will need to follow-up with Dr. Ramon with GI in his office upon discharge.? Please call his office to schedule your hospital follow-up appointment (ph. [phone]) -You have a mass in your liver and will need to follow-up with oncology and you will need an outpatient biopsy.? If you do not have an oncologist you can contact the local oncologist, contact information below -Your Lasix has been decreased to 20 mg daily and your spironolactone to 25 mg daily.? New scripts have been sent in for these dosages, it is important that you only take 20 mg of the Lasix and only 25 mg of the spironolactone and do not combine this with old prescriptions continue nadolol -You will need to take 20 g of lactulose 4 times a day and titrate dose to 2-3 bowel movements daily -You will need additional antibiotics on discharge, you will take levofloxacin 500 mg daily for another 3 days -Continue other home medications -Please call your primary care provider's office upon discharge to schedule a hospital follow up within 1 week. -For any concerning signs or symptoms please call 911 or proceed to the nearest emergency department Physical Exam Narrative General: Alert, oriented, no apparent distress HEENT: Atraumatic, normocephalic Eyes: Anicteric, normal conjunctiva, extraocular movements grossly intact Neck: Supple Respiratory: No wheezes or rhonchi, normal respiratory effort Cardiovascular: Regular rate and rhythm GI: Soft, slightly distended but nontender no rebound, guarding, rigidity Extremities: 1+ lower extremity edema Musculoskeletal: Moving all extremities Neuro: No overt focal neurological deficits Skin: No rashes appreciated Psych: Cooperative Weight / BMI Weight Weight: 87.9 kg Body Mass Index (BMI) 27.8 ABG / Lab / Microbiology Data Result Diagrams: 11/19/22 06:44 11/19/22 06:44 Laboratory: Laboratory Results - last 24 hr 11/19/22 06:44: Sodium 138, Potassium 3.8, Chloride 110 H, Carbon Dioxide 24.0, Anion Gap 4 L, BUN 8, Creatinine 0.66 L, Estim Creat Clear Calc 121.36, Est GFR (MDRD) Af Amer 158, Est GFR (MDRD) Non-Af 131, BUN/Creatinine Ratio 12.2, Glucose 109 H, Calcium 8.3 L 11/19/22 06:44: Vancomycin Trough 13.3 11/19/22 06:44: WBC 6.7, RBC 3.36 L, Hgb 9.2 L, Hct 27.9 L, MCV 83.0, MCH 27.4, MCHC 33.0, RDW Std Deviation 53.8 H, RDW Coeff of Bassam 18.0 H, Plt Count 202, MPV 9.8, Immature Gran % (Auto) 0.700, Neut % (Auto) 74.4 H, Lymph % (Auto) 11.3 L, [place] % (Auto) 9.0, Eos % (Auto) 4.0, Baso % (Auto) 0.6, Absolute Neuts (auto) 5.0, Absolute Lymphs (auto) 0.76 L, Nucleated RBC % 0 11/19/22 06:44: Ammonia 56.0 H Microbiology: Microbiology 11/15/22 16:35 Blood Culture (Wb) - Anticubital Left Blood Culture - Preliminary No growth in 48 hours. 11/15/22 16:49 Blood Culture (Wb) - Left Hand Blood Culture - Preliminary No growth in 48 hours. 11/15/22 23:25 Urine, Clean Catch Urine Culture - Final Culture exhibits no growth. 11/14/22 19:43 Blood Culture (Wb) - Right Hand Blood Culture - Preliminary Coag Negative Staph 11/14/22 19:22 Blood Culture (Wb) - Right Hand Bacteria Detection (PCR) - Final Staphylococcus epidermidis mecA Resistance Marker 11/14/22 19:22 Blood Culture (Wb) - Right Hand Blood Culture - Final Staphylococcus epidermidis Radiography Diagnostic Testing: Radiology Impression Abdomen Ultrasound 11/17/22 13:15 IMPRESSION: No significant ascites is seen. Distended gallbladder with gallstones and sludge as well as thickened gallbladder wall. Solid mass in the right lobe of the liver. Electronically Signed: Primo Luz MD at 15:22 EDT , D/C Instructions Discharge Diet: - (Please restrict your sodium intake to 2 milligrams a day. Please do not drink more than 1.5 L of fluid a day. Please avoid alcohol.) Meaningful Use Info Meaningful Use Diagnoses (Choose all that apply): None applicable Discharge Plan Admission Admit Date/Time: 11/12/22 08:29 Primary Reason for Your Visit: Vomiting blood and dark stools Attending Provider: Jessica Franks Primary Care Provider: Jose Alex Consulting Providers: Larry Lynn ; Praveen Abdul ; Casey Peterson ; Jama Suero ; Donna Lynn NP ; Gloria Li ; Dean Lee Instructions Patient Instructions: Treating Cirrhosis, Understanding Cirrhosis, ED Fall Prevention Additional Instructions / Restrictions: DISCHARGE INSTRUCTIONS PLEASE READ *Please take this with you to your next doctors appointment* -You will need to follow-up with Dr. Ramon with GI in his office upon discharge. Please call his office to schedule your hospital follow-up appointment (ph. [phone]) -You have a mass in your liver and will need to follow-up with oncology and you will need an outpatient biopsy. If you do not have an oncologist you can contact the local oncologist, contact information below -Your Lasix has been decreased to 20 mg daily and your spironolactone to 25 mg daily. New scripts have been sent in for these dosages, it is important that you only take 20 mg of the Lasix and only 25 mg of the spironolactone and do not combine this with old prescriptions continue nadolol -You will need to take 20 g of lactulose 4 times a day and titrate dose to 2-3 bowel movements daily -You will need additional antibiotics on discharge, you will take levofloxacin 500 mg daily for another 3 days -Continue other home medications -Please call your primary care provider's office upon discharge to schedule a hospital follow up within 1 week. -For any concerning signs or symptoms please call 911 or proceed to the nearest emergency department Discharge Orders/Prescriptions Prescriptions: New levofloxacin 500 mg Tablet 500 mg PO DAILY@0600 3 Days Qty: 3 0RF spironolactone 25 mg Tablet 25 mg PO DAILY 30 Days Qty: 30 0RF Continued pantoprazole 40 mg Tablet,Delayed Release (Dr/Ec) 40 mg PO BID Qty: 0 0RF Rx Instructions: 40 mg twice daily for 8-week and then once daily Xifaxan 550 mg Tablet 550 mg PO BID Qty: 0 0RF thiamine HCl (vitamin B1) [Vitamin B-1] 100 mg Tablet 100 mg PO BREAKFAST Qty: 0 0RF folic acid 1 mg Tablet 1 mg PO BREAKFAST Qty: 0 0RF nadolol 20 mg Tablet 20 mg PO DAILY 30 Days Qty: 0 0RF Changed furosemide 40 mg Tablet 20 mg PO DAILY 30 Days Qty: 15 0RF lactulose 20 gram/30 mL Solution 20 g PO Q6H 30 Days Qty: 2880 0RF Rx Instructions: Goal to have 2-3 soft bowel movements per day Discontinued spironolactone 50 mg Tablet 100 mg PO DAILY Qty: 0 0RF Rx Instructions: Hold if potassium more than 5.0 Referrals / Follow Up: Jose Alex MD [Primary Care Provider] - Within 1 Week Pee Abel MD [Med Staff - Active Staff] - See Referral Note (If you do not have a cancer doctor please call [facility] to establish care.) Sheldon Ramon DO [Med Staff - Active Staff] - See Referral Note (You will need to follow-up with Dr. Ramon with GI in his office upon discharge. Please call his office to schedule your hospital follow-up appointment (ph. [phone])) Disposition Disposition (needs filled in before D/C Order can be placed): Home, Self Care Charges/Coding Visit Charges Inpatient E&M: 71727 Disch Hosp >30min
[2022-11-19] MEDS: levoFLOXacin 500 MG Tablet PO (13:31)
--- NOTE | 2022-11-19 14:52 | CASEMGMT ---
GAYLA TREVIZO in to discuss discharge planning with patient. Patient is agreeable to [facility], patient has no preferences, GAYLA TREVIZO reviewed agencies with patient and he was agreeable to [facility]. GAYLA TREVIZO sent referral to [facility] and they are able to accept the patient. Patient updated with [facility] acceptance and they will contact patient with start of care. Patient voiced understanding and had no further questions or concerns.
--- NOTE | 2022-11-19 15:04 | PCM.PN.ID ---
Physical Exam Narrative Feeling better, no fever, no abd pain Const alert and no apparent distress Resp normal air movement and clear to auscultation bilaterally Cardio regular rate and regular rhythm GI soft to palpation, non-tender and non-distended Skin no rashes or lesions noted ID ID: Route of nutrition/ use of supplements: [] Nutritional Intake: [] IV Site: [] Hsu Catheter: [] Assessment & Plan Assessment/Plan (1) Acute GI bleeding: (2) Cirrhosis: (3) Bacteremia: PLAN: 2 of 2 Bcx with CoNS seen, pcr showing MRSE. On vanc. CT with bilateral effusions and pneumonia, but denied cough or SOB. Cont ceftriaxone for pneumonia coverage and variceal bleed prophylaxis (course started 11/15). TTE showed no veg. Plan on po levaquin x 3 days at discharge. Will follow as needed, wrote rx, d/w Dr. Franks
--- NOTE | 2022-11-19 15:23 | NURSING ---
This RN went to patient to discuss discharge instructions. The patient was not compliant and refused teaching. Urged patient that it was necessary to go over paperwork and discuss new medications and follow-up appointments. Patient still refused. Sent patient home with discharge instructions.
--- NOTE | 2022-11-19 15:59 | CASEMGMT ---
RN SANTHOSH updated by [facility] that they are not able to see the patient until he follows up with PCP. RN SANTHOSH attempted to call patient but number not working. RN SANTHOSH called brother Rogers, correct number is [phone]. RN SANTHOSH updated patient's contact information. GAYLA TREVIZO attemtped to call patient, no answer and unable to leave . GAYLA TREVIZO called [employer] and updated with correct phone number.
--- NOTE | 2022-11-19 18:45 | CASEMGMT ---
SW called Adult Protective Services and made referral. Jocelyn Brar [facility] [employer]
== END 2022-11-19 15:18 | disposition home or self-care (01) | DRG 368 ==
LOC: ED 08:03 → ICU 08:37 → PCU 11-14 12:16
PROVIDERS: Internal Medicine Critical Care Medicine; Internal Medicine Gastroenterology; Admitting Provider Student in an Organized Health Care Education/Training Program; Emergency Provider Emergency Medicine; PCP Family Medicine; Visit Provider Internal Medicine
PROC: 0DJ08ZZ Inspection of Upper Intestinal Tract, Via Natural or Artificial Opening Endoscopic (ICD-10-PCS; CPT 43235; principal; 2022-11-12 12:10)
DX: I85.01 Esophageal varices with bleeding (principal); R57.8 Other shock; J18.9 Pneumonia, unspecified organism; E87.20 Acidosis, unspecified; R18.8 Other ascites; C22.0 Liver cell carcinoma; D62 Acute posthemorrhagic anemia; K76.82 Hepatic encephalopathy; K74.60 Unspecified cirrhosis of liver; K29.20 Alcoholic gastritis without bleeding; K82.8 Other specified diseases of gallbladder; F17.210 Nicotine dependence, cigarettes, uncomplicated; I10 Essential (primary) hypertension; K76.89 Other specified diseases of liver; K80.20 Calculus of gallbladder without cholecystitis without obstruction; K76.9 Liver disease, unspecified; I35.0 Nonrheumatic aortic (valve) stenosis; B96.89 Other specified bacterial agents as the cause of diseases classified elsewhere
CPT/HCPCS: 36415; 36600; 71045; 71046; 71275; 74018; 74174; 76705; 80048; 80053; 80076; 80202; 81001; 82077; 82140; 82803; 83605; 83690; 83735; 85014; 85018; 85025; 85610; 85730; 86850; 86900; 86901; 86920; 86922; 87040; 87086; 87149; 87186; 93005; 93306; 94762; 97116; 97162; 97166; 97530; 97535; 97803; 99285; 99406; J7030; J7040; P9016; A4216; J0696; J2405; J3490

== ENCOUNTER 2023-08-23 12:14 | Inpatient (IN) | payer MEDICARE, MEDICAID, SELFPAY ==
[2023-08-23] VITALS (21 sets, daily range): BP systolic 107–157; BP diastolic 37–68; PULSE 87–100; RESP 12–28; TEMP 36.6–37.6; O2SAT 98–100; BMI 27.9; BMI 27.3
--- NOTE | 2023-08-23 12:23 | CT_ITS ---
HISTORY: altered mental status. TECHNIQUE: Multiple axial images were obtained of the head without intravenous contrast. A radiation dose optimization technique was used for this scan. 254 images. COMPARISON: None. FINDINGS: BRAIN PARENCHYMA: Multiple foci and zones of low attenuation in the bilateral cerebral white matter compatible with chronic small vessel ischemic gliosis. No acute intra-axial hemorrhage identified. CSF SPACES: Generalized volume loss. No midline shift or other significant mass effect. No acute extra-axial hemorrhage seen. OTHER: Intact calvarium. Mild maxillary sinus mucosal thickening. Left lens resection. CT/Brain/Head without Contrast IMPRESSION: No acute intracranial process identified. Mild chronic involutional and white matter changes. Electronically Signed: Janene Holden MD at 14:05 EST ,
--- NOTE | 2023-08-23 12:23 | RAD_ITS ---
HISTORY: altered MS. TECHNIQUE: XR Chest 1 View. COMPARISON: 11/15/2022. FINDINGS: CARDIOMEDIASTINAL BORDERS: Cardiac silhouette within normal limits in size. Mediastinal contour unremarkable. LUNGS: Mild linear bibasilar opacities, likely atelectasis or scarring. PLEURA: No pleural effusion or pneumothorax seen. OSSEOUS STRUCTURES: Cervical spinal fusion hardware noted. RAD/Chest 1 View (Portable) IMPRESSION: No acute cardiopulmonary process identified. Electronically Signed: Janene Holden MD at 14:18 EST ,
--- NOTE | 2023-08-23 12:26 | CT_ITS ---
HISTORY: RUQ pain, n/v. TECHNIQUE: Helically acquired images were obtained of the abdomen and pelvis after the intravenous administration of 100mL Isovue-370. A radiation dose optimization technique was used for this scan. 466 images. COMPARISON: 11/15/2022. FINDINGS: LOWER CHEST: Decreased atelectasis in lung bases with resolution of the pleural effusions. Chronic distal esophageal wall thickening. BOWEL: Small bowel and appendix nondilated. Mild cecal to transverse colonic wall thickening. Large amount of stool throughout the colon. PERITONEUM: Trace ascites with mesenteric edema. LIVER: Heterogeneous and cirrhotic with multiple cystic and solid enhancing masses. 3.3 cm mass in the right hepatic lobe laterally, previously 2 cm. Increased necrotic appearance of the larger mass in the right lobe. GALLBLADDER/BILIARY TREE: Multiple gallstones with moderate gallbladder wall edema. SPLEEN/PANCREAS: Homogeneous and nonenlarged. KIDNEYS: Small bilateral cysts. 3 cm complex cystic lesion with nodular and thin septal calcification in the left kidney, previously 3.2 cm is. ADRENAL GLANDS: No nodules. VESSELS: No abdominal aortic aneurysm. Mild atherosclerosis. Nonocclusive filling defect at the junction of the left portal and main portal veins. PELVIC ORGANS: Mild bladder wall thickening with trace perivesical stranding and a posterior diverticulum. Prostate calcifications. BONES: Degenerative change. CT/Abdomen/Pelvis W IV Cont ONLY IMPRESSION: Cirrhotic liver with varices, trace ascites, and multiple masses concerning for neoplasm as described above. 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 Cholelithiasis with gallbladder wall edema from anasarca or cholecystitis. Chronic edema or inflammation of the distal esophagus. Edema or inflammation of the proximal colon. Bladder wall thickening with mild surrounding stranding, suggesting cystitis. Bilateral renal cysts. Stable complex cystic lesion in the left kidney. Electronically Signed: Janene Holden MD at 14:17 EST ,
[2023-08-23] MEDS: Ondansetron 4 MG/2 ML Vial IV (12:33)
[2023-08-23] MEDS: 0.9% Normal Saline (1000mL) 1,000 ML 1000 ML IV (12:33)
--- NOTE | 2023-08-23 12:47 | EDS_ITS ---
HPI History of Present Illness Chief Complaint: Alt LOC Informant: EMS Limited: other (decreased LOC) Narrative Narrative: Patient brought by EMS for decreased responsiveness and not feeling well. Apparently his roommate called EMS to take him to the hospital yesterday but the patient refused. Today his roommate found him unresponsive in a sleeping bag with a pool of his own urine and stool in it. The patient cannot provide any history. He seems to indicate yes that he has been vomiting and yes it may have had some blood in it. PFSH PFS Medical History Acute GI bleeding Anemia Cirrhosis GI bleed Hemorrhagic shock Hypertension Home Medications folic acid 1 mg tablet 1 mg PO BREAKFAST #0 tabs 09/18/22 [Rx Last Taken Unknown] pantoprazole 40 mg tablet,delayed release 40 mg PO BID #0 tabs 09/18/22 [Rx Last Taken Unknown] rifaximin 550 mg tablet (Xifaxan) 550 mg PO BID #0 tabs 09/18/22 [Rx Last Taken Unknown] thiamine HCl (vitamin B1) 100 mg tablet (Vitamin B-1) 100 mg PO BREAKFAST #0 tabs 09/18/22 [Rx Last Taken Unknown] furosemide 40 mg tablet 20 mg (1/2 x 40 mg) PO DAILY 30 days #15 tabs 11/19/22 [Rx Last Taken Unknown] lactulose 20 gram/30 mL oral solution 20 g (30 mL) PO Q6H 30 days #2,880 mL 11/19/22 [Rx Last Taken Unknown] levofloxacin 500 mg tablet 500 mg PO DAILY@0600 3 days #3 tabs 11/19/22 [Rx Last Taken Unknown] nadolol 20 mg tablet 20 mg PO DAILY 30 days #0 tabs 11/19/22 [Rx Last Taken Unknown] spironolactone 25 mg tablet 25 mg PO DAILY 30 days #30 tabs 11/19/22 [Rx Last Taken Unknown] Allergy/AdvReac Type Severity Reaction Status Date / Time morphine Allergy Unknown Verified 08/23/23 12:22 Family History unable to obtain Social History Smoking Status: Current every day smoker tobacco type: cigarettes ROS ROS ED Review of Systems ROS Unobtainable: due to mental status and other Details: And when does try to talk is only just slurred speech and unintelligible EXAM Physical Exam Const Vital Signs: 08/23/23 12:16 08/23/23 12:15 08/23/23 13:26 Temperature 97.8 F Temperature Source Temporal Pulse Rate 100 92 Respiratory Rate 28 H 18 Blood Pressure 113/37 L 107/46 L Blood Pressure Mean 62 66 Pulse Ox 98 99 Oxygen Delivery Method Room Air Room Air Positive well nourished, well developed and unkempt Constitutional Narrative: Lethargic alerts to voice General Appearance ED: unkempt and well developed HEENT Reports moist mucous membranes normocephalic and atraumatic Eyes PERRL and EOMs intact bilaterally Neck full ROM and supple Resp normal respiratory effort and clear to auscultation bilaterally Resp Narrative: Tachypneic no distress Cardio regular rate, regular rhythm and no murmurs GI non-distended GI Narrative: Tenderness in the right upper quadrant. No guarding or rebound. Auscultation: normoactive bowel sounds Palpation: soft Back/Spine no CVA tenderness Extremity normal to inspection General Extremety ED: Negative for edema, pulses abnormal or tenderness General Extremity: Negative for edema or pulses abnormal Neuro CN's II-XII intact bilaterally and no sensory deficits noted Anusha Coma Scale: document GCS findings To Voice Localizes to Pain Incomprehensible 10 Sensorium / Orientation: orientation impaired and lethargic Motor Exam: general weakness Psych Appearance: unkempt Skin no rashes or lesions noted and no wounds MDM MDM MDM Narrative Medical decision making narrative: Other than a little tachypnea, his vital signs are otherwise normal. Wide differential here including primary [employer]ST[employer]ER pathology, infectious etiology, metabolic disturbances, hemorrhagic pathology such as GI bleed, cardiopulmonary etiology. A broad workup was performed including a septic workup and a CT of the head. His EKG shows some nonspecific ST-T wave abnormality without any acute injury pattern. Respiratory attempting to obtain an ABG to check his pH status. They are unable to obtain so changing it to a VBG. Gave him some IV fluids with Zofran empirically. The first lab that came back is a CBC showing a hemoglobin of 5.8. He is not thrombocytopenic. Venous pH is within normal limits. Given this, it makes acute upper GI bleed much more likely, especially given what appears to be dried blood around his mouth possibly from hematemesis. Given this, and his apparent history of cirrhosis, this makes esophageal varices more likely. I put a call out to GI as well as ordering pantoprazole bolus and drip, IV Rocephin, 2 units of crossmatched packed red blood cells, and obtained a Hemoccult and sent that. At this time the patient is not coherent enough in order to consent for blood, he is encephalopathic, however it is my belief that the benefits of him getting blood far outweigh the risks and cons. Furthermore, upon reviewing records from 1 year ago, he had a similar presentation, at which point he consented to receiving a blood transfusion. Upon review of his EGD that was done a year ago when he presented similarly, he had grade 3 esophageal varices in addition to oozing cratered gastric ulcers, both of which were treated at that time. His history of cirrhosis is apparently due to alcohol, his level is negative now. Causes of encephalopathy could include alcohol withdrawal. Ammonia level is added. No seizure activity at this time but will continue to monitor. Apparently was laying on the floor in his sleeping bag for a while so adding a CPK as well. Dr. Ramon advised adding octreotide gtt to the above orders. BUN significantly elevated consistent with upper GI bleed. I reviewed/interpreted the head CT as negative for anything acute including bleeding/asymmetry. I reviewed/interpreted the abdominal CT images as multiple hepatic lesions, gallstones, no free air or ascites noted or signs of a bowel obstruction. Acute cholecystitis is considered although there are no radiographic signs of a right now. He does have a mild leukocytosis which is nonspecific in context of all of this. The antibiotics given for his upper GI bleed possibly due to varices should help cover him for this as well. Even if he does have acute cholecystitis, he is relatively stable and in no shape to go directly to the operating room at this time. Will admit to ICU. Discussed with hospitalist. History & Record Review Additional record(s) reviewed:: Prior ED visit and Prior labs Lab Data Attestation: I reviewed the patient's lab results. Labs: Laboratory Results - last 24 hr 08/23/23 08/23/23 12:35 13:20 WBC 13.1 H RBC 2.09 L Hgb 5.8 L* Hct 19.0 L MCV 90.9 MCH 27.8 MCHC 30.5 L RDW Std Deviation 49.3 H RDW Coeff of Bassam 15.4 H Plt Count 273 MPV 9.7 Immature Gran % (Auto) 0.600 Neut % (Auto) 73.2 H Lymph % (Auto) 13.5 L [place] % (Auto) 11.9 H Eos % (Auto) 0.5 Baso % (Auto) 0.3 Absolute Neuts (auto) 9.6 H Absolute Lymphs (auto) 1.77 Nucleated RBC % 0.2 Diff Path Review May foll Hypochromasia 2+ PT 16.5 H INR 1.3 APTT 31.7 Sodium 145 Potassium 4.2 Chloride 110 H Carbon Dioxide 27.0 Anion Gap 8 BUN 74 H Creatinine 1.22 Estim Creat Clear Calc 64.82 Est GFR (MDRD) Af Amer 77 Est GFR (MDRD) Non-Af 64 BUN/Creatinine Ratio 60.7 H Glucose 142 H Lactic Acid 5.9 H* Calcium 8.5 Total Bilirubin 0.60 AST 253 H ALT 137 H Alkaline Phosphatase 143 H Ammonia 69.0 H Total Creatine Kinase 73 Troponin I High Sens 37 Total Protein 5.7 L Albumin 2.1 L Globulin 3.6 Albumin/Globulin Ratio 0.6 L Lipase 38 Ethyl Alcohol < 3.0 Blood Type O POSITIVE Antibody Screen NEGATIVE Crossmatch See Detail ABG Data ABG results: ABG 08/23/23 13:05 Specimen Type ARAMIS Sample Site Not entered VBG pH 7.42 VBG pO2 22 L VBG HCO3 24 VBG Total CO2 25 VBG O2 Sat (Calc) 39 L VBG Base Excess 0 POC Mix VBG pCO2 Pt Tmp 37.0 L O2 Delivery Device Room Air Radiography Diagnostic Testing: Clinical Impression(s) from Imaging Studies Brain CT 08/23/23 12:23 IMPRESSION: No acute intracranial process identified. Mild chronic involutional and white matter changes. Electronically Signed: Janene Holden MD at 14:05 EST Reading Location ID and State: [facility] / [place] Tel , Service support , Chest X-Ray 08/23/23 12:23 IMPRESSION: No acute cardiopulmonary process identified. Electronically Signed: Janene Holden MD at 14:18 EST Reading Location ID and State: [facility] / [place] Tel , Service support , Abdomen/Pelvis CT 08/23/23 12:26 IMPRESSION: Cirrhotic liver with varices, trace ascites, and multiple masses concerning for neoplasm as described above. 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 Cholelithiasis with gallbladder wall edema from anasarca or cholecystitis. Chronic edema or inflammation of the distal esophagus. Edema or inflammation of the proximal colon. Bladder wall thickening with mild surrounding stranding, suggesting cystitis. Bilateral renal cysts. Stable complex cystic lesion in the left kidney. Electronically Signed: Janene Holden MD at 14:17 EST , Rhythm Strip Rhythm Strip: Sinus Rhythm Rate: 95 Ectopy: None EKG Initial EKG: Attestation: I personally reviewed and interpreted this EKG as follows: Interpretation: Sinus Rhythm, No Acute Injury Pattern and Non-Specific ST Changes Management Discussion w/another healthcare provider: Hospitalist and [employer] Model (GI friend) Critical Care Time Critical Care Time: Yes Critical care time (excluding procedures): 30-74 minutes (41 min), Including time spent:, Discussing w/Patient &/or Family/Candy Cutter Machine, Discussing w/Consultants, Arranging Admission or Transfer and Performing Direct Patient Care at Bedside Discharge Plan Dx/Rx/DC Orders Clinical Impression: ABLA (acute blood loss anemia), Encephalopathy acute, Alcoholic cirrhosis of liver, Acute upper gastrointestinal hemorrhage, Cholelithiasis, Portal vein thrombosis, Liver masses Disposition Disposition: [facility]
[2023-08-23 12:56] LABS: Absolute Lymphocyte Count 1.77 X10^3/uL (0.83-4.51); Absolute Neutrophil Count 9.6 X10^3/uL (2.0-7.7); Basophil# 0.04 X10^3/uL; Basophil% 0.3 % (0-1); Eosinophil# 0.06 X10^3/uL; Eosinophils% 0.5 % (0-5); Lymphocyte # 1.77 X10^3/ul (0.83-4.51); Lymphocyte % 13.5 % (19-41); Mean Corp Hgb Conc 30.5 g/dL (32-36); Mean Corpuscular Hgb 27.8 pg (27.0-32.0); Mean Corpuscular Volume 90.9 fL (80-94); Mean Platelet Vol. 9.7 fl (6.2-12.0); Monocyte# 1.56 X10^3/uL; Monocyte% 11.9 % (0-10); NRBC Flagged by Analyzer 0.2 % (0-5); Neutrophil # 9.59 X10^3/uL (2.7-7.7); Neutrophil % 73.2 % (47-70); POSITIVE COUNT YES; POSITIVE DIFFERENTIAL YES; Platelet Count 273 K/mm3 (150-450); RBC Distribution Width CV 15.4 % (11.6-14.6); RBC Distribution Width SD 49.3 fl (35.1-43.9); Red Blood Count 2.09 M/mm3 (4.6-6.2); White Blood Count 13.1 K/mm3 (4.4-11.0)
[2023-08-23 13:01] LABS: Differential Indicated SCAN CRITERIA MET; Hemoglobin 5.8 g/dL (13.0-16.5)
--- OUTSIDE RECORDS SUMMARY | 2023-08-23 13:07 | XMS RPT_ITS | CCD ---
Author Name Unknown Address [address] [place] [address] Organization [facility] Care Team Providers Care Freight [employer] Name Role Phone ANKUSH GARCIA Unavailable Unavailable ANKUSH GARCIA Unavailable Unavailable Yogesh Reardon Unavailable Unavailabl e Reggie Soriano Unavailable Unavailable Yasmany Ingram Primary Care Provider [phone] Unavailable Primary Care Provider Unavailabl e Allergies Allergy Classification Reported Allergen(s) Allergy Type Date of Onset Reaction(s) Facility (2 sources) Cat; Translations: [CATS] Propensity to adverse reactions (disorder) 5 Intolerance [facility] Repository (2 sources) Dust; Translations: [DUST] Propensity to adverse reactions (disorder) 5 Intolerance [facility] Repository (4 sources) morphine; Translations: [MORPHINE] Drug Allergy 7 Unknown [facility] Repository (4 sources) potassium chloride; Translations: [POTASSIUM CHLORIDE] Drug Allergy 0 Intolerance [facility] Repository (2 sources) Acetaminophen Drug Allergy 8 [place] (2 sources) MITE EXTRACT Drug Allergy 5 [place] (2 sources) Cats Claw (Uncaria Tomentosa) Propensity to adverse reactions to drug 5 Other (See Comments) [place] Medications Current Medications Medication Drug Class(es) Dates Sig (Normalized) Sig (Original) cholecalciferol 2000 unt oral tablet (4 sources) Vitamin D Start: 05-11-2017 take 2000 [IU] by mouth once daily 2,000 Units, Oral, DAILY, First dose on Tue10/08/20 at 1830 Completed/Discontinued Medications Medication Drug Class(es) Dates Sig (Normalized) Sig (Original) 24 hr buPROPion hydrochloride 150 mg extended release oral tablet (2 sources) Aminoketone Start: 03-06-2020 take 1 tablet by mouth once daily in the morning buPROPion (WELLBUTRIN XL) 150 MG extended release tablet Indications: Anxiety and depression , Fatigue, unspecified type , Tobacco abuse Take 1 tablet by mouth every morning 30 tablet 0 03/06/2020 Suspended 1 ml diphenhydrAMINE hydrochloride 50 mg/ml cartridge (1 source) Histamine-1 Receptor Antagonist Start: 10-07-2020 End: 10-07-2020 diphenhydrAMINE (BENADRYL) injection 25 mg 2 ml famotidine 10 mg/ml injection (1 source) Histamine-2 Receptor Antagonist Start: 05-24-2020 End: 05-24-2020 famotidine (PEPCID) injection 20 mg hydroCHLOROthiazide 12.5 mg / lisinopril 10 mg oral tablet (2 sources) Thiazide Diuretic, Angiotensin Converting Enzyme Inhibitor Start: 09-26-2020 End: 12-25-2020 take 1 tablet by mouth once daily lisinopril-hydroCHL OROthiazide (PRINZIDE;ZESTORETI C) 10-12.5 MG per tablet Indications: Essential hypertension TAKE 1 TABLET BY MOUTH DAILY 90 tablet 1 09/26/2020 12/25/2020 Suspended Problems Active Problems Problem Classification Problem Date Documented Date Episodic/Chronic Abdominal pain (1 source) Lower abdominal pain; Translations: [Lower abdominal pain] Episodic Adjustment disorders (1 source) Acute situational disturbance; Translations: [Adjustment disorder, unspecified] Onset: 10-23-2013 10-23-2013 Chronic Alcohol-related disorders (2 sources) H/O: alcoholism; Translations: [History of alcoholism] 01-22-2019 Episodic Anxiety disorders (2 sources) Anxiety state; Translations: [Generalized anxiety disorder] Onset: 10-23-2013 08-19-2006 Chronic Disorders of lipid metabolism (1 source) Mixed hyperlipidemia; Translations: [Mixed hyperlipidemia] Onset: 09-07-2005 12-15-2017 Chronic Esophageal disorders (2 sources) Esophageal varices without bleeding; Translations: [Secondary esophageal varices without bleeding] 02-25-2019 Chronic Essential hypertension (3 sources) Essential hypertension; Translations: [Essential (primary) hypertension] Onset: 10-23-2018 10-23-2018 Chronic Gastritis and duodenitis (2 sources) Chronic antral gastritis; Translations: [Chronic antral gastritis] 02-14-2019 Episodic Gastroduodenal ulcer (except hemorrhage) (2 sources) Gastric ulcer without hemorrhage AND without perforation; Translations: [Gastric ulcer without hemorrhage or perforation] 01-22-2019 Chronic Hepatitis (6 sources) Chronic viral hepatitis C; Translations: [Chronic hepatitis C] Onset: 06-14-2017 02-14-2019 Chronic Mood disorders (1 source) Depressive disorder; Translations: [Depression, unspecified depression type] Chronic Osteoarthritis (1 source) Osteoarthritis of right knee joint; Translations: [Unilateral primary osteoarthritis, right knee] Onset: 03-13-2015 03-13-2015 Chronic Other connective tissue disease (1 source) Muscle pain; Translations: [Myalgia] Episodic Other connective tissue disease (2 sources) Rhabdomyolysis; Translations: [Rhabdomyolysis] Onset: 10-08-2020 10-08-2020 Episodic Other connective tissue disease (1 source) Non-traumatic rhabdomyolysis; Translations: [Non-traumatic rhabdomyolysis] Episodic Other disorders of stomach and duodenum (2 sources) Portal hypertensive gastropathy; Translations: [Portal hypertensive gastropathy] 01-22-2019 Episodic Other liver diseases (1 source) Cirrhosis of liver; Translations: [Cirrhosis of liver without ascites, unspecified hepatic cirrhosis type (HCC)] Chronic Other nervous system disorders (1 source) Carpal tunnel syndrome; Translations: [Carpal tunnel syndrome, unspecified upper limb] 08-19-2006 Chronic Paralysis (1 source) Spastic hemiplegia; Translations: [Spastic hemiplegia affecting unspecified side] Onset: 03-14-2009 03-14-2009 Chronic Residual codes; unclassified (2 sources) Tobacco user; Translations: [Tobacco abuse] Onset: 10-23-2018 10-23-2018 Chronic Spondylosis; intervertebral disc disorders; other back problems (2 sources) Intervertebral disc disorder of cervical region with myelopathy; Translations: [Cervical disc disorder with myelopathy, unspecified cervical region] Onset: 03-13-2015 09-30-2006 Chronic Spondylosis; intervertebral disc disorders; other back problems (5 sources) Chronic neck pain; Translations: [Low back pain] Onset: 03-13-2015 10-23-2018 Episodic Substance-related disorders (1 source) Polysubstance abuse ; Translations: [Polysubstance abuse (HCC)] Chronic Unclassified (2 sources) History of cervical spine fusion; Translations: [History of fusion of cervical spine] Onset: 10-23-2018 10-23-2018 Past or Other Problems Problem Classification Problem Date Documented Da te Episodic/Chronic Hepatitis (1 source) Viral hepatitis C; Translations: [Unspecified viral hepatitis C without hepatic coma] Onset: 05-16-2017 05-16-2017 Episodic Intestinal infection (2 sources) Infection caused by Helicobacter pylori; Translations: [H. pylori infection] Onset: 01-24-2019 Resolved: 02-25-2019 02-25-2019 Other infections; including parasitic (2 sources) Personal history of other infectious and parasitic diseases; Translations: [History of Helicobacter pylori infection] Onset: 02-25-2019 02-25-2019 Episodic Other infections; including parasitic (1 source) History of hepatitis B conferring immunity; Translations: [Personal history of other infectious and parasitic diseases] Onset: 05-16-2017 05-16-2017 Episodic Other injuries and conditions due to external causes (1 source) Injury of head; Translations: [Unspecified injury of head, initial encounter] Onset: 09-07-2005 09-07-2005 Episodic Screening and history of mental health and substance abuse codes (2 sources) H/O: depression; Translations: [History of depression] Onset: 10-23-2018 10-23-2018 Episodic Unclassified (4 sources) Encounter for screening for malignant neoplasm of colon; Translations: [Platelet count below reference range] Onset: 07-04-2017 01-22-2019 Episodic Results Test Name Value Interpretation Reference Range Facil ity Vital Signs Date Time Vital Sign Value Performing Clinician Aydin dumont 10-08-2020 18:00-0500 Body Temperature 98.4 [degF] Zeyad Levar [facility] Work Phone: 10-08-2020 18:00-0500 BP Diastolic 81 mm[Hg] Zeyad Levar [facility] Work Phone: 10-08-2020 18:00-0500 BP Systolic 134 mm[Hg] Zeyad Levar [facility] Work Phone: 10-08-2020 18:00-0500 Pulse (Heart Rate) 74 /min Zeyad Levar [facility] Work Phone: 10-08-2020 18:00-0500 Pulse Oximetry 99 % Zeyad Levar [facility] Work Phone: 10-08-2020 18:00-0500 Respiratory Rate 18 /min Zeyad Levar [facility] Work Phone: 10-07-2020 18:09-0500 BMI (Body Mass Index) 24.28 kg/m2 Zeyad Levar [facility] Work Phone: 10-07-2020 18:09-0500 Body weight 70.31 kg Zeyad Levar [facility] Work Phone: 10-07-2020 18:09-0500 Height 170.2 cm Zeyad Levar [facility] Work Phone: 05-25-2020 01:00-0400 Body Temperature 98.01 [degF] [facility] [place] 05-25-2020 01:00-0400 BP Diastolic 92 mm[Hg] [facility] , [place] 05-25-2020 01:00-0400 BP Systolic 144 mm[Hg] [facility] , [place] 05-25-2020 01:00-0400 Pulse (Heart Rate) 67 /min [facility], [place] 05-25-2020 01:00-0400 Pulse Oximetry 98 % [facility] , [place] 05-25-2020 01:00-0400 Respiratory Rate 15 /min Umang Mckeon [facility] [place] 05-24-2020 19:02-0400 BMI (Body Mass Index) 27.62 kg/m2 [facility], [place] 05-24-2020 19:02-0400 Body weight 84.82 kg [facility] , [place] 05-24-2020 19:02-0400 Height 175.3 cm [facility] , [place] Encounters Encounter Date Encounter Type Care Provider Facility Start: 11-19-2022 Telephone encounter No Pcp [facility] Procedures Date Procedure Procedure Detail Performing Clinician Start: 10-08-2020 Creatine kinase total D jim Breen Work Phone: Start: 10-08-2020 Ct cervical spine w/ o contrast material Zeyad R Levar Work Phone: Start: 10-08-2020 Ct head/brain w/o co ntrast material Zeyad R Levar Work Phone: Start: 10-07-2020 Assay of ethanol Nicknti n R Levar Work Phone: Start: 10-07-2020 Blood count complete automated Zeyad R Unowhy Work Phone: Start: 10-07-2020 Comprehensive metabo lic panel Zeyad R Levar Work Phone: Start: 10-07-2020 COVID-19 Zeyad R Levar Work Phone: Start: 10-07-2020 Creatine kinase total Q uentin R Unowhy Work Phone: Start: 10-07-2020 Drug screen class list a Zeyad R Levar Work Phone: Start: 05-25-2020 CT Abdomen and Pelvi s W contrast IV Umang R Mckeon Work Phone: Start: 05-24-2020 Drug screen class list a Yadi Bryson Work Phone: Start: 05-24-2020 Urnls dip stick/tabl et rgnt auto w/o microscopy Yadi Bryson Work Phone: Start: 05-24-2020 Ct head/brain w/o co ntrast material Yadi Bryson Work Phone: Start: 05-24-2020 End: 05-24-2020 Gluc bld gluc mntr dev cleared fda spec home use Yadi Bryson Work Phone: Start: 05-24-2020 Assay of ammonia Cesar Monet Braydon Work Phone: Start: 05-24-2020 Assay of ethanol Cesar Hernandez Work Phone: Start: 05-24-2020 End: 05-24-2020 Assay of troponin quantitative Yadi Bryson Work Phone: Start: 05-24-2020 Basic metabolic pane l calcium total Yadi Bryson Work Phone: Start: 05-24-2020 Hepatic function panel Yadi Bryson Work Phone: Start: 05-24-2020 Prothrombin time Cesar Hernandez Work Phone: Start: 05-24-2020 Blood count complete auto&auto difrntl wbc Yadi Bryson Work Phone: Start: 05-24-2020 Radiologic exam ches t single view Yadi Bryson Work Phone: Start: 05-24-2020 Ecg routine ecg w/le ast 12 lds w/i&r Zeyad R Levar Work Phone: Start: 07-27-2017 Colonoscopy No Pcp Plan of Treatment Date Care Activity Detail Author Start: 10-07-2030 DTaP/Tdap/Td vaccine (2 - Td) DTaP/Tdap/Td vaccine (2 - Td) [facility] Work Phone: Start: 04-22-2023 Influenza vaccination INFLUENZA (Season Ended) [facility] Start: 08-22-2022 DEPRESSION ASSESSMENT DEPRESSION ASSESSMENT [facility] Start: 10-07-2021 Creatinine measurement Creatinine monitoring [facility] Work Phone: Start: 10-07-2021 Potassium monitoring Potassium monitoring [facility] Work Phone: Start: 05-21-2021 Annual Wellness Visit (AWV) Annual Wellness Visit (AWV) [facility], [place] Start: 10-21-2020 Creatinine measurement Creatinine monitoring [facility] [place] Start: 10-21-2020 Potassium monitoring Potassium monitoring [facility], [place] Start: 07-27-2020 Colonoscopy COLONOSCOPY [facility] Start: 07-27-2020 COLORECTAL CANCER SCREENING COLORECTAL CANCER SCREENING [facility] Start: 06-14-2020 DIABETES SCREEN DIABETES SCREEN [facility] Start: 04-22-2020 Influenza vaccination Flu vaccine (#1) [place], [place] Start: 01-08-2020 LIPID SCREEN LIPID SCREEN [facility] Start: 12-15-2018 ANNUAL PCP TEAM CHRONIC DISEASE VISIT ANNUAL PCP TEAM CHRONIC DISEASE VISIT [facility] Start: 02-04-2016 PROSTATE CANCER SCREENING DISCUSSION PROSTATE CANCER SCREENING DISCUSSION [facility] Start: 04-18-2013 Urine microalbumin profile DTAP,TDAP,TD (1 - Tdap) [facility] Start: 2011 Screening for malignant neoplasm of colon Colon cancer screen colonoscopy [place], [place] Start: 2011 Shingles Vaccine (1 of 2) Shingles Vaccine (1 of 2) [place] Start: 2011 SHINGRIX VACCINE (1 of 2) SHINGRIX VACCINE (1 of 2) [facility] Start: 08-23-2009 PNEUMOCOCCAL (2 - PCV) PNEUMOCOCCAL (2 - PCV) [facility] Start: 2006 COLOGUARD (FIT-DNA) COLOGUARD (FIT-DNA) [facility] Start: [address] COLONOGRAPHY [facility] Start: 2006 FECAL OCCULT BLOOD FECAL OCCULT BLOOD [facility] Start: 2006 SIGMOIDOSCOPY SIGMOIDOSCOPY [facility] Start: 2001 Lipid panel Lipid screen [place], [place] Start: 02-04-1980 DTaP/Tdap/Td vaccine (1 - Tdap) DTaP/Tdap/Td vaccine (1 - Tdap) [place] Start: 02-04-1980 Hepatitis B vaccine (1 of 3 - Risk 3-dose series) Hepatitis B vaccine (1 of 3 - Risk 3-dose series) [place] Start: 1979 BP CONTROLLED (<130/80) BP CONTROLLED (<130/80) [facility] in Start: 02-04-1976 HIV screening HIV screen [place], [place] Start: 1962 Hepatitis A vaccine (1 of 2 - Risk 2-dose series) Hepatitis A vaccine (1 of 2 - Risk 2-dose series) [place], [place] Start: 1961 COVID-19 VACCINE (#1) COVID-19 VACCINE (#1) [facility] End: 10-07-2020 Add On Lab Test Add On Lab Test Lab Add-On One Time for 1 Occurrences starting 10/07/2020 until 10/07/2020 [facility] Work Phone: Immunizations Immunization Date Immunization Notes Care Provider Mark blackburn 10-07-2020 diphtheria, tetanus toxoids and acellular pertussis vaccine, unspecified formulation Zeyad Levar [facility] Work Phone: 10-07-2020 tetanus toxoid, redu celina diphtheria toxoid, and acellular pertussis vaccine, adsorbed Zeyad Levar [facility] Work Phone: 04-17-2013 Td, unspecified formulation [place], [place] 04-17-2013 tetanus and diphther ia toxoids, adsorbed, preservative free, for adult use (2 Lf of tetanus toxoid and 2 Lf of diphtheria toxoid) No Pcp [facility] 08-23-2008 Influenza Vaccine, unspecified formulation [place], [place] 08-23-2008 influenza virus vacc ine, unspecified formulation No Pcp [facility] Work Phone: 08-23-2008 pneumococcal polysaccharide vaccine, 23 valent [facility] Work Phone: Payers Date Payer Category Payer Medicare HUMANA MEDICARE HUMANA GOLD PLUS O [id number] 2020-Present [address] [address] [place] [address] [id number] 2020 Medicare HUMANA MEDICARE HUMANA GOLD PLUS [id number] 2020-Present [phone] [address] [address] [place] [address] [facility] [id number] 2016 Medicaid MEDICAID [facility] MEDICAID [id number] 2016-Present [phone] [address] [place] [address] Medicaid [id number] 1960 Unknown [id number] Private Health Insurance [id number] Social History Date Type Detail Facility Start: 08-02-2017 End: 05-20-2020 Tobacco smoking status NHIS Current every day smoker [place], [place] Start: 12-13-1997 History of tobacco use Cigarette Smo ker [place] Start: 08-02-2017 End: 05-20-2020 Cigarettes smoked current (pack per day) - Reported [place] Start: 08-02-2017 End: 05-20-2020 Tobacco use and exposure Never used [place] Start: 05-20-2020 Alcohol intake 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 Start: 1960 Sex Assigned At Male C [facility] Work Phone: Goals Date Patient Goal Desired Activity /State Note 11-20-2022 Telephone Encounter - Angel Hines MD - 11/20/2022 8:03 AM EDTTelephone Encounter - Lizzie Chou RN - 11/19/2022 3:49 PM EDT Note Date & Type Note Facility 11-20-2022 Miscellaneous Notes Formattin g of this note might be different from the original. Reviewed. Agree. Jazzy with [facility] called in and reports that Pts PCP is Dr Alex. I let her know that Pt doesn't have a PCP through us. He was last seen in [address] Hines, and after 3 years with no visits they fall off the providers patient list. She states she was going to call [facility] and let them know that the Pt does not have a PCP through the Clinic. documented in this encounter [facility] Progress note 02-08-2021 Note Date & Type Note Facility 02-08-2021 Note HNO ID: [id number] Author: Chad Gunter MD Service: ? Author Type: Physician Type: Progress Notes Filed: 02/08/2021 8:47 AM Note Text: ED Distance Health Note Patient Name: Cherrie Hood : 1960 Pref[address]: [address] [place] [id number] Last 4 SSN: [id number] Service Date: February 08, 2021 Department: [facility] EMERGENCY DEPT History Patient presents with: Slurred Speech HPI patient states he lives with friends. These friends apparently called EMS this morning because they state his speech does not sound normal to them. EMS states the speech does not sound normal however when they get the patient angry with them his speech becomes clear. 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 They feel patient has capacity to make his own medical decisions. I did speak with the patient I have trouble understanding him over the televisit but it is not secondary to dysarthria it is more volume with the televisit. He was answering questions that I asked him correctly. He had a symmetric smile. PAST MEDICAL HISTORY Diagnosis Date - Alcoholism (HCC) - Anxiety state, unspecified - Carpal tunnel syndrome - Cholelithiasis - Eczema - Hepatitis C - History of hepatitis B virus infection conferring immunity - Intervertebral cervical disc disorder with myelopathy, cervical region - Lumbago - Psoriasis - Sciatica - Spastic hemiparesis (HCC) - Thrombocytopenia (HCC) - Tobacco use - Unspecified essential hypertension PAST SURGICAL HISTORY Procedure Laterality Date - ANTERIOR INTERBODY FUSION, CERVICAL - COLONOSCOP W/ OR W/O [email or web address] SPEC 07/27/2017 serrated sessile polyp removed, repeat in 3 years - VASECTOMY 2003 FAMILY HISTORY Problem Relation Age of Onset - Heart Mother - Heart Brother cad x 2 brothers - other (lung disease) Sister x 2 sisters Social History Tobacco Use - Smoking status: Current Every Day Smoker Packs/day: 1.00 Years: 20.00 Pack years: 20.00 Types: Cigarettes - Smokeless tobacco: Never Used Substance and Sexual Activity - Alcohol use: Yes Comment: 12 beers daily - Drug use: No - Sexual activity: Yes Partners: Female ALLERGIES Allergen Reactions - Dust Intolerance - Cats Intolerance - Klor-Con 10 [Potass* Intolerance severe rose, sees rings around light - Morphine Unknown Physical Exam Physical Exam Clinical Impression No diagnosis found. MDM / Disposition / Plan MDM History and exam performed entirely via virtual platform during COVID-19 pandemic. Patient/Provider locations for exam: patient outside of ED setting and provider in ED SIGNATURE: Chad Gunter MD [facility] Discharge summary note 10-09-2020 Note Date & Type Note Facility 10-09-2020 Note [facility] Discharge Summary and Transition Note Cherrie Hood : 1960 ADMIT DATE: 10/07/2020 DISCHARGE DATE: 10/09/2020 PRIMARY CARE PHYSICIAN: Yasmany Ingram MD VISIT STATUS: Admission CODE STATUS: Full Code DISCHARGE DIAGNOSES: Active Problems: Rhabdomyolysis Resolved Problems: * No resolved hospital problems. * HOSPITAL COURSE: 60 yo M w/ PMH of HTN, alcohol abuse (sober for 3 years, then relapsed last Fall), tobacco abuse, hepatitis C, presented w/ agitation and confusion in setting of amphetamine abuse. Found to have rhabdo in ED. Was observed in ED and experienced resolution of confusion but not agitation. Discharge attempted, however pt was unable to walk out. He was admitted and evaluated by psychiatry, although refused to work w/ them. PT/OT ordered, although they were unable to see pt. Plan made to re-assess, however pt became increasingly agitated and demanded to leave. Left AMA w/ family. Will need f/u w/ PCP; notification sent to office. PROCEDURES: n/a CONSULTANTS: Psychiatry DISCHARGE MEDICATIONS: Significant Medication Changes: n/a Erwin, Cherrie E Home Medication Instructions JUHI:[id number] Printed on:10/09/20 1706 Medication Information buPROPion (WELLBUTRIN XL) 150 MG extended release tablet Take 1 tablet by mouth every morning Cholecalciferol (VITAMIN D3) 32587 units CAPS Take 2,000 Units by mouth daily lisinopril-hydroCHLOROthiazide (PRINZIDE;ZESTORETIC) 10-12.5 MG per tablet TAKE 1 TABLET BY MOUTH DAILY nadolol (CORGARD) 20 MG tablet Take 1 tablet by mouth daily omeprazole (PRILOSEC) 20 MG delayed release capsule Take 1 capsule by mouth every morning (before breakfast) triamcinolone (KENALOG) 0.1 % cream Apply topically DIET: regular ACTIVITY: resume regular activity SIGNIFICANT DIAGNOSTIC STUDIES: CTH, CT-cervical spine, UDS COMPLEXITY OF FOLLOW UP: [x] Moderate Complexity: follow up within 7-14 calendar days (69760) [] Severe Complexity: follow up within 7 calendar days (18208) FOLLOW UP TESTING, PENDING RESULTS OR REFERRALS AT TRANSITIONAL CARE VISIT: [x] Yes - Psychiatry, ADM [] No DISPOSITION: Home FACILITY/HOME CARE AGENCY NAME: n/a Follow up with Yasmany Ingram MD to be scheduled in 1-2 weeks Notification (telephone encounter) to PCP initiated: [x] Yes [] No INSTRUCTIONS TO MA/SW: Please call patient on day after discharge (must document patient contacted within 2 business days of discharge). FOLLOW UP QUESTIONS FOR MA/SW: 1. Did you get medications filled and taking them as instructed from discharge? 2. Are you following your discharge instructions from your hospital stay? 3. Please confirm patient is scheduled for a follow up appointment within the above time frame. DISCHARGE TIME: > 30 minutes [facility] Clinical Note 10-07-2020 Note Date & Type Note Facility 10-07-2020 Note Brief Hx: 60 M here for meth intox s/p B52 [ ] sober re-evaluation ED Course as of Oct 08 1205 Wed Oct 08, 2020 1200 COVID negative [TA] 1201 Complete blood count without leukocytosis, anemia, thrombocytopenia [TA] 1201 Ethanol Lvl: <0.010 [TA] 1201 CK downtrending [TA] 1201 Complete metabolic panel without evidence of acute kidney injury, significant electrolyte abnormality, no evidence of hepatobiliary pathology. [TA] ED Course User Index [TA] Temo Ceballos DO Interval Hx: 8:20 AM Pt was still somnolent, HDS. Will need more time. 12:06 PM Patient is clinically sober he is able to walk with a non-ataxic narrow gait he is able to tolerate p.o. He is appropriate for discharge. Instructions given to continue fluids as he has elevated CK and nontraumatic rhabdomyolysis likely secondary amphetamines. Told the patient not to take anymore amphetamines or cocaine as this will exacerbate his rhabdomyolysis. He agrees that he is appropriate to go home. Risk and benefits of further observation or admission were discussed and patient decided he would like to go home. Plan: Discharge 1. Non-traumatic rhabdomyolysis 2. Polysubstance abuse (HCC) Temo Ceballos DO 10/08/20 1207 [facility] History of Past illness Narrative 04-16-2010 Note Date & Type Note Facility documented as of this encounter (statuses as of 11/27/2022) [facility] Summary Purpose Family History No Family History Records FoundNo Family History Records FoundNo Family History Records FoundNo Family History Records FoundNo Family History Records FoundNo Family History Records FoundNo Family History Records Found Advance Directives No Advanced Directives Records FoundDocuments on File Type Date Recorded Patient Gm/[employer] Expl anation ACP-Advance Directive ACP-Power of Customs Import Specialist Latest Code Status on File Code Status Date Activated Date Inactivated Comments Full Code 10/08/2020 6:04 PM Discharge Instructions * Attachments The following attachments cannot be sent through Care Everywhere. * Abdominal Pain (Hebrew) documented in this encounter* Attachments The following attachments cannot be sent through Care Everywhere. * Alcohol - Drug - or Poison Ingestion (Hebrew) * Rhabdomyolysis (Hebrew) documented in this encounter Assessments Diagnosis Myalgia Mylagia and myositis, unspecified Lower abdominal pain Abdominal pain, other specified site Depression, unspecified depression type Cirrhosis of liver without ascites, unspecified hepatic cirrhosis type (HCC) Diagnosis Non-traumatic rhabdomyolysis- Primary Polysubstance abuse (HCC) Other, mixed, or unspecified nondependent drug abuse, unspecified Rhabdomyolysis History of Present Illness * Kenney Olivas, RN - 10/09/2020 1:45 PM EST Pt agitated and demanding to leave against medical advice. Dr. Roberson notified and Cherrie will be leaving. His father will arrive in roughly an hour to provider transportation home. * Lore Lee MD - 10/09/2020 10:53 AM EST Cherrie Hood is a 60 y.o. male Chief Complaint Patient presents with Psychiatric Evaluation Pt. arrives after he was yelling at people outside of [employer]. Pt. denies ETOH or illicit drugs on arrival but is also uncooperative and combative. PT. has pin point pupils Patient declines to be interviewed at this time. Events overnight reviewed, Will return as able 10/09 or 10/10. PRN olanzapine for agitation ordered. * Kenney Olivas RN - 10/09/2020 9:45 AM EST Pt refused all morning meds. Pt also refused to cooperate with assessment. He requested to be left alone and asked to have his meals ordered. Meals were ordered and Pt encouraged to make his needs known. EL * Brenda Doran DTR - 10/09/2020 8:39 AM EST Nutrition rescreen completed. Chart reviewed. Patient to be monitored and followed by the diet vending service technician. EL * Lulú Zamora RN - 10/08/2020 6:04 PM EST Pt awake while being transported amber lethargic. Moved to bed from cart with 4 staff, iv patent, unable to answer questions at this time, then opens his eyes and says Order me some food! , orders released and tray ordered, bed alarm on, elevated hob documented in this encounter Additional Source Comments (unrecognized sect ion and content) No Status Records FoundNo Status Records FoundNo Status Records FoundNo Status Records FoundNo Status Records FoundNo Status Records FoundNo Status Records Found INFORMATION SOURCE (unrecogn ized section and content) DATE CREATED AUTHOR AUTHOR'S ORGANIZ ATION 07/31/2018 [facility] DATE CREATED AUTHOR AUTHOR'S ORGANIZ ATION 02/08/2021 [facility] DATE CREATED AUTHOR AUTHOR'S ORGANIZ ATION 08/02/2021 [facility] DATE CREATED AUTHOR AUTHOR'S ORGANIZ ATION 08/07/2021 [facility] DATE CREATED AUTHOR AUTHOR'S ORGANIZ ATION 11/29/2022 [facility] DATE CREATED AUTHOR AUTHOR'S ORGANIZ ATION 06/19/2023 [facility] Reason for Visit (unrecogniz ed section and content) Reason Comments Psychiatric Evaluation Pt. arrives after he was yelling at people outside of [employer]. Pt. denies ETOH or illicit drugs on arrival but is also uncooperative and combative. PT. has pin point pupils Reason Comments Home Health Orders Source Comments (unrecognize d section and content) In the event this informatio n is protected by the Federal Confidentiality of Alcohol and Drug Abuse Patient Records regulations: The Federal rules restrict any use of the information to criminally investigate or prosecute any alcohol or drug abuse patient.[facility] FOR RECORDS PERTAINING TO PATIENTS WHO ARE OR HAVE BEEN ENROLLED IN A CHEMICAL DEPENDENCY/SUBSTANCEABUSE PROGRAM, SOME INFORMATION MAY BE OMITTED. This clinical summary was aggregated from multiple sources. Caution should be exercised in using it in the provision of clinical care. This summary normalizes information from multiple sources, and as a consequence, information in this document may materially change the coding, format and clinical context of patient data. In addition, data may be omitted in some cases. CLINICAL DECISIONS SHOULD BE BASED ON THE PRIMARY CLINICAL RECORDS. [facility]. provides no warranty or guarantee of the accuracy or completeness of information in this document.
[2023-08-23 13:08] LABS: Blood Gas Specimen Type VEN; O2 Delivery Device Room Air; SITE Not entered; VBG BASE EXCESS 0 mmol/L (-1.0-3.5); VBG Bicarbonate 24 mmol/L (22-26); VBG PO2 22 mmHg (25-40); VBG SO2 39 % (50-70); VBG TCO2 25 mmol/L (23-33); VBG pH 7.42 (7.32-7.42)
[2023-08-23 13:12] LABS: International Normalized Ratio 1.3; Prothrombin Time (Protime)PT. 16.5 SECONDS (11.7-14.9)
[2023-08-23 13:13] LABS: Partial Thromboplast Time 31.7 Seconds (24.1-36.2)
[2023-08-23 13:15] LABS: ALB/GLOB Ratio 0.6 RATIO (0.9-2.4); AST(SGOT) 253 U/L (15-37); Alanine Aminotransfer ALT/SGPT 137 U/L (16-61); Albumin, Serum 2.1 g/dL (3.2-5.0); Alkaline Phosphatase 143 U/L (45-117); Anion Gap 8 (5-15); BUN 74 mg/dL (7-18); BUN/Creat Ratio 60.7 RATIO (10-20); Calcium,Total 8.5 mg/dL (8.5-10.1); Chloride 110 mmol/L (98-107); Creatinine, Serum 1.22 mg/dL (0.70-1.30); EST Glomerular Filtration Rate 64 mL/min (>60); Est Glom Filt Rate - Afr Amer 77 mL/min (>60); Estimated Creatinine Clearance 64.82 ml/min; Globulin 3.6 g/dL (2.2-4.2); Glucose 142 mg/dL (74-106); Lipase 38 U/L (13-75); Potassium 4.2 mmol/L (3.5-5.1); Protein, Total 5.7 g/dL (6.4-8.2); Sodium Level 145 mmol/L (136-145); Troponin-I HS 37 pg/mL (3.0-78.0)
[2023-08-23 13:19] LABS: Alcohol, Blood (Medical)-Serum < 3.0 mg/dL
[2023-08-23] MEDS: Pantoprazole Sodium 80 MG in 0.9% Normal Saline (50mL Bag) 15 ML 420 MG IV BOLUS (13:20)
[2023-08-23 13:22] LABS: Lactic Acid 5.9 mmol/L (0.4-1.9)
[2023-08-23] MEDS: Ceftriaxone 1 GM/50 ML BAG IV (13:23)
[2023-08-23] MEDS: Pantoprazole Sodium 80 MG in 0.9% Normal Saline (100mL Bag) 80 ML 10 MG CONT INF ×2 (13:23→23:29)
[2023-08-23 13:26] LABS: Hypochromasia 2+
--- NOTE | 2023-08-23 13:32 | NURSING ---
DR MONTILLA FOR DR WATTS
[2023-08-23] MEDS: Octreotide 0.5 MG in Dextrose 5%-Water (250mL Bag) 249 ML 25 MG CONT INF (13:52)
--- NOTE | 2023-08-23 13:57 | NURSING ---
ICU MONTILLA ABGQ, UGIB, ALCOHOLIC CIRRHOSIS, ENCEPHALOPATHY
--- NOTE | 2023-08-23 14:14 | HP.PCM.HOS_ITS ---
HPI - General General Date of Admission: 08/23/23 Date of Service: 08/23/23 Chief Complaint: Altered LOC HPI Narrative CHERRIE WOODARD, is a 63-year-old male history of cirrhosis, anemia, hypertension presented to [facility] 08/23/2023 for decreased responsiveness and not feeling well. His roommate called EMS to take him to the hospital yesterday but patient refused however today patient was found unresponsive by his roommate in a sleeping bag surrounded by urine and stool and EMS was called again. There possibly had been some emesis with some blood. In the ED hemoglobin 5.8 with a baseline of 9. LA 5.9. Patient typed and crossed for 2 units and GI contacted, patient started on appropriate medications and hospital contacted for admission. Patient evaluated at bedside. There were 2 family members present but reported they live in [place] and have no additional history and were just called and told he was in the hospital. Patient wakes up easily but does not consistently purposefully answer questions and unable to get any further history than above, patient does report he has to pee but was only able to get minimal urine out. Unable to get any further history or ROS. Does have what appears to be some dried blood crusted around lips. [facility] Medical History Acute GI bleeding Anemia Cirrhosis GI bleed Hemorrhagic shock Hypertension Home Medications folic acid 1 mg tablet 1 mg PO BREAKFAST #0 tabs 09/18/22 [Rx Last Taken Unknown] pantoprazole 40 mg tablet,delayed release 40 mg PO BID #0 tabs 09/18/22 [Rx Last Taken Unknown] rifaximin 550 mg tablet (Xifaxan) 550 mg PO BID #0 tabs 09/18/22 [Rx Last Taken Unknown] thiamine HCl (vitamin B1) 100 mg tablet (Vitamin B-1) 100 mg PO BREAKFAST #0 tabs 09/18/22 [Rx Last Taken Unknown] furosemide 40 mg tablet 20 mg (1/2 x 40 mg) PO DAILY 30 days #15 tabs 11/19/22 [Rx Last Taken Unknown] lactulose 20 gram/30 mL oral solution 20 g (30 mL) PO Q6H 30 days #2,880 mL 11/19/22 [Rx Last Taken Unknown] levofloxacin 500 mg tablet 500 mg PO DAILY@0600 3 days #3 tabs 11/19/22 [Rx Last Taken Unknown] nadolol 20 mg tablet 20 mg PO DAILY 30 days #0 tabs 11/19/22 [Rx Last Taken Unknown] spironolactone 25 mg tablet 25 mg PO DAILY 30 days #30 tabs 11/19/22 [Rx Last Taken Unknown] Allergy/AdvReac Type Severity Reaction Status Date / Time morphine Allergy Unknown Verified 08/23/23 12:22 Family History unable to obtain Social History Smoking Status: Current every day smoker tobacco type: cigarettes ROS ROS Narrative Unable to obtain secondary to mental status Vital Signs Vital Signs Vital Signs: 08/23/23 12:16 08/23/23 12:15 08/23/23 13:26 Temperature 97.8 F Temperature Source Temporal Pulse Rate 100 92 Respiratory Rate 28 H 18 Blood Pressure 113/37 L 107/46 L Blood Pressure Mean 62 66 Pulse Ox 98 99 Oxygen Delivery Method Room Air Room Air Weight Weight: 88.4 kg Body Mass Index (BMI) 27.9 Physical Exam Narrative General: Wakes up but does not purposely answer questions HEENT: Normocephalic, blood crusted on lips Eyes: Anicteric Neck: Supple Respiratory: After patient woken up makes irritated sounds when he exhales, clear on inhale but patient would not breathe without making additional sounds difficult to fully auscultate Cardiovascular: Regular rate and rhythm GI: Did not appear to have any focalized tenderness on exam but was not able to answer questions, slightly firm Extremities: Slight lower extremity edema Musculoskeletal: Moving all extremities Neuro: Unable to participate in neuroexam Skin: No rashes appreciated Psych: Unable to cooperate secondary to mental status Results Lab / Micro Data 08/23/23 12:35 08/23/23 12:35 Labs: Laboratory Results - last 24 hr 08/23/23 12:35: WBC 13.1 H, RBC 2.09 L, Hgb 5.8 L*, Hct 19.0 L, MCV 90.9, MCH 27.8, MCHC 30.5 L, RDW Std Deviation 49.3 H, RDW Coeff of Bassam 15.4 H, Plt Count 273, MPV 9.7, Immature Gran % (Auto) 0.600, Neut % (Auto) 73.2 H, Lymph % (Auto) 13.5 L, Iron % (Auto) 11.9 H, Eos % (Auto) 0.5, Baso % (Auto) 0.3, Absolute Neut s (auto) 9.6 H, Absolute Lymphs (auto) 1.77, Nucleated RBC % 0.2, Diff Path Review December, Hypochromasia 2+, PT 16.5 H, INR 1.3, APTT 31.7, Sodium 145, Potassium 4.2, Chloride 110 H, Carbon Dioxide 27.0, Anion Gap 8, BUN 74 H, Creatinine 1.22, Estim Creat Clear Calc 64.82, Est GFR (MDRD) Af Amer 77, Est GFR (MDRD) Non-Af 64, BUN/Creatinine Ratio 60.7 H, Glucose 142 H, Lactic Acid 5.9 H*, Calcium 8.5, Total Bilirubin 0.60, AST 253 H, ALT 137 H, Alkaline Phosphatase 143 H, Troponin I High Sens 37, Total Protein 5.7 L, Albumin 2.1 L, Globulin 3.6, Albumin/Globulin Ratio 0.6 L, Lipase 38, Ethyl Alcohol < 3.0, Crossmatch See Detail 08/23/23 13:20: Ammonia 69.0 H Micro: Microbiology 08/23/23 13:05 Stool Stool Occult Blood (ABRAHAM) - Final ABG Data ABG results: ABG 08/23/23 13:05 Specimen Type ARAMIS Sample Site Not entered VBG pH 7.42 VBG pO2 22 L VBG HCO3 24 VBG Total CO2 25 VBG O2 Sat (Calc) 39 L VBG Base Excess 0 POC Mix VBG pCO2 Pt Tmp 37.0 L O2 Delivery Device Room Air Rhythm Strip Rhythm Strip: Sinus Rhythm Rate: 95 Ectopy: None Imagaing Radiology Impression Brain CT 08/23/23 12:23 IMPRESSION: No acute intracranial process identified. Mild chronic involutional and white matter changes. Electronically Signed: Janene Holden MD at 14:05 EST , Assessment & Plan Assessment/Plan (1) ABLA (acute blood loss anemia): (2) Acute upper gastrointestinal hemorrhage: (3) Alcoholic cirrhosis of liver: (4) Encephalopathy acute: PLAN: Plan # Acute anemia suspect acute blood loss anemia secondary to upper GI bleed, mil wiley variceal -Baseline hemoglobin around 9, on presentation 5.8 with normal platelet count, and MCV of 90.9 -Will transfuse 2 units packed red blood cells -Has history of cirrhosis, had grade 3 esophageal varices 3 years ago when he had EGD as well as gastric ulcers -will start on octreotide, PPI, Rocephin -FOBT negative however patient with blood around mouth and elevated BUN, very high suspicion for upper GI bleed -Consult GI -Trend H&H -CT abdomen pelvis in ED pending # Elevated lactic acid -Possibly secondary to hypoperfusion -Treat #1 as above # Altered level of consciousness -Ammonia is somewhat up from normal at 69, do not think you will be able to reliably swallow lactulose at this time, lactulose enema ordered, do think that mental status is multifactorial and ammonia is only part of this complaint -VBG with normal pH -Likely large component of GI bleeding -Treat #1 -CT head in ED with no acute bleed # History of cirrhosis per chart review secondary to alcohol use, unclear if patient still drinking -Hold diuretics, continue lactulose and rifaximin -Alcohol level 0 # MIKAL -Patient has baseline creatinine of 0.6-0.8, on presentation creatinine is 1.22 with a BUN of 74 -Suspect BUN disproportionately high due to upper GI bleed -Treat GI bleed and will give blood # Transaminitis -Could be secondary to hypoperfusion though unclear -Will treat supportively and trend -If not improving will get right upper quadrant # Liver lesions -Family member at bedside reports patient was supposed to have a liver biopsy previously and wanted to know if this could be addressed at this admission -Discussed that patient's acute problems would be addressed first at this time given presentation -Can further discuss this pending progress -Does have CT abdomen pelvis pending #DVT ppx: SCDs Jessica Franks MD Charges/Coding Visit Charges Inpatient E&M: 65660 Init Hosp L2
[2023-08-23 14:17] LABS: CPK Total, Creatine Kinase 73 U/L (39-308)
[2023-08-23 14:50] LABS: Mucous, Urine 0 SEEN /hpf (<or=2+); Red Blood Cells-Urine 0 SEEN /hpf (0-5); Squamous Epithelial Cells - UA 0 SEEN /hpf (0-5)
[2023-08-23 14:56] LABS: Color, Urine Yellow (Yellow); Glucose, Dipstick Normal (Normal); Ketone-Dipstick 5 mg/dl (Negative); Leukocyte Esterase-Dipstick 500 /ul (Negative); Nitrite-Dipstick Negative (Negative); Occult Blood-Urine 150 /ul (Negative); Protein-Dipstick 30 mg/dl (Negative); Urine Bilirubin Dipstick Negative (Negative); Urine Clarity Cloudy (Clear); Urine Urobilinogen Normal (Normal)
[2023-08-23 15:01] LABS: Bacteria 1+ /hpf (None Seen); White Blood Cells >100 SEEN /hpf (0-5)
[2023-08-23 15:09] LABS: Amphetamine Urine VISTA POSITIVE (<1000 ng/mL); Barbiturate Urine VISTA NEGATIVE (< 200 ng/mL); Benzodiazepine Urine VISTA NEGATIVE (< 200 ng/mL); Cocaine Urine VISTA NEGATIVE (< 300 ng/mL); Ecstacy Urine VISTA POSITIVE (< 500 ng/mL); Methadone Urine VISTA NEGATIVE (< 300 ng/mL); PCP Urine VISTA NEGATIVE (< 25 ng/mL); THC Urine VISTA NEGATIVE (< 50 ng/mL); Vista UDS pH Range 5
--- NOTE | 2023-08-23 15:34 | PCM.HOSP.N ---
Hospitalist Note Patient's CT results came back after patient admitted, discussed with GI given multiple liver lesions and portal vein thrombosis, high suspicion the patient has metastatic hepatocellular carcinoma given his burden of disease with portal vein thrombosis and very poor prognosis it was still felt it was appropriate to manage patient in our institution and address GI bleed for a palliative measure however ultimately given poor prognosis hospice is recommended. Discussed with mother and brother at bedside regarding findings and prognosis and plan. They do want to pursue treatment of GI bleed but after discussion and made patient DNR/DNI the patient not comfort care at this time so we will continue other measures, ultimately will likely be hospice appropriate after acute intervention
--- OUTSIDE RECORDS SUMMARY | 2023-08-23 16:06 | XMS RPT_ITS | CCD ---
Author Name Unknown Address [address] [place] [address] Organization [facility] Care Team Providers Care Energy Efficiency Specialist Name Role Phone ANKUSH GARCIA Unavailable Unavailable ANKUSH GARCIA Unavailable Unavailable Yogesh Reardon Unavailable Unavailabl e Reggie Soriano Unavailable Unavailable Yasmany Ingram Primary Care Provider [phone] Unavailable Primary Care Provider Unavailabl e Allergies Allergy Classification Reported Allergen(s) Allergy Type Date of Onset Reaction(s) Facility (2 sources) Cat; Translations: [CATS] Propensity to adverse reactions (disorder) 5 Intolerance [facility] Repository (2 sources) Dust; Translations: [DUST] Propensity to adverse reactions (disorder) 5 Intolerance [facility] Repository (4 sources) morphine; Translations: [MORPHINE] Drug Allergy 7 Unknown [facility] (4 sources) potassium chloride; Translations: [POTASSIUM CHLORIDE] Drug Allergy 0 Intolerance [facility] (2 sources) Acetaminophen Drug Allergy 8 [place], [place] (2 sources) MITE EXTRACT Drug Allergy 5 [place] (2 sources) Cats Claw (Uncaria Tomentosa) Propensity to adverse reactions to drug 5 Other (See Comments) [place] Medications Current Medications Medication Drug Class(es) [...] 05-25-2020 01:00-0400 Body Temperature 98.01 [degF] [facility] [place] 05-25-2020 01:00-0400 BP Diastolic 92 mm[Hg] [facility] , [place] 05-25-2020 01:00-0400 BP Systolic 144 mm[Hg] [facility] [place] 05-25-2020 01:00-0400 Pulse (Heart Rate) 67 /min [facility] 05-25-2020 01:00-0400 Pulse Oximetry 98 % [facility] [place] 05-25-2020 01:00-0400 Respiratory Rate 15 /min Umang Mcke[facility] 05-24-2020 19:02-0400 BMI (Body Mass Index) 27.62 kg/m2 [email or web address] 05-24-2020 19:02-0400 Body weight 84.82 kg [facility] [place] 05-24-2020 19:02-0400 Height 175.3 cm [facility] [place] Encounters Encounter Date Encounter Type Care Provider Facility Start: 11-19-2022 Telephone encounter No Pcp [facility] Procedures Date Procedure Procedure Detail Performing [...] 10-07-2020 Blood count complete automated Zeyad R [employer] Work Phone: Start: 10-07-2020 Comprehensive metabo lic panel Zeyad R Levar Work Phone: Start: 10-07-2020 COVID-19 Zeyad R Levar Work Phone: Start: 10-07-2020 Creatine kinase total Q uentin R [employer] Work Phone: Start: 10-07-2020 Drug screen class [...] - Td) DTaP/Tdap/Td vaccine (2 - Td) [employer] Work Phone: Start: 04-22-2023 Influenza vaccination INFLUENZA (Season Ended) [facility] Start: 08-22-2022 DEPRESSION ASSESSMENT DEPRESSION ASSESSMENT [facility] Start: 10-07-2021 Creatinine measurement Creatinine monitoring [employer] Work Phone: Start: 10-07-2021 Potassium monitoring Potassium monitoring [employer] Work Phone: Start: 05-21-2021 Annual Wellness Visit (AWV) Annual Wellness Visit (AWV) [facility], [place] Start: 10-21-2020 Creatinine measurement Creatinine monitoring [facility] [place] Start: 10-21-2020 Potassium monitoring Potassium monitoring [facility] Start: 07-27-2020 Colonoscopy COLONOSCOPY [facility] Start: 07-27-2020 COLORECTAL CANCER SCREENING COLORECTAL CANCER SCREENING [facility] Start: 06-14-2020 DIABETES SCREEN DIABETES SCREEN [facility] Start: 04-22-2020 Influenza vaccination Flu vaccine (#1) [place] Start: 01-08-2020 LIPID SCREEN LIPID SCREEN [facility] Start: 12-15-2018 ANNUAL PCP TEAM CHRONIC DISEASE VISIT ANNUAL PCP TEAM CHRONIC DISEASE VISIT [facility] Start: 02-04-2016 PROSTATE CANCER SCREENING DISCUSSION PROSTATE CANCER SCREENING DISCUSSION [facility] Start: 04-18-2013 Urine microalbumin profile DTAP,TDAP,TD (1 - Tdap) [facility] Start: 2011 Screening for malignant neoplasm of colon Colon cancer screen colonoscopy [place] Start: 2011 Shingles Vaccine (1 of 2) Shingles Vaccine (1 of 2) [place] Start: 2011 SHINGRIX VACCINE (1 of 2) SHINGRIX VACCINE (1 of 2) [facility] Start: 08-23-2009 PNEUMOCOCCAL (2 - PCV) PNEUMOCOCCAL (2 - PCV) [facility] Start: 2006 COLOGUARD (FIT-DNA) COLOGUARD (FIT-DNA) [facility] Start: [address] COLONOGRAPHY [facility] Start: 2006 FECAL OCCULT BLOOD FECAL OCCULT BLOOD [facility] Start: 2006 SIGMOIDOSCOPY SIGMOIDOSCOPY [facility] Start: 2001 Lipid panel Lipid screen [place] Start: 02-04-1980 DTaP/Tdap/Td vaccine (1 - Tdap) DTaP/Tdap/Td vaccine (1 - Tdap) [place] Start: 02-04-1980 Hepatitis B vaccine (1 of 3 - Risk 3-dose series) Hepatitis B vaccine (1 of 3 - Risk 3-dose series) [place] Start: 1979 BP CONTROLLED (<130/80) BP CONTROLLED (<130/80) [facility] in Start: 02-04-1976 HIV screening HIV screen [place] Start: 1962 Hepatitis A vaccine (1 of 2 - Risk 2-dose series) Hepatitis A vaccine (1 of 2 - Risk 2-dose series) [place] Start: 1961 COVID-19 VACCINE (#1) COVID-19 VACCINE (#1) [facility] End: 10-07-2020 Add On Lab Test Add On Lab Test Lab Add-On One Time for 1 Occurrences starting 10/07/2020 until 10/07/2020 [employer] Work Phone: Immunizations Immunization Date Immunization Notes Care Provider Mark blackburn 10-07-2020 diphtheria, tetanus toxoids and acellular pertussis vaccine, unspecified formulation Zeyad Levar [facility] Work Phone: 10-07-2020 tetanus toxoid, redu celina diphtheria toxoid, and acellular pertussis vaccine, adsorbed Zeyad Levar [employer] Work Phone: 04-17-2013 Td, unspecified formulation [place], [place] 04-17-2013 tetanus and diphther ia toxoids, adsorbed, preservative free, for adult use (2 Lf of tetanus toxoid and 2 Lf of diphtheria toxoid) No Pcp [facility] 08-23-2008 Influenza Vaccine, unspecified formulation [place], [place] 08-23-2008 influenza virus vacc ine, unspecified formulation No Pcp [facility] Work Phone: 08-23-2008 pneumococcal polysaccharide vaccine, 23 valent [facility] Work Phone: Payers Date Payer Category Payer Medicare HUMANA MEDICARE HUMANA GOLD PLUS O [id number] 2020-Present [address] [address] [place] [address] [id number] 2020 Medicare HUMANA MEDICARE HUMANA GOLD PLUS [id number] 2020-Present [phone] [address] [address] [place] [address] [facility] [id number] 2016 Medicaid MEDICAID [facility] MEDICAID [id number] 2016-Present [phone] [address] [place] [address] Medicaid [id number] 1960 Unknown [id number] Private Health Insurance [id number] Social History Date Type Detail Facility Start: 08-02-2017 End: 05-20-2020 Tobacco smoking status NHIS Current every day smoker [place] Start: 12-13-1997 History of tobacco use Cigarette Smo ker [place] Start: 08-02-2017 End: 05-20-2020 Cigarettes smoked current (pack per day) - Reported [place] Start: 08-02-2017 End: 05-20-2020 Tobacco use and exposure Never used [place] Start: 05-20-2020 Alcohol intake 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 experimental psychologist of alcohol (finding) [place] Start: 07-30-2019 History SDOH Education 13 [place] Start: 07-30-2019 History SDOH Financial 5 [place] Start: 07-30-2019 History SDOH Food Worry 1 [place] Start: 01-12-2019 Tobacco Comment 1 pack per tue/ 2 per day [place] Start: 01-30-2018 Alcohol Comment Sober since Apr 7 [place] Sex Assigned At Not on file [place] Exposure to SARS-CoV -2 (event) Not sure [place] Start: 03-17-2018 Alcohol intake Current drinke r of alcohol (finding) [facility] Start: 05-12-2017 Alcohol Comment 12 beers daily [facility] Start: 1960 Sex Assigned At Male [facility] Work Phone: Goals Date Patient Goal Desired Activity /State Note 11-20-2022 Telephone Encounter - Angel Hines MD - 11/20/2022 8:03 AM EDTTelephone Encounter - Lizzie Chou RN - 11/19/2022 3:49 PM EDT Note Date & Type Note Facility 11-20-2022 Miscellaneous Notes Formattin g of this note might be different from the original. Reviewed. Agree. Jazzy with [facility] called in and reports that Pts PCP is Dr Alex. I let her know that Pt doesn't have a PCP through us. He was last seen in [address] Hines, and after 3 years with no visits they fall off the providers patient list. She states she was going to call [facility] and let them know that the Pt does not have a PCP through the Clinic. documented in this encounter [facility] Progress note 02-08-2021 Note Date & Type Note Facility 02-08-2021 Note HNO ID: [id number] Author: Chad Gunter MD Service: ? Author Type: Physician Type: Progress Notes Filed: 02/08/2021 8:47 AM Note Text: ED Distance Health Note Patient Name: Cherrie Hood : 1960 Preferred [address]: [address] [place] [id number] Last 4 SSN: [id number] Service Date: February 08, 2021 Department: [facility] EMERGENCY DEPT History Patient presents with: Slurred Speech HPI patient states he lives with friends. These friends apparently called EMS this morning because they state his speech does not sound normal to them. EMS states the speech does not sound normal however when they get the patient angry with them his speech becomes clear. 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 They feel patient has capacity to make [...] FUSION, CERVICAL - COLONOSCOP W/ OR W/O [facility] SPEC 07/27/2017 serrated sessile polyp removed, repeat [...] Date & Type Note Facility 10-09-2020 Note [facility] Discharge Summary and Transition Note Cherrie [...] n/a Erwin, Cherrie E Home Medication Instructions JUHI:[id number] Printed on:10/09/20 5599 Medication Information buPROPion (WELLBUTRIN XL) 150 MG extended release tablet Take 1 tablet by mouth every morning Cholecalciferol (VITAMIN D3) 09830 units CAPS Take 2,000 Units by mouth [...] Complexity: follow up within 7-14 calendar days (72356) [] Severe Complexity: follow up within 7 calendar days (23273) FOLLOW UP TESTING, PENDING RESULTS OR REFERRALS [...] time frame. DISCHARGE TIME: > 30 minutes [facility] Clinical Note 10-07-2020 Note Date & Type [...] abuse (HCC) Temo Ceballos DO 10/08/20 1207 [facility] History of Past illness Narrative 04-16-2010 Note Date & Type Note Facility documented as of this encounter (statuses as of 11/27/2022) [facility] Summary Purpose Family History No Family History Records FoundNo Family History Records FoundNo Family History Records FoundNo Family History Records FoundNo Family History Records FoundNo Family History Records FoundNo Family History Records Found Advance Directives No Advanced Directives Records FoundDocuments on File Type Date Recorded Patient Department Of Mathematics Chair Expl anation ACP-Advance Directive ACP-Power of Corporate Coordinator Latest Code Status on File Code Status Date Activated Date Inactivated Comments Full Code 10/08/2020 6:04 PM Discharge Instructions * Attachments The following attachments cannot be sent through Care Everywhere. * Abdominal Pain (Kyrgyz) documented in this encounter* Attachments The following attachments cannot be sent through Care Everywhere. * Alcohol - Drug - or Poison Ingestion (Kyrgyz) * Rhabdomyolysis (Kyrgyz) documented in this encounter Assessments Diagnosis Myalgia [...] he was yelling at people outside of [place]. Pt. denies ETOH or illicit drugs on [...] be monitored and followed by the diet forensic technician. EL * Lulú Zamora RN - [...] DATE CREATED AUTHOR AUTHOR'S ORGANIZ ATION 07/31/2018 [facility] DATE CREATED AUTHOR AUTHOR'S ORGANIZ ATION 02/08/2021 [facility] DATE CREATED AUTHOR AUTHOR'S ORGANIZ ATION 08/02/2021 [facility] DATE CREATED AUTHOR AUTHOR'S ORGANIZ ATION 08/07/2021 [facility] DATE CREATED AUTHOR AUTHOR'S ORGANIZ ATION 11/29/2022 [facility] DATE CREATED AUTHOR AUTHOR'S ORGANIZ ATION 06/19/2023 [...] or prosecute any alcohol or drug abuse patient.[facility] FOR RECORDS PERTAINING TO PATIENTS WHO ARE [...] BE BASED ON THE PRIMARY CLINICAL RECORDS. [facility] [employer] [facility]. provides no warranty or guarantee of the accuracy or completeness of information in this document.
--- NOTE | 2023-08-23 16:19 | EX.PCM.CONCC ---
Assessment & Plan Assessment/Plan (1) Acute upper gastrointestinal hemorrhage: (2) ABLA (acute blood loss anemia): (3) Liver masses: PLAN: Plan RECOMMENDATIONS: 1. Serial H&H's every 6. Transfuse to keep hemoglobin greater than 8 2. Endoscopy per GI timing 3. Agree with rifaximin and lactulose 4. Attempt to confirm current drinking status. Possible phenobarbital/seizure precautions 5. Attempt to see if patient has had workup for abdominal masses 6. Potential ABG if patient develops respiratory distress 7. Continue to monitor in ICU until endoscopy can be completed IMPRESSIONS: 1. Acute blood loss anemia secondary to probable upper GI bleed with varices Previously, patient did have a significant varices and this appears to be confirmed on CT of the abdomen. Patient has also had gastric ulcers in the past. Patient is currently on octreotide, PPI and Rocephin. H&H is will be trended every 6. Would recommend keeping hemoglobin greater than 8 given the possibility of a brisk bleed with current liver function. Patient has not been hypotensive and this may suggest a slow upper GI bleed. 2. Metabolic encephalopathy Patient does have an elevated ammonia at 69. Patient does have lactulose and rifaximin ordered. May need to consider rectal administration. Could consider placement of an NG during endoscopy, but would not recommend that blindly given patient's history of severe varicosities with potential bleeding. Patient's pH is within normal limits on VBG, so we will hold off on an ABG to evaluate for CO2 retention 3. History of cirrhosis and alcohol abuse/portal vein thrombosis Attempt to evaluate if patient is still drinking. Patient may need to be placed on a CIWA protocol. Patient does not have an alcohol level at this time. Could consider seizure precautions while history is being verified. Patient is not anticoagulated at this time secondary to problem #1. Unclear if patient's liver lesions have led to the development of this condition 4. Acute kidney injury Clinical suspicion for prerenal etiology. Patient does have a significantly elevated BUN, likely secondary to upper GI bleed. Baseline creatinine appears to be 0.6. Will try to support the hemodynamic standpoint and follow creatinine. Patient does not have any indication for renal replacement therapy at this time. 5. Liver lesions Patient has been known to have liver lesions in the past. It is unclear if this has been worked up. Patient would be a risk for hepatocellular carcinoma given his cirrhosis. Cannot rule out other metastatic disease. Will defer to GI HPI Consult Data Date of Consult: 08/23/23 HPI Narrative Reason for Consultation: GI bleed HPI Narrative: CHERRIE WOODARD is a 63 M, with past medical history listed below, who presents to [facility] 08/23/2023 secondary to decreased responsiveness and a generalized sense of unwell. Apparently patient's roommate had called EMS to take him to the hospital yesterday, but the patient had refused. On the day of presentation, patient was found to be unresponsive in a sleeping bag and feces and urine. Patient reportedly had had some hematemesis, but this cannot be confirmed. Patient did have a similar presentation in October of last year. In the ER, patient was afebrile, normotensive and saturating well on room air. Patient was tachycardic at 100 bpm. Laboratory workup showed a white blood cell count of 13.1, hemoglobin of 5.8 and platelet count of 273. Patient did have a INR of 1.3 and a bicarbonate of 27. No anion gap was noted and patient had a BUN of 74 with a creatinine of 1.22. Lactate was elevated at 5.9 along with LFTs and an ammonia of 69. Patient's alcohol level was nondetectable. A VBG showed a pH of 7.42. CT of the head and chest x-ray were relatively unremarkable. A CT of the abdomen and pelvis did show cirrhotic liver with varices and trace ascites. There were also multiple nodules/masses noted along with a portal venous thrombosis and edema or inflammation of the proximal colon. Patient was given some IV Zofran, pantoprazole bolus and ceftriaxone. Patient was admitted to the intensive care unit for close monitoring. No seizure activity have been noted in the ER. On my arrival to the patient's bedside in the intensive care unit, he was just moaning. Patient did respond to a sternal rub, but is not answering any questions at this time. Review of the medical record shows patient did have an EGD completed about a year ago showing grade 3 esophageal varices in addition to a gastric ulcer with a visible vessel. Patient was treated for alcohol withdrawal at that time. Patient has received packed red blood cells [facility] Medical History Acute GI bleeding Anemia Cirrhosis GI bleed Hemorrhagic shock Hypertension Home Medications folic acid 1 mg tablet 1 mg PO BREAKFAST #0 tabs 09/18/22 [Rx Last Taken Unknown] pantoprazole 40 mg tablet,delayed release 40 mg PO BID #0 tabs 09/18/22 [Rx Last Taken Unknown] rifaximin 550 mg tablet (Xifaxan) 550 mg PO BID #0 tabs 09/18/22 [Rx Last Taken Unknown] thiamine HCl (vitamin B1) 100 mg tablet (Vitamin B-1) 100 mg PO BREAKFAST #0 tabs 09/18/22 [Rx Last Taken Unknown] furosemide 40 mg tablet 20 mg (1/2 x 40 mg) PO DAILY 30 days #15 tabs 11/19/22 [Rx Last Taken Unknown] lactulose 20 gram/30 mL oral solution 20 g (30 mL) PO Q6H 30 days #2,880 mL 11/19/22 [Rx Last Taken Unknown] levofloxacin 500 mg tablet 500 mg PO DAILY@0600 3 days #3 tabs 11/19/22 [Rx Last Taken Unknown] nadolol 20 mg tablet 20 mg PO DAILY 30 days #0 tabs 11/19/22 [Rx Last Taken Unknown] spironolactone 25 mg tablet 25 mg PO DAILY 30 days #30 tabs 11/19/22 [Rx Last Taken Unknown] Allergy/AdvReac Type Severity Reaction Status Date / Time morphine Allergy Unknown Verified 08/23/23 12:22 Social History Smoking Status: Current every day smoker tobacco type: cigarettes ROS Review of Systems ROS Unobtainable: due to mental status Physical Exam Const Constitutional Narrative: RASS -3. Opens eyes and make eye contact with physical stimulus General Appearance: in distress and lethargic HEENT normocephalic and head/scalp atraumatic HEENT Narrative: Dry mucous membranes. Pale mucosa Eyes PERRL and EOMs intact bilaterally Eyes Narrative: Pale conjunctive a noted Neck full ROM Chest inspection of chest normal Resp Auscultation: clear to auscultation bilaterally; Negative for rales, rhonchi or wheezes Cardio regular rate, regular rhythm, S1 normal heart sound and S2 normal heart sound Heart Sounds: murmur systolic III/ crescendo early LVOT GI Inspection: abdominal distention Palpation: Negative for tender or guarding Percussion: fluid wave Extremity General Extremity: edema Neuro Neuro Narrative: Not an active participant. Does move all extremities appropriately. Sensation appears to be intact to noxious stimuli Psych Activity / Motor Behavior: restless Medical Records Data Attestation: I reviewed the patient's medical records Medical records narrative: Similar presentation in October 2022. Patient did require phenobarb at that time secondary to withdrawal Lab / Micro Data Attestation: I reviewed the patient's lab results. Lab results narrative: No history of MDRO outside of Staph epidermidis that was noted on blood culture and thought to be contaminant 08/23/23 12:35 08/23/23 12:35 Labs: Laboratory Results - last 24 hr 08/23/23 12:35: WBC 13.1 H, RBC 2.09 L, Hgb 5.8 L*, Hct 19.0 L, MCV 90.9, MCH 27.8, MCHC 30.5 L, RDW Std Deviation 49.3 H, RDW Coeff of Bassam 15.4 H, Plt Count 273, MPV 9.7, Immature Gran % (Auto) 0.600, Neut % (Auto) 73.2 H, Lymph % (Auto) 13.5 L, [place] % (Auto) 11.9 H, Eos % (Auto) 0.5, Baso % (Auto) 0.3, Absolute Neuts (auto) 9.6 H, Absolute Lymphs (auto) 1.77, Nucleated RBC % 0.2, Diff Path Review May foll, Hypochromasia 2+, PT 16.5 H, INR 1.3, APTT 31.7, Sodium 145, Potassium 4.2, Chloride 110 H, Carbon Dioxide 27.0, Anion Gap 8, BUN 74 H, Creatinine 1.22, Estim Creat Clear Calc 64.82, Est GFR (MDRD) Af Amer 77, Est GFR (MDRD) Non-Af 64, BUN/Creatinine Ratio 60.7 H, Glucose 142 H, Lactic Acid 5.9 H*, Calcium 8.5, Total Bilirubin 0.60, AST 253 H, ALT 137 H, Alkaline Phosphatase 143 H, Total Creatine Kinase 73, Troponin I High Sens 37, Total Protein 5.7 L, Albumin 2.1 L, Globulin 3.6, Albumin/Globulin Ratio 0.6 L, Lipase 38, Ethyl Alcohol < 3.0, Blood Type O POSITIVE, Antibody Screen NEGATIVE, Crossmatch See Detail 08/23/23 13:20: Ammonia 69.0 H 08/23/23 14:30: Urine Color Yellow, Urine Clarity Cloudy, Urine pH 6.0, Ur Specific [place] 1.010, Urine Protein 30 H, Urine Glucose (UA) Normal, Urine Ketones 5 H, Urine Occult Blood 150 H, Urine Nitrite Negative, Urine Bilirubin Negative, Urine Urobilinogen Normal, Ur Leukocyte Esterase 500 H, Urine RBC 0 SEEN, Urine WBC >100 SEEN, Ur Squamous Epith Cells 0 SEEN, Urine Bacteria 1+, Urine Mucus 0 SEEN, Urine Opiates Screen NEGATIVE, Urine Methadone Screen NEGATIVE, Ur Barbiturates Screen NEGATIVE, Ur Phencyclidine Scrn NEGATIVE, Ur Amphetamines Screen POSITIVE H, MDMA (Ecstasy) Screen POSITIVE H, U Benzodiazepines Scrn NEGATIVE, Urine Cocaine Screen NEGATIVE, U Cannabinoids Screen NEGATIVE, Ur Drug Screen Comment Micro: Microbiology 08/23/23 13:10 Mucosa - Nose Influenza & RSV (PCR) - Final 08/23/23 13:05 Stool Stool Occult Blood (ABRAHAM) - Final ABG Data ABG results: ABG 08/23/23 13:05 Specimen Type ARAMIS Sample Site Not entered VBG pH 7.42 VBG pO2 22 L VBG HCO3 24 VBG Total CO2 25 VBG O2 Sat (Calc) 39 L VBG Base Excess 0 POC Mix VBG pCO2 Pt Tmp 37.0 L O2 Delivery Device Room Air Interpretation: VBG showed a normal pH of 7.4 Rhythm Strip Rhythm Strip: Sinus Rhythm Rate: 95 Ectopy: None Imagaing Radiology Impression Brain CT 08/23/23 12:23 IMPRESSION: No acute intracranial process identified. Mild chronic involutional and white matter changes. Electronically Signed: Janene Holden MD at 14:05 EST , Chest X-Ray 08/23/23 12:23 IMPRESSION: No acute cardiopulmonary process identified. Electronically Signed: Janene Holden MD at 14:18 EST , Abdomen/Pelvis CT 08/23/23 12:26 IMPRESSION: Cirrhotic liver with varices, trace ascites, and multiple masses concerning for neoplasm as described above. 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 Cholelithiasis with gallbladder wall edema from anasarca or cholecystitis. Chronic edema or inflammation of the distal esophagus. Edema or inflammation of the proximal colon. Bladder wall thickening with mild surrounding stranding, suggesting cystitis. Bilateral renal cysts. Stable complex cystic lesion in the left kidney. Electronically Signed: Janene Holden MD at 14:17 EST , Charges/Coding Visit Charges Inpatient E&M: 88254 Init Hosp L2
[2023-08-23] MEDS: Lactulose 20 GM/30 ML UDC 200 GM RC (16:36)
--- NOTE | 2023-08-23 16:42 | CON.PCM.GI_ITS ---
HPI Consult Data Date of Consult: 08/23/23 HPI Narrative Reason for Consultation: Cirrhosis HPI Narrative: CHERRIE WOODARD, is a 63 M who presents Patient brought by EMS for decreased responsiveness and not feeling well. Apparently his roommate called EMS to take him to the hospital yesterday but the patient refused. Today his roommate found him unresponsive in a sleeping bag with a pool of his own urine and stool in it. The patient cannot provide any history. He has a past medical history of alcohol induced cirrhosis that is complicated by multiple hepatic masses that was thought to be secondary to possible underlying hepatocellular carcinoma versus metastatic disease from an unknown primary. This was discovered back in August 2022 and October 2022. Patient was supposed to follow-up for biopsy and to finish the workup but he never came for follow-up visit. In the ED was discovered to have white blood cell count of 13.8, hemoglobin of 5.9 and platelet count of 221. He has been normotensive with a high normal heart rate and afebrile since being admitted. His repeat CT scan of the abdomen pelvis 10 months later shows still multiple lesions throughout the liver and now newly diagnosed portal vein thrombosis. [facility] Medical History Acute GI bleeding Anemia Cirrhosis GI bleed Hemorrhagic shock Hypertension Home Medications folic acid 1 mg tablet 1 mg PO BREAKFAST #0 tabs 09/18/22 [Rx Last Taken Unknown] pantoprazole 40 mg tablet,delayed release 40 mg PO BID #0 tabs 09/18/22 [Rx Last Taken Unknown] rifaximin 550 mg tablet (Xifaxan) 550 mg PO BID #0 tabs 09/18/22 [Rx Last Taken Unknown] thiamine HCl (vitamin B1) 100 mg tablet (Vitamin B-1) 100 mg PO BREAKFAST #0 tabs 09/18/22 [Rx Last Taken Unknown] furosemide 40 mg tablet 20 mg (1/2 x 40 mg) PO DAILY 30 days #15 tabs 11/19/22 [Rx Last Taken Unknown] lactulose 20 gram/30 mL oral solution 20 g (30 mL) PO Q6H 30 days #2,880 mL 11/19/22 [Rx Last Taken Unknown] levofloxacin 500 mg tablet 500 mg PO DAILY@0600 3 days #3 tabs 11/19/22 [Rx Last Taken Unknown] nadolol 20 mg tablet 20 mg PO DAILY 30 days #0 tabs 03/31/23 [Rx Last Taken Unknown] spironolactone 25 mg tablet 25 mg PO DAILY 30 days #30 tabs 11/19/22 [Rx Last Taken Unknown] Allergy/AdvReac Type Severity Reaction Status Date / Time morphine Allergy Unknown Verified 08/23/23 12:22 Social History Smoking Status: Current every day smoker tobacco type: cigarettes ROS Review of Systems ROS Unobtainable: due to mental status Physical Exam Narrative General: Wakes up but does not purposely answer questions HEENT: Normocephalic, blood crusted on lips Eyes: Anicteric Neck: Supple Respiratory: After patient woken up makes irritated sounds when he exhales, clear on inhale but patient would not breathe without making additional sounds difficult to fully auscultate Cardiovascular: Regular rate and rhythm GI: Did not appear to have any focalized tenderness on exam but was not able to answer questions, slightly firm Extremities: Slight lower extremity edema Musculoskeletal: Moving all extremities Neuro: Unable to participate in neuroexam Skin: No rashes appreciated Psych: Unable to cooperate secondary to mental status Lab / Micro Data 08/23/23 12:35 08/23/23 12:35 Labs: Laboratory Results - last 24 hr 08/23/23 12:35: WBC 13.1 H, RBC 2.09 L, Hgb 5.8 L*, Hct 19.0 L, MCV 90.9, MCH 27.8, MCHC 30.5 L, RDW Std Deviation 49.3 H, RDW Coeff of Bassam 15.4 H, Plt Count 273, MPV 9.7, Immature Gran % (Auto) 0.600, Neut % (Auto) 73.2 H, Lymph % (Auto) 13.5 L, [place] % (Auto) 11.9 H, Eos % (Auto) 0.5, Baso % (Auto) 0.3, Absolute Neuts (auto) 9.6 H, Absolute Lymphs (auto) 1.77, Nucleated RBC % 0.2, Diff Path Review May foll, Hypochromasia 2+, PT 16.5 H, INR 1.3, APTT 31.7, Sodium 145, Potassium 4.2, Chloride 110 H, Carbon Dioxide 27.0, Anion Gap 8, BUN 74 H, Creatinine 1.22, Estim Creat Clear Calc 64.82, Est GFR (MDRD) Af Amer 77, Est GFR (MDRD) Non-Af 64, BUN/Creatinine Ratio 60.7 H, Glucose 142 H, Lactic Acid 5.9 H*, Calcium 8.5, Total Bilirubin 0.60, AST 253 H, ALT 137 H, Alkaline Phosphatase 143 H, Total Creatine Kinase 73, Troponin I High Sens 37, Total Protein 5.7 L, Albumin 2.1 L, Globulin 3.6, Albumin/Globulin Ratio 0.6 L, Lipase 38, Ethyl Alcohol < 3.0, Blood Type O POSITIVE, Antibody Screen NEGATIVE, Crossmatch See Detail 08/23/23 13:20: Ammonia 69.0 H 08/23/23 14:30: Urine Color Yellow, Urine Clarity Cloudy, Urine pH 6.0, Ur Specific [place] 1.010, Urine Protein 30 H, Urine Glucose (UA) Normal, Urine Ketones 5 H, Urine Occult Blood 150 H, Urine Nitrite Negative, Urine Bilirubin Negative, Urine Urobilinogen Normal, Ur Leukocyte Esterase 500 H, Urine RBC 0 SEEN, Urine WBC >100 SEEN, Ur Squamous Epith Cells 0 SEEN, Urine Bacteria 1+, Urine Mucus 0 SEEN, Urine Opiates Screen NEGATIVE, Urine Methadone Screen NEGATIVE, Ur Barbiturates Screen NEGATIVE, Ur Phencyclidine Scrn NEGATIVE, Ur Amphetamines Screen POSITIVE H, MDMA (Ecstasy) Screen POSITIVE H, U Benzodiazepines Scrn NEGATIVE, Urine Cocaine Screen NEGATIVE, U Cannabinoids Sc reen NEGATIVE, Ur Drug Screen Comment Micro: Microbiology 08/23/23 13:10 Mucosa - Nose Influenza & RSV (PCR) - Final 08/23/23 13:05 Stool Stool Occult Blood (ABRAHAM) - Final ABG Data ABG results: ABG 08/23/23 13:05 Specimen Type ARAMIS Sample Site Not entered VBG pH 7.42 VBG pO2 22 L VBG HCO3 24 VBG Total CO2 25 VBG O2 Sat (Calc) 39 L VBG Base Excess 0 POC Mix VBG pCO2 Pt Tmp 37.0 L O2 Delivery Device Room Air Rhythm Strip Rhythm Strip: Sinus Rhythm Rate: 95 Ectopy: None Imagaing Radiology Impression Brain CT 08/23/23 12:23 IMPRESSION: No acute intracranial process identified. Mild chronic involutional and white matter changes. Electronically Signed: Janene Holden MD at 14:05 EST , Chest X-Ray 08/23/23 12:23 IMPRESSION: No acute cardiopulmonary process identified. Electronically Signed: Janene Holden MD at 14:18 EST , Abdomen/Pelvis CT 08/23/23 12:26 IMPRESSION: Cirrhotic liver with varices, trace ascites, and multiple masses concerning for neoplasm as described above. 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 Cholelithiasis with gallbladder wall edema from anasarca or cholecystitis. Chronic edema or inflammation of the distal esophagus. Edema or inflammation of the proximal colon. Bladder wall thickening with mild surrounding stranding, suggesting cystitis. Bilateral renal cysts. Stable complex cystic lesion in the left kidney. Electronically Signed: Janene Holden MD at 14:17 EST , Assessment & Plan Assessment/Plan (1) Acute GI bleeding: (2) Hemorrhagic shock: PLAN: Plan # Likely UGI bleed * Also likely reason for a lactic acidosis * Hb is 5.9. I am okay with transfusion of 2 units of packed red blood cells * Agree with checking H&H's every 6 * Continue octreotide and PPI drip * has a history of UGI bleed due to esophageal varices * Previous EGD showed grade III esophageal varices which were incompletely eradicated and banded, with no gross lesions in the first portion of the duodenum * Recommend EGD in the a.m. after he is volume resuscitated with packed red blood cells #Acute encephalopathy: Possibly secondary to GI bleed #Cirrhosis * has a history of chronic alcohol abuse * He supposed to be on nadolol, rifaximin, spironolactone * has a history of esophageal varices. * He will need to be on lactulose 10 mg every 4 hours until patient is awake and alert. #Probable hepatocellular carcinoma * CT abdomen and pelvis from August 2022 showed a 4cm x 4.1cm heterogenous solid mass in the mid lateral portion of the right lobe of the liver with mildly distended gallbladder. * Patient should get liver biopsy. I do not think he would be a candidate for transarterial chemoembolization if it turns out to be HCC. I will let stevenson mclaughlin decide if he be a candidate for chemotherapy. * Check alpha-fetoprotein, CEA, CA 19-9 # Portal vein thrombosis * decreased blood flow related to portal hypertension appears to increase PVT risk? * For me looking at it it appears to be a grade 2 portal vein thrombosis meaning that the obstruction occupies greater than 50% of the vessel lumen with or without extension into the superior mesenteric veins. Grade 3 would be complete obstruction of the portal vein with extension into the proximal por tion of the superior mesenteric vein. * Portal vein thrombosis can be associated with increased risk of GI bleeding from mesenteric or varices of the upper GI tract * He is not a candidate for TIPS at this time to allow for greater decompression and he is not a candidate for anticoagulation. * Recommendation at this time is frequent monitoring Charges/Coding Visit Charges Inpatient E&M: 75946 Init Hosp L3
[2023-08-23 16:47] LABS: Reflex Lactate? Y
--- OUTSIDE RECORDS SUMMARY | 2023-08-23 17:09 | XMS RPT_ITS | CCD ---
Author Name Unknown Address [address] [place] [address] Organization [facility] Care Team Providers Care Shock Absorber Installer Name Role Phone ANKUSH GARCIA Unavailable Unavailable ANKUSH GARCIA Unavailable Unavailable Yogesh Reardon Unavailable Unavailabl e Reggie Soriano Unavailable Unavailable Yasmany Ingram Primary Care Provider Unavailable Primary Care Provider Unavailabl e Allergies Allergy Classification Reported Allergen(s) Allergy Type Date of Onset Reaction(s) Facility (2 sources) Cat; Translations: [CATS] Propensity to adverse reactions (disorder) 5 Intolerance [facility] (2 sources) Dust; Translations: [DUST] Propensity to adverse reactions (disorder) 5 Intolerance [facility] (4 sources) morphine; Translations: [MORPHINE] Drug Allergy 7 Unknown [facility] (4 sources) potassium chloride; Translations: [POTASSIUM CHLORIDE] Drug Allergy 0 Intolerance [facility] (2 sources) Acetaminophen Drug Allergy 8 [place] (2 sources) MITE EXTRACT Drug Allergy 5 [place] (2 sources) Cats Claw (Uncaria Tomentosa) Propensity to adverse reactions to drug 5 Other (See Comments) [place] Medications Current Medications Medication Drug Class(es) [...] 05-25-2020 01:00-0400 Body Temperature 98.01 [degF] [facility] [place] 05-25-2020 01:00-0400 BP Diastolic 92 mm[Hg] [facility] , [place] 05-25-2020 01:00-0400 BP Systolic 144 mm[Hg] [facility] , [place] 05-25-2020 01:00-0400 Pulse (Heart Rate) 67 /min [facility], [place] 05-25-2020 01:00-0400 Pulse Oximetry 98 % [facility] , [place] 05-25-2020 01:00-0400 Respiratory Rate 15 /min Umang Mckeon [facility] [place] 05-24-2020 19:02-0400 BMI (Body Mass Index) 27.62 kg/m2 [facility] [place] 05-24-2020 19:02-0400 Body weight 84.82 kg [facility] , [place] 05-24-2020 19:02-0400 Height 175.3 cm [facility] , [place] Encounters Encounter Date Encounter Type Care Provider Facility Start: 11-19-2022 Telephone encounter No Pcp [facility] Procedures Date Procedure Procedure Detail Performing [...] 10-07-2020 Blood count complete automated Zeyad R Pinevio Work Phone: Start: 10-07-2020 Comprehensive metabo lic panel Zeyad R Levar Work Phone: Start: 10-07-2020 COVID-19 Zeyad R Levar Work Phone: Start: 10-07-2020 Creatine kinase total Q uentin R Pinevio Work Phone: Start: 10-07-2020 Drug screen class list a Zeyad R Levar Work Phone: Start: 05-25-2020 CT Abdomen and Pelvi s W contrast IV Umang R Mckeon Work Phone: Start: 05-24-2020 Drug screen class list a Yadi Bryson Work Phone: Start: 05-24-2020 Urnls dip stick/tabl et rgnt auto w/o microscopy Yadi Byrson Work Phone: Start: 05-24-2020 Ct head/brain w/o [...] - Td) DTaP/Tdap/Td vaccine (2 - Td) [employer] Work Phone: Start: 04-22-2023 Influenza vaccination INFLUENZA (Season Ended) [facility] Start: 08-22-2022 DEPRESSION ASSESSMENT DEPRESSION ASSESSMENT [facility] Start: 10-07-2021 Creatinine measurement Creatinine monitoring [employer] Work Phone: Start: 10-07-2021 Potassium monitoring Potassium monitoring [employer] Work Phone: Start: 05-21-2021 Annual Wellness Visit (AWV) Annual Wellness Visit (AWV) [facility], [place] Start: 10-21-2020 Creatinine measurement Creatinine monitoring [facility] [place] Start: 10-21-2020 Potassium monitoring Potassium monitoring [facility], [place] Start: 07-27-2020 Colonoscopy COLONOSCOPY [facility] Start: 07-27-2020 COLORECTAL CANCER SCREENING COLORECTAL CANCER SCREENING [facility] Start: 06-14-2020 DIABETES SCREEN DIABETES SCREEN [facility] Start: 04-22-2020 Influenza vaccination Flu vaccine (#1) [place] Start: 01-08-2020 LIPID SCREEN LIPID SCREEN [facility] Start: 12-15-2018 ANNUAL PCP TEAM CHRONIC DISEASE VISIT ANNUAL PCP TEAM CHRONIC DISEASE VISIT [facility] Start: 02-04-2016 PROSTATE CANCER SCREENING DISCUSSION PROSTATE CANCER SCREENING DISCUSSION [facility] Start: 04-18-2013 Urine microalbumin profile DTAP,TDAP,TD (1 - Tdap) [facility] Start: 2011 Screening for malignant neoplasm of colon Colon cancer screen colonoscopy [place], [place] Start: 2011 Shingles Vaccine (1 of 2) Shingles Vaccine (1 of 2) [place] Start: 2011 SHINGRIX VACCINE (1 of 2) SHINGRIX VACCINE (1 of 2) [facility] Start: 08-23-2009 PNEUMOCOCCAL (2 - PCV) PNEUMOCOCCAL (2 - PCV) [facility] ic Start: 2006 COLOGUARD (FIT-DNA) COLOGUARD (FIT-DNA) [facility] Start: [address] COLONOGRAPHY [facility] Start: 2006 FECAL OCCULT BLOOD FECAL OCCULT BLOOD [facility] Start: 2006 SIGMOIDOSCOPY SIGMOIDOSCOPY [facility] Start: 2001 Lipid panel Lipid screen [place] Start: 02-04-1980 DTaP/Tdap/Td vaccine (1 - Tdap) DTaP/Tdap/Td vaccine (1 - Tdap) [place] Start: 02-04-1980 Hepatitis B vaccine (1 of 3 - Risk 3-dose series) Hepatitis B vaccine (1 of 3 - Risk 3-dose series) [place] Start: 1979 BP CONTROLLED (<130/80) BP CONTROLLED (<130/80) [facility] in Start: 02-04-1976 HIV screening HIV screen [place] Start: 1962 Hepatitis A vaccine (1 of 2 - Risk 2-dose series) Hepatitis A vaccine (1 of 2 - Risk 2-dose series) [place] Start: 1961 COVID-19 VACCINE (#1) COVID-19 VACCINE (#1) [facility] End: 10-07-2020 Add On Lab Test Add On Lab Test Lab Add-On One Time for 1 Occurrences starting 10/07/2020 until 10/07/2020 [employer] Work Phone: Immunizations Immunization Date Immunization Notes Care Provider Mark blackburn 10-07-2020 diphtheria, tetanus toxoids and acellular pertussis vaccine, unspecified formulation Zeyad Levar [facility] Work Phone: 10-07-2020 tetanus toxoid, redu celina diphtheria toxoid, and acellular pertussis vaccine, adsorbed Zeyad Levar [employer] Work Phone: 04-17-2013 Td, unspecified formulation [place] 04-17-2013 tetanus and diphther ia toxoids, adsorbed, preservative free, for adult use (2 Lf of tetanus toxoid and 2 Lf of diphtheria toxoid) No Pcp [facility] 08-23-2008 Influenza Vaccine, unspecified formulation [place] 08-23-2008 influenza virus vacc ine, unspecified formulation No Pcp [facility] Work Phone: 08-23-2008 pneumococcal polysaccharide vaccine, 23 valent [facility] Work Phone: Payers Date Payer Category Payer Medicare HUMANA MEDICARE HUMANA GOLD PLUS O [id number] 2020-Present [address] [address] [place] [address] [id number] 2020 Medicare HUMANA MEDICARE HUMANA GOLD PLUS [id number] 2020-Present [phone] [address] [address] [place] [address] [facility] [id number] 2016 Medicaid MEDICAID [facility] MEDICAID [id number] 2016-Present [phone] [address] [place] [address] Medicaid [id number] 1960 Unknown [id number] Private Health Insurance [id number] Social History Date Type Detail Facility Start: 08-02-2017 End: 05-20-2020 Tobacco smoking status NHIS Current every day smoker [place] Start: 12-13-1997 History of tobacco use Cigarette Smo ker [place] Start: 08-02-2017 End: 05-20-2020 Cigarettes smoked current (pack per day) - Reported [place] Start: 08-02-2017 End: 05-20-2020 Tobacco use and exposure Never used [place] Start: 05-20-2020 Alcohol intake 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 piano assembler of alcohol (finding) [place] Start: 07-30-2019 History SDOH Education 13 [place] Start: 07-30-2019 History SDOH Financial 5 [place] Start: 07-30-2019 History SDOH Food Worry 1 [place] Start: 01-12-2019 Tobacco Comment 1 pack per tue/ 2 per day [place] Start: 01-30-2018 Alcohol Comment Sober since Apr 7 [place] Sex Assigned At Not on file [place] Exposure to SARS-CoV -2 (event) Not sure [place] Start: 03-17-2018 Alcohol intake Current drinke r of alcohol (finding) [facility] Start: 05-12-2017 Alcohol Comment 12 beers daily [facility] Start: 1960 Sex Assigned At Male C [facility] Work Phone: Goals Date Patient Goal Desired Activity /State Note 11-20-2022 Telephone Encounter - Angel Hines MD - 11/20/2022 8:03 AM EDTTelephone Encounter - Lizzie Chou RN - 11/19/2022 3:49 PM EDT Note Date & Type Note Facility 11-20-2022 Miscellaneous Notes Formattin g of this note might be different from the original. Reviewed. Agree. Jazzy with [employer] [facility] called in and reports that Pts PCP is Dr Alex. I let her know that Pt doesn't have a PCP through us. He was last seen in [address] Hines, and after 3 years with no visits they fall off the providers patient list. She states she was going to call [facility] and let them know that the Pt does not have a PCP through the Clinic. documented in this encounter [facility] Progress note 02-08-2021 Note Date & Type Note Facility 02-08-2021 Note HNO ID: [id number] Author: Chad Gunter MD Service: ? Author Type: Physician Type: Progress Notes Filed: 02/08/2021 8:47 AM Note Text: ED Distance Health Note Patient Name: Cherrie Hood : 1960 Preferred [address]: [address] [place] [id number] Last 4 SSN: [id number] Service Date: February 08, 2021 Department: [facility] EMERGENCY DEPT History Patient presents with: Slurred Speech HPI patient states he lives with friends. These friends apparently called EMS this morning because they state his speech does not sound normal to them. EMS states the speech does not sound normal however when they get the patient angry with them his speech becomes clear. 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 They feel patient has capacity to make [...] FUSION, CERVICAL - COLONOSCOP W/ OR W/O [facility] SPEC 07/27/2017 serrated sessile polyp removed, [...] provider in ED SIGNATURE: Chad Gunter MD [facility] Discharge summary note 10-09-2020 Note Date & Type Note Facility 10-09-2020 Note [facility] Discharge Summary and Transition Note Cherrie [...] n/a Erwin, Cherrie E Home Medication Instructions JUHI:[id number] Printed on:10/09/20 5516 Medication Information buPROPion (WELLBUTRIN XL) 150 MG extended release tablet Take 1 tablet by mouth every morning Cholecalciferol (VITAMIN D3) 57721 units CAPS Take 2,000 Units by mouth [...] Complexity: follow up within 7-14 calendar days (71268) [] Severe Complexity: follow up within 7 calendar days (09222) FOLLOW UP TESTING, PENDING RESULTS OR REFERRALS [...] time frame. DISCHARGE TIME: > [address] [facility] Clinical Note 10-07-2020 Note Date & Type [...] abuse (HCC) Temo Ceballos DO 10/08/20 1207 [facility] History of Past illness Narrative 04-16-2010 Note Date & Type Note Facility documented as of this encounter (statuses as of 11/27/2022) [facility] Summary Purpose Family History No Family History Records FoundNo Family History Records FoundNo Family History Records FoundNo Family History Records FoundNo Family History Records FoundNo Family History Records FoundNo Family History Records Found Advance Directives No Advanced Directives Records FoundDocuments on File Type Date Recorded 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 * Abdominal Pain (Slovenian) documented in this encounter* Attachments The following attachments cannot be sent through Care Everywhere. * Alcohol - Drug - or Poison Ingestion (Slovenian) * Rhabdomyolysis (Slovenian) documented in this encounter Assessments Diagnosis Myalgia [...] he was yelling at people outside of [employer]. Pt. denies ETOH or illicit drugs on [...] be monitored and followed by the diet electronics repair technician. EL * Lulú Zamora RN - [...] DATE CREATED AUTHOR AUTHOR'S ORGANIZ ATION 07/31/2018 [facility] DATE CREATED AUTHOR AUTHOR'S ORGANIZ ATION 02/08/2021 [facility] DATE CREATED AUTHOR AUTHOR'S ORGANIZ ATION 08/02/2021 [facility] DATE CREATED AUTHOR AUTHOR'S ORGANIZ ATION 08/07/2021 [facility] DATE CREATED AUTHOR AUTHOR'S ORGANIZ ATION 11/29/2022 [facility] DATE CREATED AUTHOR AUTHOR'S ORGANIZ ATION [...] or prosecute any alcohol or drug abuse patient.[facility] FOR RECORDS PERTAINING TO PATIENTS WHO ARE [...] BE BASED ON THE PRIMARY CLINICAL RECORDS. [facility] [employer] [facility]. provides no warranty or guarantee of the accuracy or completeness of information in this document.
[2023-08-23] MEDS: 0.9% Saline Lock 10 ML Syringe IV ×2 (17:17→18:26)
[2023-08-23 18:03] LABS: Lactic Acid 4.8 mmol/L (0.4-1.9)
[2023-08-23] MEDS: 0.9% Normal Saline (500mL Bag) 500 ML 15 ML IV (18:24)
[2023-08-23] MEDS: HYDROmorphone 0.5 MG/0.5 ML SYRINGE IV (18:24)
--- NOTE | 2023-08-23 22:08 | NURSING ---
Pt has scheduled PO chronulac and xifaxan at 2200. Pt is currently NPO and has been lethargic since admission. Dr. Byers notified and told this RN to hold PO medications.
[2023-08-23 23:45] LABS: Hematocrit 24.9 % (40-54); Hemoglobin 7.9 g/dL (13.0-16.5); Mean Corp Hgb Conc 31.7 g/dL (32-36); Mean Corpuscular Hgb 28.7 pg (27.0-32.0); Mean Corpuscular Volume 90.5 fL (80-94); Mean Platelet Vol. 9.5 fl (6.2-12.0); Platelet Count 137 K/mm3 (150-450); RBC Distribution Width CV 15.2 % (11.6-14.6); RBC Distribution Width SD 47.9 fl (35.1-43.9); Red Blood Count 2.75 M/mm3 (4.6-6.2); White Blood Count 14.2 K/mm3 (4.4-11.0)
[2023-08-24] VITALS (42 sets, daily range): BP systolic 87–183; BP diastolic 45–105; PULSE 77–99; RESP 15–28; TEMP 36.8–38.2; O2SAT 95–100; BMI 27.1
--- NOTE | 2023-08-24 | ASPIGT_PTH ---
PATHOLOGY RESULTS PATIENT: CHERRIE WOODARD LOC: [facility]3 U#:[id number] AGE/SX: 63/M ROOM: [facility] [place] RE08/23/[address]: Dr. Jessica Franks MD : 1960 BED: 1 DIS: 09/06/2023 SPEC #: [id number] RECD: 08/24/23 10:25 STATUS: ROYCE RENathan #: [id number] NIDHI: 08/24/23 00:[address]: Carolyn Peña DEPT: SURGICAL PATHOLOGY RECD BY: Susie Clemente ENTERED: 08/24/23 10:25 SP TYPE: ASP RAD OTHR DR: MD Dr. Praveen Cruz DO Dr. Lamia Aljundi, MD Dr. Mark Elderbrock, MD Dr. Paige Pierce, MD Dr. Tanmay Panchabhai, MD Christina Muller, [employer]C Tissues: Liver, NOS Procedures: FNA Specimen Adequacy Gen Path Consultation (on slides) Special Stain Group II Surgery Specimen Level V Imprint (control) HEADER OPERATION: Liver biopsy PRE-OP DIAGNOSIS: Liver mass TISSUE SUBMITTED: Liver 18-gauge x6 MICROSCOPIC DIAGNOSIS Liver, CT-guided core biopsy: Atypical hepatocellular proliferation in a background of cirrhosis (trichrome stain). See note. Separate focus of benign bile duct proliferation, consistent with biliary hamartoma. See comment. Note: The scattered foci of atypical hepatocellular proliferation shows focal loss of reticulin network suggesting at least dysplastic nodule in cirrhosis. The possibility of a well-differentiated hepatocellular carcinoma cannot be excluded based on the current material. Should there be a clinical concern, one may consider re-biopsy. SJ:rg 09/01/2023 COMMENT The specimen is evaluated at the time of biopsy by Dr. Tarango. Immediate Evaluation: Set 1 - Negative for malignant cells. Hepatocytes with reactive changes are noted. Set 2 - Negative for malignant cells. Hepatocytes with reactive changes are noted. The specimen is sent to [facility] for expert opinion, reviewed by Dr. Ley and the above diagnosis is rendered. The complete report is viewable in the patient's EMR. Case has been reviewed in consultation with Dr. Dennis who concurs with the above diagnosis. IDC:AM MICROSCOPIC DESCRIPTION Slides are reviewed. GROSS DESCRIPTION Received in fixative is one container labeled with the patient's name and designated liver. The specimen consists of multiple irregular fragments of galvan soft tissue that in aggregate measure 2.5 x 0.3 x 0.1 cm. The specimen is totally submitted in one cassette. Four touch imprints are prepared at the time of core biopsy. / LUBA:rosalie 08/24/2023 TC: CPT: 51980, 69453
[2023-08-24] MEDS: Octreotide 0.5 MG in Dextrose 5%-Water (250mL Bag) 249 ML 25 MG CONT INF ×3 (00:10→19:53)
[2023-08-24 04:12] LABS: Absolute Lymphocyte Count 1.57 X10^3/uL (0.83-4.51); Absolute Neutrophil Count 9.7 X10^3/uL (2.0-7.7); Basophil# 0.06 X10^3/uL; Basophil% 0.4 % (0-1); Eosinophil# 0.25 X10^3/uL; Eosinophils% 1.9 % (0-5); Hemoglobin 7.6 g/dL (13.0-16.5); Lymphocyte # 1.57 X10^3/ul (0.83-4.51); Lymphocyte % 11.7 % (19-41); Mean Corp Hgb Conc 31.7 g/dL (32-36); Mean Corpuscular Hgb 28.6 pg (27.0-32.0); Mean Corpuscular Volume 90.2 fL (80-94); Mean Platelet Vol. 9.6 fl (6.2-12.0); Monocyte# 1.73 X10^3/uL; Monocyte% 12.9 % (0-10); NRBC Flagged by Analyzer 0.4 % (0-5); Neutrophil # 9.67 X10^3/uL (2.7-7.7); Neutrophil % 72.4 % (47-70); POSITIVE DIFFERENTIAL YES; Platelet Count 197 K/mm3 (150-450); RBC Distribution Width CV 15.5 % (11.6-14.6); RBC Distribution Width SD 50.1 fl (35.1-43.9); Red Blood Count 2.66 M/mm3 (4.6-6.2); White Blood Count 13.4 K/mm3 (4.4-11.0)
[2023-08-24 04:14] LABS: Differential Indicated SCAN CRITERIA MET
[2023-08-24 04:29] LABS: ALB/GLOB Ratio 0.7 RATIO (0.9-2.4); AST(SGOT) 245 U/L (15-37); Alanine Aminotransfer ALT/SGPT 143 U/L (16-61); Albumin, Serum 2.3 g/dL (3.2-5.0); Alkaline Phosphatase 131 U/L (45-117); Anion Gap 7 (5-15); BUN 53 mg/dL (7-18); BUN/Creat Ratio 54.6 RATIO (10-20); Calcium,Total 7.6 mg/dL (8.5-10.1); Chloride 119 mmol/L (98-107); Creatinine, Serum 0.97 mg/dL (0.70-1.30); EST Glomerular Filtration Rate 83 mL/min (>60); Est Glom Filt Rate - Afr Amer 101 mL/min (>60); Estimated Creatinine Clearance 81.53 ml/min; Globulin 3.4 g/dL (2.2-4.2); Glucose 156 mg/dL (74-106); Magnesium 2.1 mg/dL (1.6-2.6); Potassium 4.3 mmol/L (3.5-5.1); Protein, Total 5.7 g/dL (6.4-8.2); Sodium Level 150 mmol/L (136-145)
[2023-08-24 04:32] LABS: Differential Comment SCANNED
--- NOTE | 2023-08-24 07:15 | PCM.PN.HOSP ---
Reason for Visit Reason for Visit: Altered mental status Subjective Subjective Patient is a 63-year-old white male who presented to the emergency department [facility] on 08/23/2023 with unresponsiveness and generally not feeling well. Evidently, his roommate called EMS the day prior to presentation to take him to the emergency department but the patient refused. On the day of admission he was found unresponsive by his roommate sleeping and sleeping back surrounded by urine and stool to them EMS was called again he was brought to the emergency department. There was possible emesis with some blood noted in it. He has a history of cirrhosis, and anemia with his most recent hospitalization in October 2022. He was instructed to follow-up with GI at that time and never followed up. At that time he came in with hemorrhagic shock due to an upper GI bleed secondary to grade 3 esophageal ulcers and underwent banding. He also had bacteremia with gram-positive cocci. SNF is commended at that time but the patient refused and he went home. He was noted to have a liver mass at that time and recommended to call oncology with a referral given but patient again never followed up here either. Vital signs on presentation demonstrated temperature of 97.8, heart rate 100, blood pressure was 113/37 with a respiratory rate of 28 and oxygen saturations were 98% on room air. CBC showed a leukocytosis with white count of 13.1 with a 73.2% neutrophilia, hemoglobin of 5.8 and a platelet count that was 273,000. Coags were slightly elevated with an INR 1.3. Chemistry panel showed elevated BUN and comparison to creatinine at 74 and 1.22 respectively. His initial lactic acid was 5.9. Transaminases were elevated with an AST of 253 and an ALT of 137. Ammonia level was 69. His UA was somewhat suggestive of infection with positive leuk esterase, white cells, and bacteria noted. In the emergency department blood cultures, occult stool, influenza and RSV and urine culture were sent. Influenza and obesity are negative. Occult stool for blood was unremarkable. Blood and urine cultures remain pending. There was concern for GI bleed so he is on ceftriaxone prophylactically given his baseline cirrhosis. CT of the brain showed no acute intracranial process. Chest x-ray showed no acute findings. CT of the abdomen pelvis showed a cirrhotic liver with varices, trace ascites and multiple masses concerning for neoplasm, portal vein thrombus at the junction of the left and main portal veins, cholelithiasis with gallbladder edema from anasarca, chronic edema in the distal esophagus, edema of the proximal colon, bladder wall thickening and bilateral renal cysts that are stable in appearance. He was admitted to the ICU and gastroenterology was consulted. Patient seen in the intensive care unit today. He is still markedly encephalopathic. No meaningful interaction and ongoing moaning with exhalation. We have been unable to give his lactulose orally so the plan is to put an NG/OG down while he is getting his EGD performed. We did not want to put one down blindly because of his severe varices that were noted at his last EGD. Objective Data Objective Data Vital Signs: Vital Signs Temp Pulse Resp BP Pulse Ox O2 Del Method 99.4 F H 88 15 122/71 H 99 Room Air 08/24/23 04:00 08/24/23 07:00 08/24/23 07:00 08/24/23 07:00 08/24/23 07:00 08/24/23 07:00 Oxygen Delivery Method Room Air Weight: 85.9 kg Body Mass Index (BMI) 27.1 Intake & Output: Intake and Output for Last 24 Hours 08/22/23 08/23/23 08/24/23 23:59 23:59 23:59 Intake Total 1187 / 1187 250 / 250 Output Total 650 / 650 1625 / 1625 Balance 537 / 537 -1375 / -1375 Lab / Micro Data 08/24/23 04:00 08/24/23 04:00 Labs: Laboratory Results - last 24 hr 08/23/23 12:35: WBC 13.1 H, RBC 2.09 L, Hgb 5.8 L*, Hct 19.0 L, MCV 90.9, MCH 27.8, MCHC 30.5 L, RDW Std Deviation 49.3 H, RDW Coeff of Bassam 15.4 H, Plt Count 273, MPV 9.7, Immature Gran % (Auto) 0.600, Neut % (Auto) 73.2 H, Lymph % (Auto) 13.5 L, Kinney % (Auto) 11.9 H, Eos % (Auto) 0.5, Baso % (Auto) 0.3, Absolute Neuts (auto) 9.6 H, Absolute Lymphs (auto) 1.77, Nucleated RBC % 0.2, Diff Path Review May foll, Hypochromasia 2+, PT 16.5 H, INR 1.3, APTT 31.7, Sodium 145, Potassium 4.2, Chloride 110 H, Carbon Dioxide 27.0, Anion Gap 8, BUN 74 H, Creatinine 1.22, Estim Creat Clear Calc 64.82, Est GFR (MDRD) Af Amer 77, Est GFR (MDRD) Non-Af 64, BUN/Creatinine Ratio 60.7 H, Glucose 142 H, Lactic Acid 5.9 H*, Calcium 8.5, Total Bilirubin 0.60, AST 253 H, ALT 137 H, Alkaline Phosphatase 143 H, Total Creatine Kinase 73, Troponin I High Sens 37, Total Protein 5.7 L, Albumin 2.1 L, Globulin 3.6, Albumin/Globulin Ratio 0.6 L, Lipase 38, Ethyl Alcohol < 3.0, Blood Type O POSITIVE, Antibody Screen NEGATIVE, Crossmatch See Detail 08/23/23 13:20: Ammonia 69.0 H 08/23/23 14:30: Urine Color Yellow, Urine Clarity Cloudy, Urine pH 6.0, Ur Specific [place] 1.010, Urine Protein 30 H, Urine Glucose (UA) Normal, Urine Ketones 5 H, Urine Occult Blood 150 H, Urine Nitrite Negative, Urine Bilirubin Negative, Urine Urobilinogen Normal, Ur Leukocyte Esterase 500 H, Urine RBC 0 SEEN, Urine WBC >100 SEEN, Ur Squamous Epith Cells 0 SEEN, Urine Bacteria 1+, Urine Mucus 0 SEEN, Urine Opiates Screen NEGATIVE, Urine Methadone Screen NEGATIVE, Ur Barbiturates Screen NEGATIVE, Ur Phencyclidine Scrn NEGATIVE, Ur Amphetamines Screen POSITIVE H, MDMA (Ecstasy) Screen POSITIVE H, U Benzodiazepines Scrn NEGATIVE, Urine Cocaine Screen NEGATIVE, U Cannabinoids Screen NEGATIVE, Ur Drug Screen Comment 08/23/23 17:18: Lactic Acid 4.8 H* 08/23/23 23:35: WBC 14.2 H, RBC 2.75 L, Hgb 7.9 L, Hct 24.9 L, MCV 90.5, MCH 28.7, MCHC 31.7 L, RDW Std Deviation 47.9 H, RDW Coeff of Bassam 15.2 H, Plt Count 137 L, MPV 9.5 08/24/23 04:00: WBC Cancelled 08/24/23 04:00: WBC 13.4 H, Corrected WBC Cancelled, RBC Cancelled 08/24/23 04:00: RBC 2.66 L, Hgb Cancelled 08/24/23 04:00: Hgb 7.6 L, Hct Cancelled 08/24/23 04:00: Hct 24.0 L, MCV Cancelled 08/24/23 04:00: MCV 90.2, MCH Cancelled 08/24/23 04:00: MCH 28.6, MCHC Cancelled 08/24/23 04:00: MCHC 31.7 L, RDW Std Deviation Cancelled 08/24/23 04:00: RDW Std Deviation 50.1 H, RDW Coeff of Bassam Cancelled 08/24/23 04:00: RDW Coeff of Bassam 15.5 H, Plt Count Cancelled 08/24/23 04:00: Plt Count 197, MPV Cancelled 08/24/23 04:00: MPV 9.6, Immature Gran % (Auto) 0.700, Neut % (Auto) 72.4 H, Lymph % (Auto) 11.7 L, Kinney % (Auto) 12.9 H, Eos % (Auto) 1.9, Baso % (Auto) 0.4, Absolute Neuts (auto) 9.7 H, Absolute Lymphs (auto) 1.57, Nucleated RBC % 0.4, Differential Comment SCANNED, Diff Path Review Cancelled 08/24/23 04:00: Diff Path Review May foll, Sodium 150 H, Potassium 4.3, Chloride 119 H, Carbon Dioxide 24.0, Anion Gap 7, BUN 53 H, Creatinine 0.97, Estim Creat Clear Calc 81.53, Est GFR (MDRD) Af Amer 101, Est GFR (MDRD) Non-Af 83, BUN/Creatinine Ratio 54.6 H, Glucose 156 H, Calcium 7.6 L, Magnesium 2.1, Total Bilirubin 1.20 H, AST 245 H, ALT 143 H, Alkaline Phosphatase 131 H, Total Protein 5.7 L, Albumin 2.3 L, Globulin 3.4, Albumin/Globulin Ratio 0.7 L Micro: Microbiology 08/23/23 13:10 Mucosa - Nose Influenza & RSV (PCR) - Final 08/23/23 13:05 Stool Stool Occult Blood (ABRAHAM) - Final ABG Data ABG results: ABG 08/23/23 13:05 Specimen Type ARAMIS Sample Site Not entered VBG pH 7.42 VBG pO2 22 L VBG HCO3 24 VBG Total CO2 25 VBG O2 Sat (Calc) 39 L VBG Base Excess 0 POC Mix VBG pCO2 Pt Tmp 37.0 L O2 Delivery Device Room Air Radiography Diagnostic Testing: Radiology Impression Brain CT 08/23/23 12:23 IMPRESSION: No acute intracranial process identified. Mild chronic involutional and white matter changes. Electronically Signed: Janene Holden MD at 14:05 EST , Chest X-Ray 08/23/23 12:23 IMPRESSION: No acute cardiopulmonary process identified. Electronically Signed: Janene Holden MD at 14:18 EST , Abdomen/Pelvis CT 08/23/23 12:26 IMPRESSION: Cirrhotic liver with varices, trace ascites, and multiple masses concerning for neoplasm as described above. 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 Cholelithiasis with gallbladder wall edema from anasarca or cholecystitis. Chronic edema or inflammation of the distal esophagus. Edema or inflammation of the proximal colon. Bladder wall thickening with mild surrounding stranding, suggesting cystitis. Bilateral renal cysts. Stable complex cystic lesion in the left kidney. Electronically Signed: Janene Holden MD at 14:17 EST , Rhythm Strip Rhythm Strip: Sinus Rhythm Rate: 95 Ectopy: None Physical Exam Const Negative for alert, oriented x3, no apparent distress, average body habitus, healthy appearing or well nourished Constitutional Narrative: Chronically ill-appearing upper middle-aged, white male, lying in left side-lying in bed, moaning with exhalation, alert intermittently but no meaningful interaction Orientation / Consciousness: confused, disoriented and lethargic HEENT head/scalp atraumatic HEENT Narrative: Dentition is poor, Mallampati is 2, no thrush Head and Scalp: normocephalic Eyes Negative for conjunctivae normal Eyes Narrative: Conjunctiva are markedly pale bilaterally, no scleral icterus Resp normal respiratory effort, no retractions, no use of accessory muscles and clear to auscultation bilaterally Resp Narrative: Diffusely diminished but clear Auscultation: Negative for rales, rhonchi or wheezes Cardio regular rate, regular rhythm, S1 normal heart sound, S2 normal heart sound, no rub, no gallops and no clicks Cardio Narrative: 2 out of 6 systolic murmur loudest at right upper sternal border GI normal to inspection, nondistended, normoactive bowel sounds and soft to palpation Extremity no clubbing, cyanosis or edema Extremity Narrative: Pedal pulses are 2+ Neuro Neuro Narrative: Patient moves all extremities spontaneously but no meaningful interaction Psych Psych Narrative: Unable to assess due to's current mental status Assessment & Plan Assessment/Plan (1) Liver masses: (2) Portal vein thrombosis: (3) Acute upper gastrointestinal hemorrhage: (4) ABLA (acute blood loss anemia): (5) Alcoholic cirrhosis of liver: (6) Hypernatremia: (7) Encephalopathy acute: PLAN: Plan Suspected upper GI bleed -Elevated BUN to serum creatinine ratio -Hemoglobin on presentation was 5.9 and patient was transfused 2 units of packed red blood cells on 08/23/2023 -Serial H&H has been stable -Continue octreotide drip -Continue Protonix drip -Previous EGD from October 2022 showed grade 3 esophageal varices which were incompletely eradicated by banding and no gross lesions in the first portion of duodenum -Patient is not on any anticoagulation at baseline -EGD planned for later today -GI is following-appreciate input Acute on chronic anemia -Acute component suspect related to upper GI bleed -Baseline hemoglobin appears to run between 9 and 10 -Hemoglobin on admission was down to 5.8 -Status post 2 units packed red blood cells on 08/23/2023 -EGD later today -Continue nadolol as able Toxic/metabolic encephalopathy likely related to hepatic encephalopathy -Patient with history of cirrhosis at baseline -Ammonia was elevated on presentation -Patient was supposed to be on rifaximin and lactulose for this at baseline -Compliance is questionable -Continue lactulose 20 g every 6 hours -Continue rifaximin -Will likely be able to back off on lactulose his bowel movements increase and he clears his ammonia Suspected hepatocellular carcinoma -CT of the abdomen pelvis from August 2023 shows a heterogeneous and cirrhotic appearing liver with multiple cystic and solid enhancing masses, 3.3 cm mass in the right hepatic lobe that has enlarged since previous imaging and increasing necrotic appearance of larger masses in the right lobe of the liver -Abnormal CT was identified in October 2022 and patient was advised to follow-up with GI as an outpatient with referral given but patient never followed up -GI has recommended liver biopsy to establish diagnosis--> this has been ordered -Suspect he was not going to be a candidate for transarterial chemo embolization if it is HCC given multiple lesions -Will need oncology follow-up once pathology is received -Alpha-fetoprotein, CEA, CA 19-9 are pending Portal vein thrombosis -Per GI it looks like grade 2 portal vein thrombus meaning that the obstruction occupies greater than 50% of the vessel lumen without extension into the superior mesenteric vessels -This does increase his risk for development of GI bleeding -Not a candidate for TIPS and currently not a candidate for anticoagulation due to his bleeding -Recommend ongoing clinical monitoring at this time -GI is following-appreciate input Hypernatremia/hyperchloremia -Will start half-normal saline at 75 cc/h -Repeat lab in a.m. Cirrhosis secondary to history of alcohol abuse -Patient was supposed to be on nadolol, rifaximin, lactulose, and Aldactone at home -Highly suspect that he is not compliant -Restart home medications as able especially lactulose and rifaximin to help clear mental status currently Chronic diastolic heart failure -No signs of acute decompensation -Will use diuresis as hemodynamics and lab allow Mild to moderate aortic stenosis -Outpatient follow-up MIKAL -Baseline serum creatinine runs around 0.6-0.8 -Greater than 1 on presentation at 1.22 therefore meeting requirement for MIKAL at greater than 0.3 above baseline -Current serum creatinine is down to 1.97 -Avoid nephrotoxins as able -Continue to monitor Lactic acidosis -Like related to acute blood loss, portal vein thrombus, and decreased clearance with liver disease -Trending down with treatment of the above Suspected UTI -UA is consistent with infection showing leuk esterase, significant white cells, and bacteria -Cultures are pending -Continue Rocephin History of hypertension -Blood pressures are currently stable without any medication for treatment -Continue to monitor History of alcohol abuse -Unclear if patient is still consuming any alcohol Tobacco abuse -Patient current smoker -Will supply nicotine patch if patient desires DVT prophylaxis -SCDs -Chemoprophylaxis contraindicated secondary to GI bleeding CODE STATUS -DNR CCA no intubation Charges/Coding Visit Charges Inpatient E&M: 26369 Subs Hosp L2
[2023-08-24] MEDS: 0.45% Normal Saline 1,000 ML 75 ML IV ×2 (07:49→18:05)
--- NOTE | 2023-08-24 08:20 | PN.CC_ITS ---
Assessment & Plan Assessment/Plan (1) Acute upper gastrointestinal hemorrhage: (2) ABLA (acute blood loss anemia): (3) Liver masses: PLAN: Plan RECOMMENDATIONS: 1. Likely okay to space out H&H's pending endoscopy. Transfuse to keep hemoglobin greater than 8 2. Endoscopy per GI timing. Requested NG placed under endoscopic guidance given varices 3. Agree with rifaximin and lactulose 4. Continue to monitor clinically for alcohol withdrawal 5. Okay to proceed with workup for HCC 6. Potential ABG if patient develops respiratory distress 7. Continue to monitor in ICU until endoscopy can be completed and recommendations given IMPRESSIONS: 1. Acute blood loss anemia secondary to probable upper GI bleed with varices Previously, patient did have a significant varices and this appears to be confirmed on CT of the abdomen. Patient has also had gastric ulcers with visible vessel in the past. Patient is currently on octreotide, PPI and Rocephin. H&H has been relatively stable. Okay to space out from my p erspective. Would recommend keeping hemoglobin greater than 8 given the possibility of a brisk bleed with current liver function. Patient has not been hypotensive and this may suggest a slow upper GI bleed. Given significant varices, requesting NG be placed under endoscopic guidance 2. Metabolic encephalopathy Patient does have an elevated ammonia at 69. Patient does have lactulose and rifaximin ordered, but patient has only been able to receive a lactulose albina ma secondary to mental status. Not sure that rectal administration will be sufficient. Patient's pH is within normal limits on VBG, so we will hold off on an ABG to evaluate for CO2 retention 3. History of cirrhosis and alcohol abuse/portal vein thrombosis Attempt to evaluate if patient is still drinking. Patient may need to be placed on a CIWA protocol. Patient does not have an alcohol level at this time. Could consider seizure precautions while history is being verified. Patient is not anticoagulated at this time secondary to problem #1. Unclear if patient's liver lesions have led to the development of this condition. Likely okay to proceed with biopsy, but long-term prognosis is poor 4. Acute kidney injury Improved. Clinical suspicion for prerenal etiology. Patient does have a significantly elevated BUN, likely secondary to upper GI bleed. Baseline creatinine appears to be 0.6. Will try to support the hemodynamic standpoint and follow creatinine. Patient does not have any indication for renal replacement therapy at this time. 5. Liver lesions Patient has been known to have liver lesions in the past. It appears as though the patient failed to follow-up with recommendations a year ago. Patient would be a risk for hepatocellular carcinoma given his cirrhosis. Cannot rule out other metastatic disease. Will defer to GI Subjective Subjective Patient still very confused, but opens eyes to voice only. No obvious bleeding has been reported. Patient did receive a lactulose enema overnight and t olerated this okay. Patient has been saturating well on room air. No significant fevers have been noted. Objective Data Objective Data Vital Signs: Vital Signs Temp Pulse Resp BP Pulse Ox O2 Del Method 37.4 C H 88 15 122/71 H 99 Room Air 08/24/23 04:00 08/24/23 07:00 08/24/23 07:00 08/24/23 07:00 08/24/23 07:00 08/24/23 07:00 Oxygen Delivery Method Room Air Weight: 85.9 kg Body Mass Index (BMI) 27.1 Intake & Output: Intake and Output for Last 24 Hours 08/22/23 08/23/23 08/24/23 23:59 23:59 23:59 Intake Total 1187 / 1187 250 / 250 Output Total 650 / 650 1625 / 1625 Balance 537 / 537 -1375 / -1375 Lab / Micro Data Attestation: I reviewed the patient's lab results. 08/24/23 04:00 08/24/23 04:00 Labs: Laboratory Results - last 24 hr 08/23/23 12:35: WBC 13.1 H, RBC 2.09 L, Hgb 5.8 L*, Hct 19.0 L, MCV 90.9, MCH 27.8, MCHC 30.5 L, RDW Std Deviation 49.3 H, RDW Coeff of Bassam 15.4 H, Plt Count 273, MPV 9.7, Immature Gran % (Auto) 0.600, Neut % (Auto) 73.2 H, Lymph % (Auto) 13.5 L, [place] % (Auto) 11.9 H, Eos % (Auto) 0.5, Baso % (Auto) 0.3, Absolute Neuts (auto) 9.6 H, Absolute Lymphs (auto) 1.77, Nucleated RBC % 0.2, Diff Path Review December, Hypochromasia 2+, PT 16.5 H, INR 1.3, APTT 31.7, Sodium 145, Potassium 4.2, Chloride 110 H, Carbon Dioxide 27.0, Anion Gap 8, BUN 74 H, Creatinine 1.22, Estim Creat Clear Calc 64.82, Est GFR (MDRD) Af Amer 77, Est GFR (MDRD) Non-Af 64, BUN/Creatinine Ratio 60.7 H, Glucose 142 H, Lactic Acid 5.9 H*, Calcium 8.5, Total Bilirubin 0.60, AST 253 H, ALT 137 H, Alkaline Phosphatase 143 H, Total Creatine Kinase 73, Troponin I High Sens 37, Total Protein 5.7 L, Albumin 2.1 L, Globulin 3.6, Albumin/Globulin Ratio 0.6 L, Lipase 38, Ethyl Alcohol < 3.0, Blood Type O POSITIVE, Antibody Screen NEGATIVE, Crossmatch See Detail 08/23/23 13:20: Ammonia 69.0 H 08/23/23 14:30: Urine Color Yellow, Urine Clarity Cloudy, Urine pH 6.0, Ur Specific [place] 1.010, Urine Protein 30 H, Urine Glucose (UA) Normal, Urine Ketones 5 H, Urine Occult Blood 150 H, Urine Nitrite Negative, Urine Bilirubin Negative, Urine Urobilinogen Normal, Ur Leukocyte Esterase 500 H, Urine RBC 0 SEEN, Urine WBC >100 SEEN, Ur Squamous Epith Cells 0 SEEN, Urine Bacteria 1+, Urine Mucus 0 SEEN, Urine Opiates Screen NEGATIVE, Urine Methadone Screen NEGATIVE, Ur Barbiturates Screen NEGATIVE, Ur Phencyclidine Scrn NEGATIVE, Ur Amphetamines Screen POSITIVE H, MDMA (Ecstasy) Screen POSITIVE H, U Benzodiazepines Scrn NEGATIVE, Urine Cocaine Screen NEGATIVE, U Cannabinoids Screen NEGATIVE, Ur Drug Screen Comment 08/23/23 17:18: Lactic Acid 4.8 H* 08/23/23 23:35: WBC 14.2 H, RBC 2.75 L, Hgb 7.9 L, Hct 24.9 L, MCV 90.5, MCH 28.7, MCHC 31.7 L, RDW Std Deviation 47.9 H, RDW Coeff of Bassam 15.2 H, Plt Count 137 L, MPV 9.5 08/24/23 04:00: WBC Cancelled 08/24/23 04:00: WBC 13.4 H, Corrected WBC Cancelled, RBC Cancelled 08/24/23 04:00: RBC 2.66 L, Hgb Cancelled 08/24/23 04:00: Hgb 7.6 L, Hct Cancelled 08/24/23 04:00: Hct 24.0 L, MCV Cancelled 08/24/23 04:00: MCV 90.2, MCH Cancelled 08/24/23 04:00: MCH 28.6, MCHC Cancelled 08/24/23 04:00: MCHC 31.7 L, RDW Std Deviation Cancelled 08/24/23 04:00: RDW Std Deviation 50.1 H, RDW Coeff of Bassam Cancelled 08/24/23 04:00: RDW Coeff of [place] 15.5 H, Plt Count Cancelled 08/24/23 04:00: Plt Count 197, MPV Cancelled 08/24/23 04:00: MPV 9.6, Immature Gran % (Auto) 0.700, Neut % (Auto) 72.4 H, Lymph % (Auto) 11.7 L, [place] % (Auto) 12.9 H, Eos % (Auto) 1.9, Baso % (Auto) 0.4, Absolute Neuts (auto) 9.7 H, Absolute Lymphs (auto) 1.57, Nucleated RBC % 0.4, Differential Comment SCANNED, Diff Path Review Cancelled 08/24/23 04:00: Diff Path Review December foll, Sodium 150 H, Potassium 4.3, Chloride 119 H, Carbon Dioxide 24.0, Anion Gap 7, BUN 53 H, Creatinine 0.97, Estim Creat Clear Calc 81.53, Est GFR (MDRD) Af Amer 101, Est GFR (MDRD) Non-Af 83, BUN/Creatinine Ratio 54.6 H, Glucose 156 H, Calcium 7.6 L, Magnesium 2.1, Total Bilirubin 1.20 H, AST 245 H, ALT 143 H, Alkaline Phosphatase 131 H, Total Protein 5.7 L, Albumin 2.3 L, Globulin 3.4, Albumin/Globulin Ratio 0.7 L Micro: Microbiology 08/23/23 13:10 Mucosa - Nose Influenza & RSV (PCR) - Final 08/23/23 13:05 Stool Stool Occult Blood (ABRAHAM) - Final ABG Data ABG results: ABG 08/23/23 13:05 Specimen Type ARAMIS Sample Site Not entered VBG pH 7.42 VBG pO2 22 L VBG HCO3 24 VBG Total CO2 25 VBG O2 Sat (Calc) 39 L VBG Base Excess 0 POC Mix VBG pCO2 Pt Tmp 37.0 L O2 Delivery Device Room Air Radiography Diagnostic Testing: Radiology Impression Brain CT 08/23/23 12:23 IMPRESSION: No acute intracranial process identified. Mild chronic involutional and white matter changes. Electronically Signed: Janene Holden MD at 14:05 EST , Chest X-Ray 08/23/23 12:23 IMPRESSION: No acute cardiopulmonary process identified. Electronically Signed: Janene Holden MD at 14:18 EST , Abdomen/Pelvis CT 08/23/23 12:26 IMPRESSION: Cirrhotic liver with varices, trace ascites, and multiple masses concerning for neoplasm as described above. 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 Cholelithiasis with gallbladder wall edema from anasarca or cholecystitis. Chronic edema or inflammation of the distal esophagus. Edema or inflammation of the proximal colon. Bladder wall thickening with mild surrounding stranding, suggesting cystitis. Bilateral renal cysts. Stable complex cystic lesion in the left kidney. Electronically Signed: Janene Holden MD at 14:17 EST , Rhythm Strip Rhythm Strip: Sinus Rhythm Rate: 91 Ectopy: None Physical Exam Const Constitutional Narrative: RASS -1. Opens eyes and make eye contact with verbal stimulus General Appearance: in distress HEENT normocephalic and head/scalp atraumatic Eyes PERRL and EOMs intact bilaterally Eyes Narrative: Pale conjunctiva noted Neck full ROM Chest inspection of chest normal Resp Auscultation: clear to auscultation bilaterally; Negative for rales, rhonchi or wheezes Cardio regular rate, regular rhythm, S1 normal heart sound and S2 normal heart sound Heart Sounds: murmur systolic III/ crescendo early LVOT GI Inspection: abdominal distention Palpation: Negative for tender or guarding Percussion: fluid wave Extremity General Extremity: edema Neuro Neuro Narrative: Not an active participant. Does move all extremities appropriately. Sensation appears to be intact to noxious stimuli Psych Activity / Motor Behavior: restless Charges/Coding Visit Charges Inpatient E&M: 67772 Subs Hosp L3
[2023-08-24] MEDS: Pantoprazole Sodium 80 MG in 0.9% Normal Saline (100mL Bag) 80 ML 10 MG CONT INF ×2 (08:31→18:40)
[2023-08-24] MEDS: Ceftriaxone 1 GM/50 ML BAG IV (08:32)
[2023-08-24] MEDS: Midazolam 2 MG/2 ML Syringe IV ×2 (09:20→10:34)
[2023-08-24] MEDS: fentaNYL 100 MCG/2 ML Ampul IV (09:22)
[2023-08-24] MEDS: Lidocaine 2% (20 ml mdv) 20 ML Vial INFILT (09:38)
--- NOTE | 2023-08-24 10:18 | PCM.OP.PRO ---
Procedure Report Date of Procedure: 08/24/23 Assessment & Plan Assessment/Plan (1) Liver masses: PLAN: PROCEDURE: CT DIRECTED CORE LIVER BIOPSY ORDERING PROVIDER: Dr. Carolyn Peña INDICATION: Male, 63 years old. Liver masses. PROVIDER: VIKY Mendez CONSENT: Written informed consent was obtained having explained the risks, benefits and alternatives in detail with the patient's mother on the phone who accepted the risks and agreed to proceed. Laboratory review and clinical assessment was performed. PRE-PROCEDURE SEDATION ASSESSMENT: Current history and physical dictated by referring provider and reviewed. No clinical changes since date of exam. Patient has an ASA Class of 3. PROCEDURAL SEDATION PROTOCOL: The Drugs used were: 1.5 mg Versed, IV, and 25 mcg Fentanyl, IV. Doses were given incrementally cautiously, given the decrease in liver function. The sedation time was: 37 minutes, starting at 9:20 AM and terminated at 9:57 AM. The procedural sedation protocol was independently monitored by the department nurse. RADIATION DOSAGE (If Supplied By Facility): CTDIvol = 10.38 mGy, DLP = 823.51 mGycm Individualized dose optimization techniques were used for this CT. TECHNIQUE: The patient was placed in a supine position. Using CT image guidance with image documentation, a lateral right lobe mass of the liver was identified with IV contrast used for localization. The skin surface was prepped and draped in a sterile fashion. 2% lidocaine was used for local anesthesia. Using a lateral approach, puncture of the liver with an 18-gauge core needle system was obtained, however there was some difficulty given the significant amount of chest wall and abdominal movement with the patient's breathing. 3, 18-gauge core samples were obtained. The pathologist reviewed these samples; however on first analysis these were not diagnostic. A section of imaging was obtained and it appeared that the needle was just superior to the target, likely due to the patient's breathing and inability to follow directions to hold breath. The patient was given an additional dose of 0.5 mg of Versed and the needle was repositioned inferiorly. Visualization of the needle within the mass was difficult due to artifact of the patient's breathing; however, anatomic landmarks were consistent with the initial target. An additional 3, 18-gauge core samples were obtained. Pathology again reviewed the samples were placed them in formalin for further analysis. The needle was removed. An occlusive sterile dressing was applied. The patient was returned to the holding bay for nursing monitoring and positioned on his right side. The patient remained incoherent, but normotensive. The patient was then transported by the nursing staff to endoscopy for further testing. A voicemail was left with the patient's mother, Kimberli, informing her that the biopsy was completed. Should the liver biopsy samples be inconclusive, it would be best to wait for rebiopsy when the patient is not encephalopathic. IMPRESSION: 1. CT directed core needle liver mass biopsy, using CT image guidance with image documentation as described. 2. Procedural Sedation protocol utilized with independent monitoring. Procedures Radiology Radiology CT Procedures: 29252 Biopsy Liver
--- NOTE | 2023-08-24 13:15 | OP.CCLET_ITS ---
08/24/2023 Jose Alex [address] [place] [address] Re : Upper GI endoscopy procedure for Nilo Hood Dear Dr. Alex This procedure was performed on Thursday, August 24, 2023. My impressions and recommendations are as follows: Impressions : - Grade III esophageal varices. Incompletely eradicated. Banded. - Hematin (altered blood/dvhvsa-zkarbn-ahbr material) in the stomach. - Blood in the entire examined duodenum. - Feeding tube placement was successfully performed. - No specimens collected. Recommendations : - Discharge patient to home. - NPO. - Continue present medications. My findings are described in the full procedure note, which is enclosed. If I can be of further assistance, please feel free to contact me at . Sincerely, Sheldon Friend, 08/24/2023 1:14:48 PM This report has been signed electronically.
--- NOTE | 2023-08-24 13:15 | OP.EGD_ITS ---
Patient Name: Nilo Hood Procedure Date: 08/24/2023 12:07 PM Date of : 1960 Age: 63 Procedure: Upper GI endoscopy Indications: Coffee-ground emesis, Hematemesis Providers: Sheldon Ramon DO Medicines: Monitored Anesthesia Care Patient Profile: This is a 63 year old male. Refer to note in patient chart for documentation of history and physical. Patient has symptoms of acute vomiting. His most recent EGD for treatment of bleeding was one year ago. Complications: No immediate complications. Procedure: Pre-Anesthesia Assessment: - Prior to the procedure, a History and Physical was performed, and patient medications and allergies were reviewed. The patient is competent. The risks and benefits of the procedure and the sedation options and risks were discussed with the patient. All questions were answered and informed consent was obtained. Patient identification and proposed procedure were verified by the physician in the pre-procedure area. Mental Status Examination: alert and oriented. Airway Examination: normal oropharyngeal airway and neck mobility. Respiratory Examination: clear to auscultation. CV Examination: normal. Prophylactic Antibiotics: The patient does not require prophylactic antibiotics. Prior Anticoagulants: The patient has taken no anticoagulant or antiplatelet agents. ASA Grade Assessment: III - A patient with severe systemic disease. After reviewing the risks and benefits, the patient was deemed in satisfactory condition to undergo the procedure. The anesthesia plan was to use monitored anesthesia care (MAC). Immediately prior to administration of medications, the patient was re-assessed for adequacy to receive sedatives. The heart rate, respiratory rate, oxygen saturations, blood pressure, adequacy of pulmonary ventilation, and response to care were monitored throughout the procedure. The physical status of the patient was re-assessed after the procedure. After obtaining informed consent, the endoscope was passed under direct vision. Throughout the procedure, the patient's blood pressure, pulse, and oxygen saturations were monitored continuously. The Endoscope was introduced through the mouth, and advanced to the second part of duodenum. The upper GI endoscopy was accomplished without difficulty. The patient tolerated the procedure well. Scope In: 12:27:15 PM Scope Out: 12:57:08 PM Total Procedure Duration Time 0 hours 29 minutes 53 seconds Findings: Grade III varices were found in the middle third of the esophagus and in the lower third of the esophagus. They were 19 mm in largest diameter. Four bands were successfully placed with incomplete eradication of varices. Bleeding had stopped at the end of the procedure. Hematin (altered blood/oqfovy-ppgjny-pawq material) was found in the stomach. A 14 Fr nasogastric tube was placed through the nares into the esophagus. Under endoscopic guidance, the tube was advanced into the stomach. Placement was confirmed by scope visualization. Hematin (altered blood/uxytkg-hgbpmk-bfrw material) was found in the entire duodenum. Impression: - Grade III esophageal varices. Incompletely eradicated. Banded. - Hematin (altered blood/jlobxi-inryou-ovqb material) in the stomach. - Blood in the entire examined duodenum. - Feeding tube placement was successfully performed. - No specimens collected. Recommendation: - Discharge patient to home. - NPO. - Continue present medications. Procedure Code(s): --- Professional --- 02429, Esophagogastroduodenoscopy, flexible, transoral; with band ligation of esophageal/gastric varices 41921, Esophagogastroduodenoscopy, flexible, transoral; with insertion of intraluminal tube or catheter CPT copyright 2021 [employer]. All rights reserved. The codes documented in this report are preliminary and upon physician coder review may be revised to meet current compliance requirements. Sheldon Ramon DO 08/24/2023 1:14:48 PM This report has been signed electronically. Number of Addenda: 0 Note Initiated On: 08/24/2023 12:07 PM
--- NOTE | 2023-08-24 14:30 | CASEMGMT ---
RN CM Face to Face with patient for initial transition planning/care coordination assessment. RN CM introduced self and role at [facility]. Patient lying in bed, sleeping, family at bedside. Family willing to participate in assessment and is able to answer all questions appropriately. Care providers, pharmacy, and demographics verified. Mother and brother unsure of disposition at discharge, states there were discussions of palliative/hospice. Will monitor course of treatment and progress. Mother and brother state they have no further needs or concerns at this time. CM to follow for discharge planning needs that may arise. PCP: Isai Specialists: none Preferred Pharmacy: [facility] Insurance: [employer] [facility] Prescription Benefit: yes Living Will/HPOA: yes, mother Kimberli Avendaño LNOK: mother and brother Living Arrangements: Per mother and brother patient was living in a boarding house and was requiring assistance from friends. Transportation: family not sure DME/HHC: Family denies DME in the home. Patient has had [facility] in the past. Family states that patient has been to SNF previously Disposition Plan: TBD, anticipate hospice vs SNF. Graciela PABLON, RN, CM
[2023-08-24] MEDS: Lactulose 20 GM/30 ML UDC PO ×2 (14:44→21:35)
--- NOTE | 2023-08-24 16:12 | NURSING ---
1350 pt back from endo and bedside report given. nurse anesthesis had to insert ng and only could get 14fr in after dr. staley attempted. pt with hx delerium and aggitation sugey with care. pt was turning self side to side and unaware of tubes and wires prior to going down to rad for testing so decision made to apply b/l soft wrist restraints. order signed and family aware of need to apply.
--- NOTE | 2023-08-24 16:54 | NURSING ---
number of pt's brother given for dr. staley to call as will be awhile till can free up to meet with family.
[2023-08-24] MEDS: rifAXIMin 550 MG Tablet PO (21:35)
[2023-08-24] MEDS: hydrOXYzine 50 MG/ML Vial 100 MG IM (22:46)
[2023-08-25] VITALS (35 sets, daily range): BP systolic 89–173; BP diastolic 53–81; PULSE 53–90; RESP 15–23; TEMP 36.4–37.1; O2SAT 93–100; BMI 26.8
[2023-08-25] MEDS: dexMEDEtomidine 400 MCG in 0.9% Normal Saline (100mL Bag) 96 ML 10.6999999999999993 MCG CONT INF (01:30)
[2023-08-25 03:46] LABS: Absolute Lymphocyte Count 0.97 X10^3/uL (0.83-4.51); Basophil# 0.02 X10^3/uL; Basophil% 0.3 % (0-1); Eosinophil# 0.07 X10^3/uL; Hematocrit 19.8 % (40-54); Hemoglobin 6.1 g/dL (13.0-16.5); Lymphocyte # 0.97 X10^3/ul (0.83-4.51); Lymphocyte % 13.3 % (19-41); Mean Corp Hgb Conc 30.8 g/dL (32-36); Mean Corpuscular Hgb 28.4 pg (27.0-32.0); Mean Corpuscular Volume 92.1 fL (80-94); Mean Platelet Vol. 9.7 fl (6.2-12.0); Monocyte# 1.21 X10^3/uL; Monocyte% 16.6 % (0-10); NRBC Flagged by Analyzer 0.5 % (0-5); Neutrophil # 4.96 X10^3/uL (2.7-7.7); Neutrophil % 68.1 % (47-70); Platelet Count 117 K/mm3 (150-450); RBC Distribution Width SD 51.8 fl (35.1-43.9); Red Blood Count 2.15 M/mm3 (4.6-6.2); White Blood Count 7.3 K/mm3 (4.4-11.0)
[2023-08-25 04:36] LABS: ALB/GLOB Ratio 0.6 RATIO (0.9-2.4); AST(SGOT) 148 U/L (15-37); Alanine Aminotransfer ALT/SGPT 101 U/L (16-61); Alkaline Phosphatase 102 U/L (45-117); Anion Gap 5 (5-15); BUN 31 mg/dL (7-18); Calcium,Total 7.2 mg/dL (8.5-10.1); Chloride 122 mmol/L (98-107); Creatinine, Serum 0.89 mg/dL (0.70-1.30); EST Glomerular Filtration Rate 92 mL/min (>60); Est Glom Filt Rate - Afr Amer 112 mL/min (>60); Estimated Creatinine Clearance 88.86 ml/min; Globulin 3.3 g/dL (2.2-4.2); Glucose 112 mg/dL (74-106); Magnesium 2.2 mg/dL (1.6-2.6); Phosphorus 2.1 mg/dL (2.5-4.9); Potassium 3.6 mmol/L (3.5-5.1); Protein, Total 5.3 g/dL (6.4-8.2); Sodium Level 151 mmol/L (136-145)
[2023-08-25] MEDS: Lactulose 20 GM/30 ML UDC PO ×6 (05:10→22:38)
[2023-08-25] MEDS: dexMEDEtomidine 400 MCG in 0.9% Normal Saline (100mL Bag) 96 ML 32.2000000000000028 MCG CONT INF ×2 (05:15→09:12)
[2023-08-25] MEDS: Pantoprazole Sodium 80 MG in 0.9% Normal Saline (100mL Bag) 80 ML 10 MG CONT INF ×2 (05:45→16:10)
[2023-08-25] MEDS: Octreotide 0.5 MG in Dextrose 5%-Water (250mL Bag) 249 ML 25 MG CONT INF ×2 (05:45→16:11)
[2023-08-25] MEDS: 0.45% Normal Saline 1,000 ML 75 ML IV (07:18)
--- NOTE | 2023-08-25 08:46 | PN.HOSP_ITS ---
Reason for Visit Reason for Visit: No issues overnight other than some agitation for which she was placed on Precedex. Patient still is not waking up and being appropriate. No bowel movements with lactulose we will have to increase frequency. EGD done yesterday and did find esophageal varices with bleeding these were banded but not c ompletely eradicated and hemoglobin is down today. 2 units ordered. Objective Data Objective Data Vital Signs: Vital Signs Temp Pulse Resp BP Pulse Ox O2 Del Method 98.6 F 59 L 17 100/59 L 100 Room Air 08/25/23 08:00 08/25/23 08:00 08/25/23 08:00 08/25/23 08:00 08/25/23 08:00 08/25/23 08:06 Oxygen Delivery Method Room Air Weight: 84.8 kg Body Mass Index (BMI) 26.8 Intake & Output: Intake and Output for Last 24 Hours 08/23/23 08/24/23 08/25/23 23:59 23:59 23:59 Intake Total 1187 / 1271 2245.99 / 2245.99 1654.04 / 1654.04 Output Total 650 / 650 3025 / 3475 1425 / 1425 Balance 537 / 621 -779.01 / -1229.01 229.04 / 229.04 Lab / Micro Data 08/25/23 03:35 08/25/23 03:35 Labs: Laboratory Results - last 24 hr 08/23/23 12:35: Crossmatch See Detail 08/25/23 03:35: WBC 7.3, RBC 2.15 L, Hgb 6.1 L, Hct 19.8 L, MCV 92.1, MCH 28.4, MCHC 30.8 L, RDW Std Deviation 51.8 H, RDW Coeff of Bassam 16.0 H, Plt Count 117 L, MPV 9.7, Immature Gran % (Auto) 0.700, Neut % (Auto) 68.1, Lymph % (Auto) 13.3 L , [place] % (Auto) 16.6 H, Eos % (Auto) 1.0, Baso % (Auto) 0.3, Absolute Neuts (auto) 5.0, Absolute Lymphs (auto) 0.97, Nucleated RBC % 0.5, Sodium 151 H, Potassium 3.6, Chloride 122 H, Carbon Dioxide 24.0, Anion Gap 5, BUN 31 H, Cr eatinine 0.89, Estim Creat Clear Calc 88.86, Est GFR (MDRD) Af Amer 112, Est GFR (MDRD) Non-Af 92, BUN/Creatinine Ratio 35.0 H, Glucose 112 H, Calcium 7.2 L, Phosphorus 2.1 L, Magnesium 2.2, Total Bilirubin 0.80, AST 148 H, ALT 101 H, Alkaline Phosphatase 102, Total Protein 5.3 L, Albumin 2.0 L, Globulin 3.3, Albumin/Globulin Ratio 0.6 L, TSH 0.40 Micro: Microbiology 08/23/23 14:30 Urine, Midstream Urine Culture - Preliminary Escherichia coli GPC Poss Enterococcus sp 08/23/23 13:10 Mucosa - Nose Influenza & RSV (PCR) - Final 08/23/23 13:05 Stool Stool Occult Blood (ABRAHAM) - Final Rhythm Strip Rhythm Strip: Sinus Rhythm Rate: 91 Ectopy: None Physical Exam Const Negative for alert, oriented x3, no apparent distress, average body habitus, healthy appearing or well nourished Constitutional Narrative: Chronically ill-appearing upper middle-aged, white male, lying on back, appears calm on Precedex but intermittently restless, moves extremities to stimuli but does not interact appropriately Orientation / Consciousness: confused, disoriented and lethargic HEENT head/scalp atraumatic and moist oral mucous membranes HEENT Narrative: Dentures in place, Mallampati is 2, no thrush Eyes Negative for conjunctivae normal Eyes Narrative: Conjunctiva are markedly pale bilaterally, no scleral icterus Neck no lymphadenopathy and supple Neck Narrative: Trachea midline, no thyroid in the argument Resp normal respiratory effort, no retractions, no use of accessory muscles and clear to auscultation bilaterally Resp Narrative: Diffusely diminished but clear Auscultation: Negative for rales, rhonchi or wheezes Cardio regular rate, regular rhythm, S1 normal heart sound, S2 normal heart sound, no rub, no gallops and no clicks; Negative for no murmurs Cardio Narrative: 2 out of 6 systolic murmur loudest at right upper sternal border GI normal to inspection, nondistended, normoactive bowel sounds and soft to palpation Extremity no clubbing, cyanosis or edema Extremity Narrative: Pedal pulses are 2+ Neuro Neuro Narrative: Patient moves all extremities spontaneously but no meaningful interaction and he does not follow commands Psych Psych Narrative: Unable to assess due to's current mental status Assessment & Plan Assessment/Plan (1) Liver masses: (2) Portal vein thrombosis: (3) Acute upper gastrointestinal hemorrhage: (4) ABLA (acute blood loss anemia): (5) Alcoholic cirrhosis of liver: (6) Hypernatremia: (7) Encephalopathy acute: PLAN: Plan Suspected upper GI bleed -EGD done yesterday 08/24/2023 and demonstrated grade 3 esophageal varices and hematin in the stomach with blood in the entire duodenum, varices were banded but incompletely eradicated and an NG was placed under endoscopy -Hemoglobin on presentation was 5.9 and patient was transfused 2 units of packed red blood cells on 08/23/2023--> appropriately corrected but hemoglobin down again this morning to 6.1 -Discussed with Dr. Ramon and I have ordered 2 more units of packed red blood cells to be given on 08/25/2023 -If hemoglobin does not stabilize will need probably repeat EGD -Continue octreotide drip -Continue Protonix drip -Continue Rocephin for SBP prophylaxis in the setting of cirrhotic bleed -Patient is not on any anticoagulation at baseline -GI is following-appreciate input Acute on chronic anemia -Acute component suspect related to upper GI bleed -Baseline hemoglobin appears to run between 9 and 10 -2 units given and appropriately corrected however down to 6.1 this morning -Continue to monitor every 6 hours hemoglobin -Discussed case with Dr. Ramon and if continues to drop we will repeat EGD to reassess varices again -Continue nadolol as able Toxic/metabolic encephalopathy likely related to hepatic encephalopathy -Patient with history of cirrhosis at baseline -No improvement -On Precedex for agitation -Ammonia was elevated on presentation -Patient was supposed to be on rifaximin and lactulose for this at baseline -Compliance is questionable -Continue lactulose but increase to 20 g every 4 hours as patient has not yet had bowel movements -Continue rifaximin -Will likely be able to back off on lactulose his bowel movements increase and he clears his ammonia Suspected hepatocellular carcinoma -CT of the abdomen pelvis from August 2023 shows a heterogeneous and cirrhotic appearing liver with multiple cystic and solid enhancing masses, 3.3 cm mass in the right hepatic lobe that has enlarged since previous imaging and increasing necrotic appearance of larger masses in the right lobe of the liver -Liver biopsy performed on 08/24/2023 -Suspect he is not going to be a candidate for transarterial chemo embolization if it is HCC given multiple lesions -Will need oncology follow-up once pathology is received -Alpha-fetoprotein, CEA, CA 19-9 are pending--> ordered 08/25/2023 Portal vein thrombosis -Per GI it looks like grade 2 portal vein thrombus meaning that the obstruction occupies greater than 50% of the vessel lumen without extension into the superior mesenteric vessels -This does increase his risk for development of GI bleeding -Not a candidate for TIPS and currently not a candidate for anticoagulation due to his bleeding -Recommend ongoing clinical monitoring at this time -GI is following-appreciate input Hypernatremia/hyperchloremia -Sodium remains elevated -Change IV fluids to D5W at 75 cc/h -Repeat BMP at 1600 -Repeat lab in a.m. Cirrhosis secondary to history of alcohol abuse -Patient was supposed to be on nadolol, rifaximin, lactulose, and Aldactone at home -Highly suspect that he is not compliant Chronic diastolic heart failure -No signs of acute decompensation -Will use diuresis as hemodynamics and lab allow Mild to moderate aortic stenosis -Outpatient follow-up MIKAL -Resolved -Baseline serum creatinine runs around 0.6-0.8 -Greater than 1 on presentation at 1.22 therefore meeting requirement for MIKAL at greater than 0.3 above baseline -Current serum creatinine is 0.89 -Avoid nephrotoxins as able -Continue to monitor Suspected UTI -UTI was ruled out as colony counts are no greater than 25,000 CFU per mL with E. coli and Enterococcus -Will remain on antibiotics for SBP prophylaxis History of hypertension -Blood pressures are currently stable without any medication for treatment -Continue to monitor History of alcohol abuse -Unclear if patient is still consuming any alcohol Tobacco abuse -Patient current smoker -Will supply nicotine patch if patient desires DVT prophylaxis -SCDs -Chemoprophylaxis contraindicated secondary to GI bleeding CODE STATUS -DNR CCA no intubation Charges/Coding Visit Charges Inpatient E&M: 59882 [facility] Hosp L3
[2023-08-25] MEDS: Potassium Phosphate 21 MM in 0.9% Normal Saline (250mL Bag) 250 ML 84 MM IV (09:26)
[2023-08-25] MEDS: rifAXIMin 550 MG Tablet PO ×2 (09:37→20:50)
[2023-08-25 10:24] LABS: Pathologist Review Reviewed
[2023-08-25 10:26] LABS: Pathologist Review Reviewed
[2023-08-25] MEDS: Ceftriaxone 1 GM/50 ML BAG IV (10:27)
[2023-08-25] MEDS: Dextrose 5%-Water (1000mL Bag) 1,000 ML 75 ML IV (10:50)
[2023-08-25] MEDS: Thiamine Hydrochloride 100 MG Tablet PO (11:33)
[2023-08-25 12:12] LABS: Bedside Glucose 131 mg/dL (74-106)
[2023-08-25] MEDS: DEXMEDETOMIDINE CONT INF ×2 (12:23→20:15)
[2023-08-25] MEDS: WATER CONT INF ×2 (12:23→20:15)
[2023-08-25] MEDS: DEXTROSE 5% CONT INF ×2 (12:23→20:15)
--- NOTE | 2023-08-25 15:13 | CASEMGMT ---
Social Work SIL received a call from Graciela Mcclellan, [facility] [employer]. Graciela reports she spoke with pt's brother and was informed of admission. SIL provided admission information to Graciela. Pt is enrolled in services with [facility] and receives home delivered meals and and emergency response system. Pt does not have home health aid services due to lack of available agencies. Graciela reports pt lives in a home in [place] that is being used as a boarding house. Pt lives in a bedroom on the second floor with 14 steep steps to the room. Graciela also reports that pt's brother is requesting that if pt needs a SNF, a facility near [place] would be family choice as family lives in [place]. SIL will continue to follow for apporpriate dc planning. SIL will keep Graciela updated on disposition. MADISON Willams
--- NOTE | 2023-08-25 15:18 | PN.CC_ITS ---
Assessment & Plan Assessment/Plan (1) Acute upper gastrointestinal hemorrhage: (2) ABLA (acute blood loss anemia): (3) Liver masses: PLAN: Plan RECOMMENDATIONS: * Hemoglobin trended down. A unit of blood was given. He has not had any bloody bowel movements or bloody output from his NG tube * Discussed with GI patient has very peripheral gnosis. Continue goals of care discussions with the family * Lactulose frequency increased as he is not yet had a bowel movement. Continue rifaximin * Awaiting liver biopsy results * He remains on Precedex drip due to agitation. * Sodium trending up. Will start on D5. Discussed with pharmacy to switch other drips to D5 if possible * Blood sugar here 6 monitor for hypoglycemia IMPRESSIONS: 1. Acute blood loss anemia secondary to probable upper GI bleed with varices Previously, patient did have a significant varices and this appears to be confirmed on CT of the abdomen. Patient has also had gastric ulcers with visible vessel in the past. Patient is currently on octreotide, PPI and Rocephin. H&H has been relatively stable. Okay to space out from my perspective. Would recommend keeping hemoglobin greater than 8 given the possibility of a brisk bleed with current liver function. Patient has not been hypotensive and this may suggest a slow upper GI bleed. Given significant varices, requesting NG be placed under endoscopic guidance 2. Metabolic encephalopathy Patient does have an elevated ammonia at 69. Patient does have lactulose and rifaximin ordered, but patient has only been able to receive a lactulose enema secondary to mental status. Not sure that rectal administration will be sufficient. Patient's pH is within normal limits on VBG, so we will hold off on an ABG to evaluate for CO2 retention 3. History of cirrhosis and alcohol abuse/portal vein thrombosis Attempt to evaluate if patient is still drinking. Patient may need to be placed on a CIWA protocol. Patient does not have an alcohol level at this time. Could consider seizure precautions while history is being verified. Patient is not anticoagulated at this time secondary to problem #1. Unclear if patient's liver lesions have led to the development of this condition. Likely okay to proceed with biopsy, but long-term prognosis is poor 4. Acute kidney injury Improved. Clinical suspicion for prerenal etiology. Patient does have a significantly elevated BUN, likely secondary to upper GI bleed. Baseline creatinine appears to be 0.6. Will try to support the hemodynamic standpoint and follow creatinine. Patient does not have any indication for renal replacement therapy at this time. 5. Liver lesions Patient has been known to have liver lesions in the past. It appears as though the patient failed to follow-up with recommendations a year ago. Patient would be a risk for hepatocellular carcinoma given his cirrhosis. Cannot rule out other metastatic disease. Will defer to GI Subjective Subjective Remains agitated on Precedex drip. No bowel movements yet. Objective Data Objective Data Vital Signs: Vital Signs Temp Pulse Resp BP Pulse Ox O2 Del Method 36.6 C 55 L 16 109/71 99 Room Air 08/25/23 14:25 08/25/23 14:25 08/25/23 14:25 08/25/23 14:25 08/25/23 14:25 08/25/23 14:25 Oxygen Delivery Method Room Air Weight: 84.8 kg Body Mass Index (BMI) 26.8 Intake & Output: Intake and Output for Last 24 Hours 08/23/23 08/24/23 08/25/23 23:59 23:59 23:59 Intake Total 1187 / 1271 2245.99 / 2245.99 2404.55 / 2404.55 Output Total 650 / 650 3025 / 3475 1900 / 1900 Balance 537 / 621 -779.01 / -1229.01 504.55 / 504.55 Lab / Micro Data 08/25/23 03:35 08/25/23 03:35 Labs: Laboratory Results - last 24 hr 08/23/23 12:35: Diff Path Review Reviewed, Crossmatch See Detail 08/24/23 04:00: Diff Path Review Reviewed 08/25/23 03:35: WBC 7.3, RBC 2.15 L, Hgb 6.1 L, Hct 19.8 L, MCV 92.1, MCH 28.4, MCHC 30.8 L, RDW Std Deviation 51.8 H, RDW Coeff of Bassam 16.0 H, Plt Count 117 L, MPV 9.7, Immature Gran % (Auto) 0.700, Neut % (Auto) 68.1, Lymph % (Auto) 13.3 L , [place] % (Auto) 16.6 H, Eos % (Auto) 1.0, Baso % (Auto) 0.3, Absolute Neuts (auto) 5.0, Absolute Lymphs (auto) 0.97, Nucleated RBC % 0.5, Sodium 151 H, Potassium 3.6, Chloride 122 H, Carbon Dioxide 24.0, Anion Gap 5, BUN 31 H, Cre atinine 0.89, Estim Creat Clear Calc 88.86, Est GFR (MDRD) Af Amer 112, Est GFR (MDRD) Non-Af 92, BUN/Creatinine Ratio 35.0 H, Glucose 112 H, Calcium 7.2 L, Phosphorus 2.1 L, Magnesium 2.2, Total Bilirubin 0.80, AST 148 H, ALT 101 H, Alkaline Phosphatase 102, Total Protein 5.3 L, Albumin 2.0 L, Globulin 3.3, Albumin/Globulin Ratio 0.6 L, TSH 0.40 08/25/23 11:26: POC Glucose 131 H Micro: Microbiology 08/23/23 12:45 Blood Culture (Wb) - Left Hand Blood Culture - Preliminary No growth in 48 hours. 08/23/23 12:35 Blood Culture (Wb) - Anticubital Right Blood Culture - Preliminary No growth in 48 hours. 08/23/23 14:30 Urine, Midstream Urine Culture - Preliminary Escherichia coli GPC Poss Enterococcus sp 08/23/23 13:10 Mucosa - Nose Influenza & RSV (PCR) - Final 08/23/23 13:05 Stool Stool Occult Blood (ABRAHAM) - Final Rhythm Strip Rhythm Strip: Sinus Rhythm Rate: 91 Ectopy: None Physical Exam Narrative General agitated HEENT. Normocephalic atraumatic, pupils equal and reactive Respiratory reduced air entry bilaterally, no crackles Cardiac S1-S2, regular rate and rhythm GI abdomen soft and nontender MSK no lower extremity edema Skin no rashes Neuro moves all extremities, no facial droop Charges/Coding Visit Charges Inpatient E&M: 71361 Subs Hosp L3
[2023-08-25 16:59] LABS: Bedside Glucose 118 mg/dL (74-106)
[2023-08-25] MEDS: 0.9% Saline Lock 10 ML Syringe IV (18:14)
--- NOTE | 2023-08-25 18:44 | PN.GI_ITS ---
Subjective Subjective Patient is still intubated and sedated. He did have some spontaneous movement today. He is status post upper endoscopy with banding of gastric varices. He did have a decrease in his hemoglobin today down to 6.1. He is currently getting transfused 2 units of packed red blood cells. Objective Data Objective Data Vital Signs: Vital Signs Temp Pulse Resp BP Pulse Ox O2 Del Method 97.5 F L 55 L 15 116/77 100 Room Air 08/25/23 18:11 08/25/23 18:11 08/25/23 18:11 08/25/23 18:11 08/25/23 18:11 08/25/23 18:11 Oxygen Delivery Method Room Air Weight: 186 lb 15.232 oz Body Mass Index (BMI) 26.8 Intake & Output: Intake and Output for Last 24 Hours 08/23/23 08/24/23 08/25/23 23:59 23:59 23:59 Intake Total 1187 / 1271 2245.99 / 2245.99 2756.55 / 2756.55 Output Total 650 / 650 3025 / 3475 2250 / 2250 Balance 537 / 621 -779.01 / -1229.01 506.55 / 506.55 Lab / Micro Data 08/25/23 03:35 08/25/23 03:35 Labs: Laboratory Results - last 24 hr 08/23/23 12:35: Diff Path Review Reviewed, Crossmatch See Detail 08/24/23 04:00: Diff Path Review Reviewed 08/25/23 03:35: WBC 7.3, RBC 2.15 L, Hgb 6.1 L, Hct 19.8 L, MCV 92.1, MCH 28.4, MCHC 30.8 L, RDW Std Deviation 51.8 H, RDW Coeff of Bassam 16.0 H, Plt Count 117 L, MPV 9.7, Immature Gran % (Auto) 0.700, Neut % (Auto) 68.1, Lymph % (Auto) 13.3 L , [place] % (Auto) 16.6 H, Eos % (Auto) 1.0, Baso % (Auto) 0.3, Absolute Neuts (auto) 5.0, Absolute Lymphs (auto) 0.97, Nucleated RBC % 0.5, Sodium 151 H, Potassium 3.6, Chloride 122 H, Carbon Dioxide 24.0, Anion Gap 5, BUN 31 H, Creatinine 0.89, Estim Creat Clear Calc 88.86, Est GFR (MDRD) Af Amer 112, Est GFR (MDRD) Non-Af 92, BUN/Creatinine Ratio 35.0 H, Glucose 112 H, Calcium 7.2 L, Phosphorus 2.1 L, Magnesium 2.2, Total Bilirubin 0.80, AST 148 H, ALT 101 H, Alkaline Phosphatase 102, Total Protein 5.3 L, Albumin 2.0 L, Globulin 3.3, Al bumin/Globulin Ratio 0.6 L, TSH 0.40 08/25/23 11:26: POC Glucose 131 H 08/25/23 16:41: POC Glucose 118 H Micro: Microbiology 08/23/23 12:45 Blood Culture (Wb) - Left Hand Blood Culture - Preliminary No growth in 48 hours. 08/23/23 12:35 Blood Culture (Wb) - Anticubital Right Blood Culture - Pre liminary No growth in 48 hours. 08/23/23 14:30 Urine, Midstream Urine Culture - Preliminary Escherichia coli GPC Poss Enterococcus sp 08/23/23 13:10 Mucosa - Nose Influenza & RSV (PCR) - Final 08/23/23 13:05 Stool Stool Occult Blood (ABRAHAM) - Final Rhythm Strip Rhythm Strip: Sinus Rhythm Rate: 91 Ectopy: None Physical Exam Narrative General agitated HEENT. Normocephalic atraumatic, pupils equal and reactive Respiratory reduced air entry bilaterally, no crackles Cardiac S1-S2, regular rate and rhythm GI abdomen soft and nontender MSK no lower extremity edema Skin no rashes Neuro moves all extremities, no facial droop Assessment & Plan Assessment/Plan (1) Acute GI bleeding: (2) Hemorrhagic shock: PLAN: Plan #Hemorrhagic shock due to UGI bleed * shock has resolved * Hb is 6.1 * Transfusing 2 units of PRBCs * on octreotide and PPI drip still * has a history of UGI bleed due to esophageal varices * on PPI BID * EGD showed grade III esophageal varices which were incompletely eradicated and banded, with no gross lesions in the first portion of the duodenum #Acute on chronic anemia: as above #Lactic acidosis: likely due to hemorrhagic shock. management as above. #Acute encephalopathy: likely due to hemorrhagic shock. Management as above. #Cirrhosis * has a history of chronic alcohol abuse * on nadolol, rifaximin, spironolactone * has a history of esophageal varices. * He will need to be on lactulose and I will also start Flagyl as he could be suffering from grade 1 to grade 2 hepatic encephalopathy as that is causing him to be more lethargic. * #Probable hepatocellular carcinoma * CT abdomen and pelvis from August 2022 showed a 4cm x 4.1cm heterogenous solid mass in the mid lateral portion of the right lobe of hte liver with mildly distended gallbladder. * Patient should get liver biopsy. I do not think he would be a candidate for transarterial chemoembolization if it turns out to be HCC. I will let oncol marilu decide if he be a candidate for chemotherapy. * Outpatient liver biopsy Charges/Coding Visit Charges Inpatient E&M: 65301 Subs Hosp L3
[2023-08-26] VITALS (24 sets, daily range): BP systolic 91–110; BP diastolic 53–70; PULSE 54–59; RESP 13–22; TEMP 36.6–36.9; O2SAT 92–99; BMI 27.8
[2023-08-26] MEDS: Dextrose 5%-Water (1000mL Bag) 1,000 ML 75 ML IV (00:22)
[2023-08-26] MEDS: Pantoprazole Sodium 80 MG in 0.9% Normal Saline (100mL Bag) 80 ML 10 MG CONT INF (01:33)
[2023-08-26] MEDS: Octreotide 0.5 MG in Dextrose 5%-Water (250mL Bag) 249 ML 25 MG CONT INF (01:33)
[2023-08-26] MEDS: Lactulose 20 GM/30 ML UDC PO ×5 (03:50→19:55)
[2023-08-26] MEDS: DEXMEDETOMIDINE CONT INF ×3 (03:50→19:54)
[2023-08-26] MEDS: WATER CONT INF ×3 (03:50→19:54)
[2023-08-26] MEDS: DEXTROSE 5% CONT INF ×3 (03:50→19:54)
[2023-08-26 04:11] LABS: Absolute Lymphocyte Count 0.68 X10^3/uL (0.83-4.51); Absolute Neutrophil Count 4.1 X10^3/uL (2.0-7.7); Basophil# 0.01 X10^3/uL; Basophil% 0.2 % (0-1); Eosinophil# 0.16 X10^3/uL; Eosinophils% 2.8 % (0-5); Hematocrit 25.8 % (40-54); Hemoglobin 8.1 g/dL (13.0-16.5); Lymphocyte # 0.68 X10^3/ul (0.83-4.51); Lymphocyte % 11.9 % (19-41); Mean Corp Hgb Conc 31.4 g/dL (32-36); Mean Corpuscular Hgb 28.4 pg (27.0-32.0); Mean Corpuscular Volume 90.5 fL (80-94); Mean Platelet Vol. 9.9 fl (6.2-12.0); Monocyte# 0.73 X10^3/uL; Monocyte% 12.8 % (0-10); NRBC Flagged by Analyzer 0.7 % (0-5); Neutrophil # 4.12 X10^3/uL (2.7-7.7); Platelet Count 105 K/mm3 (150-450); RBC Distribution Width CV 15.4 % (11.6-14.6); RBC Distribution Width SD 48.2 fl (35.1-43.9); Red Blood Count 2.85 M/mm3 (4.6-6.2); White Blood Count 5.7 K/mm3 (4.4-11.0)
[2023-08-26 04:12] LABS: Ionized Calcium 4.54 mg/dL (4.36-5.20)
[2023-08-26 04:26] LABS: ALB/GLOB Ratio 0.5 RATIO (0.9-2.4); AST(SGOT) 86 U/L (15-37); Alanine Aminotransfer ALT/SGPT 74 U/L (16-61); Alkaline Phosphatase 99 U/L (45-117); Anion Gap 6 (5-15); BUN 26 mg/dL (7-18); BUN/Creat Ratio 29.6 RATIO (10-20); Calcium,Total 7.1 mg/dL (8.5-10.1); Chloride 118 mmol/L (98-107); Creatinine, Serum 0.88 mg/dL (0.70-1.30); EST Glomerular Filtration Rate 93 mL/min (>60); Est Glom Filt Rate - Afr Amer 113 mL/min (>60); Estimated Creatinine Clearance 89.87 ml/min; Globulin 3.7 g/dL (2.2-4.2); Glucose 149 mg/dL (74-106); Phosphorus 2.9 mg/dL (2.5-4.9); Potassium 3.8 mmol/L (3.5-5.1); Protein, Total 5.7 g/dL (6.4-8.2); Sodium Level 145 mmol/L (136-145)
[2023-08-26 05:32] LABS: Bedside Glucose 154 mg/dL (74-106)
--- NOTE | 2023-08-26 08:02 | PCM.PN.HOSP ---
Reason for Visit Reason for Visit: Altered mental status Subjective Subjective Patient still with no bowel movements despite aggressive lactulose. Will increase frequency. Mental status seems to be a little bit better as he is communicating with words however he is either asking for food or cursing at the staff on a regular basis. Remains on Precedex. Still awaiting pathology for liver biopsy. Objective Data Objective Data Vital Signs: Vital Signs Temp Pulse Resp BP Pulse Ox O2 Del Method 98.3 F 58 L 16 102/65 94 Room Air 08/26/23 06:00 08/26/23 07:00 08/26/23 07:00 08/26/23 07:00 08/26/23 07:00 08/26/23 07:00 Oxygen Delivery Method Room Air Weight: 87.952 kg Body Mass Index (BMI) 27.8 Intake & Output: Intake and Output for Last 24 Hours 08/24/23 08/25/23 08/26/23 23:59 23:59 23:59 Intake Total 2245.99 / 2245.99 3074.39 / 3106.19 1481.70 / 1481.70 Output Total 3025 / 3475 2650 / 2650 625 / 625 Balance -779.01 / -1229.01 424.39 / 456.19 856.70 / 856.70 Lab / Micro Data 08/26/23 03:50 08/26/23 03:50 Labs: Laboratory Results - last 24 hr 08/23/23 12:35: Diff Path Review Reviewed, Crossmatch See Detail 08/24/23 04:00: Diff Path Review Reviewed 08/25/23 11:26: POC Glucose 131 H 08/25/23 16:41: POC Glucose 118 H 08/26/23 03:50: WBC 5.7, RBC 2.85 L, Hgb 8.1 L, Hct 25.8 L, MCV 90.5, MCH 28.4, MCHC 31.4 L, RDW Std Deviation 48.2 H, RDW Coeff of Bassam 15.4 H, Plt Count 105 L, MPV 9.9, Immature Gran % (Auto) 0.300, Neut % (Auto) 72.0 H, Lymph % (Auto) 11.9 L, Karnes % (Auto) 12.8 H, Eos % (Auto) 2.8, Baso % (Auto) 0.2, Absolute Neuts (auto) 4.1, Absolute Lymphs (auto) 0.68 L, Nucleated RBC % 0.7, Sodium 145, Potassium 3.8, Chloride 118 H, Carbon Dioxide 21.0, Anion Gap 6, BUN 26 H, Creatinine 0.88, Estim Creat Clear Calc 89.87, Est GFR (MDRD) Af Amer 113, Est GFR (MDRD) Non-Af 93, BUN/Creatinine Ratio 29.6 H, Glucose 149 H, Calcium 7.1 L, Phosphorus 2.9, Total Bilirubin 1.10 H, AST 86 H, ALT 74 H, Alkaline Phosphatase 99, Total Protein 5.7 L, Albumin 2.0 L, Globulin 3.7, Albumin/Globulin Ratio 0.5 L 08/26/23 04:08: Ionized Calcium 4.54 08/26/23 05:14: POC Glucose 154 H Micro: Microbiology 08/23/23 12:45 Blood Culture (Wb) - Left Hand Blood Culture - Preliminary No growth in 48 hours. 08/23/23 12:35 Blood Culture (Wb) - Anticubital Right Blood Culture - Preliminary No growth in 48 hours. 08/23/23 14:30 Urine, Midstream Urine Culture - Preliminary Escherichia coli GPC Poss Enterococcus sp 08/23/23 13:10 Mucosa - Nose Influenza & RSV (PCR) - Final 08/23/23 13:05 Stool Stool Occult Blood (ABRAHAM) - Final Rhythm Strip Rhythm Strip: Sinus Rhythm Rate: 91 Ectopy: None Physical Exam Const Negative for alert, oriented x3, no apparent distress, average body habitus, healthy appearing or well nourished Constitutional Narrative: Chronically ill-appearing upper middle-aged, white male, lying on back, currently calm but moans intermittently and speaks in mumbled words, moves extremities to stimuli but does not interact appropriately Orientation / Consciousness: confused, disoriented and lethargic HEENT head/scalp atraumatic and moist oral mucous membranes HEENT Narrative: Mallampati 2, no thrush Head and Scalp: normocephalic Resp normal respiratory effort, no retractions, no use of accessory muscles and clear to auscultation bilaterally Resp Narrative: Diffusely diminished but clear Auscultation: Negative for rales, rhonchi or wheezes Cardio regular rate, regular rhythm, S1 normal heart sound, S2 normal heart sound, no rub, no gallops and no clicks; Negative for no murmurs Cardio Narrative: 2 out of 6 systolic murmur loudest at right upper sternal border GI normal to inspection, nondistended, normoactive bowel sounds and soft to palpation Extremity no clubbing, cyanosis or edema Extremity Narrative: Pedal pulses are 2+ Neuro Neuro Narrative: Patient moves all extremities spontaneously but no meaningful interaction and he does not follow commands, yells out obscenities intermittently and ask for food which overall is an improvement but not cooperative Psych Psych Narrative: Calm currently on Precedex Assessment & Plan Assessment/Plan (1) Liver masses: (2) Portal vein thrombosis: (3) Acute upper gastrointestinal hemorrhage: (4) ABLA (acute blood loss anemia): (5) Alcoholic cirrhosis of liver: (6) Hypernatremia: (7) Encephalopathy acute: (8) Esophageal varices with bleeding: PLAN: Plan Upper GI bleed secondary to bleeding esophageal varices -EGD done 08/24/2023 and demonstrated grade 3 esophageal varices and hematin in the stomach with blood in the entire duodenum, varices were banded but incompletely eradicated and an NG was placed under endoscopy -Hemoglobin on presentation was 5.9 and patient was transfused 2 units of packed red blood cells on 08/23/2023--> on a.m. of 08/25/2023 hemoglobin 6.1 and patient was transfused 2 more units -Hemoglobin's morning corrected appropriately at 8.1 -Repeat hemoglobin at 12 for stability -Continue octreotide drip -Continue Protonix drip -Continue Rocephin for SBP prophylaxis in the setting of cirrhotic bleed -GI is following-appreciate input Acute on chronic anemia -Acute component suspect related to upper GI bleed -Baseline hemoglobin appears to run between 9 and 10 - patient has been transfused a total of 4 units -Corrected appropriately with his last 2 units -Recheck CBC at noon Toxic/metabolic encephalopathy likely related to hepatic encephalopathy -Patient with history of cirrhosis at baseline -Encephalopathy appears to be slightly better as he is now using words for communication but still not appropriate -On Precedex for agitation -Ammonia was elevated on presentation -Patient was supposed to be on rifaximin and lactulose for this at baseline -Compliance is questionable -Continue lactulose but increase to 20 g every 3 hours as patient has not yet had bowel movements -Continue rifaximin -Will likely be able to back off on lactulose his bowel movements increase and he clears his ammonia Suspected hepatocellular carcinoma -CT of the abdomen pelvis from August 2023 shows a heterogeneous and cirrhotic appearing liver with multiple cystic and solid enhancing masses, 3.3 cm mass in the right hepatic lobe that has enlarged since previous imaging and increasing necrotic appearance of larger masses in the right lobe of the liver -Liver biopsy performed on 08/24/2023 -Suspect he is not going to be a candidate for transarterial chemoembolization if it is HCC given multiple lesions -Will need oncology follow-up once pathology is received -Alpha-fetoprotein, CEA, CA 19-9 are pending--> ordered 08/25/2023 Portal vein thrombosis -Per GI it looks like grade 2 portal vein thrombus meaning that the obstruction occupies greater than 50% of the vessel lumen without extension into the superior mesenteric vessels -This does increase his risk for development of GI bleeding -Not a candidate for TIPS and currently not a candidate for anticoagulation due to his bleeding -Recommend ongoing clinical monitoring at this time -GI is following-appreciate input Hypernatremia/hyperchloremia -Resolved--> sodium down to 145 -Continue D5W at 75 cc/h -Repeat lab in a.m. Cirrhosis secondary to history of alcohol abuse -Patient was supposed to be on nadolol, rifaximin, lactulose, and Aldactone at home -Highly suspect that he is not compliant Chronic diastolic heart failure -No signs of acute decompensation -Will use diuresis as hemodynamics and lab allow Mild to moderate aortic stenosis -Outpatient follow-up MIKAL -Resolved -Baseline serum creatinine runs around 0.6-0.8 -Greater than 1 on presentation at 1.22 therefore meeting requirement for MIKAL at greater than 0.3 above baseline -Current serum creatinine is 0.89 -Avoid nephrotoxins as able -Continue to monitor History of hypertension -Blood pressures are currently stable without any medication for treatment -Continue to monitor History of alcohol abuse -Unclear if patient is still consuming any alcohol Tobacco abuse -Patient current smoker -Will supply nicotine patch if patient desires DVT prophylaxis -SCDs -Chemoprophylaxis contraindicated secondary to GI bleeding CODE STATUS -DNR CCA no intubation Overall prognosis is very bad. Family had discussion with Dr. Ramon and they would like to wait for pathology to result before they make any decisions. Most likely hospice appropriate. Charges/Coding Visit Charges Inpatient E&M: 98951 Subs Hosp L2
[2023-08-26] MEDS: rifAXIMin 550 MG Tablet PO ×2 (09:52→20:18)
[2023-08-26] MEDS: Thiamine Hydrochloride 100 MG Tablet PO (09:52)
--- NOTE | 2023-08-26 10:50 | CASEMGMT ---
Social Work SW participated in ICU rounds this morning, plan is to be determined. Pt's mother Kimberli Avendaño is pt's healthcare POA and the document is on file in [facility]. ALICE Doss
--- NOTE | 2023-08-26 11:16 | NURSING ---
Oral care provided; green swabs and upper denture cleaned and removed for procedure. Patient coughed up large mucous (brown/black in color). Patient resting comfortably now after seen by anesthesia and 2mg versed given per AA.
[2023-08-26] MEDS: Ceftriaxone 1 GM/50 ML BAG IV (12:12)
--- NOTE | 2023-08-26 12:31 | OP.CCLET_ITS ---
08/26/2023 Jose Alex [address] [place] [address] Re : Upper GI endoscopy procedure for Nilo Hood Dear Dr. Alex This procedure was performed on Saturday, August 26, 2023. My impressions and recommendations are as follows: Impressions : - Grade I esophageal varices with no bleeding and no stigmata of recent bleeding. - No gross lesions in the stomach. - No gross lesions in the duodenal bulb. - No specimens collected. Recommendations : - Return patient to ICU for ongoing care. - Resume previous diet. - Continue present medications. My findings are described in the full procedure note, which is enclosed. If I can be of further assistance, please feel free to contact me at . Sincerely, Sheldon Ramon, 08/26/2023 12:30:49 PM This report has been signed electronically.
--- NOTE | 2023-08-26 12:31 | OP.EGD_ITS ---
Patient Name: Nilo Hood Procedure Date: 08/26/2023 11:10 AM Date of : 1960 Age: 63 Procedure: Upper GI endoscopy Indications: Follow-up of esophageal varices with bleeding Providers: Sheldon Ramon DO Medicines: Monitored Anesthesia Care Patient Profile: This is a 63 year old male. Refer to note in patient chart for documentation of history and physical. Patient has symptoms of acute vomiting. Complications: No immediate complications. Procedure: Pre-Anesthesia Assessment: - Prior to the procedure, a History and Physical was performed, and patient medications and allergies were reviewed. The patient is competent. The risks and benefits of the procedure and the sedation options and risks were discussed with the patient. All questions were answered and informed consent was obtained. Patient identification and proposed procedure were verified by the physician. Mental Status Examination: normal. CV Examination: normal. Prophylactic Antibiotics: The patient does not require prophylactic antibiotics. Prior Anticoagulants: The patient has taken no anticoagulant or antiplatelet agents except for NSAID medication. ASA Grade Assessment: IV - A patient with severe systemic disease that is a constant threat to life. After reviewing the risks and benefits, the patient was deemed in satisfactory condition to undergo the procedure. The anesthesia plan was to use monitored anesthesia care (MAC). Immediately prior to administration of medications, the patient was re-assessed for adequacy to receive sedatives. The heart rate, respiratory rate, oxygen saturations, blood pressure, adequacy of pulmonary ventilation, and response to care were monitored throughout the procedure. The physical status of the patient was re-assessed after the procedure. After obtaining informed consent, the endoscope was passed under direct vision. Throughout the procedure, the patient's blood pressure, pulse, and oxygen saturations were monitored continuously. The Endoscope was introduced through the mouth, and advanced to the second part of duodenum. The upper GI endoscopy was accomplished without difficulty. The patient tolerated the procedure well. Scope In: 11:52:29 AM Scope Out: 11:54:30 AM Total Procedure Duration Time 0 hours 2 minutes 1 second Findings: Two columns of grade I varices with no bleeding and no stigmata of recent bleeding were found in the lower third of the esophagus, 36 cm from the incisors. They were 5 mm in largest diameter. No red destini signs were present. Stigmata of prior treatment were evident. No gross lesions were noted in the stomach. No gross lesions were noted in the duodenal bulb. Impression: - Grade I esophageal varices with no bleeding and no stigmata of recent bleeding. - No gross lesions in the stomach. - No gross lesions in the duodenal bulb. - No specimens collected. Recommendation: - Return patient to ICU for ongoing care. - Resume previous diet. - Continue present medications. Procedure Code(s): --- Professional --- 87504, Esophagogastroduodenoscopy, flexible, transoral; diagnostic, including collection of specimen(s) by brushing or washing, when performed (separate procedure) CPT copyright 2021 [employer]. All rights reserved. The codes documented in this report are preliminary and upon transporter driver review may be revised to meet current compliance requirements. Sheldon Ramon DO 08/26/2023 12:30:49 PM This report has been signed electronically. Number of Addenda: 0 Note Initiated On: 08/26/2023 11:10 AM
[2023-08-26] MEDS: Dextrose 5%-Water (1000mL Bag) 1,000 ML 40 ML IV (13:32)
[2023-08-26] MEDS: Lactulose 20 GM/30 ML UDC 200 GM RC (14:18)
--- NOTE | 2023-08-26 15:16 | PN.CC_ITS ---
Assessment & Plan Assessment/Plan (1) Acute upper gastrointestinal hemorrhage: (2) ABLA (acute blood loss anemia): (3) Liver masses: PLAN: Plan RECOMMENDATIONS: * Hemoglobin was stable today. He went for another EGD today which did not show active bleeding and will start trickle feeds * Continues to have constipation despite lactulose and lactulose enema as well as rifaximin. KUB ordered and pending * He will be switched to Protonix pushes twice daily. Octreotide drip will be stopped * Discussed with GI patient has very grim prognosis. Continue goals of care discussions with the family * Awaiting liver biopsy results * He remains on Precedex drip due to agitation. * Sodium proved. Will decrease D5 drip to 40 cc an hour. * Blood sugar q 6 monitor for hypoglycemia IMPRESSIONS: 1. Acute blood loss anemia secondary to probable upper GI bleed with varices Previously, patient did have a significant varices and this appears to be confirmed on CT of the abdomen. Patient has also had gastric ulcers with visible vessel in the past. Patient is currently on octreotide, PPI and Rocephin. H&H has been relatively stable. Okay to space out from my perspective. Would recommend keeping hemoglobin greater than 8 given the p ossibility of a brisk bleed with current liver function. Patient has not been hypotensive and this may suggest a slow upper GI bleed. Given significant varices, requesting NG be placed under endoscopic guidance 2. Metabolic encephalopathy Patient does have an elevated ammonia at 69. Patient does have lactulose and rifaximin ordered, but patient has only been able to receive a lactulose enema secondary to mental status. Not sure that rectal administration will be sufficient. Patient's pH is within normal limits on VBG, so we will hold off on an ABG to evaluate for CO2 retention 3. History of cirrhosis and alcohol abuse/portal vein thrombosis Attempt to evaluate if patient is still drinking. Patient may need to be placed on a CIWA protocol. Patient does not have an alcohol level at this time. Could consider seizure precautions while history is being verified. Patient is not anticoagulated at this time secondary to problem #1. Unclear if patient's liver lesions have led to the development of this condition. Likely okay to proceed with biopsy, but long-term prognosis is poor 4. Acute kidney injury Improved. Clinical suspicion for prerenal etiology. Patient does have a significantly elevated BUN, likely secondary to upper GI bleed. Baseline creatinine appears to be 0.6. Will try to support the hemodynamic standpoint and follow creatinine. Patient does not have any indication for renal replacement therapy at this time. 5. Liver lesions Patient has been known to have liver lesions in the past. It appears as though the patient failed to follow-up with recommendations a year ago. Patient would be a risk for hepatocellular carcinoma given his cirrhosis. Cannot rule out other metastatic disease. Will defer to GI Subjective Subjective Remains agitated on Precedex drip. He has been receiving rectal lactulose without a bowel movement. Lactulose enema ordered. Family would like to wait for liver biopsy results Objective Data Objective Data Vital Signs: Vital Signs Temp Pulse Resp BP Pulse Ox O2 Del Method 36.6 C 55 L 15 103/62 92 Room Air 08/26/23 09:00 08/26/23 13:00 08/26/23 13:00 08/26/23 13:00 08/26/23 13:00 08/26/23 13:00 Oxygen Delivery Method Room Air Weight: 87.952 kg Body Mass Index (BMI) 27.8 Intake & Output: Intake and Output for Last 24 Hours 08/24/23 08/25/23 08/26/23 23:59 23:59 23:59 Intake Total 2245.99 / 2245.99 3074.39 / 3106.19 2990.87 / 2990.87 Output Total 3025 / 3475 2650 / 2650 975 / 975 Balance -779.01 / -1229.01 424.39 / 456.19 / Lab / Micro Data 08/26/23 03:50 08/26/23 03:50 Labs: Laboratory Results - last 24 hr 08/23/23 12:35: Crossmatch See Detail 08/25/23 16:41: POC Glucose 118 H 08/26/23 03:50: WBC 5.7, RBC 2.85 L, Hgb 8.1 L, Hct 25.8 L, MCV 90.5, MCH 28.4, MCHC 31.4 L, RDW Std Deviation 48.2 H, RDW Coeff of Bassam 15.4 H, Plt Count 105 L, MPV 9.9, Immature Gran % (Auto) 0.300, Neut % (Auto) 72.0 H, Lymph % (Auto) 11.9 L, Bell % (Auto) 12.8 H, Eos % (Auto) 2.8, Baso % (Auto) 0.2, Absolute Neuts (auto) 4.1, Absolute Lymphs (auto) 0.68 L, Nucleated RBC % 0.7, Sodium 145, Potassium 3.8, Chloride 118 H, Carbon Dioxide 21.0, Anion Gap 6, BUN 26 H, Crea tinine 0.88, Estim Creat Clear Calc 89.87, Est GFR (MDRD) Af Amer 113, Est GFR (MDRD) Non-Af 93, BUN/Creatinine Ratio 29.6 H, Glucose 149 H, Calcium 7.1 L, Phosphorus 2.9, Total Bilirubin 1.10 H, AST 86 H, ALT 74 H, Alkaline Phosphatase 99, Total Protein 5.7 L, Albumin 2.0 L, Globulin 3.7, Albumin/Globulin Ratio 0.5 L 08/26/23 04:08: Ionized Calcium 4.54 08/26/23 05:14: POC Glucose 154 H Micro: Microbiology 08/23/23 12:45 Blood Culture (Wb) - Left Hand Blood Culture - Preliminary No growth in 48 hours. 08/23/23 12:35 Blood Culture (Wb) - Anticubital Right Blood Culture - Preliminary No growth in 48 hours. 08/23/23 14:30 Urine, Midstream Urine Culture - Preliminary Escherichia coli GPC Poss Enterococcus sp 08/23/23 13:10 Mucosa - Nose Influenza & RSV (PCR) - Final 08/23/23 13:05 Stool Stool Occult Blood (ABRAHAM) - Final Rhythm Strip Rhythm Strip: Sinus Rhythm Rate: 91 Ectopy: None Physical Exam Narrative General agitated HEENT. Normocephalic atraumatic, pupils equal and reactive Respiratory reduced air entry bilaterally, no crackles Cardiac S1-S2, regular rate and rhythm GI abdomen soft and nontender MSK no lower extremity edema Skin no rashes Neuro moves all extremities, no facial droop Charges/Coding Visit Charges Inpatient E&M: 73776 Subs Hosp L3
[2023-08-26 15:19] LABS: Hemoglobin 8.2 g/dL (13.0-16.5)
--- NOTE | 2023-08-26 15:35 | RAD_ITS ---
STUDY: X-RAY - ABDOMEN/PELVIS REASON FOR EXAM: Male, 63 years old. Constipation TECHNIQUE: Two AP supine views of the abdomen and pelvis. COMPARISON: August [address] scan abdomen and pelvis FINDINGS: Lung bases are mostly out of the [id number]. There are gaseous distended loops of colon. There is a paucity of gas within the rectum. The liver silhouette is enlarged. The splenic silhouette is obscured by bowel gas. There is visualized calcification in the prostate. There are diffuse degenerative changes of the visualized lumbar spine. RAD/Abdomen Single View (Portable) IMPRESSION: Nonspecific gassy appearance of the colon. Mild to moderate stool volume. Hepatomegaly. Electronically Signed: Amy Ingram MD at 16:19 EST ,
[2023-08-26 16:59] LABS: Bedside Glucose 103 mg/dL (74-106)
[2023-08-26] MEDS: Jevity 1.5 1,000 ML 10 ML GT (17:39)
[2023-08-26] MEDS: Pantoprazole Sodium 40 MG in 0.9% Normal Saline (100mL MB+) 100 ML 330 MG IV (20:20)
[2023-08-27] VITALS (27 sets, daily range): BP systolic 86–112; BP diastolic 53–74; PULSE 51–58; RESP 14–19; TEMP 36.6–37.4; O2SAT 89–100; BMI 27.6
[2023-08-27] MEDS: Lactulose 20 GM/30 ML UDC PO (00:19)
[2023-08-27 00:47] LABS: Bedside Glucose 130 mg/dL (74-106)
[2023-08-27] MEDS: DEXMEDETOMIDINE CONT INF ×3 (03:37→23:51)
[2023-08-27] MEDS: DEXTROSE 5% CONT INF ×3 (03:37→23:51)
[2023-08-27] MEDS: Lactulose 20 GM/30 ML UDC NG ×6 (03:37→23:53)
[2023-08-27] MEDS: WATER CONT INF ×3 (03:37→23:51)
[2023-08-27 04:10] LABS: Carbohydrate AG 19-9 289 U/mL (0-35); Carcinoembryonic Antigen 4.2 ng/mL (0.0-4.7)
[2023-08-27 04:49] LABS: Absolute Lymphocyte Count 0.65 X10^3/uL (0.83-4.51); Absolute Neutrophil Count 3.6 X10^3/uL (2.0-7.7); Basophil# 0.01 X10^3/uL; Basophil% 0.2 % (0-1); Eosinophil# 0.16 X10^3/uL; Eosinophils% 3.2 % (0-5); Hematocrit 26.1 % (40-54); Hemoglobin 8.4 g/dL (13.0-16.5); Lymphocyte # 0.65 X10^3/ul (0.83-4.51); Lymphocyte % 12.9 % (19-41); Mean Corp Hgb Conc 32.2 g/dL (32-36); Mean Corpuscular Hgb 29.1 pg (27.0-32.0); Mean Corpuscular Volume 90.3 fL (80-94); Mean Platelet Vol. 10.5 fl (6.2-12.0); Monocyte# 0.61 X10^3/uL; Monocyte% 12.1 % (0-10); NRBC Flagged by Analyzer 0.4 % (0-5); Neutrophil % 71.2 % (47-70); POSITIVE COUNT YES; Platelet Count 92 K/mm3 (150-450); RBC Distribution Width SD 47.1 fl (35.1-43.9); Red Blood Count 2.89 M/mm3 (4.6-6.2); White Blood Count 5.1 K/mm3 (4.4-11.0)
[2023-08-27 05:02] LABS: Anion Gap 6 (5-15); BUN 21 mg/dL (7-18); BUN/Creat Ratio 22.2 RATIO (10-20); Calcium,Total 7.2 mg/dL (8.5-10.1); Chloride 117 mmol/L (98-107); Creatinine, Serum 0.95 mg/dL (0.70-1.30); EST Glomerular Filtration Rate 86 mL/min (>60); Est Glom Filt Rate - Afr Amer 104 mL/min (>60); Estimated Creatinine Clearance 83.25 ml/min; Glucose 137 mg/dL (74-106); Potassium 3.7 mmol/L (3.5-5.1); Sodium Level 143 mmol/L (136-145)
[2023-08-27 07:55] LABS: Bedside Glucose 125 mg/dL (74-106)
[2023-08-27] MEDS: Pantoprazole Sodium 40 MG in 0.9% Normal Saline (100mL MB+) 100 ML 330 MG IV ×2 (08:13→21:37)
[2023-08-27] MEDS: Thiamine Hydrochloride 100 MG Tablet NG (08:14)
[2023-08-27] MEDS: rifAXIMin 550 MG Tablet NG ×2 (08:14→21:38)
--- NOTE | 2023-08-27 09:25 | PN.HOSP_ITS ---
Reason for Visit Reason for Visit: Altered mental status Subjective Subjective Still no bowel movements despite aggressive lactulose. KUB did not show any thing specific. Repeat EGD yesterday was unremarkable. Will obtain CT of the abdomen and pelvis to see if he has obstruction. Patient still on Precedex with intermittent agitation and somnolence. Objective Data Objective Data Vital Signs: Vital Signs Temp Pulse Resp BP Pulse Ox O2 Del Method O2 Flow Rate 99.1 F 55 L 17 95/62 96 Nasal Cannula 2 08/27/23 09:00 08/27/23 09:00 08/27/23 09:00 08/27/23 09:00 08/27/23 09:00 08/27/23 09:00 08/27/23 09:00 Oxygen Flow Rate (L/min) 2 Oxygen Delivery Method Nasal Cannula Weight: 87.5 kg Body Mass Index (BMI) 27.6 Intake & Output: Intake and Output for Last 24 Hours 08/25/23 08/26/23 08/27/23 23:59 23:59 23:59 Intake Total 3074.39 / 3106.19 3644.31 / 3676.11 854.40 / 854.40 Output Total 2650 / 2650 1475 / 1775 800 / 800 Balance 424.39 / 456.19 2169.31 / 1901.11 54.40 / 54.40 Lab / Micro Data 08/27/23 04:40 08/27/23 04:40 Labs: Laboratory Results - last 24 hr 08/26/23 03:50: Tumor Marker AFP 30520.0 H, Carcinoembryonic Ag 4.2, CA 19-9 Antigen 289 H 08/26/23 15:00: Hgb 8.2 L 08/26/23 16:27: POC Glucose 103 08/27/23 00:15: POC Glucose 130 H 08/27/23 04:40: WBC 5.1, RBC 2.89 L, Hgb 8.4 L, Hct 26.1 L, MCV 90.3, MCH 29.1, MCHC 32.2, RDW Std Deviation 47.1 H, RDW Coeff of Bassam 15.0 H, Plt Count 92 L, MPV 10.5, Immature Gran % (Auto) 0.400, Neut % (Auto) 71.2 H, Lymph % (Auto) 12.9 L, [place] % (Auto) 12.1 H, Eos % (Auto) 3.2, Baso % (Auto) 0.2, Absolute Neuts (auto) 3.6, Absolute Lymphs (auto) 0.65 L, Nucleated RBC % 0.4, Sodium 143, Potassium 3.7, Chloride 117 H, Carbon Dioxide 20.0 L, Anion Gap 6, BUN 21 H , Creatinine 0.95, Estim Creat Clear Calc 83.25, Est GFR (MDRD) Af Amer 104, Est GFR (MDRD) Non-Af 86, BUN/Creatinine Ratio 22.2 H, Glucose 137 H, Calcium 7.2 L 08/27/23 04:47: Ionized Calcium 4.50 08/27/23 07:37: POC Glucose 125 H Micro: Microbiology 08/23/23 12:45 Blood Culture (Wb) - Left Hand Blood Culture - Preliminary No growth in 48 hours. 08/23/23 12:35 Blood Culture (Wb) - Anticubital Right Blood Culture - Preliminary No growth in 48 hours. 08/23/23 14:30 Urine, Midstream Urine Culture - Preliminary Escherichia coli GPC Poss Enterococcus sp 08/23/23 13:10 Mucosa - Nose Influenza & RSV (PCR) - Final 08/23/23 13:05 Stool Stool Occult Blood (ABRAHAM) - Final Radiography Diagnostic Testing: Radiology Impression KUB X-Ray 08/26/23 15:35 IMPRESSION: Nonspecific gassy appearance of the colon. Mild to moderate stool volume. Hepatomegaly. Electronically Signed: Amy Ingram MD at 16:19 EST Reading Location ID and State: [facility] / [place] Tel , Service support , Rhythm Strip Rhythm Strip: Sinus Rhythm Rate: 91 Ectopy: None Physical Exam Const Negative for alert, oriented x3, no apparent distress, average body habitus, healthy appearing or well nourished Constitutional Narrative: Chronically ill-appearing upper middle-aged, white male, lying on right side lying, still moans intermittently but can speak in mumble words however words are unintelligible, still with intermittent agitation although calm currently Orientation / Consciousness: confused, disoriented and lethargic HEENT head/scalp atraumatic and moist oral mucous membranes HEENT Narrative: Dentition is poor, Mallampati is 2, no thrush Resp normal respiratory effort, no retractions, no use of accessory muscles and clear to auscultation bilaterally Resp Narrative: Diffusely diminished but clear Auscultation: Negative for rales, rhonchi or wheezes Cardio regular rate, regular rhythm, S1 normal heart sound, S2 normal heart sound, no rub, no gallops and no clicks; Negative for no murmurs Cardio Narrative: 2 out of 6 systolic murmur loudest at right upper sternal border GI GI Narrative: Moderate distention, patient has bowel sounds abdomen is soft Extremity no clubbing, cyanosis or edema Extremity Narrative: Pedal pulses are 2+ Neuro Neuro Narrative: Patient moves all extremities spontaneously but no meaningful interaction and he does not follow commands, continues to have intermittent agitation Psych Psych Narrative: agitation Assessment & Plan Assessment/Plan (1) Liver masses: (2) Portal vein thrombosis: (3) Acute upper gastrointestinal hemorrhage: (4) ABLA (acute blood loss anemia): (5) Alcoholic cirrhosis of liver: (6) Hypernatremia: (7) Encephalopathy acute: (8) Esophageal varices with bleeding: PLAN: Plan Upper GI bleed secondary to bleeding esophageal varices -EGD done 08/24/2023 and demonstrated grade 3 esophageal varices and hematin in the stomach with blood in the entire duodenum, varices were banded but incompletely eradicated and an NG was placed under endoscopy -Repeat EGD done on 08/26/2023 and no bleeding found -Hemoglobin on presentation was 5.9 and patient was transfused 2 units of packed red blood cells on 08/23/2023--> on a.m. of 08/25/2023 hemoglobin 6.1 and patient was transfused 2 more units -Hemoglobin remained stable at 8.4 today -Octreotide drip discontinued -IV Protonix drip discontinued and now on Protonix IV push 40 twice daily -Continue Rocephin for SBP prophylaxis in the setting of cirrhotic bleed -GI is following-appreciate input -Critical care medicine following-appreciate input Acute on chronic anemia -Acute component suspect related to upper GI bleed -Baseline hemoglobin appears to run between 9 and 10 - patient has been transfused a total of 4 units -Hemoglobin is now stable -Repeat CBC in a.m. Toxic/metabolic encephalopathy likely related to hepatic encephalopathy -Patient with history of cirrhosis at baseline -Encephalopathy appears to be slightly better as he is now using words for communication but still not appropriate -Remains on Precedex for agitation -Ammonia was elevated on presentation -Patient was supposed to be on ifaximin and lactulose for this at baseline -Compliance is questionable -Patient on lactulose 20 g every 3 hours and still no bowel movement -KUB does not show any specific abnormalities -CT abdomen pelvis with oral contrast is pending -Continue rifaximin -Will likely be able to back off on lactulose his bowel movements increase and he clears his ammonia Suspected hepatocellular carcinoma -CT of the abdomen pelvis from August 2023 shows a heterogeneous and cirrhotic appearing liver with multiple cystic and solid enhancing masses, 3.3 cm mass in the right hepatic lobe that has enlarged since previous imaging and increasing necrotic appearance of larger masses in the right lobe of the liver -Liver biopsy performed on 08/24/2023--> pathology is still pending -Suspect he is not going to be a candidate for transarterial chemoembolization if it is HCC given multiple lesions -Will need oncology follow-up once pathology is received -Alpha-fetoprotein is markedly elevated at 10,931-->D/W Dr. Ramon and he is going to talk to family about Hospice -CA 19-9 is elevated at 289 -CEA is normal at 4.2 Portal vein thrombosis -Per GI it looks like grade 2 portal vein thrombus meaning that the obstruction occupies greater than 50% of the vessel lumen without extension into the superior mesenteric vessels -This does increase his risk for development of GI bleeding -Not a candidate for TIPS and currently not a candidate for anticoagulation due to his bleeding -Recommend ongoing clinical monitoring at this time -GI is following-appreciate input Hypernatremia/hyperchloremia -Resolved--> sodium down to 143 -Continue D5W at current rate -Repeat lab in a.m. Cirrhosis secondary to history of alcohol abuse -Patient was supposed to be on nadolol, rifaximin, lactulose, and Aldactone at home -Highly suspect that he is not compliant Chronic diastolic heart failure -No signs of acute decompensation -Will use diuresis as hemodynamics and lab allow Mild to moderate aortic stenosis -Outpatient follow-up MIKAL -Resolved -Baseline serum creatinine runs around 0.6-0.8 -Greater than 1 on presentation at 1.22 therefore meeting requirement for MIKAL at greater than 0.3 above baseline -Current serum creatinine is 0.95 -Avoid nephrotoxins as able -Continue to monitor History of hypertension -Blood pressures are currently stable without any medication for treatment -Continue to monitor History of alcohol abuse -Unclear if patient is still consuming any alcohol Tobacco abuse -Patient current smoker -Will supply nicotine patch if patient desires DVT prophylaxis -SCDs -Chemoprophylaxis contraindicated secondary to GI bleeding CODE STATUS -DNR CCA no intubation Overall prognosis is very bad. Alpha-fetoprotein is now back in greater than 10,000. I discussed with Dr. Ramon he is going to call family and let them know with the results of the AFP are and will address hospice with them. Will let me know what their decision is. Charges/Coding Visit Charges Inpatient E&M: 74427 Subs Hosp L2
[2023-08-27] MEDS: Ceftriaxone 1 GM/50 ML BAG IV (09:31)
--- NOTE | 2023-08-27 11:34 | PN.GI_ITS ---
Subjective Subjective Patient is status post repeat EGD for upper GI bleed secondary to varices and placement of NG tube. He still has not had a bowel movement after having multiple lactulose treatments for hepatic encephalopathy. I talk with his mother and his brother and they stated they are willing to talk to the hospice. Objective Data Objective Data Vital Signs: Vital Signs Temp Pulse Resp BP Pulse Ox O2 Del Method O2 Flow Rate 98.8 F 51 L 17 100/61 100 Nasal Cannula 2 08/27/23 11:00 08/27/23 11:00 08/27/23 11:00 08/27/23 11:00 08/27/23 11:00 08/27/23 11:00 08/27/23 11:00 Oxygen Flow Rate (L/min) 2 Oxygen Delivery Method Nasal Cannula Weight: 192 lb 14.472 oz Body Mass Index (BMI) 27.6 Intake & Output: Intake and Output for Last 24 Hours 08/25/23 08/26/23 08/27/23 23:59 23:59 23:59 Intake Total 3074.39 / 3106.19 3644.31 / 3676.11 1149.03 / 1149.03 Output Total 2650 / 2650 1475 / 1775 900 / 900 Balance 424.39 / 456.19 2169.31 / 1901.11 249.03 / 249.03 Lab / Micro Data 08/27/23 04:40 08/27/23 04:40 Labs: Laboratory Results - last 24 hr 08/26/23 03:50: Tumor Marker AFP 05032.0 H, Carcinoembryonic Ag 4.2, CA 19-9 Antigen 289 H 08/26/23 15:00: Hgb 8.2 L 08/26/23 16:27: POC Glucose 103 08/27/23 00:15: POC Glucose 130 H 08/27/23 04:40: WBC 5.1, RBC 2.89 L, Hgb 8.4 L, Hct 26.1 L, MCV 90.3, MCH 29.1, MCHC 32.2, RDW Std Deviation 47.1 H, RDW Coeff of Bassam 15.0 H, Plt Count 92 L, MPV 10.5, Immature Gran % (Auto) 0.400, Neut % (Auto) 71.2 H, Lymph % (Auto) 12.9 L, Saline % (Auto) 12.1 H, Eos % (Auto) 3.2, Baso % (Auto) 0.2, Absolute Neuts (auto) 3.6, Absolute Lymphs (auto) 0.65 L, Nucleated RBC % 0.4, Sodium 143, Potassium 3.7, Chloride 117 H, Carbon Dioxide 20.0 L, Anion Gap 6, BUN 21 H , Creatinine 0.95, Estim Creat Clear Calc 83.25, Est GFR (MDRD) Af Amer 104, Est GFR (MDRD) Non-Af 86, BUN/Creatinine Ratio 22.2 H, Glucose 137 H, Calcium 7.2 L 08/27/23 04:47: Ionized Calcium 4.50 08/27/23 07:37: POC Glucose 125 H Micro: Microbiology 08/23/23 12:45 Blood Culture (Wb) - Left Hand Blood Culture - Preliminary No growth in 48 hours. 08/23/23 12:35 Blood Culture (Wb) - Anticubital Right Blood Culture - Preliminary No growth in 48 hours. 08/23/23 14:30 Urine, Midstream Urine Culture - Preliminary Escherichia coli GPC Poss Enterococcus sp 08/23/23 13:10 Mucosa - Nose Influenza & RSV (PCR) - Final 08/23/23 13:05 Stool Stool Occult Blood (ABRAHAM) - Final Radiography Diagnostic Testing: Radiology Impression KUB X-Ray 08/26/23 15:35 IMPRESSION: Nonspecific gassy appearance of the colon. Mild to moderate stool volume. Hepatomegaly. Electronically Signed: Amy Ingram MD at 16:19 EST Reading Location ID and State: [facility] / [place] Tel , Service support , Rhythm Strip Rhythm Strip: Sinus Rhythm Rate: 91 Ectopy: None Physical Exam Narrative General agitated HEENT. Normocephalic atraumatic, pupils equal and reactive Respiratory reduced air entry bilaterally, no crackles Cardiac S1-S2, regular rate and rhythm GI abdomen soft and nontender MSK no lower extremity edema Skin no rashes Neuro moves all extremities, no facial droop Assessment & Plan Assessment/Plan (1) Acute GI bleeding: (2) Hemorrhagic shock: PLAN: Plan #Hemorrhagic shock due to UGI bleed * shock has resolved * Hb was 6.1 and is currently at 8.4. It appears to be stable * Transfusing 2 units of PRBCs * on octreotide and PPI drip still * has a history of UGI bleed due to esophageal varices * on PPI BID * EGD showed grade III esophageal varices which were incompletely eradicated and banded, with no gross lesions in the first portion of the duodenum #Acute on chronic anemia: as above #Lactic acidosis: likely due to hemorrhagic shock. management as above. #Acute encephalopathy: likely due to hemorrhagic shock. Management as above. #Cirrhosis * has a history of chronic alcohol abuse * on nadolol, rifaximin, spironolactone * has a history of esophageal varices. * He will need to be on lactulose and I will also start Flagyl as he could be suffering from grade 1 to grade 2 hepatic encephalopathy as that is causing him to be more lethargic. * #Probable hepatocellular carcinoma * CT abdomen and pelvis from August 2022 showed a 4cm x 4.1cm heterogenous solid mass in the mid lateral portion of the right lobe of hte liver with mildly distended gallbladder. * Patient should get liver biopsy. I do not think he would be a candidate for transarterial chemoembolization if it turns out to be HCC. I will let oncology decide if he be a candidate for chemotherapy. * liver biopsy-pending his * Alpha-fetoprotein is almost 11,000. This has a very poor prognosis. Charges/Coding Visit Charges Inpatient E&M: 36014 Subs Hosp L3
[2023-08-27 11:57] LABS: Bedside Glucose 141 mg/dL (74-106)
[2023-08-27 12:44] LABS: Ionized Calcium Order ORDER TUBE
[2023-08-27] MEDS: Azithromycin 500 MG in Dextrose 5%-Water (250mL Bag) 250 ML 250 MG IV (12:46)
[2023-08-27] MEDS: Dextrose 5%-Water (1000mL Bag) 1,000 ML 40 ML IV (14:18)
--- NOTE | 2023-08-27 15:20 | CASEMGMT ---
Social Work Physician has said family agreeable to hospice. SW made a referral to [facility], faxed information. SW spoke w/pt's mother, she would prefer an inpt unit in [place]. SW able to find two facilities in [place], [facility] and [facility]. [facility], only [facility] in that system. SW called [facility], they have a wait list. The house people on hospice and they receive hospice services from hospice agencies. For a referral to [facility], two forms need printed and completed off of their website. SW called [facility], spoke w/Roxy Kelley. She is forwarding this SW information to their intake person to call SW, they may have space in their inpt unit in the next 24 hours. SW called pt's mother back. She did speak w/[facility] and has a meeting w/them at 11 on Tuesday. SW explained looked into other options, and waiting for a call back from the inpt unit in [place] called [facility]. SW explained [facility] has a wait list. Pt's mother states understanding. She states her daughter found other options, and will bring the information on Tuesday. SW to follow up on Tuesday. ALICE Doss
--- NOTE | 2023-08-27 16:59 | PN.CC_ITS ---
Assessment & Plan Assessment/Plan (1) Acute upper gastrointestinal hemorrhage: (2) ABLA (acute blood loss anemia): (3) Liver masses: PLAN: Plan RECOMMENDATIONS: * Hemoglobin remains stable. He is on trickle feeds. * He started having BMs later today * cont Protonix pushes twice daily. Octreotide stopped * weaning Precedex drip * Sodium normalized, will d/c d5 as pt is receiving TF * His AFP is very high. GI DR friend discussed with his family. Plan for hospice on tuesday IMPRESSIONS: 1. Acute blood loss anemia secondary to probable upper GI bleed with varices Previously, patient did have a significant varices and this appears to be confirmed on CT of the abdomen. Patient has also had gastric ulcers with visible vessel in the past. Patient is currently on octreotide, PPI and Rocephin. H&H has been relatively stable. Okay to space out from my perspective. Would recommend keeping hemoglobin greater than 8 given the possibility of a brisk bleed with current liver function. Patient has not been hypotensive and this may suggest a slow upper GI bleed. Given significant varices, requesting NG be placed under endoscopic guidance 2. Metabolic encephalopathy Patient does have an elevated ammonia at 69. Patient does have lactulose and rifaximin ordered, but patient has only been able to receive a lactulose enema secondary to mental status. Not sure that rectal administration will be sufficient. Patient's pH is within normal limits on VBG, so we will hold off on an ABG to evaluate for CO2 retention 3. History of cirrhosis and alcohol abuse/portal vein thrombosis Attempt to evaluate if patient is still drinking. Patient may need to be placed on a CIWA protocol. Patient does not have an alcohol level at this time. Could consider seizure precautions while history is being verified. Patient is not anticoagulated at this time secondary to problem #1. Unclear if patient's liver lesions have led to the development of this condition. Likely okay to proceed with biopsy, but long-term prognosis is poor 4. Acute kidney injury Improved. Clinical suspicion for prerenal etiology. Patient does have a significantly elevated BUN, likely secondary to upper GI bleed. Baseline creatinine appears to be 0.6. Will try to support the hemodynamic standpoint and follow creatinine. Patient does not have any indication for renal replacement therapy at this time. 5. Liver lesions Patient has been known to have liver lesions in the past. It appears as though the patient failed to follow-up with recommendations a year ago. Patient would be a risk for hepatocellular carcinoma given his cirrhosis. Cannot rule out other metastatic disease. Will defer to GI Subjective Subjective He finally had a BM later today. His AFP is very high. GI DR friend discussed with his family. Plan for hospice on tuesday. Will wean precedex off Objective Data Objective Data Vital Signs: Vital Signs Temp Pulse Resp BP Pulse Ox O2 Del Method O2 Flow Rate 37.3 C 53 L 17 95/61 97 Nasal Cannula 2 08/27/23 16:00 08/27/23 16:00 08/27/23 16:00 08/27/23 16:00 08/27/23 16:00 08/27/23 16:05 08/27/23 16:05 Oxygen Flow Rate (L/min) 2 Oxygen Delivery Method Nasal Cannula Weight: 87.5 kg Body Mass Index (BMI) 27.6 Intake & Output: Intake and Output for Last 24 Hours 08/25/23 08/26/23 08/27/23 23:59 23:59 23:59 Intake Total 3074.39 / 3106.19 3644.31 / 3676.11 2886.39 / 2886.39 Output Total 2650 / 2650 1475 / 1775 1275 / 1275 Balance 424.39 / 456.19 2169.31 / 1901.11 1611.39 / 1611.39 Lab / Micro Data 08/27/23 04:40 08/27/23 04:40 Labs: Laboratory Results - last 24 hr 08/26/23 03:50: Tumor Marker AFP 02163.0 H, Carcinoembryonic Ag 4.2, CA 19-9 Antigen 289 H 08/26/23 16:27: POC Glucose 103 08/27/23 00:15: POC Glucose 130 H 08/27/23 04:40: WBC 5.1, RBC 2.89 L, Hgb 8.4 L, Hct 26.1 L, MCV 90.3, MCH 29.1, MCHC 32.2, RDW Std Deviation 47.1 H, RDW Coeff of Bassam 15.0 H, Plt Count 92 L, MPV 10.5, Immature Gran % (Auto) 0.400, Neut % (Auto) 71.2 H, Lymph % (Auto) 12.9 L, [place] % (Auto) 12.1 H, Eos % (Auto) 3.2, Baso % (Auto) 0.2, Absolute Neuts (auto) 3.6, Absolute Lymphs (auto) 0.65 L, Nucleated RBC % 0.4, Sodium 143, Potassium 3.7, Chloride 117 H, Carbon Dioxide 20.0 L, Anion Gap 6, BUN 21 H , Creatinine 0.95, Estim Creat Clear Calc 83.25, Est GFR (MDRD) Af Amer 104, Est GFR (MDRD) Non-Af 86, BUN/Creatinine Ratio 22.2 H, Glucose 137 H, Calcium 7.2 L 08/27/23 04:47: Ionized Calcium 4.50 08/27/23 07:37: POC Glucose 125 H 08/27/23 11:21: POC Glucose 141 H Micro: Microbiology 08/23/23 12:45 Blood Culture (Wb) - Left Hand Blood Culture - Preliminary No growth in 48 hours. 08/23/23 12:35 Blood Culture (Wb) - Anticubital Right Blood Culture - Preliminary No growth in 48 hours. 08/23/23 14:30 Urine, Midstream Urine Culture - Preliminary Escherichia coli GPC Poss Enterococcus sp 08/23/23 13:10 Mucosa - Nose Influenza & RSV (PCR) - Final 08/23/23 13:05 Stool Stool Occult Blood (ABRAHAM) - Final Rhythm Strip Rhythm Strip: Sinus Rhythm Rate: 91 Ectopy: None Physical Exam Narrative General agitated HEENT. Normocephalic atraumatic, pupils equal and reactive Respiratory reduced air entry bilaterally, no crackles Cardiac S1-S2, regular rate and rhythm GI abdomen soft and nontender MSK no lower extremity edema Skin no rashes Neuro moves all extremities, no facial droop
[2023-08-27 17:28] LABS: Bedside Glucose 118 mg/dL (74-106)
[2023-08-28] VITALS (18 sets, daily range): BP systolic 92–141; BP diastolic 57–82; PULSE 53–88; RESP 13–20; TEMP 36.9–37.7; O2SAT 94–98; BMI 27.1
[2023-08-28 00:20] LABS: Bedside Glucose 107 mg/dL (74-106)
[2023-08-28 06:57] LABS: Bedside Glucose 113 mg/dL (74-106)
--- NOTE | 2023-08-28 09:28 | PN.HOSP_ITS ---
Reason for Visit Reason for Visit: Mental status change Subjective Subjective Several large bowel movements yesterday. Lactulose dosing has been backed off. Mental status is about the same. Precedex is down from 1.5-0.7 and patient seems to be tolerating the weaning well. No significant agitation and patient is quite sleepy at this time. Plan is to meet with hospice tomorrow. Objective Data Objective Data Vital Signs: Vital Signs Temp Pulse Resp BP Pulse Ox O2 Del Method O2 Flow Rate 99.0 F 54 L 18 98/60 95 Room Air 2 08/28/23 08:33 08/28/23 08:33 08/28/23 08:33 08/28/23 08:33 08/28/23 08:33 08/28/23 08:33 08/27/23 16:05 Oxygen Flow Rate (L/min) 2 Oxygen Delivery Method Room Air Weight: 86 kg Body Mass Index (BMI) 27.1 Intake & Output: Intake and Output for Last 24 Hours 08/26/23 08/27/23 08/28/23 23:59 23:59 23:59 Intake Total 3644.31 / 3676.11 3373.81 / 3376.68 205.55 / 205.55 Output Total 1475 / 1775 1475 / 1775 600 / 600 Balance 2169.31 / 1901.11 1898.81 / 1601.68 -394.45 / -394.45 Lab / Micro Data 08/27/23 04:40 08/27/23 04:40 Labs: Laboratory Results - last 24 hr 08/27/23 11:21: POC Glucose 141 H 08/27/23 17:04: POC Glucose 118 H 08/28/23 00:02: POC Glucose 107 H 08/28/23 06:29: POC Glucose 113 H Micro: Microbiology 08/23/23 14:30 Urine, Midstream Urine Culture - Preliminary Escherichia coli Enterococcus faecalis 08/23/23 12:45 Blood Culture (Wb) - Left Hand Blood Culture - Preliminary No growth in 48 hours. 08/23/23 12:35 Blood Culture (Wb) - Anticubital Right Blood Culture - Preliminary No growth in 48 hours. 08/23/23 13:10 Mucosa - Nose Influenza & RSV (PCR) - Final 08/23/23 13:05 Stool Stool Occult Blood (ABRAHAM) - Final Rhythm Strip Rhythm Strip: Sinus Rhythm Rate: 91 Ectopy: None Physical Exam Const Negative for alert, oriented x3, no apparent distress, average body habitus, healthy appearing or well nourished Constitutional Narrative: Chronically ill-appearing upper middle-aged, white male, lying on his back in bed, sleeping, intermittent moaning but appears comfortable and nontoxic Orientation / Consciousness: confused, disoriented and lethargic HEENT head/scalp atraumatic and moist oral mucous membranes Head and Scalp: normocephalic Resp normal respiratory effort, no retractions, no use of accessory muscles and clear to auscultation bilaterally Resp Narrative: Diffusely diminished but clear Auscultation: Negative for rales, rhonchi or wheezes Cardio regular rate, regular rhythm, S1 normal heart sound, S2 normal heart sound, no rub, no gallops and no clicks; Negative for no murmurs Cardio Narrative: 2 out of 6 systolic murmur loudest at right upper sternal border GI normal to inspection, nondistended, normoactive bowel sounds and soft to pal pation GI Narrative: Moderate distention, patient has bowel sounds abdomen is soft Extremity no clubbing, cyanosis or edema Extremity Narrative: Pedal pulses are 2+ Neuro Neuro Narrative: Patient moves all extremities spontaneously but no meaningful interaction and he does not follow commands, continues to have intermittent agitation Psych Psych Narrative: Currently calm Assessment & Plan Assessment/Plan (1) Liver masses: (2) Portal vein thrombosis: (3) Acute upper gastrointestinal hemorrhage: (4) ABLA (acute blood loss anemia): (5) Alcoholic cirrhosis of liver: (6) Hypernatremia: (7) Encephalopathy acute: (8) Esophageal varices with bleeding: PLAN: Plan Assessment: Upper GI bleed secondary to bleeding esophageal varices -EGD done 08/24/2023 and demonstrated grade 3 esophageal varices and hematin in the stomach with blood in the entire duodenum, varices were banded but incompletely eradicated and an NG was placed under endoscopy -Repeat EGD done on 08/26/2023 and no bleeding found Acute on chronic anemia Toxic/metabolic encephalopathy likely related to hepatic encephalopathy Hepatocellular carcinoma -CT of the abdomen pelvis from August 2023 shows a heterogeneous and cirrhotic appearing liver with multiple cystic and solid enhancing masses, 3.3 cm mass in the right hepatic lobe that has enlarged since previous imaging and increasing necrotic appearance of larger masses in the right lobe of the liver -Alpha-fetoprotein is markedly elevated at 10,931--> Dr. Ramon discussed with family and plan is for hospice Portal vein thrombosis Hypernatremia/hyperchloremia Cirrhosis secondary to history of alcohol abuse Chronic diastolic heart failure Mild to moderate aortic stenosis MIKAL History of hypertension History of alcohol abuse Tobacco abuse Plan: -With alpha-fetoprotein being markedly elevated this is hepatocellular carcinoma despite not having a biopsy resulted yet -Dr. Ramon talk to the family with regards to the finding of his elevated AFP and they are agreeable for hospice -Hospice to meet with family tomorrow and then discharge plan will be determined by arrangements made by case management/social work -Possible discharge tomorrow with hospice if arrangements can be made -Will continue to wean Precedex and use as needed medication for comfort Charges/Coding Visit Charges Inpatient E&M: 46339 Subs Hosp L2
--- NOTE | 2023-08-28 10:15 | PCM.PN.INT ---
Subjective Subjective Pt going for hospice tomorrow. ICU service will sign off Objective Data Objective Data Vital Signs: Vital Signs Temp Pulse Resp BP Pulse Ox O2 Del Method O2 Flow Rate 37.2 C 54 L 18 98/60 95 Room Air 2 08/28/23 08:33 08/28/23 08:33 08/28/23 08:33 08/28/23 08:33 08/28/23 08:33 08/28/23 08:33 08/27/23 16:05 Oxygen Flow Rate (L/min) 2 Oxygen Delivery Method Room Air Weight: 86 kg Body Mass Index (BMI) 27.1 Intake & Output: Intake and Output for Last 24 Hours 08/26/23 08/27/23 08/28/23 23:59 23:59 23:59 Intake Total 3644.31 / 3676.11 3373.81 / 3376.68 210.86 / 210.86 Output Total 1475 / 1775 1475 / 1775 600 / 600 Balance 2169.31 / 1901.11 1898.81 / 1601.68 -389.14 / -389.14 Lab / Micro Data 08/27/23 04:40 08/27/23 04:40 Labs: Laboratory Results - last 24 hr 08/27/23 11:21: POC Glucose 141 H 08/27/23 17:04: POC Glucose 118 H 08/28/23 00:02: POC Glucose 107 H 08/28/23 06:29: POC Glucose 113 H Micro: Microbiology 08/23/23 14:30 Urine, Midstream Urine Culture - Preliminary Escherichia coli Enterococcus faecalis 08/23/23 12:45 Blood Culture (Wb) - Left Hand Blood Culture - Preliminary No growth in 48 hours. 08/23/23 12:35 Blood Culture (Wb) - Anticubital Right Blood Culture - Preliminary No growth in 48 hours. 08/23/23 13:10 Mucosa - Nose Influenza & RSV (PCR) - Final 08/23/23 13:05 Stool Stool Occult Blood (ABRAHAM) - Final Rhythm Strip Rhythm Strip: Sinus Rhythm Rate: 91 Ectopy: None
[2023-08-28] MEDS: LORazepam 2 MG/ML Syringe 0.5 MG IV ×2 (10:18→20:22)
[2023-08-28] MEDS: rifAXIMin 550 MG Tablet NG ×2 (10:58→20:54)
[2023-08-28] MEDS: Thiamine Hydrochloride 100 MG Tablet NG (11:11)
[2023-08-28] MEDS: Pantoprazole Sodium 40 MG in 0.9% Normal Saline (100mL MB+) 100 ML 330 MG IV ×2 (11:11→20:53)
[2023-08-28] MEDS: Lactulose 20 GM/30 ML UDC NG ×2 (11:11→20:54)
[2023-08-28] MEDS: Ceftriaxone 1 GM/50 ML BAG IV (11:11)
[2023-08-28] MEDS: Jevity 1.5 1,000 ML 20 ML GT (11:28)
[2023-08-28] MEDS: HYDROmorphone 1 MG/ML Syringe IV (16:28)
[2023-08-28 18:35] LABS: Bedside Glucose 85 mg/dL (74-106)
--- NOTE | 2023-08-28 19:53 | PN.GI_ITS ---
Subjective Subjective Patient is starting to wake up a little bit more. His Precedex has been weaned down. Lactulose has been decreased due to multiple bowel movements. Objective Data Objective Data Vital Signs: Vital Signs Temp Pulse Resp BP Pulse Ox O2 Del Method O2 Flow Rate 98.7 F 80 18 141/80 H 98 Room Air 2 08/28/23 16:53 08/28/23 16:53 08/28/23 16:53 08/28/23 16:53 08/28/23 16:53 08/28/23 17:36 08/27/23 16:05 Oxygen Flow Rate (L/min) 2 Oxygen Delivery Method Room Air Weight: 189 lb 9.561 oz Body Mass Index (BMI) 27.1 Intake & Output: Intake and Output for Last 24 Hours 08/26/23 08/27/23 08/28/23 23:59 23:59 23:59 Intake Total 3644.31 / 3676.11 3373.81 / 3376.68 949.03 / 949.03 Output Total 1475 / 1775 1475 / 1775 600 / 600 Balance 2169.31 / 1901.11 1898.81 / 1601.68 349.03 / 349.03 Lab / Micro Data 08/27/23 04:40 08/27/23 04:40 Labs: Laboratory Results - last 24 hr 08/28/23 00:02: POC Glucose 107 H 08/28/23 06:29: POC Glucose 113 H 08/28/23 18:17: POC Glucose 85 Micro: Microbiology 08/23/23 12:35 Blood Culture (Wb) - Anticubital Right Blood Culture - Final No growth in 5 days. 08/23/23 12:45 Blood Culture (Wb) - Left Hand Blood Culture - Final No growth in 5 days. 08/23/23 14:30 Urine, Midstream Urine Culture - Preliminary Escherichia coli Enterococcus faecalis 08/23/23 13:10 Mucosa - Nose Influenza & RSV (PCR) - Final 08/23/23 13:05 Stool Stool Occult Blood (ABRAHAM) - Final Rhythm Strip Rhythm Strip: Sinus Rhythm Rate: 91 Ectopy: None Physical Exam Narrative General agitated HEENT. Normocephalic atraumatic, pupils equal and reactive Respiratory reduced air entry bilaterally, no crackles Cardiac S1-S2, regular rate and rhythm GI abdomen soft and nontender MSK no lower extremity edema Skin no rashes Neuro moves all extremities, no facial droop Assessment & Plan Assessment/Plan (1) Acute GI bleeding: (2) Hemorrhagic shock: PLAN: Plan #Hemorrhagic shock due to UGI bleed * shock has resolved * Hb was 6.1 and is currently at 8.4. It appears to be stable * Transfusing 2 units of PRBCs * on octreotide and PPI drip still * has a history of UGI bleed due to esophageal varices * on PPI BID * EGD showed grade III esophageal varices which were incompletely eradicated and banded, with no gross lesions in the first portion of the duodenum #Acute on chronic anemia: as above #Lactic acidosis: likely due to hemorrhagic shock. management as above. #Acute encephalopathy: likely due to hemorrhagic shock. Management as above. #Cirrhosis * has a history of chronic alcohol abuse * on nadolol, rifaximin, spironolactone * has a history of esophageal varices. * He will need to be on lactulose and I will also start Flagyl as he could be suffering from grade 1 to grade 2 hepatic encephalopathy as that is causing him to be more lethargic. * #Probable hepatocellular carcinoma * CT abdomen and pelvis from August 2022 showed a 4cm x 4.1cm heterogenous solid mass in the mid lateral portion of the right lobe of hte liver with mildly distended gallbladder. * Patient should get liver biopsy. I do not think he would be a candidate for transarterial chemoembolization if it turns out to be HCC. I will let oncology decide if he be a candidate for chemotherapy. * liver biopsy-pending his * Alpha-fetoprotein is almost 11,000. This has a very poor prognosis. Charges/Coding Visit Charges Inpatient E&M: 40664 Subs Hosp L3
[2023-08-28] MEDS: 0.9% Saline Lock 10 ML Syringe IV (20:22)
[2023-08-28] MEDS: MELATONIN 3 MG TABLET NG (20:54)
[2023-08-29 02:19] VITALS: BP 154/73; PULSE 89; RESP 18; TEMP 37.2; O2SAT 100
[2023-08-29] MEDS: Acetaminophen 650 MG/20 ML UDC GT (03:18)
[2023-08-29] MEDS: HYDROmorphone 1 MG/ML Syringe IV ×3 (03:20→19:53)
[2023-08-29 06:00] VITALS: BMI 27.1
[2023-08-29] MEDS: Lactulose 20 GM/30 ML UDC NG ×3 (06:09→20:09)
[2023-08-29 06:44] LABS: Bedside Glucose 95 mg/dL (74-106)
[2023-08-29 06:44] LABS: Bedside Glucose 118 mg/dL (74-106)
[2023-08-29 07:58] VITALS: O2SAT 97
[2023-08-29 08:47] VITALS: BP 163/83; PULSE 86; RESP 20; TEMP 36.6; O2SAT 97
--- NOTE | 2023-08-29 08:55 | PN.HOSP_ITS ---
Reason for Visit Reason for Visit: Diagnoses Acute posthemorrhagic anemia (08/23/23) Hyperosmolality and hypernatremia (08/23/23) Encephalopathy, unspecified (08/23/23) Portal vein thrombosis (08/23/23) Esophageal varices with bleeding (08/23/23) Alcoholic cirrhosis of liver without ascites (08/23/23) Gastrointestinal hemorrhage, unspecified (08/23/23) Hepatomegaly, not elsewhere classified (08/23/23) Other shock (08/23/23) Objective Data Objective Data Vital Signs: Vital Signs Temp Pulse Resp BP Pulse Ox O2 Del Method O2 Flow Rate 97.8 F 86 20 H 163/83 H 97 Room Air 2 08/29/23 08:47 08/29/23 08:47 08/29/23 08:47 08/29/23 08:47 08/29/23 08:47 08/29/23 08:49 08/27/23 16:05 Oxygen Flow Rate (L/min) 2 Oxygen Delivery Method Room Air Weight: 189 lb 13.088 oz Body Mass Index (BMI) 27.1 Intake & Output: Intake and Output for Last 24 Hours 08/27/23 08/28/23 08/29/23 23:59 23:59 23:59 Intake Total 3373.81 / 3376.68 1079.03 / 1079.03 40 / 40 Output Total 1475 / 1775 600 / 600 600 / 600 Balance 1898.81 / 1601.68 479.03 / 479.03 -560 / -560 Lab / Micro Data 08/27/23 04:40 08/27/23 04:40 Labs: Laboratory Results - last 24 hr 08/28/23 18:17: POC Glucose 85 08/29/23 03:23: POC Glucose 95 08/29/23 06:23: POC Glucose 118 H Micro: Microbiology 08/23/23 12:35 Blood Culture (Wb) - Anticubital Right Blood Culture - Final No growth in 5 days. 08/23/23 12:45 Blood Culture (Wb) - Left Hand Blood Culture - Final No growth in 5 days. 08/23/23 14:30 Urine, Midstream Urine Culture - Preliminary Escherichia coli Enterococcus faecalis 08/23/23 13:10 Mucosa - Nose Influenza & RSV (PCR) - Final 08/23/23 13:05 Stool Stool Occult Blood (ABRAHAM) - Final Rhythm Strip Rhythm Strip: Sinus Rhythm Rate: 91 Ectopy: None Physical Exam Narrative Seen and examined. Patient looks emaciated. Patient cannot tell his name, date of and is but overall looks fatigued looks fatigued and short of breath. Poor performance status. Physical exam General: Lethargy, Oriented x3, Cooperative, poor performance status. Fatigue. Fatigue BMI 27.2 kg/m? HEENT: Atraumatic, PERRLA, EOMI, Normocephalic Oral: On NG tube feed. No Gingival or Mucosal Lesions/ Ulcerations Neck: Supple, No JVD, Negative Carotid Bruits Lungs: Air entry diminished in bilateral lung bases. Mild coarse crepitation. Cardiovascular: Regular rate, Regular Rhythm, Normal S1, Normal S2, No murmurs Abdomen: Bowel Sounds Present, Soft, Non Tender, Non-Distended : No renal angle tenderness. No suprapubic tenderness. Extremities: No edema, Capillary Refill Less than 3 Seconds Skin: No rashes, No breakdown Musculoskeletal: No Tenderness to Palpation of Joints or Extremities. Mild decreased muscle bulk of extremities. Neurological: Cranial nerves II-XII grossly intact, DTR 2+/4. No acute focal neurological deficit. Psych/Mental Status: Flat affect. Assessment & Plan Assessment/Plan (1) Liver masses: (2) Portal vein thrombosis: (3) Acute upper gastrointestinal hemorrhage: (4) ABLA (acute blood loss anemia): (5) Alcoholic cirrhosis of liver: (6) Hypernatremia: (7) Encephalopathy acute: (8) Esophageal varices with bleeding: PLAN: Plan 1. Upper GI bleed secondary to bleeding esophageal varices -EGD done 08/24/2023 and demonstrated grade 3 esophageal varices and hematin in the stomach with blood in the entire duodenum, varices were banded but incompletely eradicated and an NG was placed under endoscopy -Repeat EGD done on 08/26/2023 and no bleeding found 2. Acute on chronic anemia due to upper GI blood loss: Last hemoglobin 8.4 on 08/27. 3. Acute hepatic encephalopathy with history of chronic hepatic encephalopathy on lactulose and rifaximin 4. Hepatocellular carcinoma -CT of the abdomen pelvis from August 2023 shows a heterogeneous and cirrhotic appearing liver with multiple cystic and solid enhancing masses, 3.3 cm mass in the right hepatic lobe that has enlarged since previous imaging and increasing necrotic appearance of larger masses in the right lobe of the liver -Alpha-fetoprotein is markedly elevated at 10,931--> Dr. Ramon discussed with family and plan is for hospice Portal vein thrombosis 6. Hypernatremia/hyperchloremia 7. MIKAL ruled out: Urine culture shows E. coli [id number] colonies and Enterococcus faecalis 11,000-25,000 colonies, 2 organisms and therefore most likely it is contamination or colonization. UTI ruled out. Blood cultures x 2 negative for 5 days. Chronic comorbidities Cirrhosis secondary to history of alcohol abuse Chronic diastolic heart failure Mild to moderate aortic stenosis History of hypertension History of alcohol abuse Tobacco abuse Plan: I had a detailed discussion regarding patient poor prognosis of advanced hepatocellular carcinoma with high alpha-fetoprotein. Liver biopsy was done but not reported yet. Dr. Ramon is already talked to the family and they are agreeable to hospice. I again talked to the patient's brother and his mother near the bedside and explained the natural history course, treatment options of liver cancer. Because patient has poor Karnofsky's performance status in debilitated condition with low functional status is not good for any treatment therefore inpatient hospice is appropriate. Patient's family had discussion with hospice. Patient's family wanted inpatient hospice near [facility] Microbiology Past 72 Hours 08/23/23 12:35 Blood Culture (Wb) - Anticubital Right Blood Culture - Final No growth in 5 days. 08/23/23 12:45 Blood Culture (Wb) - Left Hand Blood Culture - Final No growth in 5 days. 08/23/23 14:30 Urine, Midstream Urine Culture - Preliminary Escherichia coli Enterococcus faecalis Laboratory Results 08/28/23 18:17: POC Glucose 85 08/29/23 03:23: POC Glucose 95 08/29/23 06:23: POC Glucose 118 H Charges/Coding Addendum Addendum: Total time of the visit including total time spent in counseling or coordination of care, (more than 50% of the total time, spent in obtaining medical information from nurses and other ancillary care providers,explaining to the patient about labs, imaging, diagnosis and management of active complex medical conditions), discussion with the family member regarding liver cancer diagnosis, its management options, inpatient hospice care, review of labs and imaging is 40 minutes. Visit Charges Inpatient E&M: 81043 [facility] Hosp L3
--- NOTE | 2023-08-29 09:22 | CASEMGMT ---
Social Work SW called [facility]([phone]) for Hospice services, as it is this SW's understanding a referral needs made there in order to get pt to the [facility] in [place]. Intake was to call SW on Tuesday, however SW did not get a call from intake. As per intake, no information was passed on to them in regard to this pt. A referral is to be make through [facility] to get the process started. SW let the SW on MS3 know this information. outpatient services director will continue to follow. ALICE Doss
[2023-08-29] MEDS: Thiamine Hydrochloride 100 MG Tablet NG (10:08)
[2023-08-29] MEDS: rifAXIMin 550 MG Tablet NG ×2 (10:08→20:10)
[2023-08-29] MEDS: Pantoprazole Sodium 40 MG in 0.9% Normal Saline (100mL MB+) 100 ML 330 MG IV ×2 (10:08→19:53)
[2023-08-29] MEDS: Ceftriaxone 1 GM/50 ML BAG IV (10:57)
[2023-08-29] MEDS: LORazepam 2 MG/ML Syringe 0.5 MG IV ×2 (11:33→19:53)
[2023-08-29] MEDS: 0.9% Saline Lock 10 ML Syringe IV ×3 (11:34→19:53)
[2023-08-29 14:16] VITALS: BP 159/85; PULSE 85; RESP 18; TEMP 37.7; O2SAT 97
--- NOTE | 2023-08-29 16:44 | CASEMGMT ---
Discharge Planning POA document sent to [facility] via [facility]. Tess Henning, Discharge Planning Asst.
--- NOTE | 2023-08-29 16:52 | PN.GI_ITS ---
Subjective Subjective Patient does wake up and then falls back to sleep. He has not had any signs or symptoms of GI bleeding. He has been afebrile. Objective Data Objective Data Vital Signs: Vital Signs Temp Pulse Resp BP Pulse Ox O2 Del Method O2 Flow Rate 99.9 F H 85 18 159/85 H 97 Room Air 2 08/29/23 14:16 08/29/23 14:16 08/29/23 14:16 08/29/23 14:16 08/29/23 14:16 08/29/23 14:16 08/27/23 16:05 Oxygen Flow Rate (L/min) 2 Oxygen Delivery Method Room Air Weight: 189 lb 13.088 oz Body Mass Index (BMI) 27.1 Intake & Output: Intake and Output for Last 24 Hours 08/27/23 08/28/23 08/29/23 23:59 23:59 23:59 Intake Total 3373.81 / 3376.68 1079.03 / 1079.03 1156.67 / 1156.67 Output Total 1475 / 1775 600 / 600 600 / 600 Balance 1898.81 / 1601.68 479.03 / 479.03 556.67 / 556.67 Lab / Micro Data 08/27/23 04:40 08/27/23 04:40 Labs: Laboratory Results - last 24 hr 08/28/23 18:17: POC Glucose 85 08/29/23 03:23: POC Glucose 95 08/29/23 06:23: POC Glucose 118 H Micro: Microbiology 08/23/23 12:35 Blood Culture (Wb) - Anticubital Right Blood Culture - Final No growth in 5 days. 08/23/23 12:45 Blood Culture (Wb) - Left Hand Blood Culture - Final No growth in 5 days. 08/23/23 14:30 Urine, Midstream Urine Culture - Preliminary Escherichia coli Enterococcus faecalis 08/23/23 13:10 Mucosa - Nose Influenza & RSV (PCR) - Final 08/23/23 13:05 Stool Stool Occult Blood (ABRAHAM) - Final Rhythm Strip Rhythm Strip: Sinus Rhythm Rate: 91 Ectopy: None Physical Exam Narrative Seen and examined. Poor performance status. Physical exam General: Lethargy, Oriented x3, Cooperative, poor performance status. Fatigue. Fatigue BMI 27.2 kg/m? HEENT: Atraumatic, PERRLA, EOMI, Normocephalic Oral: On NG tube feed. No Gingival or Mucosal Lesions/ Ulcerations Neck: Supple, No JVD, Negative Carotid Bruits Lungs: Air entry diminished in bilateral lung bases. Mild coarse crepitation. Cardiovascular: Regular rate, Regular Rhythm, Normal S1, Normal S2, No murmurs Abdomen: Bowel Sounds Present, Soft, Non Tender, Non-Distended : No renal angle tenderness. No suprapubic tenderness. Extremities: No edema, Capillary Refill Less than 3 Seconds Skin: No rashes, No breakdown Musculoskeletal: No Tenderness to Palpation of Joints or Extremities. Mild decreased muscle bulk of extremities. Neurological: Cranial nerves II-XII grossly intact, DTR 2+/4. No acute focal neurological deficit. Psych/Mental Status: Flat affect. Assessment & Plan Assessment/Plan (1) Acute GI bleeding: (2) Hemorrhagic shock: PLAN: Plan #Hemorrhagic shock due to UGI bleed * shock has resolved * Hb was 6.1 and is currently at 8.4. It appears to be stable * Transfusing 2 units of PRBCs * on octreotide and PPI drip still * has a history of UGI bleed due to esophageal varices * on PPI BID * EGD showed grade III esophageal varices which were incompletely eradicated and banded, with no gross lesions in the first portion of the duodenum #Acute on chronic anemia: as above #Lactic acidosis: likely due to hemorrhagic shock. management as above. #Acute encephalopathy: likely due to hemorrhagic shock. Management as above. #Cirrhosis * has a history of chronic alcohol abuse * on nadolol, rifaximin, spironolactone * has a history of esophageal varices. * He will need to be on lactulose and I will also start Flagyl as he could be suffering from grade 1 to grade 2 hepatic encephalopathy as that is causing him to be more lethargic. * #Probable hepatocellular carcinoma * CT abdomen and pelvis from August 2022 showed a 4cm x 4.1cm heterogenous solid mass in the mid lateral portion of the right lobe of hte liver with mildly distended gallbladder. * Patient should get liver biopsy. I do not think he would be a candidate for transarterial chemoembolization if it turns out to be HCC. I will let oncology decide if he be a candidate for chemotherapy. * liver biopsy-pending his * Alpha-fetoprotein is almost 11,000. This has a very poor prognosis. Charges/Coding Visit Charges Inpatient E&M: 94484 Subs Hosp L3
[2023-08-29 17:27] LABS: Bedside Glucose 112 mg/dL (74-106)
--- NOTE | 2023-08-29 18:15 | CASEMGMT ---
Social Work Billie from [facility] to unit today to meet with patient, mother Kimberli, and patient's brother. Per Billie, patient and family have definitely decided have patient move up towards the [place] area where patient's mother and brother live. Met with patient, mother, and brother in room. Introduced to self and social work role. Educated to inpatient hospice unit through [facility] at [facility]. This is the only inpatient unit able to find on [employer], and with an internet search. Patient and family agreeable to this referral. If patient does not meet criteria for GIP hospice, then would want patient to go to a retirement near [place], where the patient was before, and have hospice follow there. The nursing facility is [facility] in [place], and is 5-10 minutes from the patient's mother. No request for a NF list, unless [facility] is unable to accept patient. Collaborated with Discharge manager financial planning on [employer] Referral to [facility] program. Referral sent. Vale, intake nurse for [facility], to unit in the early evening to assess. Vale will call this fha underwriter and leave a message about outcome of meeting. Updated Dr. Augustin via [facility]. Plan: Working on Hospice - GIP hospice unite versus NF with hospice to follow at the NF. -NICHOLAS Mosley
[2023-08-29 19:50] VITALS: BP 139/77; PULSE 82; RESP 16; TEMP 37.3; O2SAT 96
[2023-08-30] MEDS: LORazepam 2 MG/ML Syringe 0.5 MG IV ×2 (03:11→21:00)
[2023-08-30] MEDS: HYDROmorphone 1 MG/ML Syringe IV ×2 (03:11→22:36)
[2023-08-30] MEDS: 0.9% Saline Lock 10 ML Syringe IV ×4 (03:12→22:36)
[2023-08-30 03:28] VITALS: BP 159/95; PULSE 98; RESP 18; TEMP 37.1; O2SAT 97
[2023-08-30] MEDS: Lactulose 20 GM/30 ML UDC PO ×3 (06:20→20:58)
[2023-08-30] MEDS: rifAXIMin 550 MG Tablet PO ×2 (08:17→20:58)
[2023-08-30] MEDS: Thiamine Hydrochloride 100 MG Tablet PO (08:17)
[2023-08-30 08:20] VITALS: BP 130/79; PULSE 87; RESP 18; TEMP 37.3; O2SAT 94
[2023-08-30] MEDS: Pantoprazole Sodium 40 MG in 0.9% Normal Saline (100mL MB+) 100 ML 330 MG IV ×2 (09:42→20:58)
[2023-08-30] MEDS: Ceftriaxone 1 GM/50 ML BAG IV (11:02)
--- NOTE | 2023-08-30 14:38 | CASEMGMT ---
Discharge Planning Referral sent to [facility] via [facility]. Tess Henning, Discharge Planning Asst.
--- NOTE | 2023-08-30 15:28 | PCM.PN.HOSP ---
Reason for Visit Reason for Visit: Diagnoses Acute posthemorrhagic anemia (08/23/23) Hyperosmolality and hypernatremia (08/23/23) Encephalopathy, unspecified (08/23/23) Portal vein thrombosis (08/23/23) Esophageal varices with bleeding (08/23/23) Alcoholic cirrhosis of liver without ascites (08/23/23) Gastrointestinal hemorrhage, unspecified (08/23/23) Hepatomegaly, not elsewhere classified (08/23/23) Other shock (08/23/23) Objective Data Objective Data Vital Signs: Vital Signs Temp Pulse Resp BP Pulse Ox O2 Del Method O2 Flow Rate 99.2 F H 87 18 130/79 H 94 Room Air 2 08/30/23 08:20 08/30/23 08:20 08/30/23 08:20 08/30/23 08:20 08/30/23 08:20 08/30/23 14:00 08/27/23 16:05 Oxygen Flow Rate (L/min) 2 Oxygen Delivery Method Room Air Weight: 189 lb 13.088 oz Body Mass Index (BMI) 27.1 Intake & Output: Intake and Output for Last 24 Hours 08/28/23 08/29/23 08/30/23 23:59 23:59 23:59 Intake Total 1079.03 / 1079.03 1666.67 / 1666.67 660 / 660 Output Total 600 / 600 1250 / 1250 1550 / 1550 Balance 479.03 / 479.03 416.67 / 416.67 -890 / -890 Lab / Micro Data 08/27/23 04:40 08/27/23 04:40 Labs: Laboratory Results - last 24 hr 08/29/23 17:05: POC Glucose 112 H Micro: Microbiology 08/23/23 12:35 Blood Culture (Wb) - Anticubital Right Blood Culture - Final No growth in 5 days. 08/23/23 12:45 Blood Culture (Wb) - Left Hand Blood Culture - Final No growth in 5 days. 08/23/23 14:30 Urine, Midstream Urine Culture - Preliminary Escherichia coli Enterococcus faecalis 08/23/23 13:10 Mucosa - Nose Influenza & RSV (PCR) - Final 08/23/23 13:05 Stool Stool Occult Blood (ABRAHAM) - Final Rhythm Strip Rhythm Strip: Sinus Rhythm Rate: 91 Ectopy: None Physical Exam Narrative Seen and examined. Patient looks emaciated. No significant change from yesterday's finding. Patient can tell his name, date of and is but overall looks fatigued looks fatigued and short of breath. Poor performance status. N.p.o. status discussed and patient allowed oral. NG tube removed. Physical exam General: Lethargy, Oriented x3, Cooperative, poor performance status. Fatigue. Fatigue BMI 27.2 kg/m? HEENT: Atraumatic, PERRLA, EOMI, Normocephalic Oral: Oral mucosa dry. No Gingival or Mucosal Lesions/ Ulcerations Neck: Supple, No JVD, Negative Carotid Bruits Lungs: Air entry diminished in bilateral lung bases. Mild coarse crepitation. Cardiovascular: Regular rate, Regular Rhythm, Normal S1, Normal S2, No murmurs Abdomen: Bowel Sounds Present, Soft, Non Tender, Non-Distended : No renal angle tenderness. No suprapubic tenderness. Extremities: No edema, Capillary Refill Less than 3 Seconds Skin: No rashes, No breakdown Musculoskeletal: No Tenderness to Palpation of Joints or Extremities. Mild decreased muscle bulk of extremities. Neurological: Cranial nerves II-XII grossly intact, DTR 2+/4. No acute focal neurological deficit. Lethargic Psych/Mental Status: Flat affect. Assessment & Plan Assessment/Plan (1) Liver masses: (2) Portal vein thrombosis: (3) Acute upper gastrointestinal hemorrhage: (4) ABLA (acute blood loss anemia): (5) Alcoholic cirrhosis of liver: (6) Hypernatremia: (7) Encephalopathy acute: (8) Esophageal varices with bleeding: PLAN: Plan 1. Upper GI bleed secondary to bleeding esophageal varices -EGD done 08/24/2023 and demonstrated grade 3 esophageal varices and hematin in the stomach with blood in the entire duodenum, varices were banded but incompletely eradicated and an NG was placed under endoscopy -Repeat EGD done on 08/26/2023 and no bleeding found 2. Acute on chronic anemia due to upper GI blood loss: Last hemoglobin 8.4 on 08/27. 3. Acute hepatic encephalopathy with history of chronic hepatic encephalopathy on lactulose and rifaximin 4. Hepatocellular carcinoma -CT of the abdomen pelvis from August 2023 shows a heterogeneous and cirrhotic appearing liver with multiple cystic and solid enhancing masses, 3.3 cm mass in the right hepatic lobe that has enlarged since previous imaging and increasing necrotic appearance of larger masses in the right lobe of the liver -Alpha-fetoprotein is markedly elevated at 10,931--> Dr. Ramon discussed with family and plan is for hospice Portal vein thrombosis 08/30: Discussed with the social worker masters and field nurse case manager. signal worker helper Karen said that patient family wanted different hospice who saw yesterday therefore referral to another hospice was made. They wanted different hospice was closer to patient's family home address. Patient remained good candidate for GIP. 6. Hypernatremia/hyperchloremia 7. MIKAL ruled out: Urine culture shows E. coli [id number] colonies and Enterococcus faecalis 11,000-25,000 colonies, 2 organisms and therefore most likely it is contamination or colonization. UTI ruled out. Blood cultures x 2 negative for 5 days. Chronic comorbidities Cirrhosis secondary to history of alcohol abuse Chronic diastolic heart failure Mild to moderate aortic stenosis History of hypertension History of alcohol abuse Tobacco abuse Plan: I had a detailed discussion regarding patient poor prognosis of advanced hepatocellular carcinoma with high alpha-fetoprotein. Liver biopsy was done but not reported yet. Dr. Ramon is already talked to the family and they are agreeable to hospice. I again talked to the patient's brother and his mother near the bedside and explained the natural history course, treatment options of liver cancer. Because patient has poor Karnofsky's performance status in debilitated condition with low functional status is not good for any treatment therefore inpatient hospice is appropriate. Patient's family had discussion with hospice. Patient's family wanted inpatient hospice near [facility] Microbiology Past 72 Hours 08/23/23 12:35 Blood Culture (Wb) - Anticubital Right Blood Culture - Final No growth in 5 days. 08/23/23 12:45 Blood Culture (Wb) - Left Hand Blood Culture - Final No growth in 5 days. 08/23/23 14:30 Urine, Midstream Urine Culture - Preliminary Escherichia coli Enterococcus faecalis Laboratory Results 08/28/23 18:17: POC Glucose 85 08/29/23 03:23: POC Glucose 95 08/29/23 06:23: POC Glucose 118 H Charges/Coding Visit Charges Inpatient E&M: 26133 Subs Hosp L2
--- NOTE | 2023-08-30 17:00 | CASEMGMT ---
Social Work Per Vale at [facility], and patient does not meet criteria for the [facility] hospice unit, but can be admitted to hospice when goes to the Nursing facility. Vale reports to call scheduling to coordinate, but that scheduling knows to reach out hospital to coordinate. Collaboration with Discharge auction assistant who will making a referral to [facility] in [facility]. Spoke with patient's mother via phone and mother agreeable to plan, and maintains [facility] as the choice. Let mother Kimberli know this fha underwriter does have a SNF option list for the mother to review. Mother reports wants to have patient somewhere close. [facility] [place] and the facility can accept. PASRR screen submitted for this patient, for anticipation of admission to on hospice. Patient has a diagnosis of encephalopathy, so is tripping the [place] [facility] ARZOLA further review. This should be ruled out, but will delay immediate PASRR approval. Patient also has history of alcohol use disorder. Met with patient who reports last drink was three years ago in August. This information reflected in PASRR screen. Conferred with patient's nurse Justine about patient's assistance needs for ADL/IADL completion. At this time, patient is a hands on assist for all care. Plan: [facility], intermediate level of care, hospice to admit at the ; Will need to coordinate with Hospice when patient is discharged; Waiting on PASRR approval. -NICHOLAS Mosley
[2023-08-30 17:42] VITALS: BP 159/100; PULSE 82; RESP 17; TEMP 37.3; O2SAT 98
[2023-08-30] MEDS: oxyCODONE 5 MG Tablet 2.5 MG PO (20:59)
[2023-08-30 21:31] VITALS: BP 134/83; PULSE 88; RESP 18; TEMP 37.2; O2SAT 97
[2023-08-31] MEDS: LORazepam 2 MG/ML Syringe 0.5 MG IV ×2 (02:50→20:26)
[2023-08-31] MEDS: HYDROmorphone 1 MG/ML Syringe IV ×5 (02:50→23:46)
[2023-08-31 03:05] VITALS: BP 132/69; PULSE 89; RESP 18; TEMP 36.6; O2SAT 97
[2023-08-31] MEDS: Lactulose 20 GM/30 ML UDC PO ×3 (05:44→20:28)
[2023-08-31 08:18] VITALS: O2SAT 99
[2023-08-31 08:38] VITALS: BP 133/81; PULSE 89; RESP 18; TEMP 37.2; O2SAT 100
[2023-08-31] MEDS: 0.9% Saline Lock 10 ML Syringe IV ×5 (08:44→23:46)
[2023-08-31] MEDS: Thiamine Hydrochloride 100 MG Tablet PO (08:45)
[2023-08-31] MEDS: Pantoprazole Sodium 40 MG in 0.9% Normal Saline (100mL MB+) 100 ML 330 MG IV ×2 (10:08→20:28)
[2023-08-31] MEDS: rifAXIMin 550 MG Tablet PO ×2 (10:08→20:28)
[2023-08-31] MEDS: Ceftriaxone 1 GM/50 ML BAG IV (11:01)
[2023-08-31 11:28] LABS: Absolute Lymphocyte Count 0.74 X10^3/uL (0.83-4.51); Basophil# 0.04 X10^3/uL; Basophil% 0.7 % (0-1); Eosinophil# 0.38 X10^3/uL; Eosinophils% 6.5 % (0-5); Hemoglobin 8.6 g/dL (13.0-16.5); Lymphocyte # 0.74 X10^3/ul (0.83-4.51); Lymphocyte % 12.6 % (19-41); Mean Corp Hgb Conc 31.9 g/dL (32-36); Mean Corpuscular Hgb 27.9 pg (27.0-32.0); Mean Corpuscular Volume 87.7 fL (80-94); Monocyte# 0.66 X10^3/uL; Monocyte% 11.2 % (0-10); NRBC Flagged by Analyzer 0 % (0-5); Neutrophil # 4.04 X10^3/uL (2.7-7.7); Neutrophil % 68.5 % (47-70); Platelet Count 172 K/mm3 (150-450); RBC Distribution Width CV 14.8 % (11.6-14.6); RBC Distribution Width SD 45.5 fl (35.1-43.9); Red Blood Count 3.08 M/mm3 (4.6-6.2); White Blood Count 5.9 K/mm3 (4.4-11.0)
[2023-08-31 12:05] LABS: ALB/GLOB Ratio 0.5 RATIO (0.9-2.4); AST(SGOT) 45 U/L (15-37); Alanine Aminotransfer ALT/SGPT 40 U/L (16-61); Albumin, Serum 2.1 g/dL (3.2-5.0); Alkaline Phosphatase 273 U/L (45-117); Anion Gap 4 (5-15); BUN 8 mg/dL (7-18); BUN/Creat Ratio 12.8 RATIO (10-20); Calcium,Total 8.2 mg/dL (8.5-10.1); Chloride 110 mmol/L (98-107); Creatinine, Serum 0.63 mg/dL (0.70-1.30); EST Glomerular Filtration Rate 138 mL/min (>60); Est Glom Filt Rate - Afr Amer 167 mL/min (>60); Estimated Creatinine Clearance 125.53 ml/min; Globulin 4.4 g/dL (2.2-4.2); Glucose 149 mg/dL (74-106); Potassium 3.7 mmol/L (3.5-5.1); Protein, Total 6.5 g/dL (6.4-8.2); Sodium Level 139 mmol/L (136-145)
[2023-08-31 13:30] VITALS: BP 126/74; PULSE 79; RESP 16; TEMP 36.8; O2SAT 92
--- NOTE | 2023-08-31 16:22 | PN.GI_ITS ---
Subjective Subjective Patient's brother and mother had questions regarding his prognosis. We went over in great detail and explained the natural history of his disease. They were comfortable with their decision to make him hospice. I told him that I would discuss anything else they wanted to regarding his care. Objective Data Objective Data Vital Signs: Vital Signs Temp Pulse Resp BP Pulse Ox O2 Del Method O2 Flow Rate 98.3 F 79 16 126/74 H 92 Room Air 2 08/31/23 13:30 08/31/23 13:30 08/31/23 13:30 08/31/23 13:30 08/31/23 13:30 08/31/23 13:30 08/27/23 16:05 Oxygen Flow Rate (L/min) 2 Oxygen Delivery Method Room Air Weight: 189 lb 13.088 oz Body Mass Index (BMI) 27.1 Intake & Output: Intake and Output for Last 24 Hours 08/29/23 08/30/23 08/31/23 23:59 23:59 23:59 Intake Total 1666.67 / 1666.67 770 / 770 400 / 400 Output Total 1250 / 1250 4250 / 5000 1350 / 1350 Balance 416.67 / 416.67 -3480 / -4230 -950 / -950 Lab / Micro Data 08/31/23 11:13 08/31/23 11:13 Labs: Laboratory Results - last 24 hr 08/31/23 11:13: WBC 5.9, RBC 3.08 L, Hgb 8.6 L, Hct 27.0 L, MCV 87.7, MCH 27.9, MCHC 31.9 L, RDW Std Deviation 45.5 H, RDW Coeff of Bassam 14.8 H, Plt Count 172, MPV 10.0, Immature Gran % (Auto) 0.500, Neut % (Auto) 68.5, Lymph % (Auto) 12.6 L, [place] % (Auto) 11.2 H, Eos % (Auto) 6.5 H, Baso % (Auto) 0.7, Absolute Neuts (auto) 4.0, Absolute Lymphs (auto) 0.74 L, Nucleated RBC % 0, Sodium 139, Potassium 3.7, Chloride 110 H, Carbon Dioxide 25.0, Anion Gap 4 L, BUN 8, Creatinine 0.63 L, Estim Creat Clear Calc 125.53, Est GFR (MDRD) Af Amer 167, Est GFR (MDRD) Non-Af 138, BUN/Creatinine Ratio 12.8, Glucose 149 H, Calcium 8.2 L, Total Bilirubin 0.70, AST 45 H, ALT 40, Alkaline Phosphatase 273 H, Total Protein 6.5, Albumin 2.1 L, Globulin 4.4 H, Albumin/Globulin Ratio 0.5 L Micro: Microbiology 08/23/23 12:35 Blood Culture (Wb) - Anticubital Right Blood Culture - Final No growth in 5 days. 08/23/23 12:45 Blood Culture (Wb) - Left Hand Blood Culture - Final No growth in 5 days. 08/23/23 14:30 Urine, Midstream Urine Culture - Preliminary Escherichia coli Enterococcus faecalis 08/23/23 13:10 Mucosa - Nose Influenza & RSV (PCR) - Final 08/23/23 13:05 Stool Stool Occult Blood (ABRAHAM) - Final Rhythm Strip Rhythm Strip: Sinus Rhythm Rate: 91 Ectopy: None Physical Exam Narrative Seen and examined. Patient looks emaciated. No significant change from yesterday's finding. Physical exam General: Lethargy, Oriented x3, Cooperative, poor performance status. Fatigue. Fatigue BMI 27.2 kg/m? HEENT: Atraumatic, PERRLA, EOMI, Normocephalic Oral: Oral mucosa dry. No Gingival or Mucosal Lesions/ Ulcerations Neck: Supple, No JVD, Negative Carotid Bruits Lungs: Air entry diminished in bilateral lung bases. Mild coarse crepitation. Cardiovascular: Regular rate, Regular Rhythm, Normal S1, Normal S2, No murmurs Abdomen: Bowel Sounds Present, Soft, Non Tender, Non-Distended : No renal angle tenderness. No suprapubic tenderness. Extremities: No edema, Capillary Refill Less than 3 Seconds Skin: No rashes, No breakdown Musculoskeletal: No Tenderness to Palpation of Joints or Extremities. Mild decreased muscle bulk of extremities. Neurological: Cranial nerves II-XII grossly intact, DTR 2+/4. No acute focal neurological deficit. Lethargic Psych/Mental Status: Flat affect. Assessment & Plan Assessment/Plan (1) Acute GI bleeding: (2) Hemorrhagic shock: PLAN: Plan #Hemorrhagic shock due to UGI bleed * shock has resolved * Hb was 6.1 and is currently at 8.4. It appears to be stable * Transfusing 2 units of PRBCs * on octreotide and PPI drip still * has a history of UGI bleed due to esophageal varices * on PPI BID * EGD showed grade III esophageal varices which were incompletely eradicated and banded, with no gross lesions in the first portion of the duodenum #Acute on chronic anemia: as above #Lactic acidosis: likely due to hemorrhagic shock. management as above. #Acute encephalopathy: likely due to hemorrhagic shock. Management as above. #Cirrhosis * has a history of chronic alcohol abuse * on nadolol, rifaximin, spironolactone * has a history of esophageal varices. * He will need to be on lactulose and I will also start Flagyl as he could be suffering from grade 1 to grade 2 hepatic encephalopathy as that is causing him to be more lethargic. * #Probable hepatocellular carcinoma * CT abdomen and pelvis from August 2022 showed a 4cm x 4.1cm heterogenous josef id mass in the mid lateral portion of the right lobe of hte liver with mildly distended gallbladder. * Patient should get liver biopsy. I do not think he would be a candidate for transarterial chemoembolization if it turns out to be HCC. I will let oncology decide if he be a candidate for chemotherapy. * liver biopsy-pending his * Alpha-fetoprotein is almost 11,000. This has a very poor prognosis. Family again updated regarding his progress. They have agreed to to hospice care. They would like to make him hospice and they would like him transferred care near their home in [place]. Charges/Coding Visit Charges Inpatient E&M: 18842 Subs Hosp L3
--- NOTE | 2023-08-31 16:47 | PN.HOSP_ITS ---
Reason for Visit Reason for Visit: Diagnoses Acute posthemorrhagic anemia (08/23/23) Hyperosmolality and hypernatremia (08/23/23) Encephalopathy, unspecified (08/23/23) Portal vein thrombosis (08/23/23) Esophageal varices with bleeding (08/23/23) Alcoholic cirrhosis of liver without ascites (08/23/23) Gastrointestinal hemorrhage, unspecified (08/23/23) Hepatomegaly, not elsewhere classified (08/23/23) Other shock (08/23/23) Objective Data Objective Data Vital Signs: Vital Signs Temp Pulse Resp BP Pulse Ox O2 Del Method O2 Flow Rate 98.3 F 79 16 126/74 H 92 Room Air 2 08/31/23 13:30 08/31/23 13:30 08/31/23 13:30 08/31/23 13:30 08/31/23 13:30 08/31/23 13:30 08/27/23 16:05 Oxygen Flow Rate (L/min) 2 Oxygen Delivery Method Room Air Weight: 189 lb 13.088 oz Body Mass Index (BMI) 27.1 Intake & Output: Intake and Output for Last 24 Hours 08/29/23 08/30/23 08/31/23 23:59 23:59 23:59 Intake Total 1666.67 / 1666.67 770 / 770 400 / 400 Output Total 1250 / 1250 4250 / 5000 1350 / 1350 Balance 416.67 / 416.67 -3480 / -4230 -950 / -950 Lab / Micro Data 08/31/23 11:13 08/31/23 11:13 Labs: Laboratory Results - last 24 hr 08/31/23 11:13: WBC 5.9, RBC 3.08 L, Hgb 8.6 L, Hct 27.0 L, MCV 87.7, MCH 27.9, MCHC 31.9 L, RDW Std Deviation 45.5 H, RDW Coeff of Bassam 14.8 H, Plt Count 172, MPV 10.0, Immature Gran % (Auto) 0.500, Neut % (Auto) 68.5, Lymph % (Auto) 12.6 L, [place] % (Auto) 11.2 H, Eos % (Auto) 6.5 H, Baso % (Auto) 0.7, Absolute Neuts (auto) 4.0, Absolute Lymphs (auto) 0.74 L, Nucleated RBC % 0, Sodium 139, Potassium 3.7, Chloride 110 H, Carbon Dioxide 25.0, Anion Gap 4 L, BUN 8, Creatinine 0.63 L, Estim Creat Clear Calc 125.53, Est GFR (MDRD) Af Amer 167, Est GFR (MDRD) Non-Af 138, BUN/Creatinine Ratio 12.8, Glucose 149 H, Calcium 8.2 L, Total Bilirubin 0.70, AST 45 H, ALT 40, Alkaline Phosphatase 273 H, Total Protein 6.5, Albumin 2.1 L, Globulin 4.4 H, Albumin/Globulin Ratio 0.5 L Micro: Microbiology 08/23/23 12:35 Blood Culture (Wb) - Anticubital Right Blood Culture - Final No growth in 5 days. 08/23/23 12:45 Blood Culture (Wb) - Left Hand Blood Culture - Final No growth in 5 days. 08/23/23 14:30 Urine, Midstream Urine Culture - Preliminary Escherichia coli Enterococcus faecalis 08/23/23 13:10 Mucosa - Nose Influenza & RSV (PCR) - Final 08/23/23 13:05 Stool Stool Occult Blood (ABRAHAM) - Final Rhythm Strip Rhythm Strip: Sinus Rhythm Rate: 91 Ectopy: None Physical Exam Narrative Seen and examined. No significant change from yesterday. Patient looked lethargic and mildly confused. No agitation. Poor performance status. N.p.o. status discussed and patient allowed oral. NG tube removed. Patient is able to swallow food needs teacher assistant for feeding. Physical exam General: Lethargy, Oriented x3, Cooperative, poor performance status. Fatigue. Fatigue BMI 27.2 kg/m? HEENT: Atraumatic, PERRLA, EOMI, Normocephalic Oral: Oral mucosa dry. No Gingival or Mucosal Lesions/ Ulcerations Neck: Supple, No JVD, Negative Carotid Bruits Lungs: Air entry diminished in bilateral lung bases. Mild coarse crepitation. Cardiovascular: Regular rate, Regular Rhythm, Normal S1, Normal S2, No murmurs Abdomen: Bowel Sounds Present, Soft, Non Tender, Non-Distended : No renal angle tenderness. No suprapubic tenderness. Extremities: No edema, Capillary Refill Less than 3 Seconds Skin: No rashes, No breakdown Musculoskeletal: No Tenderness to Palpation of Joints or Extremities. Mild decreased muscle bulk of extremities. Neurological: Cranial nerves II-XII grossly intact, DTR 2+/4. No acute focal neurological deficit. Lethargic Psych/Mental Status: Flat affect. Assessment & Plan Assessment/Plan (1) Liver masses: (2) Portal vein thrombosis: (3) Acute upper gastrointestinal hemorrhage: (4) ABLA (acute blood loss anemia): (5) Alcoholic cirrhosis of liver: (6) Hypernatremia: (7) Encephalopathy acute: (8) Esophageal varices with bleeding: PLAN: Plan 1. Upper GI bleed secondary to bleeding esophageal varices -EGD done 08/24/2023 and demonstrated grade 3 esophageal varices and hematin in the stomach with blood in the entire duodenum, varices were banded but incompletely eradicated and an NG was placed under endoscopy -Repeat EGD done on 08/26/2023 and no bleeding found 08/31: Patient initially was treated with Protonix drip, octreotide and had PRBC transfusion. After that he made hospice. As per system review family signed the hospice paperwork with the hospice nurse. 2. Acute on chronic anemia due to upper GI blood loss: Last hemoglobin 8.4 on 08/27. 3. Acute hepatic encephalopathy with history of chronic hepatic encephalopathy on lactulose and rifaximin 4. Hepatocellular carcinoma -CT of the abdomen pelvis from August 2023 shows a heterogeneous and cirrhotic appearing liver with multiple cystic and solid enhancing masses, 3.3 cm mass in the right hepatic lobe that has enlarged since previous imaging and increasing necrotic appearance of larger masses in the right lobe of the liver -Alpha-fetoprotein is markedly elevated at 10,931--> DrEnrrique Ramon discussed with family and plan is for hospice Portal vein thrombosis 08/30: Discussed with the social media campaign manager and case loader operator. signal worker Karen said that patient family wanted different hospice who saw yesterday therefore referral to another hospice was made. They wanted different hospice was closer to patient's family home address. Patient remained good candidate for GIP. 08/31: 08/31: 08/31: Patient's family working with the hospice nurse. Logistics has to be worked about before transport to inpatient hospice unit. 6. Hypernatremia/hyperchloremia 7. MIKLA ruled out: Urine culture shows E. coli [id number] colonies and Enteroc occus faecalis 11,000-25,000 colonies, 2 organisms and therefore most likely it is contamination or colonization. UTI ruled out. Blood cultures x 2 negative for 5 days. Chronic comorbidities Cirrhosis secondary to history of alcohol abuse Chronic diastolic heart failure Mild to moderate aortic stenosis History of hypertension History of alcohol abuse Tobacco abuse Plan: I had a detailed discussion regarding patient poor prognosis of advanced hepatocellular carcinoma with high alpha-fetoprotein. Liver biopsy was done but not reported yet. Dr. Ramon is already talked to the family and they are agreeable to hospice. I again talked to the patient's brother and his mother near the bedside and explained the natural history course, treatment options of liver cancer. Because patient has poor Karnofsky's performance status in debilitated condition with low functional status is not good for any treatment therefore inpatient hospice is appropriate. Patient's family had discussion with hospice. Patient's family wanted inpatient hospice near [facility] DNR CC. Microbiology Past 72 Hours 08/23/23 12:35 Blood Culture (Wb) - Anticubital Right Blood Culture - Final No growth in 5 days. 08/23/23 12:45 Blood Culture (Wb) - Left Hand Blood Culture - Final No growth in 5 days. Laboratory Results 08/31/23 11:13: WBC 5.9, RBC 3.08 L, Hgb 8.6 L, Hct 27.0 L, MCV 87.7, MCH 27.9, MCHC 31.9 L, RDW Std Deviation 45.5 H, RDW Coeff of Bassam 14.8 H, Plt Count 172, MPV 10.0, Immature Gran % (Auto) 0.500, Neut % (Auto) 68.5, Lymph % (Auto) 12.6 L, [place] % (Auto) 11.2 H, Eos % (Auto) 6.5 H, Baso % (Auto) 0.7, Absolute Neuts (auto) 4.0, Absolute Lymphs (auto) 0.74 L, Nucleated RBC % 0 Sodium 139, Potassium 3.7, Chloride 110 H, Carbon Dioxide 25.0, Anion Gap 4 L, BUN 8, Creatinine 0.63 L, Estim Creat Clear Calc 125.53, Est GFR (MDRD) Af Amer 167, Est GFR (MDRD) Non-Af 138, BUN/Creatinine Ratio 12.8, Glucose 149 H, Calcium 8.2 L, Total Bilirubin 0.70, AST 45 H, ALT 40, Alkaline Phosphatase 273 H, Total Protein 6.5, Albumin 2.1 L, Globulin 4.4 H, Albumin/Globulin Ratio 0.5 L Charges/Coding Visit Charges Inpatient E&M: 12641 Subs Hosp L2
[2023-08-31 20:33] VITALS: BP 142/92; PULSE 89; RESP 12; TEMP 36.6; O2SAT 97
[2023-09-01 02:33] VITALS: O2SAT 97
[2023-09-01] MEDS: LORazepam 2 MG/ML Syringe 0.5 MG IV ×4 (03:08→21:00)
[2023-09-01] MEDS: 0.9% Saline Lock 10 ML Syringe IV ×6 (03:08→21:07)
[2023-09-01] MEDS: HYDROmorphone 1 MG/ML Syringe IV ×4 (03:08→17:17)
[2023-09-01 03:27] VITALS: BP 130/83; PULSE 98; RESP 14; TEMP 36.6; O2SAT 93
[2023-09-01] MEDS: Lactulose 20 GM/30 ML UDC PO ×2 (06:58→21:01)
[2023-09-01 08:15] VITALS: BP 128/79; PULSE 92; RESP 17; TEMP 37; O2SAT 94
[2023-09-01] MEDS: Thiamine Hydrochloride 100 MG Tablet PO (08:37)
[2023-09-01] MEDS: rifAXIMin 550 MG Tablet PO ×2 (08:37→21:01)
[2023-09-01] MEDS: Pantoprazole Sodium 40 MG in 0.9% Normal Saline (100mL MB+) 100 ML 330 MG IV ×2 (08:46→21:02)
[2023-09-01] MEDS: oxyCODONE 5 MG Tablet 2.5 MG PO ×2 (10:20→21:01)
[2023-09-01] MEDS: tiZANidine HCl 2 MG Tablet PO (13:32)
[2023-09-01 13:54] VITALS: BP 138/86; PULSE 91; RESP 18; TEMP 37; O2SAT 94
[2023-09-01 14:10] LABS: Magnesium 1.8 mg/dL (1.6-2.6); Phosphorus 2.7 mg/dL (2.5-4.9)
[2023-09-01] MEDS: Magnesium Sulfate 2 GM in Dextrose 5%-Water (100mL Bag) 100 ML IV (14:22)
--- NOTE | 2023-09-01 17:20 | PN.HOSP_ITS ---
Reason for Visit Reason for Visit: Diagnoses Acute posthemorrhagic anemia (08/23/23) Hyperosmolality and hypernatremia (08/23/23) Encephalopathy, unspecified (08/23/23) Portal vein thrombosis (08/23/23) Esophageal varices with bleeding (08/23/23) Alcoholic cirrhosis of liver without ascites (08/23/23) Gastrointestinal hemorrhage, unspecified (08/23/23) Hepatomegaly, not elsewhere classified (08/23/23) Other shock (08/23/23) Objective Data Objective Data Vital Signs: Vital Signs Temp Pulse Resp BP Pulse Ox O2 Del Method O2 Flow Rate 98.6 F 91 18 138/86 H 94 Room Air 2 09/01/23 13:54 09/01/23 13:54 09/01/23 13:54 09/01/23 13:54 09/01/23 13:54 09/01/23 13:54 08/27/23 16:05 Oxygen Flow Rate (L/min) 2 Oxygen Delivery Method Room Air Weight: 189 lb 13.088 oz Body Mass Index (BMI) 27.1 Intake & Output: Intake and Output for Last 24 Hours 08/30/23 08/31/23 09/01/23 23:59 23:59 23:59 Intake Total 770 / 770 630 / 630 110 / 110 Output Total 4250 / 5000 1725 / 1725 Balance -3480 / -4230 -1095 / -1095 110 / 110 Lab / Micro Data 08/31/23 11:13 08/31/23 11:13 Labs: Laboratory Results - last 24 hr 09/01/23 13:42: Phosphorus 2.7, Magnesium 1.8 Micro: Microbiology 08/23/23 12:35 Blood Culture (Wb) - Anticubital Right Blood Culture - Final No growth in 5 days. 08/23/23 12:45 Blood Culture (Wb) - Left Hand Blood Culture - Final No growth in 5 days. 08/23/23 14:30 Urine, Midstream Urine Culture - Preliminary Escherichia coli Enterococcus faecalis 08/23/23 13:10 Mucosa - Nose Influenza & RSV (PCR) - Final 08/23/23 13:05 Stool Stool Occult Blood (ABRAHAM) - Final Rhythm Strip Rhythm Strip: Sinus Rhythm Rate: 91 Ectopy: None Physical Exam Narrative Seen and examined. Patient more lethargic, awake but seems confused and disoriented. As per n sadeing staff, complaint of leg spasm. Talk to the patient's brother and mother present in the room. Awaiting for inpatient hospice bed near [place]. Physical exam Physical exam General: Lethargy, disoriented, no meaningful conversation, incoherent speech. Poor performance status. Fatigue. Fatigue BMI 27.2 kg/m? HEENT: Atraumatic, PERRLA, EOMI, Normocephalic Oral: Oral mucosa dry. No Gingival or Mucosal Lesions/ Ulcerations Neck: Supple, No JVD, Negative Carotid Bruits Lungs: Air entry diminished in bilateral lung bases. Mild coarse crepitation. Cardiovascular: Regular rate, Regular Rhythm, Normal S1, Normal S2, No murmurs Abdomen: Bowel Sounds Present, Soft, Non Tender, Non-Distended : No renal angle tenderness. No suprapubic tenderness. Extremities: No edema, Capillary Refill Less than 3 Seconds Skin: No rashes, No breakdown Musculoskeletal: No Tenderness to Palpation of Joints or Extremities. Mild decreased muscle bulk of extremities. Neurological: DTR 2+/4. No acute focal neurological deficit. Lethargic, confused and disoriented. Psych/Mental Status: Flat affect. Assessment & Plan Assessment/Plan (1) Liver masses: (2) Portal vein thrombosis: (3) Acute upper gastrointestinal hemorrhage: (4) ABLA (acute blood loss anemia): (5) Alcoholic cirrhosis of liver: (6) Hypernatremia: (7) Encephalopathy acute: (8) Esophageal varices with bleeding: PLAN: Plan 1. Upper GI bleed secondary to bleeding esophageal varices -EGD done 08/24/2023 and demonstrated grade 3 esophageal varices and hematin in the stomach with blood in the entire duodenum, varices were banded but incompletely eradicated and an NG was placed under endoscopy -Repeat EGD done on 08/26/2023 and no bleeding found 08/31: Patient initially was treated with Protonix drip, octreotide and had PRBC transfusion. After that he made hospice. As per system review family signed the hospice paperwork with the hospice nurse. 2. Acute on chronic anemia due to upper GI blood loss: Last hemoglobin 8.4 on 08/27. 3. Acute hepatic encephalopathy with history of chronic hepatic encephalopathy on lactulose and rifaximin 09/01: Patient is confused and disoriented, incoherent his speech and incomprehen sible: Continue lactulose and Xifaxan. 4. Hepatocellular carcinoma -CT of the abdomen pelvis from August 2023 shows a heterogeneous and cirrhotic appearing liver with multiple cystic and solid enhancing masses, 3.3 cm mass in the right hepatic lobe that has enlarged since previous imaging and increasing necrotic appearance of larger masses in the right lobe of the liver -Alpha-fetoprotein is markedly elevated at 10,931--> Dr. Ramon discussed with family and plan is for hospice Portal vein thrombosis 08/30: Discussed with the social work therapist and case monitor. athletic turf worker Karen said that patient family wanted different hospice who saw yesterday therefore referral to another hospice was made. They wanted different hospice was closer to patient's family home address. Patient remained good candidate for GIP. 08/31: 08/31: 08/31: Patient's family working with the hospice nurse. Logistics has to be worked about before transport to inpatient hospice unit. 09/01: Patient's mother asked about the liver cancer going to kidneys. Previous CT scan and ultrasound reviewed in our system from 2022. It seems patient has left kidney complex cystic lesion with nodular and thin central calcification left kidney seems stable. Unclear to say whether it is metastatic or unrelated. Anyways, it does not change patient's management plan as patient has cirrhotic liver with varices, trace ascites. It also has portal vein thrombosis at junction of left and main portal vein. Chronic edema inflammation of distal esophagus and proximal colon. 6. Hypernatremia/hyperchloremia 7. MIKAL ruled out: Urine culture shows E. coli [id number] colonies and Enterococcus faecalis 11,000-25,000 colonies, 2 organisms and therefore most likely it is contamination or colonization. UTI ruled out. Blood cultures x 2 negative for 5 days. Chronic comorbidities Cirrhosis secondary to history of alcohol abuse Chronic diastolic heart failure Mild to moderate aortic stenosis History of hypertension History of alcohol abuse Tobacco abuse Plan: I had a detailed discussion regarding patient poor prognosis of advanced hepatocellular carcinoma with high alpha-fetoprotein. Liver biopsy was done but not reported yet. Dr. Ramon is already talked to the family and they are agreeable to hospice. I again talked to the patient's brother and his mother near the bedside and explained the natural history course, treatment options of liver cancer. Because patient has poor Karnofsky's performance status in d ebilitated condition with low functional status is not good for any treatment therefore inpatient hospice is appropriate. Patient's family had discussion with hospice. Patient's family wanted inpatient hospice near [facility] DNR CC. Microbiology Past 72 Hours 08/23/23 12:35 Blood Culture (Wb) - Anticubital Right Blood Culture - Final No growth in 5 days. 08/23/23 12:45 Blood Culture (Wb) - Left Hand Blood Culture - Final No growth in 5 days. Laboratory Results 08/31/23 11:13: WBC 5.9, RBC 3.08 L, Hgb 8.6 L, Hct 27.0 L, MCV 87.7, MCH 27.9, MCHC 31.9 L, RDW Std Deviation 45.5 H, RDW Coeff of Bassam 14.8 H, Plt Count 172, MPV 10.0, Immature Gran % (Auto) 0.500, Neut % (Auto) 68.5, Lymph % (Auto) 12.6 L, [place] % (Auto) 11.2 H, Eos % (Auto) 6.5 H, Baso % (Auto) 0.7, Absolute Neuts (auto) 4.0, Absolute Lymphs (auto) 0.74 L, Nucleated RBC % 0 Sodium 139, Potassium 3.7, Chloride 110 H, Carbon Dioxide 25.0, Anion Gap 4 L, BUN 8, Creatinine 0.63 L, Estim Creat Clear Calc 125.53, Est GFR (MDRD) Af Amer 167, Est GFR (MDRD) Non-Af 138, BUN/Creatinine Ratio 12.8, Glucose 149 H, Calcium 8.2 L, Total Bilirubin 0.70, AST 45 H, ALT 40, Alkaline Phosphatase 273 H, Total Protein 6.5, Albumin 2.1 L, Globulin 4.4 H, Albumin/Globulin Ratio 0.5 L Charges/Coding Visit Charges Inpatient E&M: 28547 Subs Hosp L2
[2023-09-01 21:14] VITALS: BP 137/76; PULSE 89; RESP 16; TEMP 36.9; O2SAT 95
[2023-09-02] MEDS: tiZANidine HCl 2 MG Tablet PO ×2 (01:30→14:48)
[2023-09-02] MEDS: HYDROmorphone 1 MG/ML Syringe IV ×5 (01:31→20:44)
[2023-09-02] MEDS: 0.9% Saline Lock 10 ML Syringe IV ×6 (01:31→20:45)
[2023-09-02 04:28] VITALS: BP 135/86; PULSE 88; RESP 18; TEMP 37.1; O2SAT 98
[2023-09-02] MEDS: LORazepam 2 MG/ML Syringe 0.5 MG IV (05:57)
[2023-09-02] MEDS: Thiamine Hydrochloride 100 MG Tablet PO (05:58)
[2023-09-02] MEDS: Lactulose 20 GM/30 ML UDC PO ×3 (05:58→20:37)
[2023-09-02] MEDS: rifAXIMin 550 MG Tablet PO ×2 (09:36→20:37)
[2023-09-02] MEDS: Pantoprazole Sodium 40 MG in 0.9% Normal Saline (100mL MB+) 100 ML 330 MG IV ×2 (09:40→20:37)
[2023-09-02 09:45] VITALS: BP 146/74; PULSE 90; RESP 16; TEMP 36.6; O2SAT 95
[2023-09-02 15:02] VITALS: BP 120/69; PULSE 79; RESP 14; TEMP 36.7; O2SAT 98
--- NOTE | 2023-09-02 16:46 | CASEMGMT ---
Social Work SW has checked HENS multiple times to check on the status of the Level II determination. Determination is not yet made. [facility] hosp[facility] notified. Phone call to pt's mother and updated. Pt will be here through the weekend. Plan: [facility], when level II determination is made MADISON Willams
--- NOTE | 2023-09-02 17:33 | PN.HOSP_ITS ---
Reason for Visit Reason for Visit: Diagnoses Acute posthemorrhagic anemia (08/23/23) Hyperosmolality and hypernatremia (08/23/23) Encephalopathy, unspecified (08/23/23) Portal vein thrombosis (08/23/23) Esophageal varices with bleeding (08/23/23) Alcoholic cirrhosis of liver without ascites (08/23/23) Gastrointestinal hemorrhage, unspecified (08/23/23) Hepatomegaly, not elsewhere classified (08/23/23) Other shock (08/23/23) Objective Data Objective Data Vital Signs: Vital Signs Temp Pulse Resp BP Pulse Ox O2 Del Method O2 Flow Rate 98.0 F 79 14 120/69 98 Room Air 2 09/02/23 15:02 09/02/23 15:02 09/02/23 15:02 09/02/23 15:02 09/02/23 15:02 09/02/23 15:02 08/27/23 16:05 Oxygen Flow Rate (L/min) 2 Oxygen Delivery Method Room Air Weight: 189 lb 13.088 oz Body Mass Index (BMI) 27.1 Intake & Output: Intake and Output for Last 24 Hours 08/31/23 09/01/23 09/02/23 23:59 23:59 23:59 Intake Total 630 / 630 324 / 324 110 / 110 Output Total 1725 / 1725 850 / 850 675 / 675 Balance -1095 / -1095 -526 / -526 -565 / -565 Lab / Micro Data 08/31/23 11:13 08/31/23 11:13 Micro: Microbiology 08/23/23 12:35 Blood Culture (Wb) - Anticubital Right Blood Culture - Final No growth in 5 days. 08/23/23 12:45 Blood Culture (Wb) - Left Hand Blood Culture - Final No growth in 5 days. 08/23/23 14:30 Urine, Midstream Urine Culture - Preliminary Escherichia coli Enterococcus faecalis 08/23/23 13:10 Mucosa - Nose Influenza & RSV (PCR) - Final 08/23/23 13:05 Stool Stool Occult Blood (ABRAHAM) - Final Rhythm Strip Rhythm Strip: Sinus Rhythm Rate: 91 Ectopy: None Physical Exam Narrative Seen and examined. Patient more lethargic, confused. He cannot tell correctly month and year. Not able to tell his age. Awaiting for inpatient hospice bed near [place]. Physical exam Physical exam General: Lethargy, disoriented, delayed response. Poor performance status. Fatigue. Fatigue BMI 27.2 kg/m? HEENT: Atraumatic, PERRLA, EOMI, Normocephalic Oral: Oral mucosa dry. No Gingival or Mucosal Lesions/ Ulcerations Neck: Supple, No JVD, Negative Carotid Bruits Lungs: Air entry diminished in bilateral lung bases. Mild coarse crepitation. Cardiovascular: Regular rate, Regular Rhythm, Normal S1, Normal S2, No murmurs Abdomen: Bowel Sounds Present, Soft, Non Tender, Non-Distended : No renal angle tenderness. No suprapubic tenderness. Extremities: No edema, Capillary Refill Less than 3 Seconds Skin: No rashes, No breakdown Musculoskeletal: No Tenderness to Palpation of Joints or Extremities. Mild decreased muscle bulk of extremities. Neurological: DTR 2+/4. No acute focal neurological deficit. Lethargic, confused and disoriented. Psych/Mental Status: Flat affect. Assessment & Plan Assessment/Plan (1) Liver masses: (2) Portal vein thrombosis: (3) Acute upper gastrointestinal hemorrhage: (4) ABLA (acute blood loss anemia): (5) Alcoholic cirrhosis of liver: (6) Hypernatremia: (7) Encephalopathy acute: (8) Esophageal varices with bleeding: PLAN: Plan 1. Upper GI bleed secondary to bleeding esophageal varices -EGD done 08/24/2023 and demonstrated grade 3 esophageal varices and hematin in the stomach with blood in the entire duodenum, varices were banded but incompletely eradicated and an NG was placed under endoscopy -Repeat EGD done on 08/26/2023 and no bleeding found 08/31: Patient initially was treated with Protonix drip, octreotide and had PRBC transfusion. After that he made hospice. As per system review family signed the hospice paperwork with the hospice nurse. 2. Acute on chronic anemia due to upper GI blood loss: Last hemoglobin 8.4 on 08/27. 3. Acute hepatic encephalopathy with history of chronic hepatic encephalopathy on lactulose and rifaximin 09/01: Patient is confused and disoriented, incoherent his speech and incomprehensible: Continue lactulose and Xifaxan. 09/02: Patient is confused and disoriented. Continue lactulose and Xifaxan. 4. Hepatocellular carcinoma -CT of the abdomen pelvis from August 2023 shows a heterogeneous and cirrhotic appearing liver with multiple cystic and solid enhancing masses, 3.3 cm mass in the right hepatic lobe that has enlarged since previous imaging and increasing necrotic appearance of larger masses in the right lobe of the liver -Alpha-fetoprotein is markedly elevated at 10,931--> Dr. Ramon discussed with family and plan is for hospice Portal vein thrombosis 08/30: Discussed with the home health care social worker and family independence case manager. parks and recreation worker Karen said that patient family wanted different hospice who saw yesterday therefore referral to another hospice was made. They wanted different hospice was closer to patient's family home address. Patient remained good candidate for GIP. 08/31: 08/31: 08/31: Patient's family working with the hospice nurse. Logistics has to be worked about before transport to inpatient hospice unit. 09/01: Patient's mother asked about the liver cancer going to kidneys. Previous CT scan and ultrasound reviewed in our system from 2022. It seems patient has left kidney complex cystic lesion with nodular and thin central calcification left kidney seems stable. Unclear to say whether it is metastatic or unrelated. Anyways, it does not change patient's management plan as patient has cirrhotic liver with varices, trace ascites. It also has portal vein thrombosis at junction of left and main portal vein. Chronic edema inflammation of distal esophagus and proximal colon. 09/02: Waiting for the bed for hospice near [place]. Prognosis already discussed with the patient multiple times with patient brother and his mother. 6. Hypernatremia/hyperchloremia 7. MIKAL ruled out: Urine culture shows E. coli [id number] colonies and Enterococcus faecalis 11,000-25,000 colonies, 2 organisms and therefore most li inez it is contamination or colonization. UTI ruled out. Blood cultures x 2 negative for 5 days. Chronic comorbidities Cirrhosis secondary to history of alcohol abuse Chronic diastolic heart failure Mild to moderate aortic stenosis History of hypertension History of alcohol abuse Tobacco abuse Plan: I had a detailed discussion regarding patient poor prognosis of advanced hepatocellular carcinoma with high alpha-fetoprotein. Liver biopsy was done but not reported yet. Dr. Ramon is already talked to the family and they are agreeable to hospice. I again talked to the patient's brother and his mother near the bedside and explained the natural history course, treatment options of liver cancer. Because patient has poor Karnofsky's performance status in debilitated condition with low functional status is not good for any treatment therefore inpatient hospice is appropriate. Patient's family had discussion with hospice. Patient's family wanted inpatient hospice near [facility] DNR [facility]. Charges/Coding Visit Charges Inpatient E&M: 14989 Subs Hosp L2
[2023-09-02 20:28] VITALS: BP 131/81; PULSE 79; RESP 18; TEMP 37.2; O2SAT 95
[2023-09-03] MEDS: LORazepam 2 MG/ML Syringe 0.5 MG IV ×2 (00:10→14:00)
[2023-09-03] MEDS: 0.9% Saline Lock 10 ML Syringe IV ×3 (00:10→14:00)
[2023-09-03] MEDS: HYDROmorphone 1 MG/ML Syringe IV ×4 (00:10→21:20)
[2023-09-03 03:00] VITALS: BP 149/87; PULSE 75; RESP 14; TEMP 36.5; O2SAT 95
[2023-09-03 03:25] VITALS: RESP 14
[2023-09-03] MEDS: tiZANidine HCl 2 MG Tablet PO (05:50)
[2023-09-03] MEDS: oxyCODONE 5 MG Tablet 2.5 MG PO (05:50)
[2023-09-03] MEDS: Lactulose 20 GM/30 ML UDC PO ×3 (05:51→21:12)
[2023-09-03] MEDS: Thiamine Hydrochloride 100 MG Tablet PO (08:29)
[2023-09-03 08:31] VITALS: BP 148/80; PULSE 65; RESP 17; TEMP 37.1
[2023-09-03 08:48] VITALS: RESP 18
[2023-09-03] MEDS: rifAXIMin 550 MG Tablet PO ×2 (09:01→21:12)
[2023-09-03] MEDS: Pantoprazole Sodium 40 MG in 0.9% Normal Saline (100mL MB+) 100 ML 330 MG IV ×2 (09:11→21:12)
[2023-09-03] MEDS: 0.9% Normal Saline (250mL Bag) 250 ML 15 ML IV (09:12)
[2023-09-03 14:26] VITALS: BP 145/79; PULSE 66; RESP 16; TEMP 36.7; O2SAT 96
--- NOTE | 2023-09-03 16:21 | PCM.PN.HOSP ---
Reason for Visit Reason for Visit: Diagnoses Acute posthemorrhagic anemia (08/23/23) Hyperosmolality and hypernatremia (08/23/23) Encephalopathy, unspecified (08/23/23) Portal vein thrombosis (08/23/23) Esophageal varices with bleeding (08/23/23) Alcoholic cirrhosis of liver without ascites (08/23/23) Gastrointestinal hemorrhage, unspecified (08/23/23) Hepatomegaly, not elsewhere classified (08/23/23) Other shock (08/23/23) Objective Data Objective Data Vital Signs: Vital Signs Temp Pulse Resp BP Pulse Ox O2 Del Method O2 Flow Rate 98.1 F 66 16 145/79 H 96 Room Air 2 09/03/23 14:26 09/03/23 14:26 09/03/23 14:26 09/03/23 14:26 09/03/23 14:26 09/03/23 14:26 08/27/23 16:05 Oxygen Flow Rate (L/min) 2 Oxygen Delivery Method Room Air Weight: 189 lb 13.088 oz Body Mass Index (BMI) 27.1 Intake & Output: Intake and Output for Last 24 Hours 09/01/23 09/02/23 09/03/23 23:59 23:59 23:59 Intake Total 324 / 324 220 / 220 419 / 419 Output Total 850 / 850 975 / 975 700 / 700 Balance -526 / -526 -755 / -755 -281 / -281 Lab / Micro Data 08/31/23 11:13 08/31/23 11:13 Micro: Microbiology 08/23/23 12:35 Blood Culture (Wb) - Anticubital Right Blood Culture - Final No growth in 5 days. 08/23/23 12:45 Blood Culture (Wb) - Left Hand Blood Culture - Final No growth in 5 days. 08/23/23 14:30 Urine, Midstream Urine Culture - Preliminary Escherichia coli Enterococcus faecalis 08/23/23 13:10 Mucosa - Nose Influenza & RSV (PCR) - Final 08/23/23 13:05 Stool Stool Occult Blood (ABRAHAM) - Final Rhythm Strip Rhythm Strip: Sinus Rhythm Rate: 91 Ectopy: None Physical Exam Narrative Seen and examined. Patient is more awake. Eating breakfast. Intermittent confusion and lethargic. He cannot tell correctly month and year. Not able to tell his age. Awaiting for inpatient hospice bed near [place]. Physical exam Physical exam General: Confused, sometimes alert. Intermittent disorientation. Poor performance status. Fatigue. Fatigue BMI 27.2 kg/m? HEENT: Atraumatic, PERRLA, EOMI, Normocephalic Oral: Oral mucosa dry. No Gingival or Mucosal Lesions/ Ulcerations Neck: Supple, No JVD, Negative Carotid Bruits Lungs: Air entry diminished in bilateral lung bases. Mild coarse crepitation. Cardiovascular: Regular rate, Regular Rhythm, Normal S1, Normal S2, No murmurs Abdomen: Bowel Sounds Present, Soft, Non Tender, Non-Distended : No renal angle tenderness. No suprapubic tenderness. Extremities: No edema, Capillary Refill Less than 3 Seconds Skin: No rashes, No breakdown Musculoskeletal: No Tenderness to Palpation of Joints or Extremities. Mild decreased muscle bulk of extremities. Neurological: DTR 2+/4. No acute focal neurological deficit. Lethargic, Psych/Mental Status: Flat affect. Assessment & Plan Assessment/Plan (1) Liver masses: (2) Portal vein thrombosis: (3) Acute upper gastrointestinal hemorrhage: (4) ABLA (acute blood loss anemia): (5) Alcoholic cirrhosis of liver: (6) Hypernatremia: (7) Encephalopathy acute: (8) Esophageal varices with bleeding: PLAN: Plan 1. Upper GI bleed secondary to bleeding esophageal varices -EGD done 08/24/2023 and demonstrated grade 3 esophageal varices and hematin in the stomach with blood in the entire duodenum, varices were banded but incompletely eradicated and an NG was placed under endoscopy -Repeat EGD done on 08/26/2023 and no bleeding found 08/31: Patient initially was treated with Protonix drip, octreotide and had PRBC transfusion. After that he made hospice. As per system review family signed the hospice paperwork with the hospice nurse. 2. Acute on chronic anemia due to upper GI blood loss: Last hemoglobin 8.4 on 08/27. 3. Acute hepatic encephalopathy with history of chronic hepatic encephalopathy on lactulose and rifaximin 09/01: Patient is confused and disoriented, incoherent his speech and incomprehensible: Continue lactulose and Xifaxan. 09/02: Patient is confused and disoriented. Continue lactulose and Xifaxan. 09/03: Patient is more awake today. He is eating breakfast. Continue lactulose and Xifaxan. 4. Hepatocellular carcinoma -CT of the abdomen pelvis from August 2023 shows a heterogeneous and cirrhotic appearing liver with multiple cystic and solid enhancing masses, 3.3 cm mass in the right hepatic lobe that has enlarged since previous imaging and increasing necrotic appearance of larger masses in the right lobe of the liver -Alpha-fetoprotein is markedly elevated at 10,931--> Dr. Ramon discussed with family and plan is for hospice Portal vein thrombosis 08/30: Discussed with the vp digital marketing social media and crm and correctional casework specialist. hospice social worker Karen said that patient family wanted different hospice who saw yesterday therefore referral to another hospice was made. They wanted different hospice was closer to patient's family home address. Patient remained good candidate for GIP. 08/31: 08/31: 08/31: Patient's family working with the hospice nurse. Logistics has to be worked about before transport to inpatient hospice unit. 09/01: Patient's mother asked about the liver cancer going to kidneys. Previous CT scan and ultrasound reviewed in our system from 2022. It seems patient has left kidney complex cystic lesion with nodular and thin central calcification left kidney seems stable. Unclear to say whether it is metastatic or unrelated. Anyways, it does not change patient's management plan as patient has cirrhotic liver with varices, trace ascites. It also has portal vein thrombosis at junction of left and main portal vein. Chronic edema inflammation of distal esophagus and proximal colon. 09/02: Waiting for the bed for hospice near [place]. Prognosis already discussed with the patient multiple times with patient brother and his mother. 09/03: Still awaiting for transfer to hospice [facility]. 6. Hypernatremia/hyperchloremia 7. MIKAL ruled out: Urine culture shows E. coli [id number] colonies and Enterococcus faecalis 11,000-25,000 colonies, 2 organisms and therefore most likely it is contamination or colonization. UTI ruled out. Blood cultures x 2 negative for 5 days. Chronic comorbidities Cirrhosis secondary to history of alcohol abuse Chronic diastolic heart failure Mild to moderate aortic stenosis History of hypertension History of alcohol abuse Tobacco abuse Plan: I had a detailed discussion regarding patient poor prognosis of advanced hepatocellular carcinoma with high alpha-fetoprotein. Liver biopsy was done but not reported yet. Dr. Ramon is already talked to the family and they are agreeable to hospice. I again talked to the patient's brother and his mother near the bedside and explained the natural history course, treatment options of liver cancer. Because patient has poor Karnofsky's performance status in debilitated condition with low functional status is not good for any treatment therefore inpatient hospice is appropriate. Patient's family had discussion with hospice. Patient's family wanted inpatient hospice near [facility] DNR CC. Charges/Coding Visit Charges Inpatient E&M: 77062 Subs Hosp L2
--- NOTE | 2023-09-03 18:28 | NURSING ---
documentation by Sue jones reviewed
[2023-09-03 21:08] VITALS: BP 154/98; PULSE 82; RESP 18; TEMP 36.7; O2SAT 98
[2023-09-04] MEDS: HYDROmorphone 1 MG/ML Syringe IV ×4 (02:22→14:46)
[2023-09-04] MEDS: 0.9% Saline Lock 10 ML Syringe IV ×6 (02:23→17:44)
[2023-09-04 03:00] VITALS: BP 132/93; PULSE 93; RESP 16; TEMP 36.8; O2SAT 96
[2023-09-04] MEDS: Lactulose 20 GM/30 ML UDC PO ×3 (05:14→20:10)
[2023-09-04 08:20] VITALS: BP 135/88; PULSE 85; RESP 20; TEMP 37.2; O2SAT 93
[2023-09-04] MEDS: rifAXIMin 550 MG Tablet PO ×2 (08:21→20:11)
[2023-09-04] MEDS: Thiamine Hydrochloride 100 MG Tablet PO (08:21)
[2023-09-04] MEDS: LORazepam 2 MG/ML Syringe 0.5 MG IV ×2 (10:25→17:43)
[2023-09-04] MEDS: oxyCODONE 5 MG Tablet 2.5 MG PO ×2 (10:25→17:43)
[2023-09-04] MEDS: Pantoprazole Sodium 40 MG in 0.9% Normal Saline (100mL MB+) 100 ML 330 MG IV ×2 (10:26→20:20)
--- NOTE | 2023-09-04 10:30 | CPS ---
Pt rarely able to follow instruction per nursing & RT, pt now on hospice and on dilaudid, therefore d/c'ing.
--- NOTE | 2023-09-04 13:52 | PN.HOSP_ITS ---
Reason for Visit Reason for Visit: Diagnoses Acute posthemorrhagic anemia (08/23/23) Hyperosmolality and hypernatremia (08/23/23) Encephalopathy, unspecified (08/23/23) Portal vein thrombosis (08/23/23) Esophageal varices with bleeding (08/23/23) Alcoholic cirrhosis of liver without ascites (08/23/23) Gastrointestinal hemorrhage, unspecified (08/23/23) Hepatomegaly, not elsewhere classified (08/23/23) Other shock (08/23/23) Objective Data Objective Data Vital Signs: Vital Signs Temp Pulse Resp BP Pulse Ox O2 Del Method O2 Flow Rate 98.9 F 85 20 H 135/88 H 93 Room Air 2 09/04/23 08:20 09/04/23 08:20 09/04/23 08:20 09/04/23 08:20 09/04/23 08:20 09/04/23 08:20 08/27/23 16:05 Oxygen Flow Rate (L/min) 2 Oxygen Delivery Method Room Air Weight: 189 lb 13.088 oz Body Mass Index (BMI) 27.1 Intake & Output: Intake and Output for Last 24 Hours 09/02/23 09/03/23 09/04/23 23:59 23:59 23:59 Intake Total 220 / 220 529 / 529 710 / 710 Output Total 975 / 975 1900 / 1900 1550 / 1550 Balance -755 / -755 -1371 / -1371 -840 / -840 Lab / Micro Data 08/31/23 11:13 08/31/23 11:13 Micro: Microbiology 08/23/23 12:35 Blood Culture (Wb) - Anticubital Right Blood Culture - Final No growth in 5 days. 08/23/23 12:45 Blood Culture (Wb) - Left Hand Blood Culture - Final No growth in 5 days. 08/23/23 14:30 Urine, Midstream Urine Culture - Preliminary Escherichia coli Enterococcus faecalis 08/23/23 13:10 Mucosa - Nose Influenza & RSV (PCR) - Final 08/23/23 13:05 Stool Stool Occult Blood (ABRAHAM) - Final Rhythm Strip Rhythm Strip: Sinus Rhythm Rate: 91 Ectopy: None Physical Exam Narrative Seen and examined. Patient is more awake. Eating his meal. Intermittent confusion and lethargic. No acute change. Awaiting for inpatient hospice bed near [place]. Physical exam Physical exam General: Confused, sometimes alert. Intermittent disorientation. Poor performance status. Fatigue. Fatigue BMI 27.2 kg/m? HEENT: Atraumatic, PERRLA, EOMI, Normocephalic Oral: Oral mucosa dry. No Gingival or Mucosal Lesions/ Ulcerations Neck: Supple, No JVD, Negative Carotid Bruits Lungs: Air entry diminished in bilateral lung bases. Mild coarse crepitation. Cardiovascular: Regular rate, Regular Rhythm, Normal S1, Normal S2, No murmurs Abdomen: Bowel Sounds Present, Soft, Non Tender, Non-Distended : No renal angle tenderness. No suprapubic tenderness. Extremities: No edema, Capillary Refill Less than 3 Seconds Skin: No rashes, No breakdown Musculoskeletal: No Tenderness to Palpation of Joints or Extremities. Mild decreased muscle bulk of extremities. Neurological: DTR 2+/4. No acute focal neurological deficit. Lethargic, Psych/Mental Status: Flat affect. Assessment & Plan Assessment/Plan (1) Liver masses: (2) Portal vein thrombosis: (3) Acute upper gastrointestinal hemorrhage: (4) ABLA (acute blood loss anemia): (5) Alcoholic cirrhosis of liver: (6) Hypernatremia: (7) Encephalopathy acute: (8) Esophageal varices with bleeding: PLAN: Plan 1. Upper GI bleed secondary to bleeding esophageal varices -EGD done 08/24/2023 and demonstrated grade 3 esophageal varices and hematin in the stomach with blood in the entire duodenum, varices were banded but incompletely eradicated and an NG was placed under endoscopy -Repeat EGD done on 08/26/2023 and no bleeding found 08/31: Patient initially was treated with Protonix drip, octreotide and had PRBC transfusion. After that he made hospice. As per system review family signed the hospice paperwork with the hospice nurse. 2. Acute on chronic anemia due to upper GI blood loss: Last hemoglobin 8.4 on 08/27. 3. Acute hepatic encephalopathy with history of chronic hepatic encephalopathy on lactulose and rifaximin 09/01: Patient is confused and disoriented, incoherent his speech and incomprehensible: Continue lactulose and Xifaxan. 09/02: Patient is confused and disoriented. Continue lactulose and Xifaxan. 09/03: Patient is more awake today. He is eating breakfast. Continue lactulose and Xifaxan. 4. Hepatocellular carcinoma -CT of the abdomen pelvis from August 2023 shows a heterogeneous and cirrhotic appearing liver with multiple cystic and solid enhancing masses, 3.3 cm mass in the right hepatic lobe that has enlarged since previous imaging and increasing necrotic appearance of larger masses in the right lobe of the liver -Alpha-fetoprotein is markedly elevated at 10,931--> Dr. Ramon discussed with family and plan is for hospice Portal vein thrombosis 08/30: Discussed with the social work lecturer and case management coordinator. suction worker Karen said that patient family wanted different hospice who saw yesterday therefore referral to another hospice was made. They wanted different hospice was closer to patient's family home address. Patient remained good candidate for GIP. 08/31: 08/31: 08/31: Patient's family working with the hospice nurse. Logistics has to be worked about before transport to inpatient hospice unit. 09/01: Patient's mother asked about the liver cancer going to kidneys. Previous CT scan and ultrasound reviewed in our system from 2022. It seems patient has left kidney complex cystic lesion with nodular and thin central calcification left kidney seems stable. Unclear to say whether it is metastatic or unrelated. Anyways, it does not change patient's management plan as patient has cirrhotic liver with varices, trace ascites. It also has portal vein thrombosis at junction of left and main portal vein. Chronic edema inflammation of distal esophagus and proximal colon. 09/02: Waiting for the bed for hospice near [place]. Prognosis already discussed with the patient multiple times with patient brother and his mother. 09/03: Still awaiting for transfer to hospice [facility]. 09/04: Coarse crepitation and lungs. Patient not on IV fluid. DNR CC hospice care. Waiting for bed near [place]. 6. Hypernatremia/hyperchloremia 7. MIKAL ruled out: Urine culture shows E. coli [id number] colonies and Enterococcus faecalis 11,000-25,000 colonies, 2 organisms and therefore most likely it is contamination or colonization. UTI ruled out. Blood cultures x 2 negative for 5 days. Chronic comorbidities Cirrhosis secondary to history of alcohol abuse Chronic diastolic heart failure Mild to moderate aortic stenosis History of hypertension History of alcohol abuse Tobacco abuse Plan: I had a detailed discussion regarding patient poor prognosis of advanced hepatocellular carcinoma with high alpha-fetoprotein. Liver biopsy was done but not reported yet. Dr. Ramon is already talked to the family and they are agreeable to hospice. I again talked to the patient's brother and his mother near the bedside and explained the natural history course, treatment options of liver cancer. Because patient has poor Karnofsky's performance status in debilitated condition with low functional status is not good for any treatment therefore inpatient hospice is appropriate. Patient's family had discussion with hospice. Patient's family wanted inpatient hospice near [facility] DNR CC. Charges/Coding Visit Charges Inpatient E&M: 26098 Subs Hosp L2
[2023-09-04 14:41] VITALS: BP 141/75; PULSE 85; RESP 18; TEMP 36.6; O2SAT 96
[2023-09-04] MEDS: guaiFENesin/D-Methorphan TAB.SR.12H 2 TABLET PO ×2 (14:46→20:10)
[2023-09-04 20:04] VITALS: BP 134/84; PULSE 73; RESP 16; TEMP 36.7; O2SAT 100
[2023-09-04 20:27] VITALS: O2SAT 100
[2023-09-04 22:37] VITALS: O2SAT 97
[2023-09-05] MEDS: HYDROmorphone 1 MG/ML Syringe IV ×3 (01:10→20:41)
[2023-09-05] MEDS: 0.9% Saline Lock 10 ML Syringe IV ×2 (01:11→04:56)
[2023-09-05 02:29] VITALS: BP 125/89; PULSE 71; RESP 16; TEMP 36.6; O2SAT 97
[2023-09-05] MEDS: Lactulose 20 GM/30 ML UDC PO ×3 (05:01→20:42)
[2023-09-05 08:29] VITALS: BP 133/64; PULSE 79; RESP 16; TEMP 36.9; O2SAT 98
[2023-09-05] MEDS: Pantoprazole Sodium 40 MG in 0.9% Normal Saline (100mL MB+) 100 ML 330 MG IV ×2 (09:38→20:42)
[2023-09-05] MEDS: Thiamine Hydrochloride 100 MG Tablet PO (09:39)
[2023-09-05] MEDS: guaiFENesin/D-Methorphan TAB.SR.12H 2 TABLET PO ×2 (09:39→20:42)
[2023-09-05] MEDS: rifAXIMin 550 MG Tablet PO ×2 (09:39→20:43)
--- NOTE | 2023-09-05 10:53 | CASEMGMT ---
Discharge Planning Requested updates sent to [facility] via [facility]. Tess Henning, Discharge Planning Asst.
[2023-09-05 15:43] VITALS: BP 160/93; PULSE 70; RESP 16; TEMP 37; O2SAT 98
--- NOTE | 2023-09-05 17:49 | PN.HOSP_ITS ---
Reason for Visit Reason for Visit: Diagnoses Acute posthemorrhagic anemia (08/23/23) Hyperosmolality and hypernatremia (08/23/23) Encephalopathy, unspecified (08/23/23) Portal vein thrombosis (08/23/23) Esophageal varices with bleeding (08/23/23) Alcoholic cirrhosis of liver without ascites (08/23/23) Gastrointestinal hemorrhage, unspecified (08/23/23) Hepatomegaly, not elsewhere classified (08/23/23) Other shock (08/23/23) Subjective Subjective Patient resting comfortably in bed, awaiting hospice Objective Data Objective Data Vital Signs: Vital Signs Temp Pulse Resp BP Pulse Ox O2 Del Method O2 Flow Rate 98.6 F 70 16 160/93 H 98 Room Air 2 09/05/23 15:43 09/05/23 15:43 09/05/23 15:43 09/05/23 15:43 09/05/23 15:43 09/05/23 15:43 09/04/23 20:04 Oxygen Flow Rate (L/min) 2 Oxygen Delivery Method Room Air Weight: 86.1 kg Body Mass Index (BMI) 27.1 Intake & Output: Intake and Output for Last 24 Hours 09/03/23 09/04/23 09/05/23 23:59 23:59 23:59 Intake Total 529 / 529 1020 / 1020 1190 / 1190 Output Total 1900 / 1900 2250 / 2250 1227 / 1227 Balance -1371 / -1371 -1230 / -1230 -37 / -37 Lab / Micro Data 08/31/23 11:13 08/31/23 11:13 Micro: Microbiology 08/23/23 12:35 Blood Culture (Wb) - Anticubital Right Blood Culture - Final No growth in 5 days. 08/23/23 12:45 Blood Culture (Wb) - Left Hand Blood Culture - Final No growth in 5 days. 08/23/23 14:30 Urine, Midstream Urine Culture - Preliminary Escherichia coli Enterococcus faecalis 08/23/23 13:10 Mucosa - Nose Influenza & RSV (PCR) - Final 08/23/23 13:05 Stool Stool Occult Blood (ABRAHAM) - Final Rhythm Strip Rhythm Strip: Sinus Rhythm Rate: 91 Ectopy: None Physical Exam Narrative General: Resting in bed, sleeping comfortably HEENT: Atraumatic Eyes: No spontaneous eye opening Neck: Supple Respiratory: normal respiratory effort Extremities: Moves extremities in bed Psych: Resting comfortably Assessment & Plan Assessment/Plan (1) Liver masses: (2) Portal vein thrombosis: (3) Acute upper gastrointestinal hemorrhage: (4) ABLA (acute blood loss anemia): (5) Alcoholic cirrhosis of liver: (6) Hypernatremia: (7) Encephalopathy acute: (8) Esophageal varices with bleeding: PLAN: Plan 1. Upper GI bleed secondary to bleeding esophageal varices -EGD done 08/24/2023 and demonstrated grade 3 esophageal varices and hematin in the stomach with blood in the entire duodenum, varices were banded but incompletely eradicated and an NG was placed under endoscopy -Repeat EGD done on 08/26/2023 and no bleeding found 08/31: Patient initially was treated with Protonix drip, octreotide and had PRBC transfusion. After that he made hospice. As per system review family signed the hospice paperwork with the hospice nurse. -09/05: Awaiting hospice 2. Acute on chronic anemia due to upper GI blood loss: Last hemoglobin 8.4 on 08/27. -09/05: Awaiting hospice 3. Acute hepatic encephalopathy with history of chronic hepatic encephalopathy on lactulose and rifaximin 09/01: Patient is confused and disoriented, incoherent his speech and incomprehensible: Continue lactulose and Xifaxan. 09/02: Patient is confused and disoriented. Continue lactulose and Xifaxan. 09/03: Patient is more awake today. He is eating breakfast. Continue lactulose and Xifaxan. -09/05: Awaiting hospice 4. Hepatocellular carcinoma -CT of the abdomen pelvis from August 2023 shows a heterogeneous and cirrhotic appearing liver with multiple cystic and solid enhancing masses, 3.3 cm mass in the right hepatic lobe that has enlarged since previous imaging and increasing necrotic appearance of larger masses in the right lobe of the liver -Alpha-fetoprotein is markedly elevated at 10,931--> Dr. Ramon discussed with family and plan is for hospice Portal vein thrombosis 08/30: Discussed with the social sciences chair and case management director. precision printing worker Karen said that patient family wanted different hospice who saw yesterday therefore referral to another hospice was made. They wanted different hospice was closer to patient's family home address. Patient remained good candidate for GIP. 1/10: 08/31: 08/31: Patient's family working with the hospice nurse. Logistics has to be worked about before transport to inpatient hospice unit. 09/01: Patient's mother asked about the liver cancer going to kidneys. Previous CT scan and ultrasound reviewed in our system from 2022. It seems patient has left kidney complex cystic lesion with nodular and thin central calcification left kidney seems stable. Unclear to say whether it is metastatic or unrelated. Anyways, it does not change patient's management plan as patient has cirrhotic liver with varices, trace ascites. It also has portal vein thrombosis at junction of left and main portal vein. Chronic edema inflammation of distal esophagus and proximal colon. 09/02: Waiting for the bed for hospice near [place]. Prognosis already discussed with the patient multiple times with patient brother and his mother. 09/03: Still awaiting for transfer to hospice [facility]. 09/04: Coarse crepitation and lungs. Patient not on IV fluid. DNR CC hospice care. Waiting for bed near [place]. -09/05: Awaiting hospice DNR CC. Capacity Legal Nutrition Therapist Reflex Medical hold order details:: IF a medical hold is selected below, a suggested order for a MEDICAL HOLD will reflex upon signing the document. Next of kin: [place] law dictates a PRIORITY LIST for identifying legal decision-maker/legal next of kin in the following order (LNOK): 1st: The patient?s legal guardian, if any 2nd: The patient's spouse (if status is questionable, consult Risk Management) 3rd: The patient?s adult child(thomas) (majority, if multiple children) 4th: The patient?s parents 5th: The patient?s adult siblings (majority, if multiple children siblings)
[2023-09-05 20:52] VITALS: BP 124/67; PULSE 77; RESP 16; TEMP 36.8; O2SAT 97
[2023-09-05 22:00] VITALS: O2SAT 97
[2023-09-06] MEDS: HYDROmorphone 1 MG/ML Syringe IV ×4 (01:14→19:16)
[2023-09-06] MEDS: 0.9% Saline Lock 10 ML Syringe IV ×4 (01:15→19:16)
[2023-09-06 02:52] VITALS: BP 128/91; PULSE 86; RESP 16; TEMP 36.7; O2SAT 97
[2023-09-06] MEDS: Lactulose 20 GM/30 ML UDC PO ×2 (04:25→14:31)
[2023-09-06 08:07] VITALS: O2SAT 96
[2023-09-06 08:35] VITALS: BP 138/80; PULSE 77; RESP 14; TEMP 36.7; O2SAT 97
--- NOTE | 2023-09-06 08:52 | CASEMGMT ---
Addendum entered by Winter Hong 09/06/23 12:54: Social Work SW called Naz[facility] in [place] at [facility] [employer], he states is working on pt's case at present and will be ruled out, pt can go to SNF today. SW checked the [employer] system a short time later, and pt was ruled out, can go today. SW let physician know, pt will go to SNF today on hospice. ALICE Doss Original Note: Social Work SW checked the [employer] system, the further review is still pending in the system. SIL called [employer] in [place], message left for Sharmin Seo. SIL will continue to follow, waiting for further review results in order to send pt to SNF on hospice. ALICE Doss
[2023-09-06 09:00] VITALS: BP 144/98; PULSE 70; RESP 18; TEMP 37.1; O2SAT 98
[2023-09-06] MEDS: Thiamine Hydrochloride 100 MG Tablet PO (10:37)
[2023-09-06] MEDS: guaiFENesin/D-Methorphan TAB.SR.12H 2 TABLET PO (10:37)
[2023-09-06] MEDS: rifAXIMin 550 MG Tablet PO (10:38)
[2023-09-06] MEDS: Pantoprazole Sodium 40 MG in 0.9% Normal Saline (100mL MB+) 100 ML 330 MG IV (10:42)
[2023-09-06 12:00] VITALS: BP 134/74; PULSE 70; RESP 16; TEMP 36.3; O2SAT 99
--- NOTE | 2023-09-06 14:43 | PCM.TXEXTCAR ---
Diet Diet Order/Speech Therapy: 08/30/23 01:14 Diet: Regular - General Food consistency:: Easy to Chew Type of Dietary Supplement:: Ensure Clear Is pt able to select menu?: No Diet Comments: 8 oz tid w/ meals Routine Orders/Code Status Suppository Type: Dulcolax 10mg Suppository Frequency: Daily PRN Code Status: DNRCC Wound(s) rt upper quad: Wound Type: Puncture Therapies Physical Therapy: Eval and Treat Occupational Therapy: Eval and Treat Problem/Diagnosis (1) Liver masses: Status: Acute Code(s): R16.0 - Hepatomegaly, not elsewhere classified (2) Portal vein thrombosis: Status: Acute Code(s): I81 - Portal vein thrombosis (3) Acute upper gastrointestinal hemorrhage: Status: Acute Code(s): K92.2 - Gastrointestinal hemorrhage, unspecified (4) ABLA (acute blood loss anemia): Status: Acute Code(s): D62 - Acute posthemorrhagic anemia (5) Alcoholic cirrhosis of liver: Status: Acute Code(s): K70.30 - Alcoholic cirrhosis of liver without ascites (6) Hypernatremia: Status: Acute Code(s): E87.0 - Hyperosmolality and hypernatremia (7) Encephalopathy acute: Status: Acute Code(s): G93.40 - Encephalopathy, unspecified (8) Esophageal varices with bleeding: Status: Acute Code(s): I85.01 - Esophageal varices with bleeding Plan #Upper GI bleed secondary to bleeding esophageal varices #Acute on chronic anemia due to upper GI blood loss: #Acute hepatic encephalopathy with history of chronic hepatic encephalopathy on lactulose and rifaximin #Suspected Hepatocellular carcinoma w/ AFP >10,000 and liver masses #portal vein thrombosis #Hypernatremia/hyperchloremia #Cirrhosis secondary to history of alcohol abuse #Chronic diastolic heart failure #Mild to moderate aortic stenosis #MIKAL- resolved #History of hypertension #History of alcohol abuse #Tobacco abuse 63-year-old male with a history of cirrhosis was found to have masses in his liver in October. Never followed up as an outpatient as instructed with oncology or gastroenterology. Came in with acute mental status change and was found lying in a sleeping bag in his apartment with bloody vomitus urine and feces surrounding him. EGD performed and he has severe esophageal varices. Liver biopsy from performed and path with atypical hepatocellular proliferation in the background of cirrhosis, cannot exclude well differentiated HCC with current sample and recommended rebiopsy based on clinical concern however his alpha-fetoprotein is greater than 10,000 indicating hepatocellular carcinoma. Hospice discussion had with family and ultimately plan was for SNF with hospice, patient made DNR CC. Patient accepted for hospice and discharged 09/06/2023. Allergies/Procedures Done in Hospital Allergies morphine Allergy (Verified 08/23/23 12:22) Unknown Type of Care/Length of Stay Estimated LOS: More Than 30 Days Type of Care Needed: Intermediate Rehab Potential: Poor Prognosis: Poor Additional Orders/Day of Discharge Additional Orders: Hospice to admit at admission to Day of Discharge: 09/06/23 Dietary and Speech Recommendations Dietitian Recommendations/Changes: Continue Regular diet with texture/consistency per TURPENTINE DISTILLER or MD to optimize oral intakes. Continue ensure clear tid w/ meals to supplement diet if pt is accepting. Discharge Plan Admission Admit Date/Time: 08/23/23 14:14 Primary Reason for Your Visit: AMS, blood in vomit Attending Provider: Jessica Franks Primary Care Provider: Jose Alex Consulting Providers: Jessica Franks; Kenney Jurado; Luisa Dickinson; Lashon Linares; Kady Knowles NP; Carolyn Peña; Sheldon Ramon; Emanuel Augustin Instructions Patient Instructions: Hospice Managing Pain Discharge Orders/Prescriptions Prescriptions: New oxycodone 5 mg Tablet 2.5 mg PO Q4H PRN PRN (Reason: Pain Score 4-10) 3 Days Qty: 20 0RF Continued pantoprazole 40 mg Tablet,Delayed Release (Dr/Ec) 40 mg PO BID Qty: 0 0RF Rx Instructions: 40 mg twice daily for 8-week and then once daily Xifaxan 550 mg Tablet 550 mg PO BID Qty: 0 0RF lactulose 20 gram/30 mL Solution 20 g PO Q6H 30 Days Qty: 2880 0RF Rx Instructions: Goal to have 2-3 soft bowel movements per day Discontinued thiamine HCl (vitamin B1) [Vitamin B-1] 100 mg Tablet 100 mg PO BREAKFAST Qty: 0 0RF folic acid 1 mg Tablet 1 mg PO BREAKFAST Qty: 0 0RF levofloxacin 500 mg Tablet 500 mg PO DAILY@0600 3 Days Qty: 3 0RF spironolactone 25 mg Tablet 25 mg PO DAILY 30 Days Qty: 30 0RF furosemide 40 mg Tablet 20 mg PO DAILY 30 Days Qty: 15 0RF nadolol 20 mg Tablet 20 mg PO DAILY 30 Days Qty: 0 0RF Referrals / Follow Up: Jose Alex MD [Primary Care Provider] - Within 1 Week Disposition Disposition (needs filled in before D/C Order can be placed): Hospice in Medical Facility
--- NOTE | 2023-09-06 15:05 | DS.PCM_ITS ---
Providers Date of Admission: 08/23/23 Date of Discharge: 09/06/23 Primary Care Physician: Dr. Jose Alex MD Consultations 08/23/23 15:24 Consult: Gastroenterology Routine Consulting Provider: Sheldon Ramon Reason for Consult: Concern for variceal UGIB EMERGENT Consult: No Notified: Yes Date Notified: 08/23/23 Time Notified: 14:17 Method of Notification: ED Physician Initiated Consult: Preparer Making Department / Pulmonary Medicine Routine Consulting Provider: Pulmonary Medicine [facility] Reason for Consult: GIB, Encephalopathy, ICU admit EMERGENT Consult: No Notified: Yes Date Notified: 08/23/23 Time Notified: 14:17 Method of Notification: Verbal 08/27/23 10:56 Consult: Hospice / Palliative Care Routine Consulting Provider: [facility] Reason for Consult: probable liver CA EMERGENT Consult: No Notified: Yes Date Notified: 08/27/23 Time Notified: 11:18 Method of Notification: Answering Service Reason For Visit: ABLA, UGIB, ENCEPHALOPATHY Diagnosis Discharge Diagnosis (1) Liver masses: Status: Acute Code(s): R16.0 - Hepatomegaly, not elsewhere classified (2) Portal vein thrombosis: Status: Acute Code(s): I81 - Portal vein thrombosis (3) Acute upper gastrointestinal hemorrhage: Status: Acute Code(s): K92.2 - Gastrointestinal hemorrhage, unspecified (4) ABLA (acute blood loss anemia): Status: Acute Code(s): D62 - Acute posthemorrhagic anemia (5) Alcoholic cirrhosis of liver: Status: Acute Code(s): K70.30 - Alcoholic cirrhosis of liver without ascites (6) Hypernatremia: Status: Acute Code(s): E87.0 - Hyperosmolality and hypernatremia (7) Encephalopathy acute: Status: Acute Code(s): G93.40 - Encephalopathy, unspecified (8) Esophageal varices with bleeding: Status: Acute Code(s): I85.01 - Esophageal varices with bleeding Plan #Upper GI bleed secondary to bleeding esophageal varices #Acute on chronic anemia due to upper GI blood loss: #Acute hepatic encephalopathy with history of chronic hepatic encephalopathy on lactulose and rifaximin #Suspected Hepatocellular carcinoma w/ AFP >10,000 and liver masses #portal vein thrombosis #Hypernatremia/hyperchloremia #Cirrhosis secondary to history of alcohol abuse #Chronic diastolic heart failure #Mild to moderate aortic stenosis #MIKAL- resolved #History of hypertension #History of alcohol abuse #Tobacco abuse Medications at Discharge Home Medications pantoprazole 40 mg tablet,delayed release 40 mg PO BID #0 tabs 09/18/22 rifaximin 550 mg tablet (Xifaxan) 550 mg PO BID #0 tabs 09/18/22 lactulose 20 gram/30 mL oral solution 20 g (30 mL) PO Q6H 30 days #2,880 mL 11/19/22 oxycodone 5 mg tablet 2.5 mg (1/2 x 5 mg) PO Q4H PRN PRN Pain Score 4-10 3 days #20 tabs 09/06/23 Hospital Course Summary of Care Provided Minutes Spent on Discharge: 32 Hospital Course: 63-year-old male with a history of cirrhosis was found to have masses in his liver in October. Never followed up as an outpatient as instructed with oncology or gastroenterology. Came in with acute mental status change and was found lying in a sleeping bag in his apartment with bloody vomitus urine and feces surrounding him. EGD performed and he has severe esophageal varices. Liver biopsy from performed and path with atypical hepatocellular proliferation in the background of cirrhosis, cannot exclude well differentiated HCC with current sample and recommended rebiopsy based on clinical concern however his alpha- fetoprotein is greater than 10,000 indicating hepatocellular carcinoma. Hospice discussion had with family and ultimately plan was for SNF with hospice, patient made DNR CC. Patient accepted for hospice and discharged 09/06/2023. Physical Exam Narrative General: Sitting up, awake, answering questions HEENT: Atraumatic, normocephalic Eyes: extraocular movements grossly intact Neck: Supple Respiratory: normal respiratory effort Cardiovascular: no edema appreciated GI: Having abdominal pain Extremities: Moving all extremities Neuro: Somewhat slurred speech but answers most questions appropriately Psych: Overall cooperative Weight / BMI Weight Weight: 86.1 kg Body Mass Index (BMI) 27.1 ABG / Lab / Microbiology Data 08/31/23 11:13 08/31/23 11:13 Microbiology: Microbiology 08/23/23 12:35 Blood Culture (Wb) - Anticubital Right Blood Culture - Final No growth in 5 days. 08/23/23 12:45 Blood Culture (Wb) - Left Hand Blood Culture - Final No growth in 5 days. 08/23/23 14:30 Urine, Midstream Urine Culture - Preliminary Escherichia coli Enterococcus faecalis 08/23/23 13:10 Mucosa - Nose Influenza & RSV (PCR) - Final 08/23/23 13:05 Stool Stool Occult Blood (ABRAHAM) - Final D/C Instructions Discharge Diet: No restrictions Meaningful Use Info Meaningful Use Diagnoses (Choose all that apply): None applicable Discharge Plan Admission Admit Date/Time: 08/23/23 14:14 Primary Reason for Your Visit: AMS, blood in vomit Attending Provider: Jessica Franks Primary Care Provider: Jose Alex Consulting Providers: Jessica Franks; Kenney Jurado; Luisa Dickinson; Lashon Linares; Kady Knowles NP; Carolyn Peña; Sheldon Ramon; Emanuel Augustin Instructions Patient Instructions: Hospice Managing Pain Discharge Orders/Prescriptions Prescriptions: New oxycodone 5 mg Tablet 2.5 mg PO Q4H PRN PRN (Reason: Pain Score 4-10) 3 Days Qty: 20 0RF Continued pantoprazole 40 mg Tablet,Delayed Release (Dr/Ec) 40 mg PO BID Qty: 0 0RF Rx Instructions: 40 mg twice daily for 8-week and then once daily Xifaxan 550 mg Tablet 550 mg PO BID Qty: 0 0RF lactulose 20 gram/30 mL Solution 20 g PO Q6H 30 Days Qty: 2880 0RF Rx Instructions: Goal to have 2-3 soft bowel movements per day Discontinued thiamine HCl (vitamin B1) [Vitamin B-1] 100 mg Tablet 100 mg PO BREAKFAST Qty: 0 0RF folic acid 1 mg Tablet 1 mg PO BREAKFAST Qty: 0 0RF levofloxacin 500 mg Tablet 500 mg PO DAILY@0600 3 Days Qty: 3 0RF spironolactone 25 mg Tablet 25 mg PO DAILY 30 Days Qty: 30 0RF furosemide 40 mg Tablet 20 mg PO DAILY 30 Days Qty: 15 0RF nadolol 20 mg Tablet 20 mg PO DAILY 30 Days Qty: 0 0RF Referrals / Follow Up: Jose Alex MD [Primary Care Provider] - Within 1 Week Disposition Disposition (needs filled in before D/C Order can be placed): Hospice in Medical Facility Charges/Coding Visit Charges Inpatient E&M: 85562 Disch Hosp >30min
--- NOTE | 2023-09-06 15:39 | PHA.DC.MR.R ---
Pharmacy IN Med Reconciliation Pharmacy Service has performed discharge medication reconciliation for this patient. The patient's discharge medication list was reviewed for discrepancies and discrepancies were resolved. Medications at Discharge Home Medications pantoprazole 40 mg tablet,delayed release 40 mg PO BID #0 tabs 09/18/22 rifaximin 550 mg tablet (Xifaxan) 550 mg PO BID #0 tabs 09/18/22 lactulose 20 gram/30 mL oral solution 20 g (30 mL) PO Q6H 30 days #2,880 mL 11/19/22 oxycodone 5 mg tablet 2.5 mg (1/2 x 5 mg) PO Q4H PRN PRN Pain Score 4-10 3 days #20 tabs 09/06/23
--- NOTE | 2023-09-06 15:53 | CASEMGMT ---
Social Work Level II determination received, pt ruled out. Pt can go to [place] today. D/C nurse discharge planner Tess set up discharge, pt leaving at 6pm. SIL called pt's mother Kimberli and let her know pt is going over today at 6pm to [facility] [place] [facility]. She is agreeable. SIL also left a message for pt's director of casework with [facility], Sophia Mcclellan, letting her know pt [facility] w[facility]. No further needs anticipated. ALICE Doss
--- NOTE | 2023-09-06 16:09 | CASEMGMT ---
Discharge Planning Discharge orders, signed med list, and transport time sent to [facility] and [facility]. [facility] will transport patient by cot at 6p. Nursing and SW updated. Tess Henning, Discharge Planning Asst.
[2023-09-06 17:39] VITALS: BP 156/63; PULSE 88; RESP 18; TEMP 37.1; O2SAT 100
== END 2023-09-06 19:19 | disposition hospice, inpatient (51) | DRG 368 ==
LOC: ED 14:01 → ICU 14:16 → MS3 08-28 16:41
PROVIDERS: Internal Medicine; Internal Medicine Gastroenterology; Admitting Provider Internal Medicine; Emergency Provider Emergency Medicine; PCP Family Medicine; Visit Provider Internal Medicine
PROC: 0DJ08ZZ Inspection of Upper Intestinal Tract, Via Natural or Artificial Opening Endoscopic (ICD-10-PCS; CPT 43235; principal; 2023-08-24 11:25)
DX: I85.01 Esophageal varices with bleeding (principal); I81 Portal vein thrombosis; G92.8 Other toxic encephalopathy; G93.41 Metabolic encephalopathy; K76.6 Portal hypertension; C22.0 Liver cell carcinoma; I50.32 Chronic diastolic (congestive) heart failure; N17.9 Acute kidney failure, unspecified; D62 Acute posthemorrhagic anemia; E87.0 Hyperosmolality and hypernatremia; K22.10 Ulcer of esophagus without bleeding; E87.20 Acidosis, unspecified; I11.0 Hypertensive heart disease with heart failure; K70.30 Alcoholic cirrhosis of liver without ascites; K76.82 Hepatic encephalopathy; I35.0 Nonrheumatic aortic (valve) stenosis; K80.20 Calculus of gallbladder without cholecystitis without obstruction; F17.210 Nicotine dependence, cigarettes, uncomplicated; E87.8 Other disorders of electrolyte and fluid balance, not elsewhere classified; Z66 Do not resuscitate; N28.1 Cyst of kidney, acquired; B95.2 Enterococcus as the cause of diseases classified elsewhere; Z51.5 Encounter for palliative care; R16.0 Hepatomegaly, not elsewhere classified
CPT/HCPCS: 36415; 70450; 71045; 74018; 74177; 77012; 80048; 80053; 80307; 80320; 81001; 82105; 82140; 82274; 82330; 82378; 82550; 82803; 82962; 83605; 83690; 83735; 84100; 84443; 84484; 85018; 85025; 85027; 85610; 85730; 86301; 86850; 86900; 86901; 86920; 86922; 87040; 87077; 87086; 87088; 87186; 87631; 88172; 88305; 88307; 88313; 88325; 93005; 94762; 97802; 97803; 99156; 99157; 99285; J7030; J7040; J7050; P9016; Q9967; A4216; G0480; J2405; J3490